=== PATIENT | female | born 1995 | race Two or more races ===

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

== ENCOUNTER 2017-01-06 09:45 | Outpatient (CLI) | payer OTHER ==
[2017-01-06] MEDS ORDERED: IOPAMIDOL-300 50 ML VIAL PO ONE (10:19)
[2017-01-06] MEDS ORDERED: IOPAMIDOL-300 100 ML VIAL IVP ONE (11:39)
--- NOTE | 2017-01-06 15:05 | CT Report ---
CT ABDOMEN AND PELVIS WITH CONTRAST: 01/06/2017 CLINICAL INDICATION: Bloating, pain. TECHNIQUE: Axial CT images of the abdomen and pelvis were obtained with 100 mL Isovue-300 intravenou sly as well as oral contrast. COMPARISON: 05/08/2014 FINDINGS: Limited evaluation of the lung bases is unremarkable. ABDOMEN: The liver, spleen, pancreas, kidneys and adrenal glands are unremarkable. The gallbladder is not dilated. No bowel dilatation, free gas, or free fluid is present. No abdominal adenopathy is seen. PELVIS: The appendix is seen in the right lower quadrant, and is normal in caliber. An IUD is incid entally noted in the endometrial canal. No pelvic adenopathy or free fluid is present. Osseous structures are unremarkable. IMPRESSION: NORMAL CT OF THE ABDOMEN AND PELVIS WITH CONTRAST. NO EVIDENCE OF ETIOLOGY FOR PATIENT' S PAIN AND BLOATING. In accordance with CT protocol optimization, one or more of the following dose reduction techniques w ere utilized for this exam: automated exposure control, adjustment of mA and/or KV based on patient size, or use of iterative reconstructive technique. JOB #: [id number] EXT JOB #:[id number]
== END 2017-01-06 09:46 | disposition home or self-care (01) ==
LOC: DI 09:45
PROVIDERS: ATTEND Physician Assistant Medical
DX: R14.0 Abdominal distension (gaseous) (principal); R10.12 Left upper quadrant pain
CPT/HCPCS: 74177; Q9967

== ENCOUNTER 2017-04-01 12:37 | Outpatient (CLI) | payer OTHER ==
[~2017-04-01 12:37] MED LIST: GADOBUTROL 15 MMOL/15 ML VIAL ONE
[2017-04-01] MEDS ORDERED: GADOBUTROL 15 MMOL/15 ML VIAL IVP ONE (13:36)
--- NOTE | 2017-04-04 08:57 | MRI Report ---
EXAM: MRI BRAIN WITHOUT AND WITH CONTRAST EXAM DATE: 04/01/2017 01:47 PM. CLINICAL HISTORY: Headache. History of concussion. Abnormal brain MRI. COMPARISON: MRI brain 06/21/2012. TECHNIQUE: Multiplanar, multisequence T1-weighted and fluid-sensitive MR sequences of the brain were performed. Sequences optimized for routine evaluation. Other: None. IV Contrast: 12 cc Gadavist. 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 The right cerebellar tonsil is not significantly beaked or dysplastic in appearance. No cerebellar tonsillar ectopia is present on the left. No restricted diffusion signal or magnetic susceptibility is identified in the brain parenchyma. Ventricles and sulci are within normal limits. No abnormal T2 or FLAIR hyperintense signal is present within the brain parenchyma. No extra-axial fl uid collection is present. Expected flow voids are seen in the major intracranial vessels at the skull base. No abnormal T1 shortening or enhancing mass is present in the brain parenchyma. No mass is present in either Meckel's cave. Cavernous sinuses enhance in symmetric fashion. No orbital mass is present. In the posterior aspect of the sella turcica there is a 6 x 4 x 5 mm craniocaudal by anterior posteri or by transverse nonenhancing focus which has been signal characteristics similar to CSF. This is michelle tered to the right of midline. A similar finding is seen on the comparison MRI. The pituitary stalk i s midline. Expected enhancement is seen in the major dural venous sinuses. Lymph nodes in the upper neck bilaterally might well be reactive in nature. Mastoid air cells are well-aerated. No air-fluid levels are seen in the visualized paranasal sinuses IMPRESSION: 1.Stable MRI of the brain. 2. 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 3. Redemonstrated is a small cystic focus in the sella turcica. This could reflect a pars intermedius cyst or an off midline Rathke's cleft cyst. The appearance is not typical of a pituitary microadenom a. 4. In reference to the history of prior concussion, no abnormal magnetic susceptibility is seen in th e brain parenchyma to suggest prior hemorrhagic contusions. [facility] Referring Provider Line: [phone] SITE ID: [id number]
== END 2017-04-01 12:38 | disposition home or self-care (01) ==
LOC: DI 12:37
PROVIDERS: ATTEND Physician Assistant Medical
DX: R51 Headache (principal); R90.89 Other abnormal findings on diagnostic imaging of central nervous system
CPT/HCPCS: 70553; A9585

== ENCOUNTER 2017-04-23 11:52 | Emergency (ER) | payer OTHER ==
[2017-04-23 12:02] VITALS: BP 114/72
[2017-04-23 12:35] LABS: RAPID STREP SCREEN REAGENT QC YELLOW (YELLOW)
[2017-04-23] MEDS ORDERED: DEXAMETHASONE 10 MG/ML VIAL PO STA (12:51)
--- NOTE | 2017-04-23 12:53 | ED Physician Documentation ---
PD HPI HEENT - Stated complaint Stated Complaint: THROAT PX - Chief complaint Chief Complaint: Heent - History obtained from History obtained from: Patient - History of Present Illness Timing - onset: How many days ago (2) Timing - duration: Days (2) Timing - details: Gradual onset, Still present Location: Right ear, Left ear, Throat Improves: Medication Worsens: Swalllowing Associated symptoms: Congestion, Rhinorrhea, Swollen nodes, Headache, Cough Similar symptoms before: Diagnosis (OM) Recently seen: Not recently seen - Additional information Additional information: 21-year-old female comes back into the emergency department again today with a sore throat and pain in both of her ears. She has had this previously about 1 month ago was treated here in the emergency department with dexamethasone and a azithromycin. She was Initially better and then did not improve. She was reexamined and did not have inflammation present.She has had persistent headache on the left side. Review of Systems Constitutional: reports: Fatigue. denies: Fever Eyes: denies: Decreased vision Ears: reports: Ear pain Nose: reports: Rhinorrhea / runny nose, Congestion Throat: reports: Sore throat Cardiac: denies: Chest pain / pressure, Palpitations Respiratory: reports: Cough. denies: Dyspnea GI: reports: Nausea. 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 : None HEENT: None Psych: None Musculoskeletal: Other Derm: None - Past Surgical History Past Surgical History: No - Present Medications Home Medications: Ambulatory Orders Medication Instructions Recorded Confirmed Amox/Clav 875/125 [Augmentin] 1 each PO Q12H #20 tablet 04/23/17 - Allergies Allergies/Adverse Reactions: Allergies Allergy/AdvReac Type Severity Reaction Status Date / Time No Known Drug Allergies Allergy Verified 04/23/17 12:02 - Social History Does the pt smoke?: No Smoking Status: Never smoker Does the pt drink ETOH?: No Does the pt have substance abuse?: No - Immunizations Immunizations are current?: Yes - POLST Patient has POLST: No PD ED PE NORMAL - Vitals Vital signs reviewed: Yes (Normal) - General General: Alert and oriented X 3, No acute distress, Well developed/nourished - HEENT HEENT: Atraumatic, PERRL, EOMI, Other (The left TM is markedly inflamed with some flattening of landmarks the right TM is mildly inflamed. The pharynx shows erythema along the anterior tonsillar pillars bilaterally.) - Neck Neck: Supple, no meningeal sign, No bony TTP, Other (Tender submandibular adenopathy) - Cardiac Cardiac: RRR, No murmur - Respiratory Respiratory: No respiratory distress, Clear bilaterally - Abdomen Abdomen: Soft, Non tender - Derm Derm: Normal color, Warm and dry, No rash - Extremities Extremities: No deformity, No edema - Neuro Neuro: No motor deficit, No sensory deficit Eye Opening: Spontaneous Motor: Obeys Commands Verbal: Oriented GCS Score: 15 - Psych Psych: Normal mood, Normal affect Results - Vitals Vitals: Vital Signs - 24 hr 04/23/17 12:00 Temperature 36.2 C L Heart Rate 60 Respiratory 18 Rate Blood Pressure 114/72 O2 Saturation 100 Oxygen O2 Source Room air - Labs Labs: Laboratory Tests 04/23/17 12:01 Group A Strep Rapid Negative PD MEDICAL DECISION MAKING - ED course Complexity details: reviewed old records, reviewed results, re-evaluated patient , considered differential, d/w patient ED course: 21-year-old female is again here with sore throat and ear pain. She does today have more information on the left than the right and this is opposite what she had previously she does have inflammation along the tonsillar pillars bilaterally as well. She is administered dexamethasone orally and we will place her on some Augmentin this time. Departure - Departure Disposition: 01 Home, Self Care Clinical Impression: Otitis media Qualifiers: Otitis media type: suppurative Chronicity: acute Laterality: bilateral Recurrence: recurrent Spontaneous tympanic membrane rupture: without spontaneous rupture Qualified Code(s): H66.006 - Acute suppurative otitis media without spontaneous rupture of ear drum, recurrent, bilateral Condition: Stable Instructions: ED Otitis Media Acute Adult Follow-Up: Armida Herrera PA-C [Primary Care Provider] - Prescriptions: Amox/Clav 875/125 [Augmentin] 1 each PO Q12H #20 tablet
== END 2017-04-23 13:01 | disposition home or self-care (01) ==
LOC: ED 11:52
DX: H66.003 Acute suppurative otitis media without spontaneous rupture of ear drum, bilateral (principal)
CPT/HCPCS: 87070; 87430; 99283

== ENCOUNTER 2017-04-24 02:08 | Emergency (ER) | payer OTHER ==
--- NOTE | 2017-04-24 02:14 | ED Physician Documentation ---
History of Present Illness - Stated complaint Stated Complaint: URINARY FREQUENCY,PAIN - History obtained from History obtained from: Patient - History of Present Illness Timing: Today Pain level max: 0 Pain level now: 0 Improved by: urinating Worsened by: nothing - Additonal information Additional information: Patient is a 21-year-old female that was seen here yesterday and diagnosed with acute otitis media. She has not started her antibiotics yet. She felt like she was having urinary frequency today. No dysuria. No fevers. No vomiting. No abdominal pain. No back pain. Pt is not or breast feeding. Review of Systems Constitutional: denies: Fever, Chills GI: denies: Nausea, Vomiting, Diarrhea : reports: Frequency. 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: No - Immunizations Immunizations are current?: Yes - POLST Patient has POLST: No PD ED PE NORMAL - Vitals Vital signs reviewed: Yes - General General: Alert and oriented X 3, No acute distress, Well developed/nourished - HEENT HEENT: PERRL, Ears normal, Moist mucous membranes, Pharynx benign - Neck Neck: Supple, no meningeal sign - Cardiac Cardiac: RRR, Strong equal pulses - Respiratory Respiratory: No respiratory distress, Clear bilaterally - Abdomen Abdomen: Soft, Non tender, Non distended - Back Back: No CVA TTP, No spinal TTP - Derm Derm: Warm and dry - Neuro Neuro: Alert and oriented X 3 - Psych Psych: Normal mood, Normal affect Results - Vitals Vitals: Vital Signs - 24 hr 04/24/17 04/24/17 02:12 02:51 Temperature 36.5 C Heart Rate 122 H 71 Respiratory 18 18 Rate Blood Pressure 160/91 H 133/72 H O2 Saturation 100 98 Oxygen O2 Source Room air - Labs Labs: Laboratory Tests 04/24/17 02:10 Urine Color YELLOW Urine Clarity CLEAR Urine pH 7.5 Ur Specific [place] 1.020 Urine Protein NEGATIVE Urine Glucose (UA) NEGATIVE Urine Ketones NEGATIVE Urine Occult Blood NEGATIVE Urine Nitrite NEGATIVE Urine Bilirubin NEGATIVE Urine Urobilinogen 0.2 (NORMAL) Ur Leukocyte Esterase NEGATIVE Ur Microscopic Review NOT INDICATED Urine Culture Comments NOT INDICATED Urine HCG, Qual NEGATIVE PD MEDICAL DECISION MAKING - ED course Complexity details: reviewed old records, reviewed results, re-evaluated patient , considered differential, d/w patient ED course: Patient is a 21-year-old female who presents to the emergency department with urinary frequency, but no dysuria. Unclear etiology. No vaginal bleeding or discharge. Declines a pelvic. Feels better after Pyridium. Will trial on Pyridium for home. We will have her follow-up with her doctor for further evaluation and care. Patient counseled regarding signs and symptoms for which I believe and urgent re-evaluation would be necessary. Patient with good understanding of and agreement to plan and is comfortable going home at this time This document was made in part using voice recognition software. While efforts are made to proofread this document, sound alike and grammatical errors may occur. Departure - Departure Disposition: 01 Home, Self Care Clinical Impression: Urinary frequency Condition: Good Instructions: ED Dysuria Uncertain Cause Follow-Up: Armida Herrera PA-C [Primary Care Provider] - Within 1 week Prescriptions: Phenazopyridine HCl [Pyridium] 200 mg PO TID PRN #6 tablet PRN Reason: dysuria Comments: Fill your antibiotics from your prior visit as previously prescribed. Return if you worsen. Discharge Date/Time: 04/24/17 02:55
[2017-04-24] MEDS ORDERED: PHENAZOPYRIDINE 100 MG TABLET PO STA (02:24)
[2017-04-24 02:26] LABS: BILIRUBIN,URINE NEGATIVE (NEGATIVE); PH,URINE 7.5 PH (5.0-7.5)
[2017-04-24 02:30] LABS: HCG UR QUAL NEGATIVE; UA CHARGE (STRIP ONLY) YES; UR CULTURE IF IND NOT INDICATED
[2017-04-24 02:51] VITALS: BP 133/72
== END 2017-04-24 02:55 | disposition home or self-care (01) ==
LOC: ED 02:08
DX: R35.0 Frequency of micturition (principal)
CPT/HCPCS: 81003; 81025; 99283; A9270; 81001; 87086

== ENCOUNTER 2017-04-26 19:00 | Emergency (ER) | payer OTHER ==
[2017-04-26 21:40] LABS: BILIRUBIN,URINE NEGATIVE (NEGATIVE); GLUCOSE, URINE (UA) NEGATIVE (NEGATIVE); KETONES,URINE (UA) NEGATIVE (NEGATIVE); LEUKOCYTE ESTERASE, URINE NEGATIVE (NEGATIVE); NITRITE,URINE NEGATIVE (NEGATIVE); OCCULT BLOOD,URINE NEGATIVE (NEGATIVE); PROTEIN,URINE NEGATIVE (NEGATIVE); UROBILINOGEN,URINE 0.2 (NORMAL) E.U./dL (NORMAL)
[2017-04-26 21:44] LABS: HCG UR QUAL NEGATIVE
[2017-04-26 21:45] LABS: CLARITY,URINE CLEAR (CLEAR)
--- NOTE | 2017-04-26 22:17 | ED Physician Documentation ---
History of Present Illness - Stated complaint Stated Complaint: SIDE/BACK PX - Chief complaint Chief Complaint: Back Pain - History obtained from History obtained from: Patient (pt is here for left sided flank pain and frequent urination. she was seen here a couple days ago for the same thing.) Review of Systems Constitutional: denies: Fever, Chills Cardiac: denies: Chest pain / pressure, Palpitations Respiratory: denies: Cough GI: denies: Abdominal Pain, Nausea, Vomiting, Constipation, Diarrhea : reports: Frequency. 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 : None HEENT: None Psych: None Musculoskeletal: Other Derm: None - Past Surgical History Past Surgical History: No - Present Medications Home Medications: Ambulatory Orders Medication Instructions Recorded Confirmed Ondansetron Odt [Zofran Odt] 4 mg TL Q6H PRN #10 tablet 04/26/17 - Allergies Allergies/Adverse Reactions: Allergies Allergy/AdvReac Type Severity Reaction Status Date / Time No Known Drug Allergies Allergy Verified 04/23/17 12:02 - Social History Does the pt smoke?: No Smoking Status: Never smoker Does the pt drink ETOH?: No Does the pt have substance abuse?: No - Immunizations Immunizations are current?: Yes - POLST Patient has POLST: No Results - Vitals Vitals: Vital Signs - 24 hr 04/26/17 19:02 Temperature 36.0 C L Heart Rate 73 Respiratory 18 Rate Blood Pressure 127/83 H O2 Saturation 100 Oxygen O2 Source Room air - Labs Labs: Laboratory Tests 04/26/17 04/26/17 21:27 21:27 Urine Color YELLOW Urine Clarity CLEAR Urine pH 6.0 Ur Specific [place] 1.025 1.025 Urine Protein NEGATIVE Urine Glucose (UA) NEGATIVE Urine Ketones NEGATIVE Urine Occult Blood NEGATIVE Urine Nitrite NEGATIVE Urine Bilirubin NEGATIVE Urine Urobilinogen 0.2 (NORMAL) Ur Leukocyte Esterase NEGATIVE Ur Microscopic Review NOT INDICATED Urine Culture Comments NOT INDICATED Urine HCG, Qual NEGATIVE PD MEDICAL DECISION MAKING - ED course Complexity details: reviewed results, re-evaluated patient, considered differential, d/w patient ED course: UA neg for UTI or pyelo, hx and PE not C/W renal stone. unsure as to the etiology of her urinary frequency. discussed with the patient. she was given return precautions. Departure - Departure Disposition: 01 Home, Self Care Clinical Impression: Back pain, Urinary frequency Condition: Good Instructions: ED Flank Pain Uncertain Cause Follow-Up: primary, care provider [Other] Prescriptions: Ondansetron Odt [Zofran Odt] 4 mg TL Q6H PRN #10 tablet PRN Reason: Nausea / Vomiting Comments: Follow up with your primary care provider. Return to the ER for any new or worsening symptoms.
[2017-04-26 22:35] VITALS: BP 115/73
== END 2017-04-26 22:38 | disposition home or self-care (01) ==
LOC: ED 19:00
DX: M54.9 Dorsalgia, unspecified (principal); R35.0 Frequency of micturition
CPT/HCPCS: 81001; 81003; 81025; 87086; 99283

== ENCOUNTER 2017-05-16 13:00 | Outpatient (CLI) | payer OTHER | END 2017-05-16 13:01 | disposition home or self-care (01) | LOC: SC 13:00 | PROVIDERS: ATTEND Internal Medicine Pulmonary Disease | DX: G47.10 Hypersomnia, unspecified (principal); G47.8 Other sleep disorders; R06.83 Snoring; G47.21 Circadian rhythm sleep disorder, delayed sleep phase type | CPT/HCPCS: 99203; 99212 ==

== ENCOUNTER 2017-05-26 20:15 | Emergency (ER) | payer OTHER ==
[2017-05-26 20:27] VITALS: BP 121/71
--- NOTE | 2017-05-26 21:53 | ED Physician Documentation ---
History of Present Illness - Stated complaint Stated Complaint: LT EAR PX - Chief complaint Chief Complaint: Heent - History obtained from History obtained from: Patient (pt is here with a couple days of L>R ear fullness) Review of Systems Constitutional: denies: Fever, Chills Eyes: denies: Loss of vision Ears: reports: Ear pain. denies: Tinnitus/ringing Nose: reports: Congestion, Sinus pressure / pain Throat: denies: Oral lesions / sores, Sore throat Cardiac: denies: Chest pain / pressure Respiratory: denies: Dyspnea, Cough Skin: denies: Rash, Lesions PD PAST MEDICAL HISTORY - Past Medical History Past Medical History: Yes Cardiovascular: None Respiratory: None Neuro: None Endocrine/Autoimmune: None GI: Other YIELD CLERK: None : None HEENT: None Psych: Anxiety Musculoskeletal: Other Derm: None - Past Surgical History Past Surgical History: No - Present Medications Home Medications: Ambulatory Orders Medication Instructions Recorded Confirmed Ondansetron Odt [Zofran Odt] 4 mg TL Q6H PRN #10 tablet 04/26/17 - Allergies Allergies/Adverse Reactions: Allergies Allergy/AdvReac Type Severity Reaction Status Date / Time No Known Drug Allergies Allergy Verified 04/23/17 12:02 - Social History Does the pt smoke?: No Smoking Status: Never smoker Does the pt drink ETOH?: No Does the pt have substance abuse?: No - Immunizations Immunizations are current?: Yes - POLST Patient has POLST: No PD ED PE NORMAL - Vitals Vital signs reviewed: Yes - General General: Alert and oriented X 3, No acute distress, Well developed/nourished - HEENT HEENT: Atraumatic, Moist mucous membranes. No: Ears normal (bilateral TM bulging and dull but not red) - Cardiac Cardiac: RRR - Respiratory Respiratory: No respiratory distress, Clear bilaterally - Derm Derm: Normal color, No rash - Neuro Neuro: Alert and oriented X 3 Results - Vitals Vitals: Vital Signs - 24 hr 05/26/17 20:26 Temperature 35.9 C L Heart Rate 87 Respiratory 14 Rate Blood Pressure 121/71 O2 Saturation 97 Oxygen O2 Source Room air PD MEDICAL DECISION MAKING - ED course Complexity details: considered differential, d/w patient ED course: pt with serious otitis media. no indication for ABX. will treat with claritin and afrin. Departure - Departure Disposition: Home, Self Care Clinical Impression: Serous otitis media Condition: Good Instructions: ED Otitis Media Serous Adult Follow-Up: Armida Herrera PA-C [Primary Care Provider] - Comments: You can take claritin and afrin for your symptoms. Return to the ER for any new or worsening symptoms.
== END 2017-05-26 21:59 | disposition home or self-care (01) ==
LOC: ED 20:15
DX: H65.92 Unspecified nonsuppurative otitis media, left ear (principal)
CPT/HCPCS: 99282; 99283

== ENCOUNTER 2017-10-14 13:13 | Emergency (ER) | payer OTHER ==
[2017-10-14 13:25] VITALS: BP 126/67
[2017-10-14 14:07] LABS: BASOPHILS % (AUTO) 0.3 %; EOSINOPHILS # (AUTO) 0.5 10^3/uL (0.0-0.7); EOSINOPHILS % (AUTO) 4.5 %; HGB - HEMOGLOBIN 14.7 g/dL (12.0-16.0); LYMPHOCYTES # (AUTO) 2.1 10^3/uL (1.5-3.5); MEAN CORPUSCULAR HEMOGLOBIN 28.5 pg (27.0-31.0); MEAN CORPUSCULAR HGB CONC 33.6 g/dL (32.0-36.0); MEAN CORPUSCULAR VOLUME 84.8 fL (81.0-99.0); MEAN PLATELET VOLUME 8.1 fL (7.9-10.8); MONOCYTES # (AUTO) 0.7 10^3/uL (0.0-1.0); MONOCYTES % (AUTO) 6.4 %; NEUTROPHILS # (AUTO) 7.1 10^3/uL (1.5-6.6); NEUTROPHILS % (AUTO) 68.8 %; PLT - PLATELET COUNT 260 10^3/uL (130-450); RED BLOOD COUNT 5.17 10^6/uL (4.20-5.40); RED CELL DISTRIBUTION WIDTH 13.7 % (12.0-15.0); WHITE BLOOD COUNT 10.4 x10^3/uL (4.8-10.8)
[2017-10-14 14:11] LABS: BILIRUBIN,URINE NEGATIVE (NEGATIVE); GLUCOSE, URINE (UA) NEGATIVE (NEGATIVE); KETONES,URINE (UA) NEGATIVE (NEGATIVE); LEUKOCYTE ESTERASE, URINE NEGATIVE (NEGATIVE); NITRITE,URINE NEGATIVE (NEGATIVE); OCCULT BLOOD,URINE LARGE (NEGATIVE); PH,URINE 5.5 PH (5.0-7.5); PROTEIN,URINE NEGATIVE (NEGATIVE); UROBILINOGEN,URINE 0.2 (NORMAL) E.U./dL (NORMAL)
[2017-10-14 14:13] LABS: CLARITY,URINE CLEAR (CLEAR); HCG UR QUAL NEGATIVE
[2017-10-14 14:19] LABS: ALBUMIN 3.9 g/dL (3.2-5.5); ALBUMIN/GLOBULIN RATIO 1.1 (1.0-2.2); BILIRUBIN,TOTAL 0.7 mg/dL (0.2-1.0); CALCIUM 9.1 mg/dL (8.5-10.3); CREATININE 0.7 mg/dL (0.4-1.0); TOTAL PROTEIN 7.5 g/dL (6.7-8.2)
--- NOTE | 2017-10-14 14:33 | ED Physician Documentation ---
History of Present Illness - Stated complaint Stated Complaint: FM /SHARP BK PX/ LIGHT HEADED - Chief complaint Chief Complaint: Abd Pain - History obtained from History obtained from: Patient, Family - History of Present Illness Timing: Yesterday - Additonal information Additional information: Patient is a 22 year old female with no significant past medical history who is presenting to the emergency department for dizziness, flank pain and rectal bleeding. patient states the bleeding was only once with her bowel movement today. patient reports that the flank pain has been going of for the last couple of days. Review of Systems Constitutional: denies: Chills Cardiac: denies: Chest pain / pressure Respiratory: denies: Dyspnea, Cough GI: reports: Nausea. denies: Vomiting : reports: Dysuria PD PAST MEDICAL HISTORY - Past Medical History Past Medical History: Yes Cardiovascular: None Respiratory: None Endocrine/Autoimmune: None GI: Other RN PACU: None : None HEENT: None Psych: Anxiety Musculoskeletal: Other Derm: None - Past Surgical History Past Surgical History: No - Present Medications Home Medications: Ambulatory Orders Medication Instructions Recorded Confirmed Sulfamethox/Trimeth 800/160 1 each PO BID #10 tablet 10/14/17 [Bactrim Ds 800/160] - Allergies Allergies/Adverse Reactions: Allergies Allergy/AdvReac Type Severity Reaction Status Date / Time No Known Drug Allergies Allergy Verified 10/14/17 13:25 - Social History Does the pt smoke?: No Smoking Status: Never smoker Does the pt drink ETOH?: No Does the pt have substance abuse?: No - Immunizations Immunizations are current?: Yes - POLST Patient has POLST: No PD ED PE NORMAL - Vitals Vital signs reviewed: Yes - General General: Alert and oriented X 3, No acute distress - HEENT HEENT: Atraumatic - Neck Neck: Supple, no meningeal sign - Cardiac Cardiac: RRR - Respiratory Respiratory: No respiratory distress - Abdomen Abdomen: Soft, Non tender, Non distended - Derm Derm: Normal color, Warm and dry, No rash - Extremities Extremities: No deformity - Neuro Neuro: Alert and oriented X 3 Eye Opening: Spontaneous Motor: Obeys Commands Verbal: Oriented GCS Score: 15 PD ED PE EXPANDED - Rectal Rectal: Fissure. No: Hemorrhoid - Back Back: CVA TTP right Results - Vitals Vitals: Vital Signs - 24 hr 10/14/17 13:22 Temperature 36.1 C L Heart Rate 59 L Respiratory 16 Rate Blood Pressure 126/67 O2 Saturation 98 Oxygen O2 Source Room air - Labs Labs: Laboratory Tests 10/14/17 10/14/17 10/14/17 14:04 14:04 14:05 WBC 10.4 RBC 5.17 Hgb 14.7 Hct 43.8 MCV 84.8 MCH 28.5 MCHC 33.6 RDW 13.7 Plt Count 260 MPV 8.1 Neut # (Auto) 7.1 H Lymph # (Auto) 2.1 [place] # (Auto) 0.7 Eos # (Auto) 0.5 Baso # (Auto) 0.0 Absolute Nucleated RBC 0.00 Nucleated RBC % 0.0 Sodium 136 Potassium 3.7 Chloride 105 Carbon Dioxide 24 Anion Gap 7.0 BUN 11 Creatinine 0.7 Estimated GFR (MDRD) 107 Glucose 77 Calcium 9.1 Total Bilirubin 0.7 AST 22 ALT 21 Alkaline Phosphatase 57 Total Protein 7.5 Albumin 3.9 Globulin 3.6 Albumin/Globulin Ratio 1.1 Lipase 33 Urine Color YELLOW Urine Clarity CLEAR Urine pH 5.5 Ur Specific [place] >=1.030 H Urine Protein NEGATIVE Urine Glucose (UA) NEGATIVE Urine Ketones NEGATIVE Urine Occult Blood LARGE H Urine Nitrite NEGATIVE Urine Bilirubin NEGATIVE Urine Urobilinogen 0.2 (NORMAL) Ur Leukocyte Esterase NEGATIVE Urine RBC TNTC H Urine WBC 0-3 Ur Squamous Epith Cells FEW Squamous Urine Bacteria Moderate H Ur Microscopic Review INDICATED Urine Culture Comments INDICATED Urine HCG, Qual NEGATIVE PD MEDICAL DECISION MAKING - ED course Complexity details: reviewed old records, reviewed results, re-evaluated patient , considered differential, d/w patient ED course: Patient was seen and examined at bedside. patient's urine was collected and labs were drawn. patient's findings were consistent with cystitis. patient was able to tolerate PO without any difficulty. Patient was treated with bactrim. Patient required no further inpatient work up and was stable for discharge with outpatient follow up. - Sepsis Event Vital Signs: Vital Signs - 24 hr 10/14/17 13:22 Temperature 36.1 C L Heart Rate 59 L Respiratory 16 Rate Blood Pressure 126/67 O2 Saturation 98 Oxygen O2 Source Room air Departure - Departure Disposition: 01 Home, Self Care Clinical Impression: Cystitis Condition: Good Instructions: ED UTI Cystitis Female Follow-Up: primary,care provider [Other] Prescriptions: Sulfamethox/Trimeth 800/160 [Bactrim Ds 800/160] 1 each PO BID #10 tablet Comments: Your symptoms today are at least in part being caused by a bladder infection. You had your first dose of antibiotics today and will be on the for the next 5 days. It is important that increase your fluid uptake. You should follow up with your doctor if your symptoms don't improve. You may return to the emerency department at any time for new, worsening or uncontrollable symptoms. Discharge Date/Time: 10/14/17 15:01
[2017-10-14 14:38] LABS: RBC,URINE TNTC /HPF (0-5); SQUAMOUS EPITHELIAL CELL,UR FEW Squamous (<= Few)
[2017-10-14 14:39] LABS: BACTERIA,URINE Moderate /HPF (None Seen)
[2017-10-14] MEDS ORDERED: SULFAMETH/TRIMETH DS 800/160 MG TABLET PO STA (14:52)
== END 2017-10-14 15:01 | disposition home or self-care (01) ==
LOC: ED 13:13
DX: N30.01 Acute cystitis with hematuria (principal)
CPT/HCPCS: 80053; 81001; 81025; 83690; 85025; 87086; 99283; A9270; 81003

== ENCOUNTER 2017-10-19 08:01 | Outpatient (CLI) | payer OTHER ==
--- NOTE | 2017-10-19 09:04 | CT Report ---
Procedure Date: 10/19/2017 Accession Number: [id number] / [id number] Procedure: CT - Abdomen/Pelvis W/O CPT Code: FULL RESULT: EXAM: CT ABDOMEN AND PELVIS (CT KUB) EXAM DATE: 10/19/2017 08:14 AM. CLINICAL HISTORY: FLANK PAIN, RIGHT, HEMATURIA. COMPARISONS: 01/06/2017. TECHNIQUE: Routine axial helical CT imaging was performed through the abdomen and pelvis without IV contrast. Reconstructions: Coronal and sagittal. In accordance with CT protocol optimization, one or more of the following dose reduction techniques were utilized for this exam: automated exposure control, adjustment of mA and/or KV based on patient size, or use of iterative reconstructive technique. FINDINGS: Lung Bases: Unremarkable. Right Kidney/Ureter: No stones, hydronephrosis, or hydroureter. No perinephric fat stranding. Left Kidney/Ureter: No stones, hydronephrosis, or hydroureter. No perinephric fat stranding. Other Solid Organs: Noncontrast images of the solid organs are grossly unremarkable. Gallbladder/Bile Ducts: Unremarkable. Peritoneal Cavity: No free fluid, free air or jeff adenopathy. Bowel is grossly unremarkable. Appendix appears normal. Pelvic Organs: Unremarkable urinary bladder for degree of distention. No bladder calculi are noted. Uterus and ovaries appear normal by CT. Unchanged pelvic phleboliths are seen. Vasculature: Unremarkable. Other: None. IMPRESSION: No urinary tract stones or obstruction. Normal appendix. No definite CT findings to explain flank pain. RADIA
== END 2017-10-19 08:02 | disposition home or self-care (01) ==
LOC: DI 08:01
PROVIDERS: ATTEND Family Medicine
DX: R10.9 Unspecified abdominal pain (principal); R31.9 Hematuria, unspecified
CPT/HCPCS: 74176

== ENCOUNTER 2017-11-08 08:00 | Outpatient (CLI) | payer OTHER ==
[2017-11-08 19:07] LABS: BASOPHILS % (AUTO) 0.3 %; EOSINOPHILS # (AUTO) 0.4 10^3/uL (0.0-0.7); LYMPHOCYTES # (AUTO) 2.7 10^3/uL (1.5-3.5); LYMPHOCYTES % (AUTO) 20.4 %; MEAN CORPUSCULAR HEMOGLOBIN 27.9 pg (27.0-31.0); MEAN CORPUSCULAR HGB CONC 33.2 g/dL (32.0-36.0); MEAN CORPUSCULAR VOLUME 84.1 fL (81.0-99.0); MEAN PLATELET VOLUME 7.9 fL (7.9-10.8); MONOCYTES # (AUTO) 0.8 10^3/uL (0.0-1.0); MONOCYTES % (AUTO) 6.1 %; NEUTROPHILS # (AUTO) 9.3 10^3/uL (1.5-6.6); NEUTROPHILS % (AUTO) 70.2 %; PLT - PLATELET COUNT 345 10^3/uL (130-450); RED BLOOD COUNT 4.64 10^6/uL (4.20-5.40); RED CELL DISTRIBUTION WIDTH 13.4 % (12.0-15.0); WHITE BLOOD COUNT 13.3 x10^3/uL (4.8-10.8)
[2017-11-08 20:54] LABS: ALBUMIN 3.3 g/dL (3.2-5.5); ALBUMIN/GLOBULIN RATIO 0.9 (1.0-2.2); ALKALINE PHOSPHATASE 69 IU/L (42-121); ALT ALANINE AMINOTRANSFERASE 44 IU/L (10-60); AST ASPARTATE AMINOTRANSFERASE 22 IU/L (10-42); BILIRUBIN,TOTAL 0.4 mg/dL (0.2-1.0); BUN - BLOOD UREA NITROGEN 8 mg/dL (6-20); CALCIUM 9.3 mg/dL (8.5-10.3); CARBON DIOXIDE - CO2 24 mmol/L (21-32); CHLORIDE 104 mmol/L (101-111); CREATININE 0.6 mg/dL (0.4-1.0); GFR - MDRD 127 (>89); GLUCOSE 65 mg/dL (70-100); SODIUM 135 mmol/L (135-145); TOTAL PROTEIN 6.8 g/dL (6.7-8.2)
[2017-11-08 21:02] LABS: CRP - C-REACTIVE PROTEIN < 1.0 mg/dL (0-1.0)
== END 2017-11-08 08:01 | disposition home or self-care (01) ==
LOC: LAB.WCP 08:00
PROVIDERS: ATTEND Family Medicine
DX: K11.20 Sialoadenitis, unspecified (principal)
CPT/HCPCS: 36415; 80053; 85025; 86140; 86735

== ENCOUNTER 2017-11-16 08:00 | Outpatient (CLI) | payer OTHER | END 2017-11-16 08:01 | disposition home or self-care (01) | LOC: LAB.WCP 08:00 | PROVIDERS: ATTEND Family Medicine | DX: K11.20 Sialoadenitis, unspecified (principal) | CPT/HCPCS: 36415; 81599; 86235 ==

== ENCOUNTER 2017-11-18 11:12 | Outpatient (CLI) | payer OTHER ==
--- NOTE | 2017-11-18 16:48 | CT Report ---
Procedure Date: 11/18/2017 Accession Number: [id number] / [id number] Procedure: CT - Facial Bones W/O CPT Code: FULL RESULT: EXAM: Facial Bones W/O DATE: 11/18/2017 11:21 AM CLINICAL HISTORY: SIALOADENITIS, UNSPECIFIED, PAROTITIS, LEFT TECHNIQUE: 2.5 mm thick contiguous axial scans of face/paranasal sinuses were acquired in axial plane. Coronal reformats were also generated and reviewed. COMPARISON: None. FINDINGS: Please note that noncontrast CT facial bones is suboptimal for evaluation of the salivary glands and parotid gland. Within these limitations, the left parotid gland contains lymph nodes and is symmetric with the right parotid gland which also contains lymph nodes. No surrounding fat stranding is appreciated. Submental salivary glands are not well seen without contrast. Submandibular salivary glands also appear symmetric without significant surrounding fat stranding. No definite fracture is noted in facial bones. Visualized paranasal sinuses are well-aerated. No evidence of abnormal air-fluid levels. Bilateral mastoids also appear unremarkable. Both globes, extraocular muscles, optic nerves and retrobulbar fat appears normal. Visualized upper aerodigestive tract appears normal. Mandible and bilateral temporomandibular joints appear normal. IMPRESSION: Limited examination with symmetric parotid glands and submandibular salivary glands. For evaluation of soft tissue structures in the face and neck, CT neck with IV contrast or initial ultrasound exam is recommended.
== END 2017-11-18 11:13 | disposition home or self-care (01) ==
LOC: DI 11:12
PROVIDERS: ATTEND Family Medicine
DX: K11.20 Sialoadenitis, unspecified (principal)
CPT/HCPCS: 70486

== ENCOUNTER → 2017-12-28 | Outpatient (CLI) | payer OTHER ==
[2017-12-28 18:44] LABS: BASOPHILS % (AUTO) 0.3 %; EOSINOPHILS # (AUTO) 0.3 10^3/uL (0.0-0.7); EOSINOPHILS % (AUTO) 3.6 %; HGB - HEMOGLOBIN 13.5 g/dL (12.0-16.0); LYMPHOCYTES # (AUTO) 2.1 10^3/uL (1.5-3.5); LYMPHOCYTES % (AUTO) 24.3 %; MEAN CORPUSCULAR HEMOGLOBIN 27.6 pg (27.0-31.0); MEAN CORPUSCULAR HGB CONC 33.1 g/dL (32.0-36.0); MEAN CORPUSCULAR VOLUME 83.4 fL (81.0-99.0); MEAN PLATELET VOLUME 8.5 fL (7.9-10.8); MONOCYTES # (AUTO) 0.8 10^3/uL (0.0-1.0); MONOCYTES % (AUTO) 8.9 %; NEUTROPHILS # (AUTO) 5.4 10^3/uL (1.5-6.6); NEUTROPHILS % (AUTO) 62.9 %; PLT - PLATELET COUNT 290 10^3/uL (130-450); RED CELL DISTRIBUTION WIDTH 13.7 % (12.0-15.0); WHITE BLOOD COUNT 8.5 x10^3/uL (4.8-10.8)
[2017-12-28 19:15] LABS: HCG,QUALITATIVE BLOOD NEGATIVE
[2017-12-28 19:31] LABS: ALBUMIN 3.8 g/dL (3.2-5.5); ALBUMIN/GLOBULIN RATIO 1.1 (1.0-2.2); ALKALINE PHOSPHATASE 58 IU/L (42-121); ALT ALANINE AMINOTRANSFERASE 27 IU/L (10-60); AST ASPARTATE AMINOTRANSFERASE 24 IU/L (10-42); BILIRUBIN,TOTAL 0.7 mg/dL (0.2-1.0); BUN - BLOOD UREA NITROGEN 10 mg/dL (6-20); CALCIUM 9.4 mg/dL (8.5-10.3); CARBON DIOXIDE - CO2 23 mmol/L (21-32); CHLORIDE 106 mmol/L (101-111); CREATININE 0.6 mg/dL (0.4-1.0); GFR - MDRD 127 (>89); GLUCOSE 82 mg/dL (70-100); SODIUM 136 mmol/L (135-145); TOTAL PROTEIN 7.2 g/dL (6.7-8.2)
[2017-12-28 19:32] LABS: CRP - C-REACTIVE PROTEIN < 1.0 mg/dL (0-1.0)
== END ==
LOC: LAB.WCP 08:00
PROVIDERS: ATTEND Family Medicine
DX: R10.2 Pelvic and perineal pain (principal)
CPT/HCPCS: 36415; 80053; 84703; 85025; 86140

== ENCOUNTER 2018-01-05 15:56 | Outpatient (CLI) | payer OTHER ==
--- NOTE | 2018-01-05 21:56 | Ultrasound Report ---
Reason: PELVIC PAIN,ACUTE Procedure Date: 01/05/2018 Accession Number: [id number] / [id number] Procedure: US - Pelvic w/Transvaginal CPT Code: FULL RESULT: EXAM: PELVIC ULTRASOUND EXAM DATE: 01/05/2018 04:44 PM. CLINICAL HISTORY: PELVIC PAIN,ACUTE. COMPARISON: None. TECHNIQUE: Realtime transabdominal pelvic scan performed to identify the uterus and adnexa and as an overview of other pelvic structures, followed by transvaginal scan to provide greater detail of the uterus and adnexa, with static image documentation. FINDINGS: Uterus: 7.0 x 4.9 x 4.1 cm, volume 73.5 cc. Anteverted position. Normal overall size and echotexture. Masses: 0.7 cm posterior fibroid is present adjacent to the endometrium. Endometrium: 1.5 mm. No focal endometrial abnormalities. Cervix: Nabothian cyst. Right Ovary: 4.2 x 2.0 x 1.8 cm, volume 7.9 cc. Normal echotexture and blood flow. Numerous small peripheral follicles. Left Ovary: 4.9 x 2.8 x 3.0 cm, volume 21.5 cc. Normal echotexture and blood flow. Numerous small peripheral follicles. 1.6 cm likely corpus luteal cyst. Free Fluid: Small amount, likely physiologic. Other: None. IMPRESSION: No acute sonographic abnormalities. Polycystic ovarian morphology. Correlation as to the possible presence of PCO S. Subcentimeter posterior uterine fibroid. RADIA
== END 2018-01-05 15:57 | disposition home or self-care (01) ==
LOC: DI 15:56
PROVIDERS: ATTEND Family Medicine
DX: D25.9 Leiomyoma of uterus, unspecified (principal)
CPT/HCPCS: 76830; 76856

== ENCOUNTER 2018-01-12 01:48 | Emergency (ER) | payer OTHER ==
[2018-01-12 02:02] VITALS: BP 137/70
--- NOTE | 2018-01-12 02:03 | ED Physician Documentation ---
PD HPI LOWER EXT INJURY - Stated complaint Stated Complaint: L LEG PAIN - Chief complaint Chief Complaint: Trauma Ext - History obtained from History obtained from: Patient - History of Present Illness PD HPI LOW EXT INJURY LOCATION: Left, Knee, Ankle Type of injury: Twist Where injury occurred: Home Timing - onset: Today Timing - details: Abrupt onset Worsened by: Moving, Palpating Similar symptoms before: Has not had sx before Recently seen: Not recently seen - Additional information Additional information: Patient is a 22 year old female with no significant past medical history who is presenting to the emergency department for knee and ankle pain. patient was hanging out with her friends and she got knocked over and she heard a crunch in her knee. 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 : None HEENT: None Psych: Anxiety Musculoskeletal: Other Derm: None - Past Surgical History Past Surgical History: No - Present Medications Home Medications: Ambulatory Orders Medication Instructions Recorded Confirmed No Known Home Medications 01/12/18 01/12/18 - Allergies Allergies/Adverse Reactions: Allergies Allergy/AdvReac Type Severity Reaction Status Date / Time No Known Drug Allergies Allergy Verified 01/12/18 02:06 - Social History Does the pt smoke?: No Smoking Status: Never smoker Does the pt drink ETOH?: No Does the pt have substance abuse?: No - Immunizations Immunizations are current?: Yes - POLST Patient has POLST: No PD ED PE NORMAL - Vitals Vital signs reviewed: Yes - General General: Alert and oriented X 3 - HEENT HEENT: Atraumatic - Cardiac Cardiac: RRR - Respiratory Respiratory: No respiratory distress - Abdomen Abdomen: Soft - Derm Derm: Normal color, Warm and dry - Neuro Neuro: Alert and oriented X 3, No motor deficit, Normal speech Eye Opening: Spontaneous Motor: Obeys Commands Verbal: Oriented GCS Score: 15 PD ED PE EXPANDED - Extremities Extremities: Left knee (mild tenderness to palpation of left knee), Left ankle (no bony tenderness), Motor intact, Sensory intact, Vascular intact Results - Vitals Vitals: Vital Signs - 24 hr 01/12/18 01:57 Temperature 36.9 C Heart Rate 80 Respiratory 18 Rate Blood Pressure 137/70 H O2 Saturation 100 Oxygen O2 Source Room air - Rads (name of study) left knee Radiology: Final report received (mild joint space narrowing) PD MEDICAL DECISION MAKING - ED course Complexity details: reviewed old records, reviewed results, re-evaluated patient, considered differential, d/w patient ED course: Patient was seen and examined at bedside. Patient's ott[place] ankle rules was negative. knee x-ray was ordered and patient was treated with ibuprofen. when patient returned the results were reviewed. there was no acute fracture or dislocation. patient required no further work up and was stable for discharge with outpatient follow up. - Sepsis Event Vital Signs: Vital Signs - 24 hr 01/12/18 01:57 Temperature 36.9 C Heart Rate 80 Respiratory 18 Rate Blood Pressure 137/70 H O2 Saturation 100 Oxygen O2 Source Room air Departure - Departure Disposition: 01 Home, Self Care Clinical Impression: Knee injury Condition: Good Instructions: Knee Pain Follow-Up: Dottie Llamas DO [Primary Care Provider] - As Needed Comments: Your diagnostics today were within normal limits. there are no acute fractures or dislocations. there is some joint space narrowing making it more likely that you will have arthritis when you are older. You should ice and elevate your knee. You can take motrin or tylenol as needed for pain. You can return to the emergency department at any time for new, worsening or uncontrollable symptoms.
--- NOTE | 2018-01-12 02:51 | XRAY Report ---
Reason: left sided knee pain Procedure Date: 01/12/2018 Accession Number: [id number] / [id number] Procedure: XR - Knee 2 View LT CPT Code: FULL RESULT: EXAM: LEFT KNEE RADIOGRAPHY EXAM DATE: 01/12/2018 02:42 AM. CLINICAL HISTORY: Left sided knee pain. COMPARISON: XR KNEE 4 OR MORE VIEWS 06/04/2011. TECHNIQUE: 2 views. FINDINGS: Bones: No fracture seen. Joints: No dislocation. Minimal joint space narrowing in the medial compartment. No joint effusion seen. Soft Tissues: Grossly unremarkable. IMPRESSION: 1. Minimal joint space narrowing in the medial compartment. 2. Otherwise unremarkable. RADIA
== END 2018-01-12 03:34 | disposition home or self-care (01) ==
LOC: ED 01:48
DX: S89.92XA Unspecified injury of left lower leg, initial encounter (principal); X50.1XXA Overexertion from prolonged static or awkward postures, initial encounter; Y93.89 Activity, other specified; Y92.009 Unspecified place in unspecified non-institutional (private) residence as the place of occurrence of the external cause
CPT/HCPCS: 99282; 99283

== ENCOUNTER 2018-02-08 01:10 | Emergency (ER) | payer OTHER ==
[2018-02-08] MEDS ORDERED: SODIUM CHLORIDE 0.9% 1,000 ML IV ONE (01:37)
[2018-02-08] MEDS ORDERED: ONDANSETRON 4 MG/2 ML VIAL IVP STA (01:37)
--- NOTE | 2018-02-08 01:42 | ED Physician Documentation ---
History of Present Illness - Stated complaint Stated Complaint: DIZZINESS - Chief complaint Chief Complaint: Cardiac - History obtained from History obtained from: Patient - History of Present Illness Timing: Today Pain level max: 4 Pain level now: 0 - Additonal information Additional information: Patient is a 22-year-old female who presents to the emergency department stating that she was working at [employer] when she felt lightheaded and dizzy like she was going to pass out. States it is worse with standing and better with lying down. Does not change with movement of her head. Has had intermittent headaches for the past week or so. This is not unusual for her. Denies any recent illnesses. Denies any possibility of . Denies any drug use. No changes to her medications. No recent travel. No numbness or tingling. No chest pain. No palpitations. Review of Systems Constitutional: denies: Fever, Chills Eyes: denies: Decreased vision, Photophobia Ears: denies: Ear pain Nose: denies: Rhinorrhea / runny nose, Congestion Throat: denies: Sore throat Cardiac: denies: Chest pain / pressure, Palpitations, Calf pain Respiratory: denies: Dyspnea, Cough, Wheezing GI: reports: Nausea. denies: Abdominal Pain, Vomiting, Diarrhea : denies: Dysuria Skin: denies: Rash Musculoskeletal: denies: Neck pain, Back pain Neurologic: denies: Focal weakness, Numbness, Syncope, Seizure, Confused, LOC PD PAST MEDICAL HISTORY - Past Medical History Cardiovascular: None Respiratory: None Endocrine/Autoimmune: None GI: Other RN UROLOGY: None : None HEENT: None Psych: Anxiety Musculoskeletal: Other Derm: None - Past Surgical History Past Surgical History: No /RN UROLOGY: Breast reduction - Present Medications Home Medications: Ambulatory Orders Medication Instructions Recorded Confirmed No Known Home Medications 01/12/18 02/08/18 - Allergies Allergies/Adverse Reactions: Allergies Allergy/AdvReac Type Severity Reaction Status Date / Time No Known Drug Allergies Allergy Verified 02/08/18 01:18 - Social History Does the pt smoke?: No Smoking Status: Never smoker Does the pt drink ETOH?: No Does the pt have substance abuse?: No - Immunizations Immunizations are current?: Yes - POLST Patient has POLST: No PD ED PE NORMAL - Vitals Vital signs reviewed: Yes - General General: Alert and oriented X 3, No acute distress - HEENT HEENT: PERRL, Moist mucous membranes, Pharynx benign - Neck Neck: Supple, no meningeal sign - Cardiac Cardiac: RRR, Strong equal pulses - Respiratory Respiratory: No respiratory distress, Clear bilaterally - Abdomen Abdomen: Soft, Non tender, Non distended - Back Back: No spinal TTP - Derm Derm: Warm and dry - Extremities Extremities: No edema, No calf tenderness / cord - Neuro Neuro: Alert and oriented X 3, international nurse 2-12 intact, No motor deficit, No sensory deficit, Normal speech, Other (Normal cerebellar test. Negative Hallpike. No nystagmus) - Psych Psych: Normal mood, Normal affect Results - Vitals Vitals: Vital Signs - 24 hr 02/08/18 01:13 Temperature 36.9 C Heart Rate 100 Respiratory 22 Rate Blood Pressure 139/80 H O2 Saturation 100 Oxygen O2 Source Room air - EKG (time done) 0117 Rate: Rate (enter#) (91) Rhythm: NSR [place]: Normal Intervals: Normal HI QRS: Normal Ischemia: Normal ST segments PD MEDICAL DECISION MAKING - ED course Complexity details: reviewed results, re-evaluated patient, considered differential, d/w patient ED course: No acute laboratory findings to explain her lightheadedness today. She feels better after IV fluids. Tolerating p.o. without difficulty. No neurological deficits. Normal gait. No nystagmus. No evidence of peripheral vertigo or central vertigo. We will have her follow-up with her doctor for further care. She is well-appearing, nontoxic. Afebrile. Patient counseled regarding signs and symptoms for which I believe and urgent re-evaluation would be necessary. Patient with good understanding of and agreement to plan and is comfortable going home at this time This document was made in part using voice recognition software. While efforts are made to proofread this document, sound alike and grammatical errors may occur. - Sepsis Event Vital Signs: Vital Signs - 24 hr 02/08/18 01:13 Temperature 36.9 C Heart Rate 100 Respiratory 22 Rate Blood Pressure 139/80 H O2 Saturation 100 Oxygen O2 Source Room air Departure - Departure Disposition: 01 Home, Self Care Clinical Impression: Lightheadedness Condition: Good Instructions: ED Near Syncope Unkn Follow-Up: Dottie Llamas DO [Primary Care Provider] - Within 1 week Comments: Your laboratory tests do not show any acute abnormalities to explain your symptoms today. Return if you worsen. Follow-up with your doctor for further care.
[2018-02-08 01:43] LABS: BASOPHILS % (AUTO) 0.3 %; EOSINOPHILS # (AUTO) 0.4 10^3/uL (0.0-0.7); EOSINOPHILS % (AUTO) 3.4 %; HGB - HEMOGLOBIN 12.7 g/dL (12.0-16.0); LYMPHOCYTES # (AUTO) 3.1 10^3/uL (1.5-3.5); LYMPHOCYTES % (AUTO) 24.5 %; MEAN CORPUSCULAR HEMOGLOBIN 27.2 pg (27.0-31.0); MEAN CORPUSCULAR HGB CONC 33.3 g/dL (32.0-36.0); MEAN CORPUSCULAR VOLUME 81.6 fL (81.0-99.0); MONOCYTES # (AUTO) 0.7 10^3/uL (0.0-1.0); MONOCYTES % (AUTO) 5.9 %; NEUTROPHILS # (AUTO) 8.2 10^3/uL (1.5-6.6); NEUTROPHILS % (AUTO) 65.9 %; PLT - PLATELET COUNT 248 10^3/uL (130-450); RED BLOOD COUNT 4.67 10^6/uL (4.20-5.40); WHITE BLOOD COUNT 12.5 x10^3/uL (4.8-10.8)
[2018-02-08 01:55] LABS: ALBUMIN 3.8 g/dL (3.2-5.5); BILIRUBIN,TOTAL 0.7 mg/dL (0.2-1.0); CALCIUM 9.3 mg/dL (8.5-10.3); CREATININE 0.8 mg/dL (0.4-1.0); TOTAL PROTEIN 7.6 g/dL (6.7-8.2)
[2018-02-08 01:56] LABS: BILIRUBIN,URINE NEGATIVE (NEGATIVE); GLUCOSE, URINE (UA) NEGATIVE (NEGATIVE); KETONES,URINE (UA) NEGATIVE (NEGATIVE); LEUKOCYTE ESTERASE, URINE NEGATIVE (NEGATIVE); NITRITE,URINE NEGATIVE (NEGATIVE); OCCULT BLOOD,URINE NEGATIVE (NEGATIVE); PROTEIN,URINE NEGATIVE (NEGATIVE); UROBILINOGEN,URINE 0.2 (NORMAL) E.U./dL (NORMAL)
[2018-02-08 01:58] LABS: CLARITY,URINE CLEAR (CLEAR); HCG UR QUAL NEGATIVE
[2018-02-08 02:57] VITALS: BP 121/58
== END 2018-02-08 03:03 | disposition home or self-care (01) ==
LOC: ED 01:10
DX: R42 Dizziness and giddiness (principal)
CPT/HCPCS: 36415; 80053; 81001; 81003; 81025; 83690; 85025; 87086; 93005; 96361; 96374; 99283; 99284

== ENCOUNTER 2018-02-21 11:28 | Outpatient (CLI) | payer OTHER ==
[2018-02-21 19:13] LABS: BASOPHILS % (AUTO) 0.5 %; EOSINOPHILS # (AUTO) 0.3 10^3/uL (0.0-0.7); HGB - HEMOGLOBIN 13.9 g/dL (12.0-16.0); LYMPHOCYTES # (AUTO) 1.8 10^3/uL (1.5-3.5); LYMPHOCYTES % (AUTO) 20.8 %; MEAN CORPUSCULAR HEMOGLOBIN 27.8 pg (27.0-31.0); MEAN CORPUSCULAR HGB CONC 33.5 g/dL (32.0-36.0); MEAN CORPUSCULAR VOLUME 82.8 fL (81.0-99.0); MEAN PLATELET VOLUME 8.2 fL (7.9-10.8); MONOCYTES # (AUTO) 0.6 10^3/uL (0.0-1.0); NEUTROPHILS # (AUTO) 5.9 10^3/uL (1.5-6.6); NEUTROPHILS % (AUTO) 68.7 %; PLT - PLATELET COUNT 314 10^3/uL (130-450); RED BLOOD COUNT 5.02 10^6/uL (4.20-5.40); RED CELL DISTRIBUTION WIDTH 13.9 % (12.0-15.0); WHITE BLOOD COUNT 8.6 x10^3/uL (4.8-10.8)
[2018-02-21 19:30] LABS: % IRON SATURATION 17 % (20-50); IRON 70 ug/dL (28-170); TOTAL IRON BINDING CAPACITY 402 ug/dL (250-450); TRANSFERRIN 287 mg/dL (192-382)
[2018-02-21 20:02] LABS: CRP - C-REACTIVE PROTEIN < 1.0 mg/dL (0-1.0)
== END 2018-02-21 11:29 | disposition home or self-care (01) ==
LOC: LAB.WCP 11:28
PROVIDERS: ATTEND Nurse Practitioner
DX: R10.9 Unspecified abdominal pain (principal); R53.83 Other fatigue
CPT/HCPCS: 36415; 82728; 83540; 84466; 85025; 85651; 86140

== ENCOUNTER 2018-03-02 20:16 | Emergency (ER) | payer OTHER ==
[2018-03-02] MEDS ORDERED: ONDANSETRON ODT 4 MG TABLET TL STA (20:36)
[2018-03-02] MEDS ORDERED: LORazepam 0.5 MG TABLET PO STA (20:37)
--- NOTE | 2018-03-02 20:55 | ED Physician Documentation ---
History of Present Illness - Stated complaint Stated Complaint: NAUSEA/LIGHTHEADED - Chief complaint Chief Complaint: Abd Pain - History obtained from History obtained from: Patient - History of Present Illness Timing: Today Pain level max: 0 Pain level now: 0 Improved by: nothing Worsened by: nothing - Additonal information Additional information: Patient is a 22-year-old female who took her first dose of Zoloft tonight, shortly thereafter began to feel nauseous, lightheaded and like there were pinpricks all over her body. States this has not happened to her before. Denies any possibility of . No other new medications or new foods. No chest pain. 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 : None HEENT: None Psych: Anxiety Musculoskeletal: Other Derm: None - Past Surgical History Past Surgical History: No /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: Breast reduction - Present Medications Home Medications: Ambulatory Orders Medication Instructions Recorded Confirmed Omeprazole 40 mg PO 03/02/18 Sertraline [Zoloft] 50 mg PO DAILY 03/02/18 03/02/18 - Allergies Allergies/Adverse Reactions: Allergies Allergy/AdvReac Type Severity Reaction Status Date / Time No Known Drug Allergies Allergy Verified 03/02/18 20:22 - Social History Does the pt smoke?: No Smoking Status: Never smoker Does the pt drink ETOH?: No Does the pt have substance abuse?: No - Immunizations Immunizations are current?: Yes - POLST Patient has POLST: No PD ED PE NORMAL - Vitals Vital signs reviewed: Yes - General General: Alert and oriented X 3, No acute distress - HEENT HEENT: Moist mucous membranes - Neck Neck: Supple, no meningeal sign - Cardiac Cardiac: RRR, Strong equal pulses - Respiratory Respiratory: No respiratory distress, Clear bilaterally - Abdomen Abdomen: Soft, Non tender, Non distended - Back Back: No spinal TTP - Derm Derm: Warm and dry, No rash - Extremities Extremities: No edema - Neuro Neuro: Alert and oriented X 3 - Psych Psych: Other (Appears quite anxious) Results - Vitals Vitals: Vital Signs - 24 hr 03/02/18 03/02/18 20:20 20:55 Temperature 35.8 C L 36.5 C Heart Rate 87 78 Respiratory 18 16 Rate Blood Pressure 142/75 H 122/68 O2 Saturation 99 99 Oxygen O2 Source Room air PD MEDICAL DECISION MAKING - ED course Complexity details: re-evaluated patient, considered differential, d/w patient ED course: Patient is a 22-year-old female with what appears to be an adverse reaction to Zoloft. Given Zofran and Ativan. Symptoms resolved. Recommend she follow-up w ith her doctor in the morning to discuss with her she should continue this medication or not. Patient counseled regarding signs and symptoms for which I believe and urgent re-evaluation would be necessary. Patient with good understanding of and agreement to plan and is comfortable going home at this time This document was made in part using voice recognition software. While efforts are made to proofread this document, sound alike and grammatical errors may occur. Departure - Departure Disposition: 01 Home, Self Care Clinical Impression: Adverse reaction to SSRI (selective serotonin reuptake inhibitor) Qualifiers: Encounter type: initial encounter Qualified Code(s): T43.225A - Adverse effect of selective serotonin reuptake inhibitors, initial encounter Condition: Good Follow-Up: Dottie Llamas DO [Primary Care Provider] - Tomorrow Comments: Contact your doctor tomorrow to see if they would like you to continue taking the Zoloft. Sometimes the symptoms will go away if you stay on the medication. Discharge Date/Time: 03/02/18 21:01
[2018-03-02 21:21] VITALS: BP 122/68
== END 2018-03-02 21:01 | disposition home or self-care (01) ==
LOC: ED 20:16
DX: R11.0 Nausea (principal); R42 Dizziness and giddiness; R20.2 Paresthesia of skin; T43.225A Adverse effect of selective serotonin reuptake inhibitors, initial encounter
CPT/HCPCS: 99282; 99283; A9270; Q0162

== ENCOUNTER 2018-03-03 14:13 | Outpatient (CLI) | payer OTHER | END 2018-03-03 14:14 | disposition home or self-care (01) | LOC: LAB.WCP 14:13 | PROVIDERS: ATTEND Family Medicine | DX: F41.1 Generalized anxiety disorder (principal); R63.4 Abnormal weight loss; R07.89 Other chest pain | CPT/HCPCS: 36415; 84443; 84484 ==

== ENCOUNTER 2018-03-08 07:49 | Emergency (ER) | payer OTHER ==
[2018-03-08] MEDS ORDERED: SODIUM CHLORIDE 0.9% 1,000 ML IV ONE (09:25)
[2018-03-08 09:26] LABS: BILIRUBIN,URINE NEGATIVE (NEGATIVE); CLARITY,URINE CLEAR (CLEAR); GLUCOSE, URINE (UA) NEGATIVE (NEGATIVE); KETONES,URINE (UA) NEGATIVE (NEGATIVE); LEUKOCYTE ESTERASE, URINE NEGATIVE (NEGATIVE); NITRITE,URINE NEGATIVE (NEGATIVE); OCCULT BLOOD,URINE NEGATIVE (NEGATIVE); PH,URINE 6.5 PH (5.0-7.5); PROTEIN,URINE NEGATIVE (NEGATIVE); UROBILINOGEN,URINE 0.2 (NORMAL) E.U./dL (NORMAL)
[2018-03-08 09:27] LABS: HCG UR QUAL NEGATIVE
--- NOTE | 2018-03-08 09:30 | ED Physician Documentation ---
History of Present Illness - Stated complaint Stated Complaint: ABD PX/LIGHTHEADED - Chief complaint Chief Complaint: Abd Pain - History obtained from History obtained from: Patient - History of Present Illness Timing: How many weeks ago (3) - Additonal information Additional information: 22-year-old female who is been having some issues with lightheadedness and abdominal pain in the left flank area has persistence of her symptoms. She states that she is periodically having some severe pain in the left upper quadrant and that she gets some nausea with this without vomiting and that she has had some vacillation in constipation and diarrhea. She has been in the emergency department a number of times with similar complaints especially of the flank pain she has had a CT scan done in September of this year did not show any stones had no abnormalities and it and the patient continues to have the feeling of being lightheaded frequently. She has had a breast reduction done in September of this year and this went well without difficulties. She does describe that she has lost a significant amount of weight over the past year and that she is drinking a lot of fluids and urinating a lot. Review of Systems Constitutional: denies: Fever Eyes: denies: Decreased vision Ears: denies: Ear pain Nose: denies: Rhinorrhea / runny nose, Congestion Throat: denies: Sore throat Cardiac: denies: Chest pain / pressure, Palpitations Respiratory: denies: Dyspnea, Cough GI: reports: Abdominal Pain, Nausea, Vomiting, Constipation, Diarrhea : reports: Frequency. 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: Breast reduction - Present Medications Home Medications: Ambulatory Orders Medication Instructions Recorded Confirmed Bupropion HCl [Bupropion HCl Sr] 150 mg PO 03/08/18 - Allergies Allergies/Adverse Reactions: Allergies Allergy/AdvReac Type Severity Reaction Status Date / Time No Known Drug Allergies Allergy Verified 03/08/18 08:25 - Social History Does the pt smoke?: No Smoking Status: Never smoker Does the pt drink ETOH?: No Does the pt have substance abuse?: No - Immunizations Immunizations are current?: Yes - POLST Patient has POLST: No PD ED PE NORMAL - Vitals Vital signs reviewed: Yes (normal ) - General General: Alert and oriented X 3, No acute distress, Well developed/nourished - HEENT HEENT: Atraumatic, PERRL, EOMI - Neck Neck: Supple, no meningeal sign, No bony TTP - Cardiac Cardiac: RRR, No murmur - Respiratory Respiratory: No respiratory distress, Clear bilaterally - Abdomen Abdomen: Normal bowel sounds, Soft, Non tender, Non distended, No organomegaly - Back Back: No CVA TTP, No spinal TTP - Derm Derm: Normal color, Warm and dry, No rash - Extremities Extremities: No deformity, No edema - Neuro Neuro: Alert and oriented X 3, lining cementer 2-12 intact, No motor deficit, No sensory deficit, Normal speech Eye Opening: Spontaneous Motor: Obeys Commands Verbal: Oriented GCS Score: 15 - Psych Psych: Normal mood, Normal affect Results - Vitals Vitals: Vital Signs - 24 hr 03/08/18 08:23 Temperature 36.7 C Heart Rate 64 Respiratory 16 Rate Blood Pressure 126/79 O2 Saturation 98 Oxygen O2 Source Room air - Labs Labs: Laboratory Tests 03/08/18 03/08/18 03/08/18 08:00 09:34 09:34 WBC 8.6 RBC 5.10 Hgb 14.3 Hct 41.4 MCV 81.2 MCH 28.0 MCHC 34.5 RDW 13.9 Plt Count 238 MPV 8.4 Neut # (Auto) 6.7 H Lymph # (Auto) 1.2 L [place] # (Auto) 0.6 Eos # (Auto) 0.2 Baso # (Auto) 0.0 Absolute Nucleated RBC 0.00 Nucleated RBC % 0.0 Sodium 137 Potassium 3.4 L Chloride 104 Carbon Dioxide 24 Anion Gap 9.0 BUN 7 Creatinine 0.7 Estimated GFR (MDRD) 107 Glucose 93 Glycated Hemoglobin Estim Average Glucose Calcium 9.5 Total Bilirubin 0.8 AST 21 ALT 26 Alkaline Phosphatase 55 Total Protein 7.5 Albumin 4.1 Globulin 3.4 Albumin/Globulin Ratio 1.2 Lipase 36 Urine Color YELLOW Urine Clarity CLEAR Urine pH 6.5 Ur Specific [place] 1.010 Urine Protein NEGATIVE Urine Glucose (UA) NEGATIVE Urine Ketones NEGATIVE Urine Occult Blood NEGATIVE Urine Nitrite NEGATIVE Urine Bilirubin NEGATIVE Urine Urobilinogen 0.2 (NORMAL) Ur Leukocyte Esterase NEGATIVE Ur Microscopic Review NOT INDICATED Urine Culture Comments NOT INDICATED Urine HCG, Qual NEGATIVE 03/08/18 09:34 WBC RBC Hgb Hct MCV MCH MCHC RDW Plt Count MPV Neut # (Auto) Lymph # (Auto) [place] # (Auto) Eos # (Auto) Baso # (Auto) Absolute Nucleated RBC Nucleated RBC % Sodium Potassium Chloride Carbon Dioxide Anion Gap BUN Creatinine Estimated GFR (MDRD) Glucose Glycated Hemoglobin 5.1 Estim Average Glucose 100 Calcium Total Bilirubin AST ALT Alkaline Phosphatase Total Protein Albumin Globulin Albumin/Globulin Ratio Lipase Urine Color Urine Clarity Urine pH Ur Specific [place] Urine Protein Urine Glucose (UA) Urine Ketones Urine Occult Blood Urine Nitrite Urine Bilirubin Urine Urobilinogen Ur Leukocyte Esterase Ur Microscopic Review Urine Culture Comments Urine HCG, Qual PD MEDICAL DECISION MAKING - ED course Complexity details: reviewed old records, reviewed results, re-evaluated patient, considered differential, d/w patient ED course: 22-year-old female with symptoms of lightheadedness dizziness and pain in the left upper quadrant is found to be mildly dehydrated today on interrogation the inferior vena cava and she is given a liter of saline. Her diagnostics are otherwise unremarkable and I suspect by history that she may have some irritable bowel syndrome. She does not have any evidence of diabetes. Departure - Departure Disposition: 01 Home, Self Care Clinical Impression: Dehydration Irritable bowel syndrome (IBS) Qualifiers: Irritable bowel syndrome type: with both diarrhea and constipation Qualified Code(s): K58.2 - Mixed irritable bowel syndrome Instructions: ED Dehydration, ED IBS Follow-Up: Dottie Llamas DO [Primary Care Provider] -
[2018-03-08 09:48] LABS: BASOPHILS % (AUTO) 0.3 %; EOSINOPHILS # (AUTO) 0.2 10^3/uL (0.0-0.7); EOSINOPHILS % (AUTO) 1.8 %; HGB - HEMOGLOBIN 14.3 g/dL (12.0-16.0); LYMPHOCYTES # (AUTO) 1.2 10^3/uL (1.5-3.5); LYMPHOCYTES % (AUTO) 13.6 %; MEAN CORPUSCULAR HGB CONC 34.5 g/dL (32.0-36.0); MEAN CORPUSCULAR VOLUME 81.2 fL (81.0-99.0); MEAN PLATELET VOLUME 8.4 fL (7.9-10.8); MONOCYTES # (AUTO) 0.6 10^3/uL (0.0-1.0); MONOCYTES % (AUTO) 6.6 %; NEUTROPHILS # (AUTO) 6.7 10^3/uL (1.5-6.6); NEUTROPHILS % (AUTO) 77.7 %; PLT - PLATELET COUNT 238 10^3/uL (130-450); RED CELL DISTRIBUTION WIDTH 13.9 % (12.0-15.0); WHITE BLOOD COUNT 8.6 x10^3/uL (4.8-10.8)
[2018-03-08 10:08] LABS: ALBUMIN 4.1 g/dL (3.2-5.5); ALBUMIN/GLOBULIN RATIO 1.2 (1.0-2.2); BILIRUBIN,TOTAL 0.8 mg/dL (0.2-1.0); CALCIUM 9.5 mg/dL (8.5-10.3); CREATININE 0.7 mg/dL (0.4-1.0); TOTAL PROTEIN 7.5 g/dL (6.7-8.2)
[2018-03-08 10:18] LABS: HB2 TOTAL 15.9 g/dL; HEMOGLOBIN A1C 0.52 g/dL; HEMOGLOBIN A1C % 5.1 % (4.6-6.2)
[2018-03-08] MEDS ORDERED: POTASSIUM BICARB 25 MEQ TABLET PO STA (10:44)
[2018-03-08 11:43] VITALS: BP 117/68
== END 2018-03-08 11:42 | disposition home or self-care (01) ==
LOC: ED 07:49
DX: E86.0 Dehydration (principal); R19.7 Diarrhea, unspecified; K59.00 Constipation, unspecified; R10.12 Left upper quadrant pain; R42 Dizziness and giddiness
CPT/HCPCS: 36415; 80053; 81003; 81025; 83036; 83690; 85025; 96360; 96361; 99283; 99284; A9270; 81001; 87086

== ENCOUNTER 2018-03-09 14:08 | Emergency (ER) | payer OTHER ==
[2018-03-09 14:14] VITALS: BP 128/88
--- NOTE | 2018-03-09 15:36 | ED Physician Documentation ---
History of Present Illness - Stated complaint Stated Complaint: CHEST PX/HEAD PX - Chief complaint Chief Complaint: General - History obtained from History obtained from: Patient - History of Present Illness Timing: How many minutes ago (30) Pain level max: 0 Pain level now: 0 Improved by: nothing Worsened by: nothing - Additonal information Additional information: Patient is a 22-year-old female who presents to the emergency department stating that approximately 30 minutes prior to arrival she started to feel lightheaded and dizzy like she was having a panic attack. She was recently started on Zoloft but this caused side effects that she was changed to Wellbutrin. Has not taken her Wellbutrin yet today. Denies any chest pain to me. Review of Systems Constitutional: denies: Fever, Chills Ears: denies: Ear pain Nose: denies: Rhinorrhea / runny nose, Congestion Throat: denies: Sore throat Cardiac: denies: Chest pain / pressure, Palpitations Respiratory: denies: Cough, Wheezing GI: denies: Abdominal Pain, Nausea, Vomiting, Diarrhea Skin: denies: Rash Musculoskeletal: denies: Neck pain, Back pain Neurologic: denies: Confused, Altered mental status, Headache Psychiatric: reports: Anxiety PD PAST MEDICAL HISTORY - Past Medical History Past Medical History: Yes Cardiovascular: None Respiratory: None Endocrine/Autoimmune: None GI: 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 : None HEENT: None Psych: Anxiety Musculoskeletal: Other Derm: None - Past Surgical History Past Surgical History: Yes /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: Breast reduction - Present Medications Home Medications: Ambulatory Orders Medication Instructions Recorded Confirmed Bupropion HCl [Bupropion HCl Sr] 150 mg PO DAILY 03/08/18 - Allergies Allergies/Adverse Reactions: Allergies Allergy/AdvReac Type Severity Reaction Status Date / Time No Known Drug Allergies Allergy Verified 03/09/18 14:14 - Social History Does the pt smoke?: No Smoking Status: Never smoker Does the pt drink ETOH?: No Does the pt have substance abuse?: No - Immunizations Immunizations are current?: Yes - POLST Patient has POLST: No PD ED PE NORMAL - Vitals Vital signs reviewed: Yes - General General: Alert and oriented X 3, No acute distress - HEENT HEENT: Moist mucous membranes - Neck Neck: Supple, no meningeal sign - Cardiac Cardiac: RRR, Strong equal pulses - Respiratory Respiratory: No respiratory distress, Clear bilaterally - Abdomen Abdomen: Soft, Non tender, Non distended - Derm Derm: Warm and dry - Extremities Extremities: No edema - Neuro Neuro: Alert and oriented X 3, aids social worker 2-12 intact, No motor deficit, No sensory deficit - Psych Psych: Other (anxious appearing) Results - Vitals Vitals: Vital Signs - 24 hr 03/09/18 14:12 Temperature 36 C L Heart Rate 87 Respiratory 18 Rate Blood Pressure 128/88 H O2 Saturation 100 Oxygen O2 Source Room air - EKG (time done) 1425 Rate: Rate (enter#) (81) Rhythm: NSR Bandy: Normal Intervals: Normal IA QRS: Normal Ischemia: Normal ST segments - Labs Labs: Laboratory Tests 03/09/18 15:35 POC Whole Bld Glucose 72 PD MEDICAL DECISION MAKING - ED course Complexity details: reviewed results, considered differential, d/w patient ED course: Patient is a 22-year-old female that appears to have a panic attack today. She is well-appearing, nontoxic. Afebrile. No ischemic changes on EKG. normal blood glucose. Possible side effect of Wellbutrin. We will have her follow-up with her doctor for further evaluation and care. No emergency medical condition at this time. Patient counseled regarding signs and symptoms for which I believe and urgent re-evaluation would be necessary. Patient with good understanding of and agreement to plan and is comfortable going home at this time This document was made in part using voice recognition software. While efforts are made to proofread this document, sound alike and grammatical errors may occur. Departure - Departure Disposition: 01 Home, Self Care Clinical Impression: Anxiety Condition: Good Instructions: ED Panic Attack Follow-Up: Dottie Llamas DO [Primary Care Provider] - Within 1 week Comments: Continue your medications as previously prescribed. If you feel lightheaded or dizzy, sit down and rest. Your vital signs are normal today as well as your EKG. Return if you worsen Discharge Date/Time: 03/09/18 15:42
== END 2018-03-09 15:42 | disposition home or self-care (01) ==
LOC: ED 14:08
DX: F41.9 Anxiety disorder, unspecified (principal)
CPT/HCPCS: 93005; 99283

== ENCOUNTER 2018-04-13 13:10 | Emergency (ER) | payer OTHER ==
[2018-04-13] MEDS ORDERED: HYDROcod/ACETAM 5/325 MG TABLET PO STA (13:32)
--- NOTE | 2018-04-13 13:37 | ED Physician Documentation ---
PD HPI ABD PAIN - Stated complaint Stated Complaint: R SIDE PX/ABD PX - Chief complaint Chief Complaint: Abd Pain - History obtained from History obtained from: Patient - History of Present Illness Timing - onset: Other (2 days increasing RLQ and side pain with nausea. LMP 03/30. No vag dischg. Seen by PCP and neg preg and neg STD tests. No H/O abd surgeries. Has had similar ED visits this year but she feels this pain/presentation are different. Had neg CT in September without stone or other abnormality.) Review of Systems Ten Systems: 10 systems reviewed and negative Constitutional: denies: Fever, Chills Nose: denies: Rhinorrhea / runny nose, Congestion Throat: denies: Dental pain / toothache, Sore throat Cardiac: denies: Chest pain / pressure, Palpitations Respiratory: denies: Dyspnea, Cough GI: reports: Abdominal Pain, Nausea, Diarrhea (for 2 days). 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: Breast reduction - Present Medications Home Medications: Ambulatory Orders Medication Instructions Recorded Confirmed Bupropion HCl [Bupropion HCl Sr] 75 mg PO DAILY 03/08/18 04/13/18 Hydrocodone/Acetaminophen 1 - 2 each PO Q6H PRN #10 tablet 04/13/18 [Hydrocodon-Acetaminophen 5-325] Ibuprofen [Motrin] 800 mg PO Q8H PRN #30 tablet 04/13/18 Omeprazole 20 mg DAILY 04/13/18 04/13/18 Ondansetron Odt [Zofran] 4 mg TL Q6H PRN #10 tablet 04/13/18 - Allergies Allergies/Adverse Reactions: Allergies Allergy/AdvReac Type Severity Reaction Status Date / Time sertraline Allergy Unknown Verified 04/13/18 13:19 tramadol AdvReac Emesis Verified 04/13/18 13:19 - Social History Does the pt smoke?: No Smoking Status: Never smoker Does the pt drink ETOH?: No Does the pt have substance abuse?: No - Immunizations Immunizations are current?: Yes - POLST Patient has POLST: No PD ED PE NORMAL - Vitals Vital signs reviewed: Yes - General General: Alert and oriented X 3, No acute distress - HEENT HEENT: PERRL, EOMI - Neck Neck: Supple, no meningeal sign, No bony TTP - Cardiac Cardiac: RRR, No murmur - Respiratory Respiratory: No respiratory distress, Clear bilaterally - Abdomen Abdomen: Other (Mild RLQ TTP, no G/R) - Back Back: No CVA TTP, No spinal TTP - Derm Derm: Normal color, Warm and dry - Neuro Neuro: Alert and oriented X 3, Normal speech - Psych Psych: Normal mood, Normal affect Results - Vitals Vitals: Vital Signs - 24 hr 04/13/18 13:14 Temperature 36.9 C Heart Rate 70 Respiratory 16 Rate Blood Pressure 110/60 O2 Saturation 98 Oxygen O2 Source Room air - Labs Labs: Laboratory Tests 04/13/18 04/13/18 04/13/18 13:35 13:35 14:00 WBC 10.6 RBC 4.92 Hgb 14.1 Hct 40.9 MCV 83.1 MCH 28.6 MCHC 34.4 RDW 14.3 Plt Count 296 MPV 7.9 Neut # (Auto) 8.0 H Lymph # (Auto) 1.7 [place] # (Auto) 0.7 Eos # (Auto) 0.2 Baso # (Auto) 0.1 Absolute Nucleated RBC 0.02 Nucleated RBC % 0.2 Sodium Potassium Chloride Carbon Dioxide Anion Gap BUN Creatinine Estimated GFR (MDRD) Glucose Calcium Total Bilirubin AST ALT Alkaline Phosphatase Total Protein Albumin Globulin Albumin/Globulin Ratio Lipase Urine Color LIGHT YELLOW Urine Clarity CLEAR Urine pH 6.0 Ur Specific [place] <=1.005 <=1.005 Urine Protein NEGATIVE Urine Glucose (UA) NEGATIVE Urine Ketones 40 H Urine Occult Blood NEGATIVE Urine Nitrite NEGATIVE Urine Bilirubin NEGATIVE Urine Urobilinogen 0.2 (NORMAL) Ur Leukocyte Esterase NEGATIVE Ur Microscopic Review NOT INDICATED Urine Culture Comments NOT INDICATED Urine HCG, Qual NEGATIVE 04/13/18 14:00 WBC RBC Hgb Hct MCV MCH MCHC RDW Plt Count MPV Neut # (Auto) Lymph # (Auto) [place] # (Auto) Eos # (Auto) Baso # (Auto) Absolute Nucleated RBC Nucleated RBC % Sodium 136 Potassium 3.5 Chloride 105 Carbon Dioxide 22 Anion Gap 9.0 BUN < 5 L Creatinine 0.7 Estimated GFR (MDRD) 107 Glucose 75 Calcium 9.3 Total Bilirubin 1.1 H AST 24 ALT 32 Alkaline Phosphatase 56 Total Protein 7.4 Albumin 4.1 Globulin 3.3 Albumin/Globulin Ratio 1.2 Lipase 25 Urine Color Urine Clarity Urine pH Ur Specific [place] Urine Protein Urine Glucose (UA) Urine Ketones Urine Occult Blood Urine Nitrite Urine Bilirubin Urine Urobilinogen Ur Leukocyte Esterase Ur Microscopic Review Urine Culture Comments Urine HCG, Qual - Rads (name of study) CT A/P Radiology: EMP read contemporaneously (3.1 CM L ov cyst) PD MEDICAL DECISION MAKING - ED course ED course: 22-year-old woman with acute right lower quadrant pain. She has been in the emergency department for abdominal complaints quite frequently but feels like this is a new issue for her. Imaging demonstrates a left-sided ovarian cyst which may or may not be causative. Departure - Departure Disposition: 01 Home, Self Care Clinical Impression: Cyst of ovary Qualifiers: Laterality: left Qualified Code(s): N83.202 - Unspecified ovarian cyst, left side Abdominal pain Qualifiers: Abdominal location: right lower quadrant Qualified Code(s): R10.31 - Right lower quadrant pain Condition: Good Record reviewed to determine appropriate education?: Yes Instructions: ED Abdominal Pain Unkn Cause Follow-Up: [facility] [Provider Group] - Within 3 Days Prescriptions: Hydrocodone/Acetaminophen [Hydrocodon-Acetaminophen 5-325] 1 - 2 each PO Q6H PRN #10 tablet PRN Reason: pain Ibuprofen [Motrin] 800 mg PO Q8H PRN #30 tablet PRN Reason: PAIN &/OR FEVER Ondansetron Odt [Zofran] 4 mg TL Q6H PRN #10 tablet PRN Reason: Nausea / Vomiting Comments: Call your doctor to arrange a follow-up appointment, make the next available appointment. In the interim, return anytime if worse or if new symptoms develop.
[2018-04-13] MEDS ORDERED: IOVERSOL 320 100 ML VIAL IVP ONE ×2 (13:40→14:55)
[2018-04-13 13:46] LABS: BILIRUBIN,URINE NEGATIVE (NEGATIVE); GLUCOSE, URINE (UA) NEGATIVE (NEGATIVE); KETONES,URINE (UA) 40 mg/dL (NEGATIVE); LEUKOCYTE ESTERASE, URINE NEGATIVE (NEGATIVE); NITRITE,URINE NEGATIVE (NEGATIVE); OCCULT BLOOD,URINE NEGATIVE (NEGATIVE); PROTEIN,URINE NEGATIVE (NEGATIVE); UROBILINOGEN,URINE 0.2 (NORMAL) E.U./dL (NORMAL)
[2018-04-13 13:47] LABS: CLARITY,URINE CLEAR (CLEAR)
[2018-04-13] MEDS ORDERED: ONDANSETRON 4 MG/2 ML VIAL IVP STA (13:47)
[2018-04-13 14:03] LABS: HCG UR QUAL NEGATIVE
[2018-04-13 14:11] LABS: HGB - HEMOGLOBIN 14.1 g/dL (12.0-16.0); RED BLOOD COUNT 4.92 10^6/uL (4.20-5.40); WHITE BLOOD COUNT 10.6 x10^3/uL (4.8-10.8)
[2018-04-13 14:12] LABS: BASOPHILS # (AUTO) 0.1 10^3/uL (0.0-0.1); BASOPHILS % (AUTO) 0.5 %; EOSINOPHILS # (AUTO) 0.2 10^3/uL (0.0-0.7); EOSINOPHILS % (AUTO) 2.1 %; LYMPHOCYTES # (AUTO) 1.7 10^3/uL (1.5-3.5); LYMPHOCYTES % (AUTO) 15.7 %; MEAN CORPUSCULAR HEMOGLOBIN 28.6 pg (27.0-31.0); MEAN CORPUSCULAR HGB CONC 34.4 g/dL (32.0-36.0); MEAN CORPUSCULAR VOLUME 83.1 fL (81.0-99.0); MEAN PLATELET VOLUME 7.9 fL (7.9-10.8); MONOCYTES # (AUTO) 0.7 10^3/uL (0.0-1.0); MONOCYTES % (AUTO) 6.4 %; NEUTROPHILS % (AUTO) 75.3 %; PLT - PLATELET COUNT 296 10^3/uL (130-450); RED CELL DISTRIBUTION WIDTH 14.3 % (12.0-15.0)
[2018-04-13 14:42] LABS: ALBUMIN 4.1 g/dL (3.2-5.5); ALBUMIN/GLOBULIN RATIO 1.2 (1.0-2.2); ALKALINE PHOSPHATASE 56 IU/L (42-121); ALT ALANINE AMINOTRANSFERASE 32 IU/L (10-60); AST ASPARTATE AMINOTRANSFERASE 24 IU/L (10-42); BILIRUBIN,TOTAL 1.1 mg/dL (0.2-1.0); BUN - BLOOD UREA NITROGEN < 5 mg/dL (6-20); CALCIUM 9.3 mg/dL (8.5-10.3); CARBON DIOXIDE - CO2 22 mmol/L (21-32); CHLORIDE 105 mmol/L (101-111); CREATININE 0.7 mg/dL (0.4-1.0); GFR - MDRD 107 (>89); GLUCOSE 75 mg/dL (70-100); LIPASE 25 U/L (22-51); SODIUM 136 mmol/L (135-145); TOTAL PROTEIN 7.4 g/dL (6.7-8.2)
--- NOTE | 2018-04-13 15:05 | CT Report ---
Reason: IV only, RLQ pain Procedure Date: 04/13/2018 Accession Number: [id number] / [id number] Procedure: CT - Abdomen/Pelvis W/ CPT Code: FULL RESULT: EXAM: CT ABDOMEN AND PELVIS EXAM DATE: 04/13/2018 02:53 PM. CLINICAL HISTORY: IV only, RLQ pain. COMPARISONS: None. TECHNIQUE: Routine helical CT imaging was performed through the abdomen and pelvis. IV contrast: OPTI 320 90 mL. Enteric contrast: No. Reconstructions: Coronal and sagittal. In accordance with CT protocol optimization, one or more of the following dose reduction techniques were utilized for this exam: automated exposure control, adjustment of mA and/or KV based on patient size, or use of iterative reconstructive technique. FINDINGS: Lung Bases: Unremarkable. Liver: Normal. No masses. Gallbladder/Bile Ducts: Unremarkable. Spleen: Normal. Pancreas: Normal. Adrenal Glands: Normal. Kidneys: Normal. No masses or hydronephrosis. Peritoneal Cavity/Bowel: Normal. No free fluid, free air or adenopathy. No masses or acute inflammatory process. The appendix is well visualized and normal. Pelvic Organs: There is a 3.1 cm cystic lesion in the left adnexal region, possibly a dominant follicle. The bladder and visualized pelvic organs are within normal limits. Vasculature: No aneurysms or other significant abnormality. Bones: No significant abnormality. Other: None. IMPRESSION: The etiology of the patient's pain is not definitely identified. [facility]
[2018-04-13 15:40] VITALS: BP 117/69
== END 2018-04-13 15:40 | disposition home or self-care (01) ==
LOC: ED 13:10
DX: R10.31 Right lower quadrant pain (principal); N83.202 Unspecified ovarian cyst, left side
CPT/HCPCS: 36415; 74177; 80053; 81003; 81025; 83690; 85025; 96374; 99283; A9270; Q9967; 81001; 87086

== ENCOUNTER 2018-05-25 11:30 | Emergency (ER) | payer SELFPAY ==
[2018-05-25 11:59] LABS: BASOPHILS % (AUTO) 0.3 %; EOSINOPHILS # (AUTO) 0.3 10^3/uL (0.0-0.7); HGB - HEMOGLOBIN 14.1 g/dL (12.0-16.0); LYMPHOCYTES # (AUTO) 1.6 10^3/uL (1.5-3.5); LYMPHOCYTES % (AUTO) 17.6 %; MEAN CORPUSCULAR HEMOGLOBIN 28.7 pg (27.0-31.0); MEAN CORPUSCULAR HGB CONC 34.2 g/dL (32.0-36.0); MEAN CORPUSCULAR VOLUME 83.9 fL (81.0-99.0); MEAN PLATELET VOLUME 7.8 fL (7.9-10.8); MONOCYTES # (AUTO) 0.5 10^3/uL (0.0-1.0); MONOCYTES % (AUTO) 5.3 %; NEUTROPHILS # (AUTO) 6.6 10^3/uL (1.5-6.6); NEUTROPHILS % (AUTO) 73.8 %; PLT - PLATELET COUNT 267 10^3/uL (130-450); RED CELL DISTRIBUTION WIDTH 13.9 % (12.0-15.0); WHITE BLOOD COUNT 8.9 x10^3/uL (4.8-10.8)
[2018-05-25 12:59] LABS: BILIRUBIN,URINE NEGATIVE (NEGATIVE); GLUCOSE, URINE (UA) NEGATIVE (NEGATIVE); KETONES,URINE (UA) NEGATIVE (NEGATIVE); LEUKOCYTE ESTERASE, URINE NEGATIVE (NEGATIVE); NITRITE,URINE NEGATIVE (NEGATIVE); OCCULT BLOOD,URINE NEGATIVE (NEGATIVE); PROTEIN,URINE NEGATIVE (NEGATIVE); UROBILINOGEN,URINE 0.2 (NORMAL) E.U./dL (NORMAL)
[2018-05-25 13:02] LABS: CLARITY,URINE CLEAR (CLEAR); HCG UR QUAL NEGATIVE
--- NOTE | 2018-05-25 13:59 | ED Physician Documentation ---
PD HPI ABD PAIN - Stated complaint Stated Complaint: ABD PX - Chief complaint Chief Complaint: Abd Pain - History obtained from History obtained from: Patient - History of Present Illness Timing - onset: Other (About 11 days L abd pain, diarrhea and urinary frequency. Also to RLQ and back. Worse over the last 2-3 days. Started after her LMP, 05/19.) Review of Systems Ten Systems: 10 systems reviewed and negative Constitutional: reports: Sweats GI: reports: Abdominal Pain : reports: Frequency Musculoskeletal: reports: Back pain PD PAST MEDICAL HISTORY - Past Medical History Cardiovascular: None Respiratory: None Endocrine/Autoimmune: None GI: Other CLAIM CLERK: None : None HEENT: None Psych: Anxiety Musculoskeletal: Other Derm: None - Past Surgical History Past Surgical History: Yes /CLAIM CLERK: Breast reduction - Present Medications Home Medications: Ambulatory Orders Medication Instructions Recorded Confirmed Bupropion HCl [Bupropion HCl Sr] 75 mg PO DAILY 03/08/18 05/25/18 Ondansetron Odt [Zofran] 4 mg TL Q6H PRN #10 tablet 04/13/18 05/25/18 Hydrocodone/Acetaminophen 1 - 2 each PO Q6H PRN #10 tablet 05/25/18 [Hydrocodon-Acetaminophen 5-325] - Allergies Allergies/Adverse Reactions: Allergies Allergy/AdvReac Type Severity Reaction Status Date / Time sertraline Allergy Unknown Verified 05/25/18 11:35 tramadol AdvReac Emesis Verified 05/25/18 11:35 - Social History Does the pt smoke?: No Smoking Status: Never smoker Does the pt drink ETOH?: No Does the pt have substance abuse?: No - Immunizations Immunizations are current?: Yes - POLST Patient has POLST: No PD ED PE NORMAL - Vitals Vital signs reviewed: Yes - General General: Alert and oriented X 3, No acute distress - HEENT HEENT: PERRL, EOMI - Neck Neck: Supple, no meningeal sign, No bony TTP - Cardiac Cardiac: RRR, No murmur - Respiratory Respiratory: No respiratory distress, Clear bilaterally - Abdomen Abdomen: Normal bowel sounds, Soft, Non tender - Back Back: No CVA TTP, No spinal TTP - Derm Derm: Normal color, Warm and dry - Extremities Extremities: No edema, No calf tenderness / cord - Neuro Neuro: Alert and oriented X 3, Normal speech - Psych Psych: Normal mood, Normal affect Results - Vitals Vitals: Vital Signs - 24 hr 05/25/18 05/25/18 05/25/18 11:33 13:09 15:13 Temperature 36.4 C L 36.7 C 36.7 C Heart Rate 81 54 L 73 Respiratory 20 16 16 Rate Blood Pressure 131/75 H 109/65 117/69 O2 Saturation 100 99 99 Oxygen O2 Source Room air - Labs Labs: Laboratory Tests 05/25/18 05/25/18 05/25/18 11:54 11:54 12:03 WBC 8.9 RBC 4.90 Hgb 14.1 Hct 41.1 MCV 83.9 MCH 28.7 MCHC 34.2 RDW 13.9 Plt Count 267 MPV 7.8 L Neut # (Auto) 6.6 Lymph # (Auto) 1.6 [place] # (Auto) 0.5 Eos # (Auto) 0.3 Baso # (Auto) 0.0 Absolute Nucleated RBC 0.00 Nucleated RBC % 0.0 Sodium 138 Potassium 3.9 Chloride 104 Carbon Dioxide 26 Anion Gap 8.0 BUN 9 Creatinine 0.7 Estimated GFR (MDRD) 106 Glucose 97 Calcium 9.5 Total Bilirubin 0.6 AST 23 ALT 31 Alkaline Phosphatase 63 Total Protein 7.0 Albumin 3.9 Globulin 3.1 Albumin/Globulin Ratio 1.3 Lipase 36 Urine Color LT. YELLOW Urine Clarity CLEAR Urine pH 7.0 Ur Specific [place] 1.010 Urine Protein NEGATIVE Urine Glucose (UA) NEGATIVE Urine Ketones NEGATIVE Urine Occult Blood NEGATIVE Urine Nitrite NEGATIVE Urine Bilirubin NEGATIVE Urine Urobilinogen 0.2 (NORMAL) Ur Leukocyte Esterase NEGATIVE Ur Microscopic Review NOT INDICATED Urine Culture Comments NOT INDICATED Urine HCG, Qual NEGATIVE - Rads (name of study) Pelvic sono Radiology: EMP read contemporaneously (neg) PD MEDICAL DECISION MAKING - ED course ED course: 23-year-old woman with relatively frequent visits for abdominal pain presents with left lower quadrant pain with mild diarrhea, only 1 or 2 loose stools a day without recent camping or antibiotics. She is not in extremis and not very tender. Labs and ultrasound are negative. Departure - Departure Disposition: Home, Self Care Clinical Impression: Abdominal pain Condition: Good Record reviewed to determine appropriate education?: Yes Instructions: Abdominal Pain Prescriptions: Hydrocodone/Acetaminophen [Hydrocodon-Acetaminophen 5-325] 1 - 2 each PO Q6H PRN #10 tablet PRN Reason: pain Comments: Call your doctor to arrange a follow-up appointment, make the next available appointment. In the interim, return anytime if worse or if new symptoms develop.
[2018-05-25] MEDS ORDERED: KETOROLAC 60 MG/2 ML VIAL IM STA (14:15)
[2018-05-25 14:51] LABS: ALBUMIN 3.9 g/dL (3.2-5.5); ALBUMIN/GLOBULIN RATIO 1.3 (1.0-2.2); BILIRUBIN,TOTAL 0.6 mg/dL (0.2-1.0); CALCIUM 9.5 mg/dL (8.5-10.3); CREATININE 0.7 mg/dL (0.4-1.0)
--- NOTE | 2018-05-25 16:34 | Ultrasound Report ---
Reason: pelvic pain, R Procedure Date: 05/25/2018 Accession Number: [id number] / [id number] Procedure: US - Pelvic w/Transvag+Doppler Comp CPT Code: FULL RESULT: EXAM: PELVIC ULTRASOUND EXAM DATE: 05/25/2018 04:19 PM. CLINICAL HISTORY: Pelvic pain. COMPARISON: ABDOMEN/PELVIS W/ 04/13/2018 2:38 PM. TECHNIQUE: Realtime transabdominal pelvic scan performed to identify the uterus and adnexa and as an overview of other pelvic structures, followed by transvaginal scan to provide greater detail of the uterus and adnexa, with static image documentation. FINDINGS: Uterus: 6.5 x 2.8 x 4.3 cm, volume 41 cc. Anteverted position. Normal overall size and echotexture. Masses: A tiny 0.9 cm intramural fibroid is seen in the posterior mid uterine segment. Endometrium: 0.33 mm. Normal. Cervix: Small nabothian cyst is seen. Right Ovary: 3.6 x 2.0 x 2.9 cm, volume 11.3 cc. Normal echotexture and blood flow. Left Ovary: 4.2 x 2.5 x 2.3 cm, volume 12.3 cc. Normal echotexture and blood flow. Free Fluid: None. Other: None. IMPRESSION: No acute pelvic abnormality demonstrated. RADIA
[2018-05-25 17:05] VITALS: BP 120/68
== END 2018-05-25 17:06 | disposition home or self-care (01) ==
LOC: ED 11:30
DX: R10.32 Left lower quadrant pain (principal)
CPT/HCPCS: 36415; 76830; 76856; 80053; 81001; 81003; 81025; 83690; 85025; 87086; 93975; 96372; 99283

== ENCOUNTER 2018-06-28 02:05 | Emergency (ER) | payer SELFPAY ==
[2018-06-28 02:17] VITALS: BP 153/101
[2018-06-28] MEDS ORDERED: MECLIZINE 12.5 MG TABLET PO STA (02:29)
--- NOTE | 2018-06-28 02:34 | ED Physician Documentation ---
History of Present Illness - Stated complaint Stated Complaint: DIZZINESS,NAUSEA - Chief complaint Chief Complaint: General - History obtained from History obtained from: Patient - History of Present Illness Timing: Prior to arrival Pain level max: 0 Pain level now: 0 Severity Comments: mild Quality: dizziness Radiates to: none Improved by: nothing Worsened by: laying down Associated symptoms: nausea, foot pain, anxiety Review of Systems Ten Systems: 10 systems reviewed and negative Constitutional: reports: Reviewed and negative Eyes: reports: Reviewed and negative Ears: reports: Reviewed and negative Nose: reports: Reviewed and negative Throat: reports: Reviewed and negative Cardiac: reports: Reviewed and negative Respiratory: reports: Reviewed and negative GI: reports: Reviewed and negative : reports: Reviewed and negative Skin: reports: Reviewed and negative Musculoskeletal: reports: Reviewed and negative Neurologic: reports: Reviewed and negative Psychiatric: reports: Reviewed and negative Endocrine: reports: Reviewed and negative Immunocompromised: reports: Reviewed and negative PD PAST MEDICAL HISTORY - Past Medical History Cardiovascular: None Respiratory: None Endocrine/Autoimmune: None GI: Other EXCEL ANALYST: None : None HEENT: None Psych: Anxiety Musculoskeletal: Other Derm: None - Past Surgical History Past Surgical History: Yes /EXCEL ANALYST: Breast reduction - Present Medications Home Medications: Ambulatory Orders Medication Instructions Recorded Confirmed Bupropion HCl [Bupropion HCl Sr] 75 mg PO DAILY 03/08/18 06/28/18 Meclizine [Antivert] 25 mg PO Q6H #10 tablet 06/28/18 - Allergies Allergies/Adverse Reactions: Allergies Allergy/AdvReac Type Severity Reaction Status Date / Time sertraline Allergy Unknown Verified 06/28/18 02:16 tramadol AdvReac Emesis Verified 06/28/18 02:16 - Living Situation Living Situation: reports: With spouse/s.o. Living Arrangement: reports: At home - Social History Does the pt smoke?: No Smoking Status: Never smoker Does the pt drink ETOH?: No Does the pt have substance abuse?: No - Family History Family history: reports: Other (Reviewed and not pertinent) - Immunizations Immunizations are current?: Yes - POLST Patient has POLST: No PD ED PE NORMAL - Vitals Vital signs reviewed: Yes - General General: Alert and oriented X 3, No acute distress - HEENT HEENT: PERRL - Neck Neck: Supple, no meningeal sign - Cardiac Cardiac: RRR, No murmur - Respiratory Respiratory: Clear bilaterally - Abdomen Abdomen: Normal bowel sounds, Soft, Non tender, Non distended - Derm Derm: Warm and dry - Extremities Extremities: No deformity - Neuro Neuro: Alert and oriented X 3, Other (Left-sided horizontal fatigable nystagmus) - Psych Psych: Normal mood, Normal affect Results - Vitals Vitals: Vital Signs - 24 hr 06/28/18 02:05 Temperature 37.1 C Heart Rate 83 Respiratory 18 Rate Blood Pressure 153/101 H O2 Saturation 97 Oxygen O2 Source Room air PD MEDICAL DECISION MAKING - ED course Complexity details: reviewed results, re-evaluated patient, considered differential, d/w patient ED course: 23-year-old female with dizziness. Left-sided fatigable nystagmus. No evidence of central cause of vertigo. Treated with meclizine and discharged. Departure - Departure Disposition: 01 Home, Self Care Clinical Impression: Vertigo Sinusitis Qualifiers: Sinusitis location: frontal Chronicity: acute Recurrence: non-recurrent Qualified Code(s): J01.10 - Acute frontal sinusitis, unspecified Instructions: ED Dizziness UKO, ED Vertigo Unspecified, ED Sinusitis No Abx Tx Ch Follow-Up: Dottie Llamas DO [Primary Care Provider] - Prescriptions: Meclizine [Antivert] 25 mg PO Q6H #10 tablet Discharge Date/Time: 06/28/18 02:36
== END 2018-06-28 02:36 | disposition home or self-care (01) ==
LOC: ED 02:05
DX: R42 Dizziness and giddiness (principal); J01.10 Acute frontal sinusitis, unspecified
CPT/HCPCS: 99283; A9270

== ENCOUNTER 2018-06-30 15:59 | Outpatient (CLI) | payer MEDICAID ==
--- NOTE | 2018-07-01 23:50 | XRAY Report ---
Reason: FOOT PX/ LEFT Procedure Date: 06/30/2018 Accession Number: [id number] / [id number] Procedure: WCP - Foot 3 View LT CPT Code: FULL RESULT: EXAM: LEFT FOOT RADIOGRAPHY EXAM DATE: 06/30/2018 04:11 PM. CLINICAL HISTORY: FOOT PX/ LEFT. COMPARISON: FOOT 3 VIEW LT 04/18/2017 2:15 PM. TECHNIQUE: 3 views. FINDINGS: Bones: No acute fractures or suspicious bone lesions. Joints: No subluxations. Varus deformity of the fifth MTP joint. Soft Tissues: Unremarkable. IMPRESSION: No acute radiographic abnormalities. RADIA
== END 2018-06-30 16:00 | disposition home or self-care (01) ==
LOC: DI.WCP 15:59
PROVIDERS: ATTEND Nurse Practitioner
DX: M79.672 Pain in left foot (principal)

== ENCOUNTER 2018-07-18 10:23 | Emergency (ER) | payer MEDICAID ==
--- NOTE | 2018-07-18 11:33 | ED Physician Documentation ---
History of Present Illness - Stated complaint Stated Complaint: SORE THROAT - Chief complaint Chief Complaint: Heent - History obtained from History obtained from: Patient - Additonal information Additional information: Patient is a previously healthy 17-fkaj-xov-year-old female presenting with sore throat for the past day. Patient denies any known sick contacts, as well as significant nasal congestion, rhinorrhea, ear pain, productive cough, difficulty breathing, or other concerns. Patient denies fever, abdominal pain, urinary or stool changes. No other particular improving or worsening factors noted. Review of Systems Constitutional: denies: Fever Ears: denies: Reviewed and negative Nose: denies: Rhinorrhea / runny nose, Congestion Throat: reports: Sore throat PD PAST MEDICAL HISTORY - Past Medical History Cardiovascular: None Respiratory: None Endocrine/Autoimmune: None GI: Other BUFFER AUTOMATIC: None : None HEENT: None Psych: Anxiety Musculoskeletal: Other Derm: None - Past Surgical History Past Surgical History: Yes /BUFFER AUTOMATIC: Breast reduction - Present Medications Home Medications: Ambulatory Orders Medication Instructions Recorded Confirmed Bupropion HCl [Bupropion HCl Sr] 75 mg PO DAILY 03/08/18 06/28/18 RX: Meclizine [Antivert] 25 mg PO Q6H #10 tablet 06/28/18 - Allergies Allergies/Adverse Reactions: Allergies Allergy/AdvReac Type Severity Reaction Status Date / Time sertraline Allergy Unknown Verified 07/18/18 10:34 tramadol AdvReac Emesis Verified 07/18/18 10:34 - Social History Does the pt smoke?: No Smoking Status: Never smoker Does the pt drink ETOH?: No Does the pt have substance abuse?: No - Immunizations Immunizations are current?: Yes - POLST Patient has POLST: No PD ED PE NORMAL - General General: Alert and oriented X 3, No acute distress, Well developed/nourished - HEENT HEENT: Atraumatic, EOMI, Ears normal, Moist mucous membranes, Pharynx benign - Cardiac Cardiac: RRR, No murmur - Respiratory Respiratory: No respiratory distress, Clear bilaterally - Abdomen Abdomen: Normal bowel sounds, Soft, Non tender, Non distended - Derm Derm: Normal color, Warm and dry, No rash - Extremities Extremities: No deformity - Neuro Neuro: No motor deficit, No sensory deficit - Psych Psych: Normal mood, Normal affect Results - Vitals Vitals: Vital Signs - 24 hr 03/19/19 03/19/19 10:31 12:08 Temperature 36.6 C 36.6 C Heart Rate 60 62 Respiratory 16 18 Rate Blood Pressure 120/75 118/74 O2 Saturation 99 100 Oxygen O2 Source Room air - Labs Labs: Laboratory Tests 07/18/18 10:35 Group A Strep Rapid Negative PD MEDICAL DECISION MAKING - ED course Complexity details: considered differential, d/w patient ED course: Most concerning for general viral URI and have lower suspicion for influenza, pharyngitis, tonsillitis, peritonsillar abscess, otitis media or externa, pneumonia given patient's symptomatology and physical exam findings. Strep test performed and returned negative. Otherwise, physical exam benign. Feel that patient is safe to discharge home with supportive cares, return precautions, and appropriate follow-up. Patient voiced understanding and is comfortable with discharge plan. Departure - Departure Disposition: 01 Home, Self Care Clinical Impression: Viral syndrome Condition: Good Instructions: ED Viral Syndrome Follow-Up: Dottie Llamas DO [Primary Care Provider] - Within 3 Days Comments: Recommend supportive cares for your likely a viral illness such as ibuprofen/Tylenol, hult-lie-iqhxxap medications like Afrin and Mucinex, Rest, hydration, and follow-up with your primary care physician in next 2-3 days. Please return to ED sooner if expands worsening symptoms or other concerns. Discharge Date/Time: 07/18/18 12:08
[2018-07-18 12:09] VITALS: BP 118/74
== END 2018-07-18 12:08 | disposition home or self-care (01) ==
LOC: ED 10:23
DX: B34.9 Viral infection, unspecified (principal)
CPT/HCPCS: 87070; 87430; 99283

== ENCOUNTER 2018-10-27 08:56 | Outpatient (CLI) | payer MEDICAID, OTHER ==
[2018-10-27] MEDS ORDERED: BARIUM SULFATE 135 ML BOTTLE PO ONE (10:23)
[2018-10-27] MEDS ORDERED: BARIUM SULFATE 148 GM POWDER PO ONE (10:23)
--- NOTE | 2018-11-01 09:08 | XRAY Report ---
Reason: GERD Procedure Date: 10/27/2018 Accession Number: [id number] / [id number] Procedure: FL - UGI W/Air CPT Code: FULL RESULT: IMPRESSION: Spontaneous reflux. RADIA IMPRESSION: Spontaneous reflux. RADIA
== END 2018-10-27 08:57 | disposition home or self-care (01) ==
LOC: DI 08:56
PROVIDERS: ATTEND Family Medicine
DX: K21.9 Gastro-esophageal reflux disease without esophagitis (principal)
CPT/HCPCS: 74246; A9270

== ENCOUNTER 2018-12-29 20:52 | Emergency (ER) | payer OTHER ==
[2018-12-29 21:13] LABS: BILIRUBIN,URINE NEGATIVE (NEGATIVE); GLUCOSE, URINE (UA) NEGATIVE (NEGATIVE); KETONES,URINE (UA) NEGATIVE (NEGATIVE); LEUKOCYTE ESTERASE, URINE NEGATIVE (NEGATIVE); NITRITE,URINE NEGATIVE (NEGATIVE); OCCULT BLOOD,URINE NEGATIVE (NEGATIVE); PH,URINE 6.5 PH (5.0-7.5); PROTEIN,URINE NEGATIVE (NEGATIVE); UROBILINOGEN,URINE 0.2 (NORMAL) E.U./dL (NORMAL)
[2018-12-29 21:14] LABS: CLARITY,URINE CLEAR (CLEAR)
[2018-12-29 21:15] LABS: HCG UR QUAL NEGATIVE
[2018-12-29] MEDS ORDERED: DICYCLOMINE 10 MG CAPSULE PO STA (22:07)
--- NOTE | 2018-12-29 22:07 | ED Physician Documentation ---
PD HPI ABD PAIN - Stated complaint Stated Complaint: FEMALE PAIN - Chief complaint Chief Complaint: Abd Pain - History obtained from History obtained from: Patient - History of Present Illness Timing - onset: How many days ago (5) Timing - duration: Days (5) Timing - details: Gradual onset, Still present Quality: Cramping, Sharp, Pain Location: LLQ Improved by: Other (nothing) Worsened by: Eating, Moving, Position Associated symptoms: Nausea, Diarrhea. No: Fever, Vomiting Similar symptoms before: Diagnosis (irritable bowel) Recently seen: Not recently seen - Additional information Additional information: 23-year-old female has had a history of irritable bowel syndrome and polycystic ovarian syndrome has had abdominal pain and diarrhea as well as some vomiting. [facility] is [facility] with lower abdominal pain more on the left side than the right but bilateral pain. She does relate that she has had a decrease in her appetite and over the last 3 months she has had a decrease in her symptoms. She has lost weight and she is started to try to eat more and she is now developed symptoms. Review of Systems Constitutional: denies: Fever Eyes: denies: Decreased vision Ears: denies: Ear pain Nose: denies: Rhinorrhea / runny nose, Congestion Throat: denies: Sore throat Cardiac: denies: Chest pain / pressure, Palpitations Respiratory: denies: Dyspnea, Cough GI: reports: Abdominal Pain, Nausea, Vomiting, Diarrhea : reports: Frequency. 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 cysts : None HEENT: None Psych: Anxiety Musculoskeletal: Other Derm: None - Past Surgical History Past Surgical History: Yes /MOVIE ACTOR: Breast reduction - Present Medications Home Medications: Ambulatory Orders Medication Instructions Recorded Confirmed Bupropion HCl [Bupropion HCl Sr] 75 mg PO DAILY 03/08/18 06/28/18 metFORMIN [Glucophage] 500 mg PO BID 12/29/18 12/29/18 Oxycodone HCl/Acetaminophen 1 - 2 each PO Q6H PRN #14 tablet 12/30/18 [Percocet 5-325 mg Tablet] - Allergies Allergies/Adverse Reactions: Allergies Allergy/AdvReac Type Severity Reaction Status Date / Time sertraline Allergy Unknown Verified 12/29/18 20:58 tramadol AdvReac Emesis Verified 12/29/18 20:58 - Social History Does the pt smoke?: No Smoking Status: Never smoker Does the pt drink ETOH?: No Does the pt have substance abuse?: No - Immunizations Immunizations are current?: Yes - POLST Patient has POLST: No PD ED PE NORMAL - Vitals Vital signs reviewed: Yes (Hypertensive mild) - General General: Alert and oriented X 3, No acute distress, Well developed/nourished - HEENT HEENT: Atraumatic, PERRL, EOMI - Neck Neck: Supple, no meningeal sign, No bony TTP - Cardiac Cardiac: RRR, No murmur - Respiratory Respiratory: No respiratory distress, Clear bilaterally - Abdomen Abdomen: Normal bowel sounds, Soft, Non tender, Non distended, No organomegaly - Back Back: No CVA TTP, No spinal TTP - Derm Derm: Normal color, Warm and dry, No rash - Extremities Extremities: No deformity, No edema - Neuro Neuro: Alert and oriented X 3, heat set operator 2-12 intact, No motor deficit, No sensory deficit, Normal speech Eye Opening: Spontaneous Motor: Obeys Commands Verbal: Oriented GCS Score: 15 - Psych Psych: Normal mood, Normal affect Results - Vitals Vitals: Vital Signs - 24 hr 12/29/18 20:54 Temperature 36.4 C L Heart Rate 67 Respiratory 16 Rate Blood Pressure 129/83 H O2 Saturation 100 Oxygen O2 Source Room air - Labs Labs: Laboratory Tests 12/29/18 21:02 Urine Color YELLOW Urine Clarity CLEAR Urine pH 6.5 Ur Specific [place] 1.010 Urine Protein NEGATIVE Urine Glucose (UA) NEGATIVE Urine Ketones NEGATIVE Urine Occult Blood NEGATIVE Urine Nitrite NEGATIVE Urine Bilirubin NEGATIVE Urine Urobilinogen 0.2 (NORMAL) Ur Leukocyte Esterase NEGATIVE Ur Microscopic Review NOT INDICATED Urine Culture Comments NOT INDICATED Urine HCG, Qual NEGATIVE - Rads (name of study) u/s pelvis Radiology: Prelim report reviewed (Impression: No acute sonographic abnormalities. Subcentimeter uterine body fibroid.), EMP read indepedently, See rad report PD MEDICAL DECISION MAKING - ED course Complexity details: reviewed old records, reviewed results, re-evaluated patient, considered differential, d/w patient ED course: 23-year-old female with a history of irritable bowel syndrome and polycystic ovarian syndrome has lower abdominal pain that does not appear to involve anything that looks like peritonitis. She is not specifically tender she does complain of pain and she has a history of ovarian cyst. I did discuss with the patient her prior for CT scans of the abdomen and pelvis which of all been without specific findings and repeating this study would appear to place her in harm's way. We have done imaging with the ultrasound which did not demonstrate any abnormality. I am diagnosing irritable bowel with the patient and we have given her a dose of Bentyl. Departure - Departure Disposition: Home, Self Care Clinical Impression: Irritable bowel syndrome (IBS) Qualifiers: Irritable bowel syndrome type: with both diarrhea and constipation Qualified Code(s): K58.2 - Mixed irritable bowel syndrome Condition: Stable Instructions: ED IBS Follow-Up: Dottie Llamas DO [Primary Care Provider] - Prescriptions: Oxycodone HCl/Acetaminophen [Percocet 5-325 mg Tablet] 1 - 2 each PO Q6H PRN #14 tablet PRN Reason: pain Forms: Activity restrictions
--- NOTE | 2018-12-29 23:18 | Ultrasound Report ---
Reason: PCOS with L sided pain Procedure Date: 12/29/2018 Accession Number: [id number] / [id number] Procedure: US - Pelvic w/Transvag+Doppler Ltd CPT Code: FULL RESULT: EXAM: PELVIC ULTRASOUND WITH DOPPLERS CLINICAL HISTORY: PCOS with L sided pain. COMPARISON: None. TECHNIQUE: Realtime transabdominal imaging performed to identify the uterus and adnexa and as an overview of other pelvic structures, followed by transvaginal imaging for better assessment of the endometrium and adnexa, with static image documentation. Color flow imaging and Doppler spectral analysis was performed to evaluate blood flow to the ovaries given pelvic pain and clinical concern for ovarian torsion. FINDINGS: Uterus: 6.0 x 3.3 x 5.7 cm, volume 58.9 cc. Anteverted position. Normal overall size and echotexture. Masses: 0.8 cm intramural fibroid at the body. Endometrium: 3 mm. No focal endometrial abnormality. Cervix: Trace fluid Right Ovary: 3.8 x 1.5 x 1.9 cm, volume 5.7 cc. Normal echotexture. Arterial and venous blood flow are present. PSV 9.6 cm/sec. RI 0.7. Adnexa are unremarkable. Left Ovary: 3.9 x 1.7 x 3.6 cm, volume 12.2 cc. Normal echotexture. Multiple small follicles. Arterial and venous blood flow are present. PSV 12 cm/sec. RI 0.6. Adnexa are unremarkable. Free Fluid: None. Other: None. IMPRESSION: No acute sonographic abnormalities. Subcentimeter uterine body fibroid. RADIA
[2018-12-30 00:23] VITALS: BP 128/83
== END 2018-12-30 00:24 | disposition home or self-care (01) ==
LOC: ED 20:52
DX: K58.2 Mixed irritable bowel syndrome (principal)
CPT/HCPCS: 76830; 76856; 81003; 81025; 93976; 99283; 99284; A9270; 81001; 87086

== ENCOUNTER 2019-02-16 08:55 | Outpatient (CLI) | payer OTHER ==
--- NOTE | 2019-02-19 16:37 | Ultrasound Report ---
Reason: LT BREAST LUMP Procedure Date: 02/16/2019 Accession Number: [id number] / [id number] Procedure: US - Breast Unilateral Limited CPT Code: FULL RESULT: EXAM: Breast Unilateral Limited DATE: 02/16/2019 10:00 AM CLINICAL HISTORY: LT BREAST LUMP. History of bilateral reduction mammoplasty. COMPARISON: None. TECHNIQUE: Targeted ultrasound was performed of the left breast in the area of clinical concern at 6 o'clock and 10 cm distance from the nipple. Color Doppler was employed as appropriate. FINDINGS: Exam was monitored by Dr. Ramirez who personally scanned the patient. Findings are dictated by me in his absence in order to create a permanent record for the patient's chart. In the area of clinical concern in the 6:00 position left breast, no cystic or solid mass or abnormal fluid collection is seen. There is ill-defined shadowing along the reduction surgical scar which appears to correspond to the patient's clinical finding. IMPRESSION: Benign findings RECOMMENDATION: Clinical follow-up of the palpable abnormality. BIRADS CATEGORY 2: Benign findings RADIA
== END 2019-02-16 08:56 | disposition home or self-care (01) ==
LOC: DI 08:55
PROVIDERS: ATTEND Family Medicine
DX: N63.25 Unspecified lump in the left breast, overlapping quadrants (principal)
CPT/HCPCS: 76642

== ENCOUNTER 2019-03-05 13:53 | Outpatient (CLI) | payer OTHER ==
--- NOTE | 2019-03-05 15:48 | Ultrasound Report ---
Reason: AMENORRHEA, PLYCYSTIC OVARIAN SYNDROME Procedure Date: 03/05/2019 Accession Number: [id number] / [id number] Procedure: US - Pelvic w/Transvaginal CPT Code: Final Report FULL RESULT: EXAM: PELVIC ULTRASOUND EXAM DATE: 03/05/2019 03:14 PM. CLINICAL HISTORY: AMENORRHEA, POLYCYSTIC OVARIAN SYNDROME. COMPARISON: ABDOMEN/PELVIS W/ 04/13/2018 2:38 PM PELVIC W/TRANSVAGINAL 01/05/2018 4:06 PM PEL NON OB W/TV DOP LTD 12/29/2018 10:11 PM ABDOMEN/PELVIS W/ 01/06/2017 11:31 AM. TECHNIQUE: Realtime transabdominal pelvic scan performed to identify the uterus and adnexa and as an overview of other pelvic structures, followed by transvaginal scan to provide greater detail of the uterus and adnexa, with static image documentation. FINDINGS: Uterus: 7.8 x 2.6 x 4.6 cm, volume 49 cc. Anteverted position. Possible arcuate Masses: None. Endometrium: 2.5 mm. Normal. Cervix: Unremarkable. Right Ovary: 4.1 x 2.1 x 1.7 cm, volume 7.6 cc. Normal echotexture and blood flow. Left Ovary: 4.4 x 2.1 x 2.4 cm, volume 11.5 cc. Normal echotexture and blood flow. Free Fluid: None. Other: None. IMPRESSION: Possible arcuate uterus otherwise unremarkable ultrasound RADIA
== END 2019-03-05 13:54 | disposition home or self-care (01) ==
LOC: DI 13:53
PROVIDERS: ATTEND Nurse Practitioner Obstetrics & Gynecology
DX: N91.2 Amenorrhea, unspecified (principal)
CPT/HCPCS: 76830; 76856

== ENCOUNTER 2019-03-31 16:29 | Emergency (ER) | payer OTHER ==
--- NOTE | 2019-03-31 17:08 | ED Physician Documentation ---
History of Present Illness - Stated complaint Stated Complaint: WEAKNESS,NAUSEA,BURNING - Chief complaint Chief Complaint: Neuro - Additonal information Additional information: This is a 23-year-old female with a history of migraines in the past, anxiety, who presents with nausea and head pressure began around 2 hours ago. Patient states she has had some progressive feeling of pressure around her head, and has seen a few flashing lights around her eyes, she does feel nauseated and she feels sensitive to lights. She denies any trauma to her head. She does have some generalized achiness, she has had some nasal congestion and cough for several days since she developed a cold. No weakness or numbness. She desribes the hearache as a mild to moderate feeling of vague discomfort in her head. 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: Breast reduction - Present Medications Home Medications: Ambulatory Orders Medication Instructions Recorded Confirmed Bupropion HCl [Bupropion HCl Sr] 75 mg PO DAILY 03/08/18 06/28/18 metFORMIN [Glucophage] 500 mg PO BID 12/29/18 12/29/18 Oxycodone HCl/Acetaminophen 1 - 2 each PO Q6H PRN #14 tablet 12/30/18 [Percocet 5-325 mg Tablet] Fluticasone [Flonase] 1 sprays ANTHONY BID PRN #1 bottle 03/31/19 Ondansetron Odt [Zofran] 4 mg TL Q6H PRN #10 tablet 03/31/19 - Allergies Allergies/Adverse Reactions: Allergies Allergy/AdvReac Type Severity Reaction Status Date / Time sertraline Allergy Unknown Verified 12/29/18 20:58 tramadol AdvReac Emesis Verified 12/29/18 20:58 - Social History Does the pt smoke?: No Smoking Status: Never smoker Does the pt drink ETOH?: No Does the pt have substance abuse?: No - Immunizations Immunizations are current?: Yes - POLST Patient has POLST: No PD ED PE NORMAL - Vitals Vital signs reviewed: Yes - General General: Alert and oriented X 3, No acute distress - HEENT HEENT: Atraumatic, PERRL, Other (Mild posterior pharynx erythema without exudate) - Neck Neck: Supple, no meningeal sign, Other (Normal range of motion no neck stiffness) - Cardiac Cardiac: RRR, No murmur - Respiratory Respiratory: No respiratory distress, Clear bilaterally - Abdomen Abdomen: Soft, Non tender, Non distended - Derm Derm: Warm and dry - Extremities Extremities: No deformity - Neuro Neuro: Alert and oriented X 3, No motor deficit, No sensory deficit, Normal speech - Psych Psych: Normal mood, Normal affect Results - Vitals Vitals: Vital Signs - 24 hr 03/31/19 03/31/19 03/31/19 16:42 17:47 18:06 Temperature 37.2 C Heart Rate 86 73 73 Respiratory 18 18 18 Rate Blood Pressure 134/83 H 128/75 128/75 O2 Saturation 100 98 100 Oxygen O2 Source Room air - Labs Labs: Laboratory Tests 03/31/19 03/31/19 03/31/19 17:07 17:36 17:36 WBC 8.0 RBC 5.12 Hgb 14.9 Hct 45.1 MCV 88.1 MCH 29.1 MCHC 33.0 RDW 13.0 Plt Count 271 MPV 9.4 Neut # (Auto) 5.6 Lymph # (Auto) 1.5 [place] # (Auto) 0.6 Eos # (Auto) 0.3 Baso # (Auto) 0.0 Absolute Nucleated RBC 0.00 Nucleated RBC % 0.0 Sodium 139 Potassium 3.8 Chloride 103 Carbon Dioxide 28 Anion Gap 8.0 BUN 9 Creatinine 0.7 Estimated GFR (MDRD) 106 Glucose 111 H Calcium 9.2 Total Bilirubin 0.3 AST 23 ALT 32 Alkaline Phosphatase 45 Total Protein 7.9 Albumin 3.9 Globulin 4.0 Albumin/Globulin Ratio 1.0 Lipase 56 H HCG, Quant Urine Color LT. YELLOW Urine Clarity CLEAR Urine pH 5.5 Ur Specific [place] <=1.005 Urine Protein NEGATIVE Urine Glucose (UA) NEGATIVE Urine Ketones NEGATIVE Urine Occult Blood NEGATIVE Urine Nitrite NEGATIVE Urine Bilirubin NEGATIVE Urine Urobilinogen 0.2 (NORMAL) Ur Leukocyte Esterase NEGATIVE Ur Microscopic Review NOT INDICATED Urine Culture Comments NOT INDICATED Urine HCG, Qual NEGATIVE 03/31/19 17:36 WBC RBC Hgb Hct MCV MCH MCHC RDW Plt Count MPV Neut # (Auto) Lymph # (Auto) [place] # (Auto) Eos # (Auto) Baso # (Auto) Absolute Nucleated RBC Nucleated RBC % Sodium Potassium Chloride Carbon Dioxide Anion Gap BUN Creatinine Estimated GFR (MDRD) Glucose Calcium Total Bilirubin AST ALT Alkaline Phosphatase Total Protein Albumin Globulin Albumin/Globulin Ratio Lipase HCG, Quant < 0.60 Urine Color Urine Clarity Urine pH Ur Specific [place] Urine Protein Urine Glucose (UA) Urine Ketones Urine Occult Blood Urine Nitrite Urine Bilirubin Urine Urobilinogen Ur Leukocyte Esterase Ur Microscopic Review Urine Culture Comments Urine HCG, Qual PD MEDICAL DECISION MAKING - ED course Complexity details: considered differential (URI, migraine, electrolyte abnormality, sinusitis, sinus headache, tension headache) ED course: On examination patient is well-appearing, neurologic exam is normal, vital signs are unremarkable. She has no chest pain or shortness of breath. Labs are obtained and are unremarkable. She was given a migraine cocktail with good effect. Urinalysis is negative and hCG is negative. Given patient's diffuse achiness as well as her sinus congestion and her headache, think she likely has a viral URI which may also be complicated by a tension or migraine headache. No signs of meningitis or serious infection at this time. Given her recent onset of illness, lack of fever, and symptoms, bacterial sinusitis unlikely. She does not have a significant cough or any hypoxia and her lungs are clear, pneumonia unlikely. I discussed supportive care, and also prescribed her some fluticasone as well as Zofran for symptoms of nausea and nasal congestion. I also discussed using Tylenol ibuprofen for her symptoms. I recommended primary care follow-up and return to the emergency family with any worsening symptoms. Departure - Departure Disposition: 01 Home, Self Care Clinical Impression: Viral URI Head ache Qualifiers: Headache type: unspecified Headache chronicity pattern: acute headache Intractability: not intractable Qualified Code(s): R51 - Headache Condition: Good Instructions: ED Viral Syndrome Follow-Up: Dottie Llamas DO [Primary Care Provider] - Within 1 week Prescriptions: Fluticasone [Flonase] 1 sprays ANTHONY BID PRN #1 bottle PRN Reason: Nasal Congestion Ondansetron Odt [Zofran] 4 mg TL Q6H PRN #10 tablet PRN Reason: Nausea / Vomiting Comments: Appears that you have a viral upper respiratory infection, may have had a headache or migraine today as well. Please rest, drink plenty of fluids, follow-up with your primary care provider. You may take 600 mg of ibuprofen every 6 hours and 650 mg of Tylenol every 6 hours as needed for discomfort. You may also take 25 to 50 mg of Benadryl every 8 hours which may help with your congestion. If you are developing new or more concerning symptoms such as severe headache, persistent vomiting, or fever despite the Tylenol and ibuprofen, return to the emergency department. Forms: Activity restrictions
[2019-03-31 17:20] LABS: BILIRUBIN,URINE NEGATIVE (NEGATIVE); GLUCOSE, URINE (UA) NEGATIVE (NEGATIVE); KETONES,URINE (UA) NEGATIVE (NEGATIVE); LEUKOCYTE ESTERASE, URINE NEGATIVE (NEGATIVE); NITRITE,URINE NEGATIVE (NEGATIVE); OCCULT BLOOD,URINE NEGATIVE (NEGATIVE); PH,URINE 5.5 PH (5.0-7.5); PROTEIN,URINE NEGATIVE (NEGATIVE); UROBILINOGEN,URINE 0.2 (NORMAL) E.U./dL (NORMAL)
[2019-03-31 17:22] LABS: CLARITY,URINE CLEAR (CLEAR)
[2019-03-31 17:23] LABS: HCG UR QUAL NEGATIVE
[2019-03-31] MEDS ORDERED: diphenhydrAMINE INJ 50 MG/ML VIAL IVP STA (17:24)
[2019-03-31] MEDS ORDERED: METOCLOPRAMIDE 10 MG/2 ML VIAL IVP STA (17:24)
[2019-03-31] MEDS ORDERED: SODIUM CHLORIDE 0.9% 1,000 ML IV ONE (17:24)
[2019-03-31] MEDS ORDERED: KETOROLAC 30 MG/ML VIAL IVP STA (17:24)
[2019-03-31 17:44] LABS: BASOPHILS % (AUTO) 0.4 %; EOSINOPHILS # (AUTO) 0.3 10^3/uL (0.0-0.7); EOSINOPHILS % (AUTO) 3.9 %; HGB - HEMOGLOBIN 14.9 g/dL (12.0-16.0); LYMPHOCYTES # (AUTO) 1.5 10^3/uL (1.5-3.5); LYMPHOCYTES % (AUTO) 18.5 %; MEAN CORPUSCULAR HEMOGLOBIN 29.1 pg (27.0-31.0); MEAN CORPUSCULAR VOLUME 88.1 fL (81.0-99.0); MEAN PLATELET VOLUME 9.4 fL (7.9-10.8); MONOCYTES # (AUTO) 0.6 10^3/uL (0.0-1.0); MONOCYTES % (AUTO) 7.5 %; NEUTROPHILS # (AUTO) 5.6 10^3/uL (1.5-6.6); NEUTROPHILS % (AUTO) 69.3 %; PLT - PLATELET COUNT 271 10^3/uL (130-450); RED BLOOD COUNT 5.12 10^6/uL (4.20-5.40)
[2019-03-31 17:52] LABS: ALBUMIN 3.9 g/dL (3.2-5.5); BILIRUBIN,TOTAL 0.3 mg/dL (0.2-1.0); CALCIUM 9.2 mg/dL (8.5-10.3); CREATININE 0.7 mg/dL (0.4-1.0); TOTAL PROTEIN 7.9 g/dL (6.7-8.2)
[2019-03-31 18:40] VITALS: BP 122/82
== END 2019-03-31 18:43 | disposition home or self-care (01) ==
LOC: ED 16:29
DX: J06.9 Acute upper respiratory infection, unspecified (principal); R51 Headache
CPT/HCPCS: 36415; 80053; 81003; 81025; 83690; 84702; 85025; 96361; 96374; 99281; 99283; J1200; J2765; 81001; 87086

== ENCOUNTER 2019-04-20 11:23 | Outpatient (CLI) | payer OTHER | END 2019-04-20 11:24 | disposition home or self-care (01) | LOC: DI 11:23 | PROVIDERS: ATTEND Physician Assistant | DX: R07.9 Chest pain, unspecified (principal) | CPT/HCPCS: 93306 ==

== ENCOUNTER 2019-09-07 10:19 | Outpatient (CLI) | payer MEDICAID ==
--- NOTE | 2019-09-08 05:31 | XRAY Report ---
Reason: CHRONIC LOW BACK PAIN Procedure Date: 09/07/2019 Accession Number: [id number] / [id number] Procedure: WCP - Lumbar Spine 2 View CPT Code: Final Report FULL RESULT: EXAM: LUMBOSACRAL SPINE RADIOGRAPHY EXAM DATE: 09/07/2019 10:19 AM. CLINICAL HISTORY: CHRONIC LOW BACK PAIN. COMPARISONS: LUMBAR SPINE 2 VIEW 07/27/2017 4:22 PM. TECHNIQUE: 2 views. FINDINGS: Alignment: Normal. No spondylolisthesis or scoliosis. Bones: Transitional lumbosacral vertebra is again noted (partial lumbarization of the S1 segment). Transitional morphology of the right T12 transverse process is unchanged. No fractures or bone lesions. Disks: Normal. Disk heights are maintained. Facets: No degenerative changes. Sacroiliac Joints: Unremarkable. Soft Tissues: Normal. The visualized bowel gas pattern is normal. IMPRESSION: 1. No evidence of acute pathology in the lumbar spine. No significant interval change. 2. Transitional lumbosacral vertebra. RADIA
== END 2019-09-07 23:59 | disposition home or self-care (01) ==
LOC: DI.WCP 10:19
PROVIDERS: ATTEND Family Medicine
DX: M54.5 Low back pain (principal); Q76.49 Other congenital malformations of spine, not associated with scoliosis
CPT/HCPCS: 72100

== ENCOUNTER 2019-09-21 01:59 | Emergency (ER) | payer MEDICAID ==
--- NOTE | 2019-09-21 02:02 | ED Physician Documentation ---
History of Present Illness - Stated complaint Stated Complaint: AB PX/DARK STOOL - History obtained from History obtained from: Patient (Patient is a 24-year-old female who presents with multiple complaints to include body aches some crampy abdominal discomfort. She denies any headache or neck pain or rashes or dysuria or hematuria. Patient reports she had one bowel movement today and that it looked a little bit darker than usual she denies taking any blood thinner she denies any syncope she reports her symptoms as very mild. She has a follow-up appointment with her primary care provider today actually.She denies any severe abdominal pain or back pain.She does not denies any dark urine or gisel colored stools.) Review of Systems Constitutional: reports: Other (Body aches) Eyes: reports: Reviewed and negative Ears: reports: Reviewed and negative Nose: reports: Reviewed and negative Throat: reports: Reviewed and negative Cardiac: reports: Reviewed and negative Respiratory: reports: Reviewed and negative GI: reports: Other (Abdominal cramping) : reports: Reviewed and negative Skin: reports: Reviewed and negative Musculoskeletal: reports: Reviewed and negative Neurologic: reports: Reviewed and negative Psychiatric: reports: Reviewed and negative Endocrine: reports: Reviewed and negative Immunocompromised: reports: Reviewed and negative PD PAST MEDICAL HISTORY - Past Medical History Cardiovascular: None Respiratory: None Endocrine/Autoimmune: None GI: Other 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: Ovarian cysts : None HEENT: None Psych: Anxiety Musculoskeletal: Other Derm: None - Past Surgical History Past Surgical History: Yes /RAMP BOSS: Breast reduction - Present Medications Home Medications: Ambulatory Orders Medication Instructions Recorded Confirmed buPROPion HCL [Bupropion HCl Sr] 75 mg PO DAILY 03/08/18 06/28/18 metFORMIN [Glucophage] 500 mg PO BID 12/29/18 12/29/18 Oxycodone HCl/Acetaminophen 1 - 2 each PO Q6H PRN #14 tablet 12/30/18 [Percocet 5-325 mg Tablet] Fluticasone [Flonase] 1 sprays ANTHONY BID PRN #1 bottle 03/31/19 Ondansetron Odt [Zofran] 4 mg TL Q6H PRN #10 tablet 03/31/19 - Allergies Allergies/Adverse Reactions: Allergies Allergy/AdvReac Type Severity Reaction Status Date / Time sertraline Allergy Unknown Verified 09/21/19 02:08 tramadol AdvReac Emesis Verified 09/21/19 02:08 - Social History Does the pt smoke?: No Smoking Status: Never smoker Does the pt drink ETOH?: No Does the pt have substance abuse?: No - Immunizations Immunizations are current?: Yes - POLST Patient has POLST: No PD ED PE NORMAL - Vitals Vital signs reviewed: Yes - General General: Alert and oriented X 3, No acute distress, Well developed/nourished, Other (Upon entering the room the patient sitting upright she is pleasant nontoxic nonseptic appearing in no discomfort.) - HEENT HEENT: Atraumatic, PERRL, Moist mucous membranes, Dentition benign - Neck Neck: Supple, no meningeal sign, No adenopathy, Thyroid normal - Cardiac Cardiac: RRR, No murmur, Strong equal pulses - Respiratory Respiratory: No respiratory distress, Clear bilaterally - Abdomen Abdomen: Normal bowel sounds, Soft, Non tender, Non distended, No organomegaly, Other (The abdomen soft, nontender nondistended with normal active bowel sounds no guarding no rebounding no hepatosplenomegaly no CVA tenderness negative Walter's, negative Rovsing's, negative psoas no guarding no peritoneal signs benign abdominal exam) - Derm Derm: Warm and dry - Extremities Extremities: No deformity - Neuro Neuro: Alert and oriented X 3 - Psych Psych: Normal mood, Normal affect Results - Vitals Vitals: Vital Signs - 24 hr 09/21/19 09/21/19 02:06 03:36 Temperature 36.7 C Heart Rate 56 L Respiratory 16 16 Rate Blood Pressure 118/77 O2 Saturation 100 Oxygen O2 Source Room air - Labs Labs: Laboratory Tests 09/21/19 03:29 Urine Color YELLOW Urine Clarity CLEAR Urine pH 5.5 Ur Specific [place] 1.015 Urine Protein NEGATIVE Urine Glucose (UA) NEGATIVE Urine Ketones TRACE Urine Occult Blood NEGATIVE Urine Nitrite NEGATIVE Urine Bilirubin NEGATIVE Urine Urobilinogen 0.2 (NORMAL) Ur Leukocyte Esterase NEGATIVE Ur Microscopic Review NOT INDICATED Urine Culture Comments NOT INDICATED Urine HCG, Qual NEGATIVE PD MEDICAL DECISION MAKING - ED course Complexity details: considered differential (Her history and exam are benign and on room workable she has no exam findings to exam suggesting acute process such as appendicitis or cholecystitis or mesenteric ischemia.Her urinalysis is unremarked double her urine test is negative had a lengthy discussion with the patient about further testing I did offer further testing to include labs and possible imaging however the patient reports that her symptoms are completely resolved at this time and she is comfortable being discharged home with close follow-up today with her primary care provider.) Departure - Departure Disposition: 01 Home, Self Care Clinical Impression: Viral syndrome, Abdominal cramping Condition: Stable Instructions: ED Abdominal Pain Unkn Cause, ED Viral Syndrome Follow-Up: Dottie Llamas DO [Primary Care Provider] - 09/21/19 Comments: follow up with your physician today. Hydrate well.
[2019-09-21 02:08] VITALS: BP 118/77
[2019-09-21 03:35] LABS: BILIRUBIN,URINE NEGATIVE (NEGATIVE); GLUCOSE, URINE (UA) NEGATIVE (NEGATIVE); KETONES,URINE (UA) TRACE mg/dL (NEGATIVE); LEUKOCYTE ESTERASE, URINE NEGATIVE (NEGATIVE); NITRITE,URINE NEGATIVE (NEGATIVE); OCCULT BLOOD,URINE NEGATIVE (NEGATIVE); PH,URINE 5.5 PH (5.0-7.5); PROTEIN,URINE NEGATIVE (NEGATIVE); UROBILINOGEN,URINE 0.2 (NORMAL) E.U./dL (NORMAL)
[2019-09-21 03:37] LABS: CLARITY,URINE CLEAR (CLEAR); HCG UR QUAL NEGATIVE
== END 2019-09-21 04:03 | disposition home or self-care (01) ==
LOC: ED 01:59
DX: B34.9 Viral infection, unspecified (principal); R10.9 Unspecified abdominal pain
CPT/HCPCS: 81001; 81003; 81025; 87086; 99283; 99284

== ENCOUNTER 2019-10-04 20:01 | Emergency (ER) | payer MEDICAID ==
[2019-10-04 20:09] VITALS: BP 117/64
--- NOTE | 2019-10-04 20:33 | ED Physician Documentation ---
History of Present Illness - Stated complaint Stated Complaint: CP, INTERMITTENT - Chief complaint Chief Complaint: Cardiac - History obtained from History obtained from: Patient (Patient is a 24-year-old female presents with an episode of shortness of breath while exercising that is since resolved she also reported some chest discomfort that lasted for 5 seconds and then has since resolved she denies any history of OK or stroke or any history of pulmonary embolism or DVT or any family history of sudden in mother, father, brother sister denies any history of pneumothorax.) Review of Systems Constitutional: reports: Reviewed and negative Eyes: reports: Reviewed and negative Ears: reports: Reviewed and negative Nose: reports: Reviewed and negative Throat: reports: Reviewed and negative Cardiac: reports: Chest pain / pressure Respiratory: reports: Reviewed and negative GI: reports: Reviewed and negative : reports: Reviewed and negative Skin: reports: Reviewed and negative Musculoskeletal: reports: Reviewed and negative Neurologic: reports: Reviewed and negative Psychiatric: reports: Reviewed and negative Endocrine: reports: Reviewed and negative Immunocompromised: reports: Reviewed and negative PD PAST MEDICAL HISTORY - Past Medical History Past Medical History: Yes Cardiovascular: None Respiratory: None Neuro: None Endocrine/Autoimmune: None 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 : None HEENT: None Psych: Anxiety Musculoskeletal: Other Derm: None - Past Surgical History Past Surgical History: 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: Breast reduction - Present Medications Home Medications: Ambulatory Orders Medication Instructions Recorded Confirmed buPROPion HCL [Bupropion HCl Sr] 75 mg PO DAILY 03/08/18 06/28/18 metFORMIN [Glucophage] 500 mg PO BID 12/29/18 12/29/18 Oxycodone HCl/Acetaminophen 1 - 2 each PO Q6H PRN #14 tablet 12/30/18 [Percocet 5-325 mg Tablet] Fluticasone [Flonase] 1 sprays ANTHONY BID PRN #1 bottle 03/31/19 Ondansetron Odt [Zofran] 4 mg TL Q6H PRN #10 tablet 03/31/19 - Allergies Allergies/Adverse Reactions: Allergies Allergy/AdvReac Type Severity Reaction Status Date / Time sertraline Allergy Unknown Verified 10/04/19 20:09 tramadol AdvReac Emesis Verified 10/04/19 20:09 - Social History Does the pt smoke?: No Smoking Status: Never smoker Does the pt drink ETOH?: No Does the pt have substance abuse?: No - Immunizations Immunizations are current?: Yes - POLST Patient has POLST: No PD ED PE NORMAL - Vitals Vital signs reviewed: Yes - General General: Alert and oriented X 3, No acute distress, Well developed/nourished - HEENT HEENT: PERRL - Neck Neck: Supple, no meningeal sign - Cardiac Cardiac: RRR, No murmur, Strong equal pulses - Respiratory Respiratory: No respiratory distress, Clear bilaterally - Abdomen Abdomen: Normal bowel sounds, Soft, Non tender, Non distended, No organomegaly - Derm Derm: Warm and dry - Extremities Extremities: No deformity - Neuro Neuro: Alert and oriented X 3, 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 Given the fact she has an unremarkable EKG and good follow-up patient will be discharged home at this time.) Departure - Departure Disposition: 01 Home, Self Care Clinical Impression: Atypical chest pain Condition: Stable Instructions: ED Chest Pain NonCardiac Follow-Up: Dottie Llamas DO [Primary Care Provider] - Tomorrow Comments: Call your doctor tomorrow to schedule follow-up.Take either Tylenol or ibuprofen as needed for pain. Discharge Date/Time: 10/04/19 21:56
== END 2019-10-04 21:56 | disposition home or self-care (01) ==
LOC: ED 20:01
DX: R07.89 Other chest pain (principal)
CPT/HCPCS: 93005; 99283; 99284

== ENCOUNTER 2019-10-16 10:41 | Outpatient (CLI) | payer MEDICAID ==
--- NOTE | 2019-10-16 13:39 | XRAY Report ---
Reason: CHEST PAIN Procedure Date: 10/16/2019 Accession Number: [id number] / [id number] Procedure: WCP - Chest 2 View X-Ray CPT Code: 25829 Final Report FULL RESULT: PROCEDURE: Chest 2 View X-Ray INDICATIONS: CHEST PAIN TECHNIQUE: 2 view(s) of the chest. COMPARISON: None. FINDINGS: Surgical changes and devices: None. Lungs and pleura: No pleural effusions or pneumothorax. Lungs are clear. Mediastinum: Mediastinal contours are normal. Heart size is normal. Bones and chest wall: No suspicious bony abnormalities. Soft tissues appear unremarkable. IMPRESSION: Chest without acute cardiopulmonary abnormalities. No findings to explain patient's chest pain. Reviewed by: Deyvi Marrufo MD on 10/16/2019 1:37 PM PDT Approved by: Deyvi Marrufo MD on 10/16/2019 1:37 PM PDT Station ID: [id number]
== END 2019-10-16 23:59 | disposition home or self-care (01) ==
LOC: DI.WCP 10:41
PROVIDERS: ATTEND Family Medicine
DX: R07.9 Chest pain, unspecified (principal)
CPT/HCPCS: 71046

== ENCOUNTER 2019-12-22 11:01 | Emergency (ER) | payer MEDICAID ==
[2019-12-22] MEDS ORDERED: DEXAMETHASONE 10 MG/ML VIAL PO STA (11:59)
[2019-12-22] MEDS ORDERED: CHERRY SYRUP 10 ML UDC PO ONE (11:59)
[2019-12-22] MEDS ORDERED: KETOROLAC 60 MG/2 ML VIAL IM STA (12:00)
--- NOTE | 2019-12-22 12:45 | ED Physician Documentation ---
PD HPI BACK PAIN - Stated complaint Stated Complaint: BACK PX - Chief complaint Chief Complaint: Back Pain - History obtained from History obtained from: Patient - History of Present Illness Timing - onset: How many months ago (1) Timing - duration: Months (1) Timing - details: Abrupt onset, Still present Location: Lower Quality: Pain, Spasm, Sharp, Similar to prior episodes Associated symptoms: Numbness. No: Fever, Weakness, Incontinent of urine, Unable to urinate, Hematuria, Incontinent of stool Improves with: Rest, Position, Meds Worsened by: Movement Similar symptoms before: Has not had sx before Recently seen: Clinic - Additional information Additional information: 24 y/o female with back pain for the past month has pain radiating down both legs with numbness. No saddle anesthesia and no incontinence. 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 - Present Medications Home Medications: Ambulatory Orders Medication Instructions Recorded Confirmed buPROPion HCL [Bupropion HCl Sr] 75 mg PO DAILY 03/08/18 06/28/18 metFORMIN [Glucophage] 500 mg PO BID 12/29/18 12/29/18 Oxycodone HCl/Acetaminophen 1 - 2 each PO Q6H PRN #14 tablet 12/30/18 [Percocet 5-325 mg Tablet] Fluticasone [Flonase] 1 sprays ANTHONY BID PRN #1 bottle 03/31/19 Ondansetron Odt [Zofran] 4 mg TL Q6H PRN #10 tablet 03/31/19 Cyclobenzaprine [Flexeril] 10 mg PO TID PRN #20 tablet 12/22/19 Oxycodone HCl/Acetaminophen 1 - 2 each PO Q6H PRN #14 tablet 12/22/19 [Percocet 5-325 mg Tablet] - Allergies Allergies/Adverse Reactions: Allergies Allergy/AdvReac Type Severity Reaction Status Date / Time sertraline Allergy Unknown Verified 10/04/19 20:09 tramadol AdvReac Emesis Verified 10/04/19 20:09 - Social History Does the pt smoke?: No Smoking Status: Never smoker Does the pt drink ETOH?: No Does the pt have substance abuse?: No - Immunizations Immunizations are current?: Yes - POLST Patient has POLST: No PD ED PE NORMAL - Vitals Vital signs reviewed: Yes (normal ) - General General: Alert and oriented X 3, No acute distress, Well developed/nourished - HEENT HEENT: Atraumatic, PERRL, EOMI - Respiratory Respiratory: No respiratory distress - Back Back: No CVA TTP, Other (midline tenderness with pain radiating into the sciaitc notch bilaterally ) - Derm Derm: Normal color, Warm and dry, No rash - Extremities Extremities: No deformity, No edema - Neuro Neuro: Alert and oriented X 3, 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 accountant 2-12 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, No motor deficit, No sensory deficit, Normal speech Eye Opening: Spontaneous Motor: Obeys Commands Verbal: Oriented GCS Score: 15 - Psych Psych: Normal mood, Normal affect Results - Vitals Vitals: Vital Signs - 24 hr 12/22/19 12/22/19 11:10 12:48 Temperature 36.7 C 36.9 C Heart Rate 78 68 Respiratory 14 18 Rate Blood Pressure 111/74 110/69 O2 Saturation 98 99 Oxygen O2 Source Room air PD MEDICAL DECISION MAKING - ED course Complexity details: considered differential, d/w patient ED course: 24-year-old female with acute sciatica bilaterally is administered dexamethasone 10 mg and Toradol 60 mg IM.She is placed onto oxycodone and Flexeril for short period of time and she is getting ready to have MRI. Departure - Departure Disposition: 01 Home, Self Care Clinical Impression: Sciatica Qualifiers: Laterality: bilateral Qualified Code(s): M54.31 - Sciatica, right side Condition: Stable Instructions: ED Sciatica Follow-Up: Dottie Llamas DO [Primary Care Provider] - Prescriptions: Cyclobenzaprine [Flexeril] 10 mg PO TID PRN #20 tablet PRN Reason: Spasms Oxycodone HCl/Acetaminophen [Percocet 5-325 mg Tablet] 1 - 2 each PO Q6H PRN #14 tablet PRN Reason: pain Discharge Date/Time: 12/22/19 12:52
[2019-12-22 12:52] VITALS: BP 110/69
== END 2019-12-22 12:52 | disposition home or self-care (01) ==
LOC: ED 11:01
DX: M54.42 Lumbago with sciatica, left side (principal); M54.41 Lumbago with sciatica, right side
CPT/HCPCS: 96372; 99283; 99284; A9270

== ENCOUNTER 2019-12-27 15:03 | Outpatient (CLI) | payer MEDICAID ==
--- NOTE | 2019-12-27 15:59 | MRI Report ---
PROCEDURE: Lumbar Spine W/O INDICATIONS: Low back pain and left lower extremity radicular symptoms TECHNIQUE: Noncontrast sagittal T1 spin echo and T2 fast echo, sagittal STIR, axial T1 and T2 fast spin echo thr ough the lumbar spine. In cases with scoliosis, additional coronal T2 fast spin echo may be performe d. COMPARISON: None. FINDINGS: Image quality: Excellent. Alignment and Curvature: Normal lumbar vertebral body height and alignment. Bone Marrow: No suspicious focal marrow signal abnormality or bone marrow edema. Spinal Cord: Normal position and appearance of the conus. Partially visualized distal spinal cord is unremarkable. Regional Soft Tissues: Prevertebral and paraspinous soft tissues are normal. Limited views of the inc luded unenhanced retroperitoneal structures demonstrate no acute finding. T12-L1: Normal in appearance. L1-L2: Normal in appearance. L2-L3: Normal in appearance. L3-L4: Normal in appearance. L4-L5: Diffuse disc bulge with a superimposed broad-based posterior disc protrusion in the left parac entral, left subarticular, and left foraminal zones. Disc material displaces the descending left L5 n erve root within the left subarticular zone, resulting in possible impingement of the nerve roots bet ween disc and facet material (series [id number] image [id number]). Foraminal components of the disc bulge on the lef t combined with congenital shortening of the pedicles to produce mild neural foraminal stenosis. L5-S1: Normal in appearance. 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 Asymmetric left-sided disc protrusion at L4-L5 resulting in suspected impingement of the descending l eft L5 nerve roots. Reviewed by: Malachi Rand MD on 12/27/2019 3:58 PM PDT Approved by: Malachi Rand MD on 12/27/2019 3:58 PM PDT Station ID: [id number]
== END 2019-12-27 15:04 | disposition home or self-care (01) ==
LOC: DI 15:03
PROVIDERS: ATTEND Family Medicine
DX: M51.36 Other intervertebral disc degeneration, lumbar region (principal)
CPT/HCPCS: 72148

== ENCOUNTER 2019-12-31 12:14 | Outpatient (CLI) | payer MEDICAID ==
[2019-12-31 13:10] LABS: CHOL/HDL RATIO 3.5 (<4.4); CHOLESTEROL 214 mg/dL; HDL CHOLESTEROL 61 mg/dL; LDL CHOLESTEROL,CALCULATED 140 mg/dL; LDL/HDL RATIO 2.3 (<4.4); VLDL CHOLESTEROL 13 mg/dL
== END 2019-12-31 12:15 | disposition home or self-care (01) ==
LOC: LAB 12:14
PROVIDERS: ATTEND Obstetrics & Gynecology
DX: E28.2 Polycystic ovarian syndrome (principal)
CPT/HCPCS: 36415; 80061; 83036; 83721; 84146

== ENCOUNTER 2020-03-02 12:07 | Emergency (ER) | payer MEDICAID ==
[2020-03-02 13:14] LABS: BASOPHILS % (AUTO) 0.3 %; EOSINOPHILS % (AUTO) 0.4 %; LYMPHOCYTES # (AUTO) 1.2 10^3/uL (1.5-3.5); LYMPHOCYTES % (AUTO) 11.3 %; MEAN CORPUSCULAR HGB CONC 34.4 g/dL (32.0-36.0); MEAN CORPUSCULAR VOLUME 87.2 fL (81.0-99.0); MEAN PLATELET VOLUME 9.3 fL (7.9-10.8); MONOCYTES # (AUTO) 0.5 10^3/uL (0.0-1.0); MONOCYTES % (AUTO) 4.6 %; NEUTROPHILS # (AUTO) 8.6 10^3/uL (1.5-6.6); NEUTROPHILS % (AUTO) 82.8 %; PLT - PLATELET COUNT 293 10^3/uL (130-450); RED CELL DISTRIBUTION WIDTH 12.8 % (12.0-15.0); WHITE BLOOD COUNT 10.4 x10^3/uL (4.8-10.8)
[2020-03-02 13:24] LABS: ALBUMIN 4.3 g/dL (3.2-5.5); ALBUMIN/GLOBULIN RATIO 1.3 (1.0-2.2); BILIRUBIN,TOTAL 0.5 mg/dL (0.2-1.0); CALCIUM 9.6 mg/dL (8.5-10.3); CREATININE 0.7 mg/dL (0.4-1.0); TOTAL PROTEIN 7.6 g/dL (6.7-8.2)
[2020-03-02] MEDS ORDERED: LOPERAMIDE 2 MG CAPSULE PO STA (14:28)
[2020-03-02] MEDS ORDERED: PROMETHAZINE INJ 25 MG in SODIUM CHLORIDE 0.9% 50 ML IV STA (14:28)
[2020-03-02] MEDS ORDERED: KETOROLAC 30 MG/ML VIAL IVP STA (14:28)
[2020-03-02] MEDS ORDERED: SODIUM CHLORIDE 0.9% 1,000 ML IV STA (14:28)
--- NOTE | 2020-03-02 14:30 | ED Physician Documentation ---
PD HPI ABD PAIN - Stated complaint Stated Complaint: LIGHTHEADED VOMITING - Chief complaint Chief Complaint: Abd Pain - History obtained from History obtained from: Patient - Additional information Additional information: 24-year-old woman with history of PCOS and migraines became acutely ill this morning with vomiting and diarrhea. She had some pink vomitus without overt blood and yellow diarrhea associated with generalized stomach cramps. No fevers. She had a migraine earlier in the day but took an Excedrin and it is gone. 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 : None HEENT: None Psych: Anxiety Musculoskeletal: Other Derm: None - Past Surgical History Past Surgical History: Yes /BRAKE LINING CURER: Breast reduction - Present Medications Home Medications: Ambulatory Orders Medication Instructions Recorded Confirmed buPROPion HCL [Bupropion HCl Sr] 75 mg PO DAILY 03/08/18 06/28/18 metFORMIN [Glucophage] 500 mg PO BID 12/29/18 12/29/18 Oxycodone HCl/Acetaminophen 1 - 2 each PO Q6H PRN #14 tablet 12/30/18 [Percocet 5-325 mg Tablet] Fluticasone [Flonase] 1 sprays ANTHONY BID PRN #1 bottle 03/31/19 Ondansetron Odt [Zofran] 4 mg TL Q6H PRN #10 tablet 03/31/19 Cyclobenzaprine [Flexeril] 10 mg PO TID PRN #20 tablet 12/22/19 Oxycodone HCl/Acetaminophen 1 - 2 each PO Q6H PRN #14 tablet 12/22/19 [Percocet 5-325 mg Tablet] Dicyclomine HCl 20 mg PO QID PRN #10 tablet 03/02/20 Loperamide [Imodium] 2 mg PO QID PRN #10 capsule 03/02/20 Ondansetron Odt [Zofran] 4 mg TL Q6H PRN #10 tablet 03/02/20 - Allergies Allergies/Adverse Reactions: Allergies Allergy/AdvReac Type Severity Reaction Status Date / Time sertraline Allergy Unknown Verified 10/04/19 20:09 tramadol AdvReac Emesis Verified 10/04/19 20:09 - Social History Does the pt smoke?: No Smoking Status: Never smoker Does the pt drink ETOH?: No Does the pt have substance abuse?: No - Immunizations Immunizations are current?: Yes - POLST Patient has POLST: No PD ED PE NORMAL - Vitals Vital signs reviewed: Yes - General General: Alert and oriented X 3, No acute distress - HEENT HEENT: Pharynx benign - Abdomen Abdomen: Normal bowel sounds, Soft, Non tender - Neuro Neuro: Alert and oriented X 3, Normal speech Results - Vitals Vitals: Vital Signs - 24 hr 03/02/20 03/02/20 12:28 14:52 Temperature 37.3 C Heart Rate 73 66 Respiratory 18 18 Rate Blood Pressure 130/84 H 124/73 O2 Saturation 100 99 Oxygen O2 Source Room air - Labs Labs: Laboratory Tests 03/02/20 03/02/20 03/02/20 13:05 13:05 14:35 WBC 10.4 RBC 5.00 Hgb 15.0 Hct 43.6 MCV 87.2 MCH 30.0 MCHC 34.4 RDW 12.8 Plt Count 293 MPV 9.3 Neut # (Auto) 8.6 H Lymph # (Auto) 1.2 L [place] # (Auto) 0.5 Eos # (Auto) 0.0 Baso # (Auto) 0.0 Absolute Nucleated RBC 0.00 Nucleated RBC % 0.0 Sodium 138 Potassium 4.2 Chloride 101 Carbon Dioxide 25 Anion Gap 12.0 BUN 9 Creatinine 0.7 Estimated GFR (MDRD) 105 Glucose 98 Calcium 9.6 Total Bilirubin 0.5 AST 20 ALT 25 Alkaline Phosphatase 57 Total Protein 7.6 Albumin 4.3 Globulin 3.3 Albumin/Globulin Ratio 1.3 Lipase 35 Urine Color YELLOW Urine Clarity CLEAR Urine pH 8.0 H Ur Specific [place] 1.015 Urine Protein NEGATIVE Urine Glucose (UA) NEGATIVE Urine Ketones NEGATIVE Urine Occult Blood NEGATIVE Urine Nitrite NEGATIVE Urine Bilirubin NEGATIVE Urine Urobilinogen 0.2 (NORMAL) Ur Leukocyte Esterase NEGATIVE Ur Microscopic Review NOT INDICATED Urine Culture Comments NOT INDICATED Urine HCG, Qual NEGATIVE Urine Opiates Screen NEGATIVE Ur Oxycodone Screen NEGATIVE Urine Methadone Screen NEGATIVE Ur Propoxyphene Screen NEGATIVE Ur Barbiturates Screen NEGATIVE Ur Tricyclics Screen NEGATIVE Ur Phencyclidine Scrn NEGATIVE Ur Amphetamine Screen NEGATIVE U Methamphetamines Scrn NEGATIVE U Benzodiazepines Scrn NEGATIVE Urine Cocaine Screen NEGATIVE U Cannabinoids Screen NEGATIVE PD MEDICAL DECISION MAKING - ED course ED course: 24-year-old woman presents with what sounds like acute gastroenteritis. Benign examination. After the administration of IV fluids, Phenergan, Toradol and Imodium she passed an oral challenge and remained nontender. Diagnostics are unremarkable. Given close return precautions. Departure - Departure Disposition: 01 Home, Self Care Clinical Impression: Gastroenteritis Condition: Good Record reviewed to determine appropriate education?: Yes Instructions: ED Gastroenteritis Viral Prescriptions: Dicyclomine HCl 20 mg PO QID PRN #10 tablet PRN Reason: Abdominal Pain Loperamide [Imodium] 2 mg PO QID PRN #10 capsule PRN Reason: Diarrhea Ondansetron Odt [Zofran] 4 mg TL Q6H PRN #10 tablet PRN Reason: Nausea / Vomiting Comments: Return if you worsen or are not better in 24 hours, most illnesses like this get better quickly. Forms: Activity restrictions
[2020-03-02 14:48] LABS: MUDS CUTOFF CONCENTRATIONS CUTOFF CONC BELOW:
[2020-03-02 14:50] LABS: BILIRUBIN,URINE NEGATIVE (NEGATIVE); GLUCOSE, URINE (UA) NEGATIVE (NEGATIVE); KETONES,URINE (UA) NEGATIVE (NEGATIVE); LEUKOCYTE ESTERASE, URINE NEGATIVE (NEGATIVE); NITRITE,URINE NEGATIVE (NEGATIVE); OCCULT BLOOD,URINE NEGATIVE (NEGATIVE); PROTEIN,URINE NEGATIVE (NEGATIVE); UROBILINOGEN,URINE 0.2 (NORMAL) E.U./dL (NORMAL)
[2020-03-02 14:53] LABS: CLARITY,URINE CLEAR (CLEAR); HCG UR QUAL NEGATIVE
[2020-03-02 15:03] LABS: AMPHETAMINE SCREEN,URINE NEGATIVE (NEGATIVE); BENZODIAZEPINES SCREEN, URINE NEGATIVE (NEGATIVE); COCAINE SCREEN URINE NEGATIVE (NEGATIVE); METHADONE SCREEN, URINE NEGATIVE (NEGATIVE); METHAMPHETAMINES SCREEN, URINE NEGATIVE (NEGATIVE); OPIATE SCREEN, URINE NEGATIVE (NEGATIVE); OXYCODONE SCREEN, URINE NEGATIVE (NEGATIVE); PROPOXYPHENE SCREEN, URINE NEGATIVE (NEGATIVE); TRICYCLIC ANTIDEPRESSANT,URINE NEGATIVE (NEGATIVE)
[2020-03-02 15:34] VITALS: BP 115/71
== END 2020-03-02 15:34 | disposition home or self-care (01) ==
LOC: ED 12:07
DX: K52.9 Noninfective gastroenteritis and colitis, unspecified (principal)
CPT/HCPCS: 36415; 80053; 80306; 81003; 81025; 83690; 85025; 96365; 96375; 99283; 99284; A9270; J7040; 81001; 87086

== ENCOUNTER 2020-05-02 11:44 | Emergency (ER) | payer MEDICAID ==
[2020-05-02 12:15] LABS: BASOPHILS % (AUTO) 0.3 %; EOSINOPHILS # (AUTO) 0.2 10^3/uL (0.0-0.7); EOSINOPHILS % (AUTO) 1.3 %; HGB - HEMOGLOBIN 14.9 g/dL (12.0-16.0); LYMPHOCYTES % (AUTO) 16.8 %; MEAN CORPUSCULAR HEMOGLOBIN 29.9 pg (27.0-31.0); MEAN CORPUSCULAR HGB CONC 34.3 g/dL (32.0-36.0); MEAN PLATELET VOLUME 9.2 fL (7.9-10.8); MONOCYTES # (AUTO) 0.7 10^3/uL (0.0-1.0); MONOCYTES % (AUTO) 5.9 %; NEUTROPHILS # (AUTO) 8.8 10^3/uL (1.5-6.6); NEUTROPHILS % (AUTO) 75.3 %; PLT - PLATELET COUNT 276 10^3/uL (130-450); RED BLOOD COUNT 4.99 10^6/uL (4.20-5.40); WHITE BLOOD COUNT 11.7 x10^3/uL (4.8-10.8)
[2020-05-02 12:19] LABS: BILIRUBIN,URINE NEGATIVE (NEGATIVE); GLUCOSE, URINE (UA) NEGATIVE (NEGATIVE); KETONES,URINE (UA) NEGATIVE (NEGATIVE); LEUKOCYTE ESTERASE, URINE NEGATIVE (NEGATIVE); NITRITE,URINE NEGATIVE (NEGATIVE); OCCULT BLOOD,URINE NEGATIVE (NEGATIVE); PROTEIN,URINE NEGATIVE (NEGATIVE); UROBILINOGEN,URINE 0.2 (NORMAL) E.U./dL (NORMAL)
[2020-05-02 12:20] LABS: CLARITY,URINE CLEAR (CLEAR)
[2020-05-02 12:21] LABS: HCG UR QUAL NEGATIVE
[2020-05-02 12:34] LABS: ALBUMIN 3.9 g/dL (3.2-5.5); ALBUMIN/GLOBULIN RATIO 1.1 (1.0-2.2); BILIRUBIN,TOTAL 0.4 mg/dL (0.2-1.0); CALCIUM 8.9 mg/dL (8.5-10.3); CREATININE 0.6 mg/dL (0.4-1.0); TOTAL PROTEIN 7.3 g/dL (6.7-8.2)
[2020-05-02] MEDS ORDERED: SODIUM CHLORIDE 0.9% 2,000 ML IV STA (12:47)
[2020-05-02] MEDS ORDERED: CHERRY SYRUP 10 ML UDC PO ONE (12:48)
[2020-05-02] MEDS ORDERED: KETOROLAC 30 MG/ML VIAL IVP STA (12:48)
[2020-05-02] MEDS ORDERED: DEXAMETHASONE 10 MG/ML VIAL PO STA (12:48)
[2020-05-02] MEDS ORDERED: ONDANSETRON 4 MG/2 ML VIAL IVP STA (12:48)
--- NOTE | 2020-05-02 12:51 | ED Physician Documentation ---
History of Present Illness - Stated complaint Stated Complaint: LEG PX/NAUSEA/LIGHT - Chief complaint Chief Complaint: Abd Pain - History obtained from History obtained from: Patient - History of Present Illness Timing: Today Pain level max: 7 Pain level now: 7 Improved by: rest Worsened by: movement - Additonal information Additional information: 25-year-old female with chronic back pain presents to the emergency department stating that she felt lightheaded and dizzy today. Also felt nauseated. She did drink alcohol yesterday for New Year's Analy. She also states her back is hurting. She has chronic back pain. Had a cortisone injection 6 weeks ago sta magaly the pain started again today. Does not recall any injury or fall. Did not take anything for the pain today. Worse with movement, better with rest. No abdominal pain. No vomiting. No diarrhea. 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 : None HEENT: None Psych: Anxiety Musculoskeletal: Chronic back pain, Other Derm: None - Past Surgical History Past Surgical History: Yes /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: Breast reduction - Present Medications Home Medications: Ambulatory Orders Medication Instructions Recorded Confirmed buPROPion HCL [Bupropion HCl Sr] 75 mg PO DAILY 03/08/18 06/28/18 metFORMIN [Glucophage] 500 mg PO BID 12/29/18 12/29/18 Oxycodone HCl/Acetaminophen 1 - 2 each PO Q6H PRN #14 tablet 12/30/18 [Percocet 5-325 mg Tablet] Fluticasone [Flonase] 1 sprays ANTHONY BID PRN #1 bottle 03/31/19 Ondansetron Odt [Zofran] 4 mg TL Q6H PRN #10 tablet 03/31/19 Cyclobenzaprine [Flexeril] 10 mg PO TID PRN #20 tablet 12/22/19 Oxycodone HCl/Acetaminophen 1 - 2 each PO Q6H PRN #14 tablet 12/22/19 [Percocet 5-325 mg Tablet] Dicyclomine HCl 20 mg PO QID PRN #10 tablet 03/02/20 Loperamide [Imodium] 2 mg PO QID PRN #10 capsule 03/02/20 Ondansetron Odt [Zofran] 4 mg TL Q6H PRN #10 tablet 03/02/20 Meloxicam [Mobic] 15 mg PO DAILY PRN #20 tablet 05/02/20 Methylprednisolone [Medrol] 4 mg PO DAILY #1 tab.ds.pk 05/02/20 Ondansetron Odt [Zofran] 4 mg TL Q6H PRN #10 tablet 05/02/20 - Allergies Allergies/Adverse Reactions: Allergies Allergy/AdvReac Type Severity Reaction Status Date / Time sertraline Allergy Unknown Verified 05/02/20 11:52 tramadol AdvReac Emesis Verified 05/02/20 11:52 - Social History Does the pt smoke?: No Smoking Status: Never smoker Does the pt drink ETOH?: Yes Does the pt have substance abuse?: No - Immunizations Immunizations are current?: Yes - POLST Patient has POLST: No PD ED PE NORMAL - Vitals Vital signs reviewed: Yes - General General: Alert and oriented X 3, No acute distress - HEENT HEENT: Moist mucous membranes - Neck Neck: Supple, no meningeal sign - Cardiac Cardiac: RRR - Respiratory Respiratory: No respiratory distress, Clear bilaterally - Abdomen Abdomen: Soft, Non tender, Non distended - Back Back: No spinal TTP - Derm Derm: Warm and dry - Extremities Extremities: No edema, No calf tenderness / cord, Other (Normal bilateral lower extremity patellar and ankle jerk reflexes. Normal great toe extension bilaterally. no saddle anesthesia) - Neuro Neuro: Alert and oriented X 3, legal support analyst 2-12 intact, No motor deficit, No sensory deficit, Normal speech Eye Opening: Spontaneous Motor: Obeys Commands Verbal: Oriented GCS Score: 15 - Psych Psych: Normal mood, Normal affect Results - Vitals Vitals: Vital Signs - 24 hr 05/02/20 05/02/20 05/02/20 11:52 13:18 14:00 Temperature 36.9 C Heart Rate 80 75 81 Respiratory 18 16 18 Rate Blood Pressure 118/77 122/72 124/73 O2 Saturation 100 100 100 Oxygen O2 Source Room air - Labs Labs: Laboratory Tests 05/02/20 05/02/20 05/02/20 12:03 12:10 12:10 WBC 11.7 H RBC 4.99 Hgb 14.9 Hct 43.4 MCV 87.0 MCH 29.9 MCHC 34.3 RDW 12.0 Plt Count 276 MPV 9.2 Neut # (Auto) 8.8 H Lymph # (Auto) 2.0 [place] # (Auto) 0.7 Eos # (Auto) 0.2 Baso # (Auto) 0.0 Absolute Nucleated RBC 0.00 Nucleated RBC % 0.0 Sodium 137 Potassium 3.6 Chloride 104 Carbon Dioxide 24 Anion Gap 9.0 BUN 9 Creatinine 0.6 Estimated GFR (MDRD) 124 Glucose 81 Calcium 8.9 Total Bilirubin 0.4 AST 17 ALT 17 Alkaline Phosphatase 42 Total Protein 7.3 Albumin 3.9 Globulin 3.4 Albumin/Globulin Ratio 1.1 Lipase 39 Urine Color YELLOW Urine Clarity CLEAR Urine pH 7.0 Ur Specific [place] 1.020 Urine Protein NEGATIVE Urine Glucose (UA) NEGATIVE Urine Ketones NEGATIVE Urine Occult Blood NEGATIVE Urine Nitrite NEGATIVE Urine Bilirubin NEGATIVE Urine Urobilinogen 0.2 (NORMAL) Ur Leukocyte Esterase NEGATIVE Ur Microscopic Review NOT INDICATED Urine Culture Comments NOT INDICATED Urine HCG, Qual NEGATIVE Urine Opiates Screen Ur Oxycodone Screen Urine Methadone Screen Ur Propoxyphene Screen Ur Barbiturates Screen Ur Tricyclics Screen Ur Phencyclidine Scrn Ur Amphetamine Screen U Methamphetamines Scrn U Benzodiazepines Scrn Urine Cocaine Screen U Cannabinoids Screen Ethyl Alcohol 05/02/20 05/02/20 12:50 12:50 WBC RBC Hgb Hct MCV MCH MCHC RDW Plt Count MPV Neut # (Auto) Lymph # (Auto) [place] # (Auto) Eos # (Auto) Baso # (Auto) Absolute Nucleated RBC Nucleated RBC % Sodium Potassium Chloride Carbon Dioxide Anion Gap BUN Creatinine Estimated GFR (MDRD) Glucose Calcium Total Bilirubin AST ALT Alkaline Phosphatase Total Protein Albumin Globulin Albumin/Globulin Ratio Lipase Urine Color Urine Clarity Urine pH Ur Specific [place] Urine Protein Urine Glucose (UA) Urine Ketones Urine Occult Blood Urine Nitrite Urine Bilirubin Urine Urobilinogen Ur Leukocyte Esterase Ur Microscopic Review Urine Culture Comments Urine HCG, Qual Urine Opiates Screen NEGATIVE Ur Oxycodone Screen NEGATIVE Urine Methadone Screen NEGATIVE Ur Propoxyphene Screen NEGATIVE Ur Barbiturates Screen NEGATIVE Ur Tricyclics Screen NEGATIVE Ur Phencyclidine Scrn NEGATIVE Ur Amphetamine Screen NEGATIVE U Methamphetamines Scrn NEGATIVE U Benzodiazepines Scrn POSITIVE H Urine Cocaine Screen NEGATIVE U Cannabinoids Screen NEGATIVE Ethyl Alcohol < 5.0 PD MEDICAL DECISION MAKING - ED course Complexity details: reviewed old records, reviewed results, re-evaluated patient, considered differential (No cauda equina, no spinal epidural abscess, no fracture, no aortic dissection or evidence of aneursym rupture), d/w patient ED course: Patient is well-appearing, nontoxic. Afebrile. No evidence of cauda equina, epidural abscess. Feels better after IV fluids, Toradol, Decadron. We will place on a Medrol Dosepak for home in addition to anti-inflammatories and Zofran. Patient counseled regarding signs and symptoms for which I believe and urgent re-evaluation would be necessary. Patient with good understanding of and agreement to plan and is comfortable going home at this time This document was made in part using voice recognition software. While efforts are made to proofread this document, sound alike and grammatical errors may occur. Departure - Departure Disposition: 01 Home, Self Care Clinical Impression: Dehydration Back pain Qualifiers: Back pain location: low back pain Chronicity: chronic Back pain laterality: bilateral Sciatica presence: with sciatica Sciatica laterality: bilateral sciatica Qualified Code(s): M54.42 - Lumbago with sciatica, left side Condition: Good Instructions: ED Sciatica Follow-Up: Dottie Llamas DO [Primary Care Provider] - Within 1 week Prescriptions: Methylprednisolone [Medrol] 4 mg PO DAILY #1 tab.ds.pk Meloxicam [Mobic] 15 mg PO DAILY PRN #20 tablet PRN Reason: pain Ondansetron Odt [Zofran] 4 mg TL Q6H PRN #10 tablet PRN Reason: Nausea / Vomiting Comments: Drink plenty of water. Return if you worsen. Follow-up with your doctor for further care. You should have your spine surgeon reevaluate your back as well. Discharge Date/Time: 05/02/20 14:05
[2020-05-02 13:01] LABS: MUDS CUTOFF CONCENTRATIONS CUTOFF CONC BELOW:
[2020-05-02 13:21] LABS: AMPHETAMINE SCREEN,URINE NEGATIVE (NEGATIVE); BENZODIAZEPINES SCREEN, URINE POSITIVE (NEGATIVE); COCAINE SCREEN URINE NEGATIVE (NEGATIVE); METHADONE SCREEN, URINE NEGATIVE (NEGATIVE); METHAMPHETAMINES SCREEN, URINE NEGATIVE (NEGATIVE); OPIATE SCREEN, URINE NEGATIVE (NEGATIVE); OXYCODONE SCREEN, URINE NEGATIVE (NEGATIVE); PROPOXYPHENE SCREEN, URINE NEGATIVE (NEGATIVE); TRICYCLIC ANTIDEPRESSANT,URINE NEGATIVE (NEGATIVE)
[2020-05-02 14:01] VITALS: BP 124/73
== END 2020-05-02 14:05 | disposition home or self-care (01) ==
LOC: ED 11:44
DX: E86.0 Dehydration (principal); M54.42 Lumbago with sciatica, left side; G89.29 Other chronic pain
CPT/HCPCS: 80053; 80306; 80320; 81003; 81025; 83690; 85025; 96374; 96375; 99283; 99284; A9270; 81001; 87086

== ENCOUNTER 2020-05-24 19:37 | Emergency (ER) | payer OTHER, MEDICAID ==
--- NOTE | 2020-05-24 19:57 | ED Physician Documentation ---
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 Tetanus is up-to-date. Pain is moderate but declines pain medication on initial evaluation. 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: Breast reduction - Present Medications Home Medications: Ambulatory Orders Medication Instructions Recorded Confirmed buPROPion HCL [Bupropion HCl Sr] 75 mg PO DAILY 03/08/18 05/24/20 Norethindrone-E.estradiol-Iron 1 tab 05/24/20 [Microgestin Fe 1.5-30 Tab] busPIRone [Buspar] 10 mg PO DAILY PM 05/24/20 05/24/20 - Allergies Allergies/Adverse Reactions: Allergies Allergy/AdvReac Type Severity Reaction Status Date / Time sertraline Allergy Unknown Verified 05/24/20 19:45 tramadol AdvReac Emesis Verified 05/24/20 19:45 - Social History Does the pt smoke?: No Smoking Status: Never smoker Does the pt drink ETOH?: Yes Does the pt have substance abuse?: No - Immunizations Immunizations are current?: Yes - POLST Patient has POLST: No PD ED PE NORMAL - Vitals Vital signs reviewed: Yes - General General: Alert and oriented X 3, No acute distress - Extremities Extremities: Other (There is a very shallow laceration over the PIP dorsally of the right middle finger with full range of motion and no distal neurovascular compromise. There is mild underlying tenderness at that level.) - Neuro Neuro: Alert and oriented X 3, Normal speech Results - Vitals Vitals: Vital Signs - 24 hr 05/24/20 19:42 Temperature 36.2 C L Heart Rate 83 Respiratory 16 Rate Blood Pressure 129/70 O2 Saturation 98 Oxygen O2 Source Room air Departure - Departure Disposition: 01 Home, Self Care Clinical Impression: Crushing injury of right middle finger Qualifiers: Encounter type: initial encounter Qualified Code(s): S67.192A - Crushing injury of right middle finger, initial encounter Laceration of right middle finger Qualifiers: Encounter type: initial encounter Damage to nail status: without damage Foreign body presence: without foreign body Qualified Code(s): S61.212A - Laceration without foreign body of right middle finger without damage to nail, initial encounter Condition: Good Record reviewed to determine appropriate education?: Yes Instructions: ED Laceration Small Superf No Sutr Comments: You can just keep the dressing such as a Band-Aid on it with a little antibiotic ointment. Other than that you can wash it with soap and water. Wear gloves while at work. Tylenol or ibuprofen as needed for pain. Return for new or worsening symptoms.
[2020-05-24 21:22] VITALS: BP 125/76
--- NOTE | 2020-05-24 21:51 | XRAY Report ---
PROCEDURE: Finger(s) RT INDICATIONS: RMF inj TECHNIQUE: AP hand, 2 views of the third digit acquired. COMPARISON: None. FINDINGS: Bones: No fractures or dislocations. No suspicious bony lesions. Soft tissues: No suspicious soft tissue calcifications. IMPRESSION: 1. No fracture or dislocation. Reviewed by: Bishop Trevino MD on 05/24/2020 9:50 PM PST Approved by: Bishop Trevino MD on 05/24/2020 9:50 PM [facility] Station ID: [id number]
== END 2020-05-24 21:21 | disposition home or self-care (01) ==
LOC: ED 19:37
DX: S67.192A Crushing injury of right middle finger, initial encounter (principal); S61.212A Laceration without foreign body of right middle finger without damage to nail, initial encounter; W23.0XXA Caught, crushed, jammed, or pinched between moving objects, initial encounter; Y93.89 Activity, other specified; Y92.511 Restaurant or cafe as the place of occurrence of the external cause; Y99.0 Civilian activity done for income or pay
CPT/HCPCS: 1040M; 99282; 99283

== ENCOUNTER 2020-06-24 19:17 | Emergency (ER) | payer MEDICAID ==
--- NOTE | 2020-06-24 19:58 | ED Physician Documentation ---
History of Present Illness - Stated complaint Stated Complaint: SHAKY,ANXIETY,NAUSEA - Chief complaint Chief Complaint: General - History obtained from History obtained from: Patient - History of Present Illness Timing: How many days ago (2-3) Pain level max: 0 Pain level now: 0 Improved by: nothing Worsened by: no exacerbating factors - Additonal information Additional information: patient has been tapering her buspirone and buproprion over past 1 week after taking them for 2 years. Over past 2-3 days, she has had intermittent, mild tremulousness, lightheadedness, nausea, and anxiety. She took the last doses 2 days ago, following the recommended taper. For the past 2-3 hours, she has had significant worsening of her symptoms, particularly anxiety, shaky/dizzy. Review of Systems Constitutional: denies: Fever, Chills, Sweats Cardiac: reports: Reviewed and negative GI: reports: Nausea. 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 : None HEENT: None Psych: Depression, Anxiety Musculoskeletal: Chronic back pain, Other Derm: None - Past Surgical History Past Surgical History: Yes /CARPENTER SHIP: Breast reduction - Present Medications Home Medications: Ambulatory Orders Medication Instructions Recorded Confirmed buPROPion HCL [Bupropion HCl Sr] 75 mg PO DAILY 03/08/18 05/24/20 Norethindrone-E.estradiol-Iron 1 tab 05/24/20 [Microgestin Fe 1.5-30 Tab] busPIRone [Buspar] 10 mg PO DAILY PM 05/24/20 05/24/20 LORazepam [Ativan] 0.5 - 1 mg PO Q6H PRN #20 06/24/20 - Allergies Allergies/Adverse Reactions: Allergies Allergy/AdvReac Type Severity Reaction Status Date / Time sertraline Allergy Unknown Verified 06/24/20 19:21 tramadol AdvReac Emesis Verified 06/24/20 19:21 - Social History Does the pt smoke?: No Smoking Status: Never smoker Does the pt drink ETOH?: Yes Does the pt have substance abuse?: No - Immunizations Immunizations are current?: Yes - POLST Patient has POLST: No PD ED PE NORMAL - Vitals Vital signs reviewed: Yes - General General: Alert and oriented X 3, No acute distress, Well developed/nourished - HEENT HEENT: PERRL - Cardiac Cardiac: RRR, No murmur - Respiratory Respiratory: No respiratory distress, Clear bilaterally - Neuro Neuro: Alert and oriented X 3 Eye Opening: Spontaneous Motor: Obeys Commands Verbal: Oriented GCS Score: 15 - Psych Psych: Normal mood, Normal affect Results - Vitals Vitals: Vital Signs - 24 hr 06/24/20 06/24/20 06/24/20 19:21 19:44 20:25 Temperature 36.6 C 36.6 C 36.6 C Heart Rate 76 76 75 Respiratory 16 16 16 Rate Blood Pressure 132/67 H 132/67 H 133/68 H O2 Saturation 100 100 100 Oxygen O2 Source Room air PD MEDICAL DECISION MAKING - ED course Complexity details: considered differential, d/w patient ED course: NAD, symptoms coincide with tapering of two antidepressants and thus I suspect discontinuation symptoms. I recommended she restart both medications and talk to her doctor about a longer/slower taper. She strongly prefers to not restart these medications, as her doctor is planning to start new medications and needs a gap of time between discontinuation of these medications before starting the new ones. Thus will focus on symptom treatment: lorazepam for anxiety and zofran for nausea. Departure - Departure Disposition: 01 Home, Self Care Clinical Impression: Antidepressant discontinuation syndrome Qualifiers: Encounter type: initial encounter Qualified Code(s): T43.205A - Adverse effect of unspecified antidepressants, initial encounter Condition: Good Instructions: ED Panic Attack Prescriptions: LORazepam [Ativan] 0.5 - 1 mg PO Q6H PRN #20 PRN Reason: Anxiety Comments: As we discussed, I suspect your symptoms are due to the discontinuation of your medications. One option is to restart the medication and talk to your doctor about a longer/slower taper (over a longer period of time). You have expressed a desire to avoid this. Thus, instead, we will target your symptoms with an antinauseant and an as-needed anti-anxiety medication (lorazepam). Discharge Date/Time: 06/24/20 20:25
[2020-06-24] MEDS ORDERED: ONDANSETRON ODT 4 MG TABLET TL STA (20:17)
[2020-06-24] MEDS ORDERED: LORazepam 0.5 MG TABLET PO STA (20:17)
[2020-06-24 20:27] VITALS: BP 133/68
== END 2020-06-24 20:25 | disposition home or self-care (01) ==
LOC: ED 19:17
DX: R42 Dizziness and giddiness (principal); R25.1 Tremor, unspecified; R11.0 Nausea; F41.9 Anxiety disorder, unspecified; T43.596A Underdosing of other antipsychotics and neuroleptics, initial encounter; T43.296A Underdosing of other antidepressants, initial encounter; Z91.128 Patient's intentional underdosing of medication regimen for other reason
CPT/HCPCS: 99282; 99284; A9270; Q0162

== ENCOUNTER 2020-07-29 08:00 | Outpatient (CLI) | payer MEDICAID ==
[2020-07-29 20:50] LABS: BACTERIAL VAGINOSIS DNA POSITIVE (NEGATIVE); CANDIDA GLABRATA DNA NEGATIVE (NEGATIVE); CANDIDA GROUP DNA NEGATIVE (NEGATIVE); CANDIDA KRUSEI DNA NEGATIVE (NEGATIVE); TRICHOMONAS VAGINALIS DNA NEGATIVE (NEGATIVE)
[2020-07-29 23:29] LABS: CHLAMYDIA TRACHOMATIS DNA NEGATIVE (NEGATIVE); NEISSERIA GONORRHOEAE DNA NEGATIVE (NEGATIVE); TRICHOMONAS VAGINALIS DNA NEGATIVE (NEGATIVE)
== END 2020-07-29 23:59 | disposition home or self-care (01) ==
LOC: LAB 08:00
PROVIDERS: ATTEND Nurse Practitioner Obstetrics & Gynecology
DX: R10.2 Pelvic and perineal pain (principal); Z11.3 Encounter for screening for infections with a predominantly sexual mode of transmission; G89.29 Other chronic pain
CPT/HCPCS: 87491; 87591; 87661; 87801

== ENCOUNTER 2020-08-03 18:03 | Outpatient (CLI) | payer MEDICAID ==
--- NOTE | 2020-08-04 10:14 | Ultrasound Report ---
PROCEDURE: Pelvic w/Transvaginal INDICATIONS: PELVIC PAIN, PCOS, AMENORRHEA TECHNIQUE: Real-time scanning was performed of the pelvic organs, with image documentation. Additional endovagi nal scanning was necessary due to incomplete visualization of the adnexal and endometrial structures by transabdominal scanning. COMPARISON: 03/05/2019 pelvic ultrasound and also 12/29/2018. FINDINGS: No pathologic free abdominal or pelvic fluid. Uterus: Uterus is anteverted and normal in size at 4.1 x 2.8 x 7.8 cm. The endometrium measures 2.0 mm in combined thickness. There is a single small midline posterior submucosal fibroid measuring 1. 0 x 0.6 x 0.8 cm. Arcuate morphology is noted at the uterine fundus portion of the endometrial lining . Greater than 12 follicular cysts were seen at each ovary. Ovaries: The right ovary measures 1.9 x 2.0 x 3.2 cm and the left measures 2.5 x 2.4 x 3.8 cm. IMPRESSION: Incidental note is made of a arcuate morphology of the uterine fundal portion of the endometrial lini ng. There also is a small uterine fibroid measuring only 1 cm in maximal dimension. Greater than 12 follicular cysts are present at the ovaries bilaterally. The ovaries, however, are no t enlarged. Reviewed by: Jim Sotelo MD on 08/04/2020 10:13 AM PDT Approved by: Jim Sotelo MD on 08/04/2020 10:13 AM PDT Station ID: [id number]
== END 2020-08-03 18:04 | disposition home or self-care (01) ==
LOC: DI 18:03
PROVIDERS: ATTEND Nurse Practitioner Obstetrics & Gynecology
DX: R10.2 Pelvic and perineal pain (principal); G89.29 Other chronic pain; E28.2 Polycystic ovarian syndrome; D25.0 Submucous leiomyoma of uterus

== ENCOUNTER 2020-08-26 07:00 | Outpatient (CLI) | payer MEDICAID ==
--- NOTE | 2020-08-26 14:21 | XRAY Report ---
PROCEDURE: Foot 3 View RT INDICATIONS: R FOOT PX TECHNIQUE: 3 views of the foot were acquired. COMPARISON: None FINDINGS: Bones: No fractures or dislocations. Medial angulation of the fifth phalanx relative to the fifth m etatarsal. No suspicious bony lesions. Soft tissues: No tibiotalar joint effusion. Achilles tendon appears normal. IMPRESSION: 1. Angulation at the fifth metatarsophalangeal joint as described above. 2. No acute fracture. No osseous lesion. If symptoms and/or clinical suspicion for pathology continue , further assessment with repeat plain films, or advanced imaging (e.g., CT, MRI, or bone scan) is re commended for further assessment. Reviewed by: Yolanda Yoder MD on 08/26/2020 2:20 PM PDT Approved by: Yolanda Yoder MD on 08/26/2020 2:20 PM PDT Station ID: [id number]
== END 2020-08-26 23:59 | disposition home or self-care (01) ==
LOC: DI.N 07:00
PROVIDERS: ATTEND Emergency Medicine
DX: S93.691A Other sprain of right foot, initial encounter (principal)

== ENCOUNTER 2020-09-02 15:38 | Emergency (ER) | payer MEDICAID ==
[2020-09-02] MEDS ORDERED: KETOROLAC 30 MG/ML VIAL IVP STA (15:55)
[2020-09-02] MEDS ORDERED: MORPHINE 2 MG/ML CARPUJECT IVP STA (15:55)
--- NOTE | 2020-09-02 16:00 | ED Physician Documentation ---
PD HPI ABD PAIN - Stated complaint Stated Complaint: ABD PX/NAUSEA - Chief complaint Chief Complaint: Abd Pain - History obtained from History obtained from: Patient - History of Present Illness Timing - onset: How many hours ago (3-4), Today Timing - details: Abrupt onset Pain level max: 10 Pain level now: 10 Quality: Sharp, Pain Location: LLQ Radiation: No: Chest, , Lower back, Left flank, Left shoulder, Right flank, Right shoulder, Upper back Improved by: Other (nothing) Worsened by: Moving Associated symptoms: Nausea, Vomiting, Constipation (2 days ago, none now). No: Fever, Melena, Hematochezia, Dysuria, Hematuria, Vaginal bleeding, Vaginal dc Similar symptoms before: Diagnosis (PCOS) Review of Systems Ten Systems: 10 systems reviewed and negative Constitutional: denies: Fever, Chills Ears: denies: Ear pain Nose: denies: Rhinorrhea / runny nose, Congestion Throat: denies: Sore throat Cardiac: denies: Chest pain / pressure Respiratory: denies: Cough, Wheezing : denies: Dysuria, Frequency, Hesitancy, Hematuria, Discharge, Now EGA Skin: denies: Rash Musculoskeletal: denies: Neck pain, Back pain Neurologic: denies: Headache PD PAST MEDICAL HISTORY - Past Medical History Past Medical History: Yes Cardiovascular: None Respiratory: None Neuro: None Endocrine/Autoimmune: None 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 : None HEENT: None Psych: Depression, Anxiety Musculoskeletal: Chronic back pain, Other Derm: None - Past Surgical History Past Surgical History: Yes /TOLL LINE INSPECTOR: Breast reduction - Present Medications Home Medications: Ambulatory Orders Medication Instructions Recorded Confirmed buPROPion HCL [Bupropion HCl Sr] 75 mg PO DAILY 03/08/18 05/24/20 Norethindrone-E.estradiol-Iron 1 tab 05/24/20 [Microgestin Fe 1.5-30 Tab] busPIRone [Buspar] 10 mg PO DAILY PM 05/24/20 05/24/20 LORazepam [Ativan] 0.5 - 1 mg PO Q6H PRN #20 06/24/20 HYDROcod/ACETAM 5/325 [[place] 5/325] 1 - 2 ea PO Q6H PRN #14 tablet 09/02/20 Ondansetron Odt [Zofran] 4 mg TL Q6H PRN #10 tablet 09/02/20 - Allergies Allergies/Adverse Reactions: Allergies Allergy/AdvReac Type Severity Reaction Status Date / Time sertraline Allergy Unknown Verified 09/02/20 15:43 tramadol AdvReac Emesis Verified 09/02/20 15:43 - Social History Does the pt smoke?: No Smoking Status: Never smoker Does the pt drink ETOH?: Yes Does the pt have substance abuse?: No - Immunizations Immunizations are current?: Yes - POLST Patient has POLST: No PD ED PE NORMAL - Vitals Vital signs reviewed: Yes - General General: Alert and oriented X 3, No acute distress - HEENT HEENT: Moist mucous membranes - Neck Neck: Supple, no meningeal sign - Cardiac Cardiac: RRR, Strong equal pulses - Respiratory Respiratory: No respiratory distress, Clear bilaterally - Abdomen Abdomen: Soft, Non distended, Other (TTP L low pelvic) - Rectal Rectal: Pt declined - Back Back: No CVA TTP, No spinal TTP - Derm Derm: Warm and dry - Extremities Extremities: No edema, No calf tenderness / cord - Neuro Neuro: Alert and oriented X 3 - Psych Psych: Normal mood, Normal affect Results - Vitals Vitals: Vital Signs - 24 hr 09/02/20 09/02/20 09/02/20 15:44 15:47 17:47 Temperature 36.4 C L 36.5 C 36.5 C Heart Rate 86 86 76 Respiratory 18 18 16 Rate Blood Pressure 123/73 123/73 120/70 O2 Saturation 98 98 100 09/02/20 19:00 Temperature 36.5 C Heart Rate 72 Respiratory 16 Rate Blood Pressure 119/70 O2 Saturation 100 Oxygen O2 Source Room air - Labs Labs: Laboratory Tests 09/02/20 09/02/20 09/02/20 16:00 16:00 16:20 WBC 10.1 RBC 4.90 Hgb 14.5 Hct 42.7 MCV 87.1 MCH 29.6 MCHC 34.0 RDW 12.7 Plt Count 262 MPV 9.5 Neut # (Auto) 7.1 H Lymph # (Auto) 2.2 [place] # (Auto) 0.5 Eos # (Auto) 0.1 Baso # (Auto) 0.0 Absolute Nucleated RBC 0.00 Nucleated RBC % 0.0 Sodium 139 Potassium 3.6 Chloride 104 Carbon Dioxide 26 Anion Gap 9.0 BUN 11 Creatinine 0.8 Estimated GFR (MDRD) 89 Glucose 76 Calcium 9.2 Total Bilirubin 0.6 AST 18 ALT 22 Alkaline Phosphatase 44 Total Protein 6.9 Albumin 3.6 Globulin 3.3 Albumin/Globulin Ratio 1.1 Lipase 37 Urine Color YELLOW Urine Clarity CLOUDY Urine pH 8.5 H Ur Specific [place] 1.015 Urine Protein NEGATIVE Urine Glucose (UA) NEGATIVE Urine Ketones NEGATIVE Urine Occult Blood NEGATIVE Urine Nitrite NEGATIVE Urine Bilirubin NEGATIVE Urine Urobilinogen 0.2 (NORMAL) Ur Leukocyte Esterase NEGATIVE Urine RBC None Seen Urine WBC 0-3 Ur Squamous Epith Cells FEW Squamous Amorphous Sediment Few Urine Bacteria Few Ur Microscopic Review INDICATED Urine Culture Comments NOT INDICATED Urine HCG, Qual NEGATIVE - Rads (name of study) pelvic US Radiology: Prelim report reviewed, EMP read contemporaneously, See rad report PD MEDICAL DECISION MAKING - ED course Complexity details: reviewed results, re-evaluated patient, considered differential, d/w patient ED course: No acute findings on pelvic ultrasound to explain her symptoms. Not having any vaginal bleeding or discharge. She states that she has had no diarrhea. Symptoms are not consistent with diverticulitis. Discussed a CT scan, but we will trial her on pain medication for a few days and see if this resolves. Patient is well-appearing, nontoxic. Afebrile. No peritoneal signs on abdominal evaluation. Patient counseled regarding signs and symptoms for which I believe and urgent re-evaluation would be necessary. Patient with good understanding of and agreement to plan and is comfortable going home at this time This document was made in part using voice recognition software. While efforts are made to proofread this document, sound alike and grammatical errors may occur. IMPRESSION: 1. No endometrial mass or fluid. Small amount of fluid within endocervical canal. Small amount of pelvic free fluid. 2. No solid-appearing ovarian lesion. No evidence of ovarian torsion. Greater than 12 follicles are seen in bilateral ovaries which can be seen associated with polycystic ovary syndrome, suggest clinical correlation. Departure - Departure Disposition: 01 Home, Self Care Clinical Impression: Abdominal pain Condition: Good Instructions: ED Abdominal Pain Unkn Cause Follow-Up: NAIN SOLANO NP [Primary Care Provider] - Within 1 week Prescriptions: HYDROcod/ACETAM 5/325 [[place] 5/325] 1 - 2 ea PO Q6H PRN #14 tablet PRN Reason: Pain Ondansetron Odt [Zofran] 4 mg TL Q6H PRN #10 tablet PRN Reason: Nausea / Vomiting Comments: The cause of your symptoms is unclear today. It could be related to your PCOS. Return if you worsen. We will try you on pain medication for a few days to see if this resolves. Do not drink alcohol or drive while on narcotic pain medicine. Note that many narcotic pain relievers also contain tylenol/acetaminophen. Please ensure that your total dose of acetaminophen from all sources does not exceed 3 grams (3000mg) per day. You may constipated on this medication, take a stool softener such as "Colace" twice a day while you are on it. Also recommend a yxcy-kib-nmqrapb laxative such as senna or MiraLAX any day that you do not have a bowel movement. If you received narcotic pain medication in the emergency department, do not drive or operate machinery for the next 24 hours. Discharge Date/Time: 09/02/20 19:40
[2020-09-02 16:06] LABS: BASOPHILS % (AUTO) 0.2 %; EOSINOPHILS # (AUTO) 0.1 10^3/uL (0.0-0.7); EOSINOPHILS % (AUTO) 1.4 %; HCT - HEMATOCRIT 42.7 % (37.0-47.0); HGB - HEMOGLOBIN 14.5 g/dL (12.0-16.0); LYMPHOCYTES # (AUTO) 2.2 10^3/uL (1.5-3.5); LYMPHOCYTES % (AUTO) 22.1 %; MEAN CORPUSCULAR HEMOGLOBIN 29.6 pg (27.0-31.0); MEAN CORPUSCULAR VOLUME 87.1 fL (81.0-99.0); MEAN PLATELET VOLUME 9.5 fL (7.9-10.8); MONOCYTES # (AUTO) 0.5 10^3/uL (0.0-1.0); MONOCYTES % (AUTO) 5.1 %; NEUTROPHILS # (AUTO) 7.1 10^3/uL (1.5-6.6); NEUTROPHILS % (AUTO) 70.9 %; PLT - PLATELET COUNT 262 10^3/uL (130-450); RED CELL DISTRIBUTION WIDTH 12.7 % (12.0-15.0); WHITE BLOOD COUNT 10.1 x10^3/uL (4.8-10.8)
[2020-09-02 16:18] LABS: ALBUMIN 3.6 g/dL (3.2-5.5); ALBUMIN/GLOBULIN RATIO 1.1 (1.0-2.2); BILIRUBIN,TOTAL 0.6 mg/dL (0.2-1.0); CALCIUM 9.2 mg/dL (8.5-10.3); CREATININE 0.8 mg/dL (0.4-1.0); POTASSIUM 3.6 mmol/L (3.5-5.0); TOTAL PROTEIN 6.9 g/dL (6.7-8.2)
[2020-09-02 16:38] LABS: BILIRUBIN,URINE NEGATIVE (NEGATIVE); GLUCOSE, URINE (UA) NEGATIVE (NEGATIVE); KETONES,URINE (UA) NEGATIVE (NEGATIVE); LEUKOCYTE ESTERASE, URINE NEGATIVE (NEGATIVE); NITRITE,URINE NEGATIVE (NEGATIVE); OCCULT BLOOD,URINE NEGATIVE (NEGATIVE); PH,URINE 8.5 PH (5.0-7.5); PROTEIN,URINE NEGATIVE (NEGATIVE); UROBILINOGEN,URINE 0.2 (NORMAL) E.U./dL (NORMAL)
[2020-09-02 16:39] LABS: CLARITY,URINE CLOUDY (CLEAR); HCG UR QUAL NEGATIVE
[2020-09-02 16:46] LABS: RBC,URINE None Seen /HPF (0-5); SQUAMOUS EPITHELIAL CELL,UR FEW Squamous (<= Few); WBC,URINE 0-3 /HPF (0-5)
[2020-09-02 16:47] LABS: AMORPHOUS SEDIMENT,UR Few /LPF; BACTERIA,URINE Few /HPF (None Seen)
--- NOTE | 2020-09-02 18:23 | Ultrasound Report ---
PROCEDURE: Pelvic w/Transvag+Doppler Comp INDICATIONS: pelvic pain, L, h/o PCOS TECHNIQUE: Real-time scanning was performed of the pelvic organs, with image documentation. Additional endovagi nal scanning was necessary due to incomplete visualization of the adnexal and endometrial structures by transabdominal scanning. COMPARISON: None. FINDINGS: Small amount of free fluid is seen in posterior cul-de-sac. Uterus: Uterus is normal in size at 8 x 2.7 x 4.6 cm. The endometrium measures 5 mm in combined thi ckness there is no endometrial mass or fluid. No discrete uterine fibroid. Small nabothian cysts and small amount of fluid is seen within the endocervical canal. Ovaries: Right ovary measures 3.3 x 1.8 x 2.6 cm in size with a volume of 7.8 cc. Left ovary measure s 4.7 x 2.8 x 2.8 cm in size with a volume of 18.8 cc. No gross solid-appearing ovarian lesion is see n. Greater than 12 follicles are seen in bilateral ovaries. Normal arteriovenous flow is seen in bila teral ovaries on color Doppler images. IMPRESSION: 1. No endometrial mass or fluid. Small amount of fluid within endocervical canal. Small amount of pel ml free fluid. 2. No solid-appearing ovarian lesion. No evidence of ovarian torsion. Greater than 12 follicles are s een in bilateral ovaries which can be seen associated with polycystic ovary syndrome, suggest clinica l correlation. Reviewed by: Wali Wu MD on 09/02/2020 6:21 PM PDT Approved by: Wali Wu MD on 09/02/2020 6:21 PM PDT Station ID: [id number]
[2020-09-02 19:10] VITALS: BP 119/70
[2020-09-02] MEDS ORDERED: oxyCODONE 5 MG TABLET PO STA (19:13)
== END 2020-09-02 19:40 | disposition home or self-care (01) ==
LOC: ED 15:38
DX: R10.32 Left lower quadrant pain (principal); R11.2 Nausea with vomiting, unspecified; E28.2 Polycystic ovarian syndrome
CPT/HCPCS: 36415; 76830; 76856; 80053; 81001; 81025; 83690; 85025; 93975; 96374; 99284; A9270; 81003; 87086

== ENCOUNTER 2020-10-14 12:05 | Outpatient (CLI) | payer MEDICAID | END 2020-10-14 23:59 | disposition home or self-care (01) | LOC: LAB.N 12:05 | PROVIDERS: ATTEND Family Medicine | DX: R07.0 Pain in throat (principal) | CPT/HCPCS: 87070 ==

== ENCOUNTER 2020-11-24 13:59 | Emergency (ER) | payer MEDICAID ==
[2020-11-24 14:08] VITALS: BP 113/76
[2020-11-24 14:27] LABS: RAPID STREP SCREEN Negative (Negative)
--- NOTE | 2020-11-24 15:34 | ED Physician Documentation ---
History of Present Illness - Stated complaint Stated Complaint: LOONEY/EAR PRESSURE/SORE THROAT - Chief complaint Chief Complaint: Heent - History obtained from History obtained from: Patient - Additonal information Additional information: Patient comes emergency department chief complaint of nasal congestion, ear pain, sore throat, and tiredness for the last 3 days. Patient denies any sick contacts that she knows of. No fevers or chills. She states she is mainly here because her mom wants her to get tested for Covid. No known Covid exposures. No other complaints at this time. Review of Systems Ten Systems: 10 systems reviewed and negative Constitutional: reports: Reviewed and negative Eyes: reports: Reviewed and negative Ears: reports: Ear pain. denies: Drainage/discharge Nose: reports: Rhinorrhea / runny nose, Congestion Throat: reports: Sore throat Cardiac: reports: Reviewed and negative Respiratory: reports: Reviewed and negative GI: reports: Reviewed and negative : reports: Reviewed and negative Skin: reports: Reviewed and negative Musculoskeletal: reports: Reviewed and negative Neurologic: reports: Reviewed and negative Psychiatric: reports: Reviewed and negative Endocrine: reports: Reviewed and negative Immunocompromised: reports: Reviewed and negative PD PAST MEDICAL HISTORY - Past Medical History Past Medical History: Yes Cardiovascular: None Respiratory: None Neuro: None Endocrine/Autoimmune: None 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 : None HEENT: None Psych: Depression, Anxiety Musculoskeletal: Chronic back pain, Other Derm: None - Past Surgical History Past Surgical History: Yes /NEURODIAGNOSTIC TECHNICIAN: Breast reduction - Present Medications Home Medications: Ambulatory Orders Medication Instructions Recorded Confirmed LORazepam [Ativan] 0.5 - 1 mg PO Q6H PRN #20 06/24/20 11/24/20 Ondansetron Odt [Zofran] 4 mg TL Q6H PRN #10 tablet 09/02/20 11/24/20 Venlafaxine HCl [Effexor Xr] 150 mg PO DAILY 11/24/20 11/24/20 - Allergies Allergies/Adverse Reactions: Allergies Allergy/AdvReac Type Severity Reaction Status Date / Time sertraline Allergy Unknown Verified 11/24/20 14:04 tramadol AdvReac Emesis Verified 11/24/20 14:04 - Social History Does the pt smoke?: No Smoking Status: Never smoker Does the pt drink ETOH?: No Does the pt have substance abuse?: No - Immunizations Immunizations are current?: Yes - POLST Patient has POLST: No PD ED PE NORMAL - Vitals Vital signs reviewed: Yes - General General: Alert and oriented X 3, No acute distress - HEENT HEENT: Atraumatic, PERRL, EOMI, Moist mucous membranes - Neck Neck: Supple, no meningeal sign - Cardiac Cardiac: RRR, No murmur, Strong equal pulses - Respiratory Respiratory: No respiratory distress, Clear bilaterally - Abdomen Abdomen: Soft, Non tender, Non distended - Derm Derm: Normal color, Warm and dry, No rash - Extremities Extremities: No deformity, No edema - Neuro Neuro: Alert and oriented X 3, data management manager 2-12 intact, Normal speech - Psych Psych: Normal mood, Normal affect Results - Vitals Vitals: Vital Signs - 24 hr 11/24/20 14:06 Temperature 36.9 C Heart Rate 76 Respiratory 16 Rate Blood Pressure 113/76 O2 Saturation 99 Oxygen O2 Source Room air - Labs Labs: Laboratory Tests 11/24/20 14:10 Group A Strep Rapid Negative PD MEDICAL DECISION MAKING - ED course Complexity details: reviewed results, re-evaluated patient, considered differential, d/w patient ED course: Per nurse initiated protocol, strep swab was obtained in triage and negative. I obtained an Covid swab and this was done and is pending at this time. We have discussed quarantine until the results come back. Patient has minimal signs of illness and we have discussed symptomatic management at home. We have discussed the usual indications for return. Departure - Departure Disposition: 01 Home, Self Care Clinical Impression: Upper respiratory infection Qualifiers: URI type: unspecified viral URI Qualified Code(s): J06.9 - Acute upper respiratory infection, unspecified Condition: Stable Instructions: ED URI Viral Comments: Your Covid test is pending at this time and should be back sometime tomorrow. Until you get your results, please quarantine at home. If you are positive, then anybody you live with should quarantine for at least 1 week until established to have no symptoms.
--- NOTE | 2020-11-27 16:19 | ED Physician Documentation ---
ED Addendum - Addendum Addendum: 11/27/20 16:19 Culture reviewed, asked nurse to call patient in prescription for penicillin VK 500 mg p.o. 4 times daily x10 days
== END 2020-11-24 15:47 | disposition home or self-care (01) ==
LOC: ED 13:59
DX: J06.9 Acute upper respiratory infection, unspecified (principal); Z20.822 Contact with and (suspected) exposure to COVID-19
CPT/HCPCS: 87070; 87077; 87430; 99283; 99284

== ENCOUNTER 2020-12-15 12:28 | Emergency (ER) | payer MEDICAID ==
[2020-12-15 12:43] VITALS: BP 123/77
--- NOTE | 2020-12-15 12:51 | ED Physician Documentation ---
History of Present Illness - Stated complaint Stated Complaint: CHEST PX/COUGH - Chief complaint Chief Complaint: Resp - History obtained from History obtained from: Patient - History of Present Illness Timing: How many days ago (2) Pain level max: 3 Pain level now: 3 - Additonal information Additional information: Patient is a 25-year-old female who presents to the emergency department stating that she has been sick for the past 24 hours. Dry cough, burning in her chest. She also states she has a sore throat. She states that she has been around people who are Covid positive. She has not been vaccinated. Nothing makes it better or worse. Denies any possibility of . She also states she was recently treated for strep pharyngitis and is concerned that could be recurring. Review of Systems Constitutional: reports: Chills. denies: Fever Nose: denies: Rhinorrhea / runny nose, Congestion Throat: reports: Sore throat Cardiac: denies: Palpitations Respiratory: reports: Cough. 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 : None HEENT: None Psych: Depression, Anxiety Musculoskeletal: Chronic back pain, Other Derm: None - Past Surgical History Past Surgical History: Yes /PUBLIC HEALTH NURSE: Breast reduction - Present Medications Home Medications: Ambulatory Orders Medication Instructions Recorded Confirmed LORazepam [Ativan] 0.5 - 1 mg PO Q6H PRN #20 06/24/20 11/24/20 Ondansetron Odt [Zofran] 4 mg TL Q6H PRN #10 tablet 09/02/20 11/24/20 Venlafaxine HCl [Effexor Xr] 150 mg PO DAILY 11/24/20 11/24/20 Benzonatate [Tessalon] 200 mg PO TID PRN #30 cap 12/15/20 - Allergies Allergies/Adverse Reactions: Allergies Allergy/AdvReac Type Severity Reaction Status Date / Time sertraline Allergy Unknown Verified 12/15/20 12:37 tramadol AdvReac Emesis Verified 12/15/20 12:37 - Social History Does the pt smoke?: No Smoking Status: Never smoker Does the pt drink ETOH?: No Does the pt have substance abuse?: No - Immunizations Immunizations are current?: Yes - POLST Patient has POLST: No PD ED PE NORMAL - Vitals Vital signs reviewed: Yes - General General: Alert and oriented X 3, No acute distress - HEENT HEENT: PERRL, Moist mucous membranes - Neck Neck: Supple, no meningeal sign - Cardiac Cardiac: RRR, Strong equal pulses - Respiratory Respiratory: No respiratory distress, Clear bilaterally - Abdomen Abdomen: Soft, Non tender, Non distended - Derm Derm: Warm and dry - Neuro Neuro: Alert and oriented X 3 Results - Vitals Vitals: Vital Signs - 24 hr 12/15/20 12:37 Temperature 36.5 C Heart Rate 72 Respiratory 16 Rate Blood Pressure 123/77 O2 Saturation 97 Oxygen O2 Source Room air - EKG (time done) 1236 Rate: Rate (enter#) (72) Rhythm: NSR [place]: Normal Intervals: Normal HI QRS: Normal Ischemia: Normal ST segments PD MEDICAL DECISION MAKING - ED course Complexity details: considered differential, d/w patient ED course: Covid testing performed. Strep test performed. EKG with no acute abnormalities. Patient is well-appearing, nontoxic. Afebrile. No hypoxia. No respiratory distress. Discussed monoclonal antibody therapy if she is positive. Patient counseled regarding signs and symptoms for which I believe and urgent re-evaluation would be necessary. Patient with good understanding of and agreement to plan and is comfortable going home at this time This document was made in part using voice recognition software. While efforts are made to proofread this document, sound alike and grammatical errors may occur. Departure - Departure Disposition: 01 Home, Self Care Clinical Impression: Viral URI with cough Condition: Good Instructions: ED Viral Syndrome Follow-Up: Your,doctor in 1 week [Other] Prescriptions: Benzonatate [Tessalon] 200 mg PO TID PRN #30 cap PRN Reason: Cough Comments: As we discussed, you have a Covid test pending. The results of this should be back tomorrow. You are to stay quarantined until the results of your test are negative. Any close contacts can be tested at local testing sites. They do not need to be seen in the emergency department unless they are having significant difficulty breathing. You also have a strep test pending. If this is positive, we will call in antibiotics for you.
[2020-12-15 14:07] LABS: RAPID STREP SCREEN Negative (Negative)
== END 2020-12-15 13:10 | disposition home or self-care (01) ==
LOC: ED 12:28
DX: U07.1 COVID-19 (principal); J06.9 Acute upper respiratory infection, unspecified
CPT/HCPCS: 87070; 87077; 87430; 93005; 99283; 99284

== ENCOUNTER 2020-12-19 21:43 | Emergency (ER) | payer MEDICAID ==
[2020-12-19] MEDS ORDERED: ONDANSETRON ODT 4 MG TABLET TL STA (21:53)
--- NOTE | 2020-12-19 22:01 | ED Physician Documentation ---
History of Present Illness - Stated complaint Stated Complaint: CHEST PRESSURE, BODY ACHES - Chief complaint Chief Complaint: Resp - History obtained from History obtained from: Patient - Additonal information Additional information: 25-year-old woman, unvaccinated against COVID-19, presents after positive test 4 days ago with persistent body aches, nausea, generalized malaise. Denies shortness of breath. She does endorse some chest tightness and feeling like she is wheezing. Denies history of asthma. Review of Systems Ten Systems: 10 systems reviewed and negative Constitutional: reports: Fever, Chills, Myalgias, Fatigue Throat: reports: Sore throat Cardiac: reports: Chest pain / pressure Respiratory: reports: Cough. 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 : None HEENT: None Psych: Depression, Anxiety Musculoskeletal: Chronic back pain, Other Derm: None - Past Surgical History Past Surgical History: Yes /DIGITAL MEDIA DIRECTOR: Breast reduction - Present Medications Home Medications: Ambulatory Orders Medication Instructions Recorded Confirmed LORazepam [Ativan] 0.5 - 1 mg PO Q6H PRN #20 06/24/20 12/19/20 Ondansetron Odt [Zofran] 4 mg TL Q6H PRN #10 tablet 09/02/20 12/19/20 Venlafaxine HCl [Effexor Xr] 150 mg PO DAILY 11/24/20 12/19/20 Benzonatate [Tessalon] 200 mg PO TID PRN #30 cap 12/15/20 12/19/20 - Allergies Allergies/Adverse Reactions: Allergies Allergy/AdvReac Type Severity Reaction Status Date / Time sertraline Allergy Unknown Verified 12/19/20 21:50 tramadol AdvReac Emesis Verified 12/19/20 21:50 - Social History Does the pt smoke?: No Smoking Status: Never smoker Does the pt drink ETOH?: No Does the pt have substance abuse?: No - Immunizations Immunizations are current?: Yes - POLST Patient has POLST: No PD ED PE NORMAL - Vitals Vital signs reviewed: Yes - General General: Alert and oriented X 3, No acute distress, Well developed/nourished - HEENT HEENT: Atraumatic, PERRL, EOMI - Cardiac Cardiac: RRR - Respiratory Respiratory: No respiratory distress, Clear bilaterally - Abdomen Abdomen: Non tender, Non distended - Derm Derm: Normal color, Warm and dry - Extremities Extremities: No deformity - Psych Psych: Normal mood, Normal affect Results - Vitals Vitals: Vital Signs - 24 hr 12/19/20 21:46 Temperature 37.6 C Heart Rate 103 H Respiratory 18 Rate Blood Pressure 107/58 L O2 Saturation 99 Oxygen O2 Source Room air PD MEDICAL DECISION MAKING - ED course ED course: 25-year-old woman presents with mild COVID-19 symptoms. Return precautions given and education given about symptom management. Patient will follow up with her primary doctor via telehealth. Departure - Departure Disposition: 01 Home, Self Care Clinical Impression: COVID-19 Condition: Good Instructions: COVID-19 [facility], COVID-19 [facility] Statement Comments: You are seen in the emergency department for COVID-19. Your vital signs and physical exam are normal. Please quarantine at home, continue to take your antibiotics and return to the emergency department if you experience acute shortness of breath. Follow-up with your primary doctor via telehealth.
[2020-12-19 22:06] VITALS: BP 120/90
== END 2020-12-19 22:06 | disposition home or self-care (01) ==
LOC: ED 21:43
DX: U07.1 COVID-19 (principal)
CPT/HCPCS: 99282; Q0162

== ENCOUNTER 2020-12-30 13:00 | Emergency (ER) | payer MEDICAID ==
[2020-12-30] MEDS ORDERED: SODIUM CHLORIDE 0.9% 1,000 ML IV STA ×2 (14:51→16:51)
[2020-12-30] MEDS ORDERED: ONDANSETRON 4 MG/2 ML VIAL IVP STA (14:51)
[2020-12-30] MEDS ORDERED: KETOROLAC 30 MG/ML VIAL IVP STA (14:51)
--- NOTE | 2020-12-30 14:52 | ED Physician Documentation ---
PD HPI ABD PAIN - Stated complaint Stated Complaint: N/V,ARM TINGLING,PELVIC PX - Chief complaint Chief Complaint: General - History obtained from History obtained from: Patient - History of Present Illness Timing - onset: Yesterday Timing - duration: Days (2) Timing - details: Gradual onset, Still present Quality: Sharp, Pain Location: RLQ Radiation: Right flank Improved by: Laying still Worsened by: Eating, Moving, Position, Palpation Associated symptoms: Nausea, Vomiting (once) Similar symptoms before: Diagnosis (ovarian problem irritable bowel) Recently seen: Not recently seen - Additional information Additional information: Previously well 25-year-old female has developed some right lower quadrant a bdominal pain beginning yesterday morning. She went to the gym and worked out and she developed nausea went into the bathroom, vomited, and then began to develop this pain in the right lower quadrant. She has had progression of this right lower quadrant pain and she has not been able to eat without nausea. Review of Systems Constitutional: reports: Chills. denies: Fever Eyes: denies: Decreased vision Ears: denies: Ear pain Nose: denies: Congestion Throat: denies: Sore throat Cardiac: denies: Chest pain / pressure, Palpitations Respiratory: denies: Dyspnea, Cough GI: reports: Abdominal Pain, Nausea, Vomiting : denies: Dysuria, Frequency PD PAST MEDICAL HISTORY - Past Medical History Cardiovascular: None Respiratory: None Neuro: None Endocrine/Autoimmune: None GI: Other FLAMER AFTER LASTING: Ovarian cysts : None HEENT: None Psych: Depression, Anxiety Musculoskeletal: Chronic back pain, Other Derm: None - Past Surgical History Past Surgical History: Yes /FLAMER AFTER LASTING: Breast reduction - Present Medications Home Medications: Ambulatory Orders Medication Instructions Recorded Confirmed LORazepam [Ativan] 0.5 - 1 mg PO Q6H PRN #20 06/24/20 12/19/20 Ondansetron Odt [Zofran] 4 mg TL Q6H PRN #10 tablet 09/02/20 12/19/20 Venlafaxine HCl [Effexor Xr] 150 mg PO DAILY 11/24/20 12/19/20 Benzonatate [Tessalon] 200 mg PO TID PRN #30 cap 12/15/20 12/19/20 LORazepam [Ativan] 0.5 mg PO Q6H PRN #14 tablet 12/30/20 Ondansetron Odt [Zofran] 4 mg TL Q6H PRN #10 tablet 12/30/20 - Allergies Allergies/Adverse Reactions: Allergies Allergy/AdvReac Type Severity Reaction Status Date / Time sertraline Allergy Unknown Verified 12/19/20 21:50 tramadol AdvReac Emesis Verified 12/19/20 21:50 - Social History Does the pt smoke?: No Smoking Status: Never smoker Does the pt drink ETOH?: No Does the pt have substance abuse?: No - Immunizations Immunizations are current?: Yes - POLST Patient has POLST: No PD ED PE NORMAL - Vitals Vital signs reviewed: Yes (hypertensive ) - General General: Alert and oriented X 3, No acute distress, Well developed/nourished - HEENT HEENT: Atraumatic, PERRL, EOMI - Neck Neck: Supple, no meningeal sign, No bony TTP - Cardiac Cardiac: RRR, No murmur - Respiratory Respiratory: No respiratory distress, Clear bilaterally - Abdomen Abdomen: Soft, Non distended, No organomegaly, Other (specific RLQ tenderness with garding and referred tenderness. 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, No motor deficit, No sensory deficit, Normal speech Eye Opening: Spontaneous Motor: Obeys Commands Verbal: Oriented GCS Score: 15 - Psych Psych: Normal mood, Normal affect Results - Vitals Vitals: Vital Signs - 24 hr 12/30/20 12/30/20 12/30/20 13:24 15:51 17:41 Temperature 36.8 C Heart Rate 80 65 68 Respiratory 18 16 16 Rate Blood Pressure 132/80 H 107/62 114/75 O2 Saturation 99 97 100 Oxygen O2 Source Room air - Labs Labs: Laboratory Tests 12/30/20 12/30/20 12/30/20 15:05 15:05 15:05 WBC 8.6 RBC 5.05 Hgb 14.7 Hct 43.5 MCV 86.1 MCH 29.1 MCHC 33.8 RDW 12.4 Plt Count 380 MPV 10.0 Neut # (Auto) 6.2 Lymph # (Auto) 1.8 [place] # (Auto) 0.6 Eos # (Auto) 0.0 Baso # (Auto) 0.0 Absolute Nucleated RBC 0.00 Nucleated RBC % 0.0 Sodium 134 L Potassium 4.3 Chloride 99 L Carbon Dioxide 25 Anion Gap 10.0 BUN 9 Creatinine 0.8 Estimated GFR (MDRD) 89 Glucose 89 Calcium 9.7 Total Bilirubin 1.3 H AST 29 ALT 28 Alkaline Phosphatase 55 Total Protein 7.3 Albumin 3.8 Globulin 3.5 Albumin/Globulin Ratio 1.1 Lipase 37 HCG, Quant < 0.60 Urine Color Urine Clarity Urine pH Ur Specific [place] Urine Protein Urine Glucose (UA) Urine Ketones Urine Occult Blood Urine Nitrite Urine Bilirubin Urine Urobilinogen Ur Leukocyte Esterase Ur Microscopic Review Urine Culture Comments 12/30/20 15:35 WBC RBC Hgb Hct MCV MCH MCHC RDW Plt Count MPV Neut # (Auto) Lymph # (Auto) [place] # (Auto) Eos # (Auto) Baso # (Auto) Absolute Nucleated RBC Nucleated RBC % Sodium Potassium Chloride Carbon Dioxide Anion Gap BUN Creatinine Estimated GFR (MDRD) Glucose Calcium Total Bilirubin AST ALT Alkaline Phosphatase Total Protein Albumin Globulin Albumin/Globulin Ratio Lipase HCG, Quant Urine Color YELLOW Urine Clarity CLEAR Urine pH 7.5 Ur Specific [place] 1.010 Urine Protein NEGATIVE Urine Glucose (UA) NEGATIVE Urine Ketones NEGATIVE Urine Occult Blood NEGATIVE Urine Nitrite NEGATIVE Urine Bilirubin NEGATIVE Urine Urobilinogen 0.2 (NORMAL) Ur Leukocyte Esterase NEGATIVE Ur Microscopic Review NOT INDICATED Urine Culture Comments NOT INDICATED - Rads (name of study) CT ab/pel w Radiology: Prelim report reviewed (Impression: 1. Multifocal bibasilar pneumonia. Normal appendix. No evidence of abdominal or pelvic source of pain.), EMP read indepedently, See rad report PD MEDICAL DECISION MAKING - ED course Complexity details: reviewed old records, reviewed results, re-evaluated patient, considered differential, d/w patient ED course: 25 y/o female with vomiting and RLQ abdominal pain is recovering from COVID and went to the GYM yesterday at the onset of her symptoms. She has localized tenderness to the RLQ and a normal appearing appendix and pelvic organs on CT. She has multifocal pneumonia on the CT and is recovering from COVID. She did receive antibiotic during her covid episode and repeats that she does not have symptoms of cough or COVID now. She is administered IV fluid and pain medication and is improved at discharge. She requests medication for anxiety and her MAXIMILIAN form is reviewed and she has not had ativan since August and she is prescribe #14 0.5mg tabs. Departure - Departure Disposition: 01 Home, Self Care Clinical Impression: Abdominal pain, Dehydration, Anxiety Condition: Stable Instructions: ED Abdominal Pain Unkn Cause, ED Stress React, ED Dehydration Follow-Up: [facility] [Provider Group] Prescriptions: LORazepam [Ativan] 0.5 mg PO Q6H PRN #14 tablet PRN Reason: Anxiety Ondansetron Odt [Zofran] 4 mg TL Q6H PRN #10 tablet PRN Reason: Nausea / Vomiting Discharge Date/Time: 12/30/20 17:44
[2020-12-30] MEDS ORDERED: IOPAMIDOL-300 50 ML VIAL ONE (14:57)
[2020-12-30 15:40] LABS: BASOPHILS % (AUTO) 0.2 %; HCT - HEMATOCRIT 43.5 % (37.0-47.0); HGB - HEMOGLOBIN 14.7 g/dL (12.0-16.0); LYMPHOCYTES # (AUTO) 1.8 10^3/uL (1.5-3.5); LYMPHOCYTES % (AUTO) 21.1 %; MEAN CORPUSCULAR HEMOGLOBIN 29.1 pg (27.0-31.0); MEAN CORPUSCULAR HGB CONC 33.8 g/dL (32.0-36.0); MEAN CORPUSCULAR VOLUME 86.1 fL (81.0-99.0); MONOCYTES # (AUTO) 0.6 10^3/uL (0.0-1.0); MONOCYTES % (AUTO) 6.8 %; NEUTROPHILS # (AUTO) 6.2 10^3/uL (1.5-6.6); NEUTROPHILS % (AUTO) 71.2 %; PLT - PLATELET COUNT 380 10^3/uL (130-450); RED BLOOD COUNT 5.05 10^6/uL (4.20-5.40); RED CELL DISTRIBUTION WIDTH 12.4 % (12.0-15.0); WHITE BLOOD COUNT 8.6 x10^3/uL (4.8-10.8)
[2020-12-30] MEDS ORDERED: HYDROmorphone 1 MG/ML CARPUJECT IVP STA (15:41)
[2020-12-30 15:47] LABS: BILIRUBIN,URINE NEGATIVE (NEGATIVE); GLUCOSE, URINE (UA) NEGATIVE (NEGATIVE); KETONES,URINE (UA) NEGATIVE (NEGATIVE); LEUKOCYTE ESTERASE, URINE NEGATIVE (NEGATIVE); NITRITE,URINE NEGATIVE (NEGATIVE); OCCULT BLOOD,URINE NEGATIVE (NEGATIVE); PH,URINE 7.5 PH (5.0-7.5); PROTEIN,URINE NEGATIVE (NEGATIVE); UROBILINOGEN,URINE 0.2 (NORMAL) E.U./dL (NORMAL)
[2020-12-30 15:48] LABS: CLARITY,URINE CLEAR (CLEAR)
[2020-12-30 15:54] LABS: ALBUMIN 3.8 g/dL (3.2-5.5); ALBUMIN/GLOBULIN RATIO 1.1 (1.0-2.2); BILIRUBIN,TOTAL 1.3 mg/dL (0.2-1.0); CALCIUM 9.7 mg/dL (8.5-10.3); CREATININE 0.8 mg/dL (0.4-1.0); POTASSIUM 4.3 mmol/L (3.5-5.0); TOTAL PROTEIN 7.3 g/dL (6.7-8.2)
[2020-12-30] MEDS ORDERED: IOPAMIDOL-300 50 ML VIAL IVP ONE (16:35)
--- NOTE | 2020-12-30 16:39 | CT Report ---
PROCEDURE: Abdomen/Pelvis W INDICATIONS: RLQ pain CONTRAST: IV CONTRAST: Isovue 300 ml: 100 PO CONTRAST: *NO PO CONTRAST TECHNIQUE: After the administration of IV contrast, 5 mm thick sections acquired from the diaphragms to the symp hysis. 5 mm thick coronal and sagittal reformats were acquired. For radiation dose reduction, the f ollowing was used: automated exposure control, adjustment of mA and/or kV according to patient size. COMPARISON: CT dated 04/13/2018 FINDINGS: Image quality: Excellent. ABDOMEN: Lung bases: Mild multifocal patchy ill-defined airspace opacities within the bilateral lung bases. He art size is normal. Solid organs: Liver and spleen are normal in size and enhancement. Gallbladder is grossly unremarka ble Biliary system is non dilated. Pancreas enhances normally. No adrenal nodules. Kidneys demons trate normal size and enhancement, without hydronephrosis. Peritoneum and bowel: Bowel loops demonstrate normal wall thickness and caliber. Normal appendix. N o free fluid or air. Nodes and vessels: No retroperitoneal or mesenteric adenopathy by size criteria. Aorta and inferior vena cava are normal in size. Miscellaneous: No ventral hernias. PELVIS: Genitourinary: Bladder wall thickness is normal. Miscellaneous: No inguinal hernias or adenopathy. Bones: No suspicious bony lesions. No vertebral body compression fractures. IMPRESSION: 1. Multifocal bibasilar pneumonia. 2. Normal appendix. 3. No evidence of abdominal pelvic source of pain. Reviewed by: Yolanda Yoder MD on 12/30/2020 4:38 PM PDT Approved by: Yolanda Yoder MD on 12/30/2020 4:38 PM PDT Station ID: [id number]
[2020-12-30 17:42] VITALS: BP 114/75
== END 2020-12-30 17:44 | disposition home or self-care (01) ==
LOC: ED 13:00
DX: U07.1 COVID-19 (principal); J12.82 Pneumonia due to coronavirus disease 2019; E86.0 Dehydration; F41.9 Anxiety disorder, unspecified
CPT/HCPCS: 36415; 74177; 80053; 81003; 83690; 84702; 85025; 96361; 96374; 96375; 99284; J1170; Q9967; 81001; 87086

== ENCOUNTER 2021-04-13 14:32 | Emergency (ER) | payer MEDICAID ==
[2021-04-13] MEDS ORDERED: ONDANSETRON 4 MG/2 ML VIAL IVP STA (15:37)
[2021-04-13] MEDS ORDERED: SODIUM CHLORIDE 0.9% 1,000 ML IV STA (15:37)
--- NOTE | 2021-04-13 15:39 | ED Physician Documentation ---
History of Present Illness - Stated complaint Stated Complaint: VOMITING,DIZZY,SORE THROAT - Chief complaint Chief Complaint: Abd Pain - Additonal information Additional information: 25-year-old female presents emergency department for evaluation of 24 hours nausea and vomiting. Reports being unable to keep anything down. Vomit so forcefully that she feels like she is going to throw up. Endorsing generalized but nonfocal abdominal pain. No history of similar. She is concerned she is dehydrated. No history of previous surgical history. No dysuria urgency or frequency. Review of Systems Constitutional: denies: Fever, Chills Eyes: reports: Reviewed and negative Ears: reports: Reviewed and negative Nose: reports: Reviewed and negative Throat: reports: Reviewed and negative Cardiac: reports: Reviewed and negative GI: reports: Abdominal Pain, Nausea, Vomiting. 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: Breast reduction - Present Medications Home Medications: Ambulatory Orders Medication Instructions Recorded Confirmed LORazepam [Ativan] 0.5 - 1 mg PO Q6H PRN #20 06/24/20 12/19/20 Ondansetron Odt [Zofran] 4 mg TL Q6H PRN #10 tablet 09/02/20 12/19/20 Venlafaxine HCl [Effexor Xr] 150 mg PO DAILY 11/24/20 12/19/20 Benzonatate [Tessalon] 200 mg PO TID PRN #30 cap 12/15/20 12/19/20 LORazepam [Ativan] 0.5 mg PO Q6H PRN #14 tablet 12/30/20 Ondansetron Odt [Zofran] 4 mg TL Q6H PRN #10 tablet 12/30/20 Ondansetron Odt [Zofran] 4 mg TL Q6H PRN #10 tablet 04/13/21 - Allergies Allergies/Adverse Reactions: Allergies Allergy/AdvReac Type Severity Reaction Status Date / Time sertraline Allergy Unknown Verified 04/13/21 14:37 tramadol AdvReac Emesis Verified 04/13/21 14:37 - Social History Does the pt smoke?: No Smoking Status: Never smoker Does the pt drink ETOH?: No Does the pt have substance abuse?: No - Immunizations Immunizations are current?: Yes - POLST Patient has POLST: No PD ED PE NORMAL - General General: Alert and oriented X 3 - HEENT HEENT: PERRL - Cardiac Cardiac: RRR, No murmur - Respiratory Respiratory: No respiratory distress - Abdomen Abdomen: Normal bowel sounds, Soft, Non distended. No: Non tender (Generalized nonfocal nonperitoneal abdominal tenderness. 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, No motor deficit Eye Opening: Spontaneous Motor: Obeys Commands Verbal: Oriented GCS Score: 15 Results - Vitals Vitals: Vital Signs - 24 hr 04/13/21 04/13/21 14:37 16:18 Temperature 36.6 C Heart Rate 90 69 Respiratory 16 Rate Blood Pressure 128/83 H 121/76 O2 Saturation 100 99 Oxygen O2 Source Room air - Labs Labs: Laboratory Tests 04/13/21 04/13/21 04/13/21 15:43 15:43 15:48 WBC 9.5 RBC 5.04 Hgb 15.0 Hct 44.2 MCV 87.7 MCH 29.8 MCHC 33.9 RDW 12.6 Plt Count 310 MPV 9.6 Neut # (Auto) 7.2 H Lymph # (Auto) 1.6 [place] # (Auto) 0.5 Eos # (Auto) 0.2 Baso # (Auto) 0.0 Absolute Nucleated RBC 0.00 Nucleated RBC % 0.0 Sodium 136 Potassium 3.6 Chloride 99 L Carbon Dioxide 25 Anion Gap 12.0 BUN 12 Creatinine 0.7 Estimated GFR (MDRD) 104 Glucose 94 Calcium 9.5 Total Bilirubin 0.7 AST 23 ALT 25 Alkaline Phosphatase 47 Total Protein 7.5 Albumin 4.0 Globulin 3.5 Albumin/Globulin Ratio 1.1 Lipase 33 Urine Color YELLOW Urine Clarity CLEAR Urine pH 7.5 Ur Specific [place] 1.020 Urine Protein NEGATIVE Urine Glucose (UA) NEGATIVE Urine Ketones NEGATIVE Urine Occult Blood NEGATIVE Urine Nitrite NEGATIVE Urine Bilirubin NEGATIVE Urine Urobilinogen 0.2 (NORMAL) Ur Leukocyte Esterase NEGATIVE Ur Microscopic Review NOT INDICATED Urine Culture Comments NOT INDICATED Urine HCG, Qual NEGATIVE - Rads (name of study) CT abd Radiology: Final report received (No significant abnormality) PD MEDICAL DECISION MAKING - ED course Complexity details: reviewed results, re-evaluated patient, d/w patient ED course: 25-year-old female presents emergency department with 24 hours uncontrolled nausea and vomiting. She is not . She had generalized nonfocal lower abdominal pain. Screening labs Showed no significant abnormality. No findings of infection within the urine. CT of the abdomen did not demonstrate acute appendicitis. Patient was given a liter of IV fluids as well as Zofran with full control of her symptoms. Now tolerating sips of clear liquids in the ER. Patient will be discharged with a prescription for Zofran. Emergent return precautions were discussed for more worrisome symptoms. Departure - Departure Disposition: 01 Home, Self Care Clinical Impression: Nausea and vomiting Qualifiers: Vomiting type: unspecified Qualified Code(s): R11.2 - Nausea with vomiting, unspecified Condition: Stable Record reviewed to determine appropriate education?: Yes Instructions: ED Diet Vomiting Diarrhea Follow-Up: Provider,Other [Primary Care Provider] - Prescriptions: Ondansetron Odt [Zofran] 4 mg TL Q6H PRN #10 tablet PRN Reason: Nausea / Vomiting Comments: You were seen in the ER today for uncontrolled nausea and vomiting for the last few days. Your screening labs were all essentially normal. Your urine shows no signs of infection. A CT of the abdomen also did not demonstrate any worrisome findings. You were given a liter of IV fluids here in the emergency department as well as Zofran which helped improve the nausea and vomiting. I am sending a prescription for Zofran to the [facility] in [place]. Over the next 24 hours I recommend gentle small sips of clear liquids. Once you have not vomited for 24 hours then slowly advance your diet with bananas, rice, applesauce and toast. If despite the Zofran at home you continue to have uncontrolled vomiting then please return immediately to the ER for a second evaluation.
[2021-04-13 15:48] LABS: BASOPHILS % (AUTO) 0.2 %; EOSINOPHILS # (AUTO) 0.2 10^3/uL (0.0-0.7); EOSINOPHILS % (AUTO) 1.9 %; HCT - HEMATOCRIT 44.2 % (37.0-47.0); LYMPHOCYTES # (AUTO) 1.6 10^3/uL (1.5-3.5); MEAN CORPUSCULAR HEMOGLOBIN 29.8 pg (27.0-31.0); MEAN CORPUSCULAR HGB CONC 33.9 g/dL (32.0-36.0); MEAN CORPUSCULAR VOLUME 87.7 fL (81.0-99.0); MEAN PLATELET VOLUME 9.6 fL (7.9-10.8); MONOCYTES # (AUTO) 0.5 10^3/uL (0.0-1.0); NEUTROPHILS # (AUTO) 7.2 10^3/uL (1.5-6.6); NEUTROPHILS % (AUTO) 75.5 %; PLT - PLATELET COUNT 310 10^3/uL (130-450); RED BLOOD COUNT 5.04 10^6/uL (4.20-5.40); RED CELL DISTRIBUTION WIDTH 12.6 % (12.0-15.0); WHITE BLOOD COUNT 9.5 x10^3/uL (4.8-10.8)
[2021-04-13 16:04] LABS: ALBUMIN/GLOBULIN RATIO 1.1 (1.0-2.2); BILIRUBIN,TOTAL 0.7 mg/dL (0.2-1.0); CALCIUM 9.5 mg/dL (8.5-10.3); CREATININE 0.7 mg/dL (0.4-1.0); POTASSIUM 3.6 mmol/L (3.5-5.0); TOTAL PROTEIN 7.5 g/dL (6.7-8.2)
[2021-04-13 16:10] LABS: BILIRUBIN,URINE NEGATIVE (NEGATIVE); GLUCOSE, URINE (UA) NEGATIVE (NEGATIVE); KETONES,URINE (UA) NEGATIVE (NEGATIVE); LEUKOCYTE ESTERASE, URINE NEGATIVE (NEGATIVE); NITRITE,URINE NEGATIVE (NEGATIVE); OCCULT BLOOD,URINE NEGATIVE (NEGATIVE); PH,URINE 7.5 PH (5.0-7.5); PROTEIN,URINE NEGATIVE (NEGATIVE); UROBILINOGEN,URINE 0.2 (NORMAL) E.U./dL (NORMAL)
[2021-04-13] MEDS ORDERED: IOPAMIDOL-300 100 ML VIAL ONE (16:10)
[2021-04-13 16:14] LABS: CLARITY,URINE CLEAR (CLEAR); HCG UR QUAL NEGATIVE
[2021-04-13 16:19] VITALS: BP 121/76
--- NOTE | 2021-04-13 17:13 | CT Report ---
PROCEDURE: Abdomen/Pelvis W INDICATIONS: n/v. lower abdominal pain CONTRAST: IV CONTRAST: Isovue 300 ml: 100 PO CONTRAST: *NO PO CONTRAST TECHNIQUE: After the administration of oral and intravenous contrast, 5 mm thick sections acquired from the diap hragms to the symphysis. 5 mm thick coronal and sagittal reformats were acquired. For radiation dos e reduction, the following was used: automated exposure control, adjustment of mA and/or kV accordin g to patient size. COMPARISON: December 30, 2020. FINDINGS: Inferior chest: No focal consolidation, pleural effusion, or pneumothorax. No cardiomegaly or perica rdial effusion. Gallbladder: The gallbladder is distended with a smooth thin wall. Biliary tree: No intra-or extrahepatic biliary ductal dilatation. Liver: The liver demonstrates normal enhancement, size, and contour. Spleen: Normal enhancement, size and morphology is seen. Pancreas: No contour deforming mass or inflammatory change. Adrenals: Normal size without masses. Kidneys/ureters: Normal size and morphology. No solid masses or hydronephrosis. Vasculature: No evidence of aneurysm or other significant vascular pathology. Lymphatic system: No pathologic enlargement by size criteria. GI/mesentery: No evidence of intestinal obstruction. Normal appearance of the appendix. Peritoneum/Retroperitoneum: No free intraperitoneal gas or large collection. Urinary bladder: The urinary bladder is distended with a smooth thin wall. Pelvic organs: No significant abnormality. Bones/soft tissues: No significant abnormality. IMPRESSION: 1.No significant abnormality. Reviewed by: Emmanuel Colby MD on 04/13/2021 5:11 PM [facility] Approved by: Emmanuel Colby MD on 04/13/2021 5:11 PM PST Station ID: [id number]
[2021-04-13] MEDS ORDERED: IOPAMIDOL-300 100 ML VIAL IVP ONE (18:58)
== END 2021-04-13 17:41 | disposition home or self-care (01) ==
LOC: ED 14:32
DX: R11.2 Nausea with vomiting, unspecified (principal); R10.84 Generalized abdominal pain
CPT/HCPCS: 36415; 74177; 80053; 81003; 81025; 83690; 85025; 96361; 96374; 99283; 99284; Q9967; 81001; 87086

== ENCOUNTER 2021-05-19 16:23 | Emergency (ER) | payer MEDICAID ==
--- NOTE | 2021-05-19 16:43 | ED Physician Documentation ---
PD HPI NVD - Stated complaint Stated Complaint: ABD PX - Chief complaint Chief Complaint: Abd Pain - History obtained from History obtained from: Patient - Additonal information Additional information: 26-year-old woman with PCOS. She is usually regular on her menses but is 20 days late now. She is sexually active. She took a home test that was negative. Now she has a couple of weeks of nonlocalizing lower abdominal pain and nausea. No vaginal bleeding or discharge. No fevers. She declines pain and nausea medicine on initial evaluation. 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 - Present Medications Home Medications: Ambulatory Orders Medication Instructions Recorded Confirmed LORazepam [Ativan] 0.5 - 1 mg PO Q6H PRN #20 06/24/20 12/19/20 Ondansetron Odt [Zofran] 4 mg TL Q6H PRN #10 tablet 09/02/20 12/19/20 Venlafaxine HCl [Effexor Xr] 150 mg PO DAILY 11/24/20 12/19/20 Benzonatate [Tessalon] 200 mg PO TID PRN #30 cap 12/15/20 12/19/20 LORazepam [Ativan] 0.5 mg PO Q6H PRN #14 tablet 12/30/20 Ondansetron Odt [Zofran] 4 mg TL Q6H PRN #10 tablet 12/30/20 Ondansetron Odt [Zofran] 4 mg TL Q6H PRN #10 tablet 04/13/21 - Allergies Allergies/Adverse Reactions: Allergies Allergy/AdvReac Type Severity Reaction Status Date / Time sertraline Allergy Unknown Verified 05/19/21 16:31 tramadol AdvReac Emesis Verified 05/19/21 16:31 - Social History Does the pt smoke?: No Smoking Status: Never smoker Does the pt drink ETOH?: No Does the pt have substance abuse?: No - Immunizations Immunizations are current?: Yes - POLST Patient has POLST: No PD ED PE NORMAL - Vitals Vital signs reviewed: Yes - General General: Alert and oriented X 3, No acute distress - Cardiac Cardiac: RRR, No murmur - Respiratory Respiratory: No respiratory distress, Clear bilaterally - Abdomen Abdomen: Normal bowel sounds, Soft, Non tender - Extremities Extremities: No deformity, No tenderness to palpate - Neuro Neuro: Alert and oriented X 3, Normal speech - Psych Psych: Normal mood, Normal affect Results - Vitals Vitals: Vital Signs - 24 hr 05/19/21 16:27 Temperature 36.0 C L Heart Rate 79 Respiratory 16 Rate Blood Pressure 136/77 H O2 Saturation 100 Oxygen O2 Source Room air - Labs Labs: Laboratory Tests 05/19/21 05/19/21 05/19/21 16:35 18:40 18:40 WBC 11.4 H RBC 5.10 Hgb 15.2 Hct 43.9 MCV 86.1 MCH 29.8 MCHC 34.6 RDW 12.2 Plt Count 294 MPV 9.4 Neut # (Auto) 8.3 H Lymph # (Auto) 2.2 [place] # (Auto) 0.6 Eos # (Auto) 0.3 Baso # (Auto) 0.0 Absolute Nucleated RBC 0.00 Nucleated RBC % 0.0 Sodium 135 Potassium 3.8 Chloride 99 L Carbon Dioxide 26 Anion Gap 10.0 BUN 9 Creatinine 0.6 Estimated GFR (MDRD) 123 Glucose 77 Calcium 9.2 Total Bilirubin 1.5 H AST 23 ALT 31 Alkaline Phosphatase 50 Total Protein 7.2 Albumin 4.1 Globulin 3.1 Albumin/Globulin Ratio 1.3 Lipase 30 Urine Color YELLOW Urine Clarity CLEAR Urine pH 6.0 Ur Specific [place] 1.010 Urine Protein NEGATIVE Urine Glucose (UA) NEGATIVE Urine Ketones NEGATIVE Urine Occult Blood NEGATIVE Urine Nitrite NEGATIVE Urine Bilirubin NEGATIVE Urine Urobilinogen 0.2 (NORMAL) Ur Leukocyte Esterase NEGATIVE Ur Microscopic Review NOT INDICATED Urine Culture Comments NOT INDICATED Urine HCG, Qual NEGATIVE - Rads (name of study) Pelvic sono Radiology: EMP read contemporaneously (small fibroid, L ov cyst) PD MEDICAL DECISION MAKING - ED course ED course: 26-year-old woman presents with pelvic pain. She is not in extremis and has a benign examination. Ultrasound demonstrates left ovarian cyst which is likely causative. Remained nontender and declining pain medication on reevaluation prior to discharge. Departure - Departure Disposition: 01 Home, Self Care Clinical Impression: Left ovarian cyst Condition: Good Record reviewed to determine appropriate education?: Yes Instructions: ED Cyst Ovarian Comments: You are found today to be confirmed to be not . We found a left ovarian cyst measuring 3.1 x 2.3 x 2.1 cm with evidence of potentially recent active bleeding. This should go away on its own. Tylenol or ibuprofen as needed for pain. 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 Return if worsening.
[2021-05-19 17:17] LABS: BILIRUBIN,URINE NEGATIVE (NEGATIVE); GLUCOSE, URINE (UA) NEGATIVE (NEGATIVE); KETONES,URINE (UA) NEGATIVE (NEGATIVE); LEUKOCYTE ESTERASE, URINE NEGATIVE (NEGATIVE); NITRITE,URINE NEGATIVE (NEGATIVE); OCCULT BLOOD,URINE NEGATIVE (NEGATIVE); PROTEIN,URINE NEGATIVE (NEGATIVE); UROBILINOGEN,URINE 0.2 (NORMAL) E.U./dL (NORMAL)
[2021-05-19 17:20] LABS: CLARITY,URINE CLEAR (CLEAR); HCG UR QUAL NEGATIVE
[2021-05-19 18:44] LABS: BASOPHILS % (AUTO) 0.3 %; EOSINOPHILS # (AUTO) 0.3 10^3/uL (0.0-0.7); EOSINOPHILS % (AUTO) 2.5 %; HCT - HEMATOCRIT 43.9 % (37.0-47.0); HGB - HEMOGLOBIN 15.2 g/dL (12.0-16.0); LYMPHOCYTES # (AUTO) 2.2 10^3/uL (1.5-3.5); LYMPHOCYTES % (AUTO) 19.4 %; MEAN CORPUSCULAR HEMOGLOBIN 29.8 pg (27.0-31.0); MEAN CORPUSCULAR HGB CONC 34.6 g/dL (32.0-36.0); MEAN CORPUSCULAR VOLUME 86.1 fL (81.0-99.0); MEAN PLATELET VOLUME 9.4 fL (7.9-10.8); MONOCYTES # (AUTO) 0.6 10^3/uL (0.0-1.0); MONOCYTES % (AUTO) 5.2 %; NEUTROPHILS # (AUTO) 8.3 10^3/uL (1.5-6.6); NEUTROPHILS % (AUTO) 72.3 %; PLT - PLATELET COUNT 294 10^3/uL (130-450); RED CELL DISTRIBUTION WIDTH 12.2 % (12.0-15.0); WHITE BLOOD COUNT 11.4 x10^3/uL (4.8-10.8)
--- NOTE | 2021-05-19 18:50 | Ultrasound Report ---
PROCEDURE: Pelvic w/Transvag+Doppler Comp INDICATIONS: pelvic pain TECHNIQUE: Real-time scanning was performed of the pelvic organs, with image documentation. Additional endovagi nal scanning was necessary due to incomplete visualization of the adnexal and endometrial structures by transabdominal scanning. COMPARISON: 09/02/2020, 08/03/2020, 03/05/2019 and 05/09/2017. FINDINGS: No pathologic free abdominal or pelvic fluid. Uterus: Uterus is normal in size at 7.2 x 3.6 x 5.0 cm. The endometrium measures 6.8 mm in combined thickness. Uterus is anteverted. There is a 0.9 x 0.7 x 1.2 cm mid posterior submucosal uterine fibr oid is not significantly changed compared to prior examination. Ovaries: Right ovary measures 3.8 x 2.3 x 2.5 cm with total volume of 5.9 cc. Left ovary measures 5. 2 x 3.0 x 4.3 cm total volume of 34.9 cc. There is a 3.1 x 2.3 x 3.1 cm cyst in the left ovary which may represent hemorrhagic cyst or corpus luteal cyst. Doppler evaluation demonstrates no evidence of ovarian torsion. IMPRESSION: 1. Small uterine fibroid. 2. No evidence of ovarian torsion. Please note ultrasound cannot exclude intermittent ovarian torsion . 3. 3.1 x 2.3 x 2.1 cm left ovarian cyst which may represent hemorrhagic cyst or corpus luteal cyst. Reviewed by: Sharon Lopes MD, PhD on 05/19/2021 5:48 PM [place] Approved by: Sharon Lopes MD, PhD on 05/19/2021 5:48 PM [place] Station ID: [id number]
[2021-05-19 18:56] LABS: ALBUMIN 4.1 g/dL (3.2-5.5); ALBUMIN/GLOBULIN RATIO 1.3 (1.0-2.2); BILIRUBIN,TOTAL 1.5 mg/dL (0.2-1.0); CALCIUM 9.2 mg/dL (8.5-10.3); CREATININE 0.6 mg/dL (0.4-1.0); POTASSIUM 3.8 mmol/L (3.5-5.0); TOTAL PROTEIN 7.2 g/dL (6.7-8.2)
[2021-05-19 19:09] VITALS: BP 115/75
== END 2021-05-19 19:09 | disposition home or self-care (01) ==
LOC: ED 16:23
DX: N83.202 Unspecified ovarian cyst, left side (principal)
CPT/HCPCS: 36415; 80053; 81001; 81003; 81025; 83690; 85025; 87086; 93975; 99282; 99284

== ENCOUNTER 2021-07-07 15:19 | Emergency (ER) | payer MEDICAID ==
--- NOTE | 2021-07-07 15:54 | ED Physician Documentation ---
PD HPI CHEST PAIN - Stated complaint Stated Complaint: CHEST PX - Chief complaint Chief Complaint: Cardiac - History obtained from History obtained from: Patient - History of Present Illness Timing - onset: How many hours ago (1), Today Timing - onset during: Light activity Timing - details: Abrupt onset, Still present Quality: Tightness, Other ("fluttering feeling" in substernal area.) Location: Substernal. No: Left shoulder/arm, Upper back Radiation: Abdominal (some discomfort epigastric area). No: Jaw, Neck, Back, Left upper extremity Improved by: No: Rest Worsened by: No: Inspiration, Movement Associated symptoms: Shortness of air, Nausea, Feeling faint / dizzy. No: Vomiting, General Weakness, Palpitations, Cough Similar symptoms before: No diagnosis (has had intermittent chest discomfort and dyspnea related to anxiety. No history of asthma nor heart problems.) Review of Systems Constitutional: denies: Fever, Chills Nose: denies: Rhinorrhea / runny nose, Congestion Throat: denies: Sore throat Cardiac: reports: Chest pain / pressure, Palpitations. denies: Pedal edema, Calf pain Respiratory: denies: Dyspnea, Cough, Wheezing GI: reports: Abdominal Pain (some upper abd with eating recently, nausea feeling.), Nausea. 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: Breast reduction - Present Medications Home Medications: Ambulatory Orders Medication Instructions Recorded Confirmed LORazepam [Ativan] 0.5 - 1 mg PO Q6H PRN #20 06/24/20 12/19/20 Venlafaxine HCl [Effexor Xr] 150 mg PO DAILY 11/24/20 12/19/20 Pantoprazole [Protonix] 40 mg PO DAILY 30 Days #30 tablet 07/07/21 Promethazine [Phenergan] 25 mg PO Q6H PRN #25 tab 07/07/21 Sucralfate [Carafate] 1 gm PO ACHS #20 tablet 07/07/21 buPROPion HCL [Bupropion Xl] 150 mg PO 07/07/21 hydrOXYzine PAMOATE [Vistaril] 25 mg PO 07/07/21 - Allergies Allergies/Adverse Reactions: Allergies Allergy/AdvReac Type Severity Reaction Status Date / Time sertraline Allergy Unknown Verified 07/07/21 15:26 tramadol AdvReac Emesis Verified 07/07/21 15:26 - Social History Does the pt smoke?: No Smoking Status: Never smoker Does the pt drink ETOH?: No Does the pt have substance abuse?: No - Immunizations Immunizations are current?: Yes - POLST Patient has POLST: No PD ED PE NORMAL - Vitals Vital signs reviewed: Yes - General General: Alert and oriented X 3, No acute distress, Well developed/nourished - HEENT HEENT: Moist mucous membranes, Pharynx benign - Neck Neck: Supple, no meningeal sign, No adenopathy - Cardiac Cardiac: RRR, No murmur - Respiratory Respiratory: No respiratory distress, Clear bilaterally, Other (no chestwall tenderness. ) - Abdomen Abdomen: Normal bowel sounds, Soft, Non distended, No organomegaly, Other (some tender without guarding in epigastric area. ) - Back Back: No CVA TTP - Derm Derm: Normal color, Warm and dry - Extremities Extremities: Normal ROM s pain, No edema, No calf tenderness / cord - Neuro Neuro: Alert and oriented X 3, No motor deficit, Normal speech Results - Vitals Vitals: Vital Signs - 24 hr 07/07/21 07/07/21 07/07/21 15:26 16:02 16:35 Temperature 36.5 C Heart Rate 84 73 71 Respiratory 20 24 20 Rate Blood Pressure 125/79 124/78 O2 Saturation 99 100 96 07/07/21 07/07/21 17:23 17:24 Temperature Heart Rate 63 63 Respiratory 20 20 Rate Blood Pressure 124/78 O2 Saturation 99 98 Oxygen O2 Source Room air - EKG (time done) 15:34 Rate: Rate (enter#) (85) Rhythm: NSR [place]: Normal Intervals: Normal CT QRS: Normal Ischemia: Normal ST segments. No: ST elevation c/w ischemia, ST depression - Labs Labs: Laboratory Tests 07/07/21 07/07/21 07/07/21 15:49 15:49 15:49 WBC 11.6 H RBC 4.73 Hgb 14.0 Hct 40.5 MCV 85.6 MCH 29.6 MCHC 34.6 RDW 12.4 Plt Count 267 MPV 9.5 Neut # (Auto) 8.8 H Lymph # (Auto) 1.9 [place] # (Auto) 0.6 Eos # (Auto) 0.2 Baso # (Auto) 0.0 Absolute Nucleated RBC 0.00 Nucleated RBC % 0.0 D-Dimer 227.1 Sodium 137 Potassium 3.3 L Chloride 102 Carbon Dioxide 23 Anion Gap 12.0 BUN 9 Creatinine 0.8 Estimated GFR (MDRD) 88 L Glucose 94 Calcium 9.4 Total Bilirubin 0.6 AST 23 ALT 21 Alkaline Phosphatase 36 L Troponin I High Sens Total Protein 7.3 Albumin 3.9 Globulin 3.4 Albumin/Globulin Ratio 1.1 Lipase 35 07/07/21 15:49 WBC RBC Hgb Hct MCV MCH MCHC RDW Plt Count MPV Neut # (Auto) Lymph # (Auto) [place] # (Auto) Eos # (Auto) Baso # (Auto) Absolute Nucleated RBC Nucleated RBC % D-Dimer Sodium Potassium Chloride Carbon Dioxide Anion Gap BUN Creatinine Estimated GFR (MDRD) Glucose Calcium Total Bilirubin AST ALT Alkaline Phosphatase Troponin I High Sens < 2.3 L Total Protein Albumin Globulin Albumin/Globulin Ratio Lipase - Rads (name of study) chest xray Radiology: Prelim report reviewed (no acute process), See rad report PD MEDICAL DECISION MAKING - ED course Complexity details: reviewed results (normal ECG, CXR, trop, d-dimer, labs. ), re-evaluated patient (seems improved with antacid. ), considered differential (symptoms sound perhaps more reflux and she has some epigastric discomfort with eating as well. ), d/w patient Departure - Departure Disposition: 01 Home, Self Care Clinical Impression: Chest pain Qualifiers: Chest pain type: precordial pain Qualified Code(s): R07.2 - Precordial pain Esophagitis, reflux Qualifiers: Esophagitis bleeding: without hemorrhage Qualified Code(s): K21.00 - Gastro- esophageal reflux disease with esophagitis, without bleeding Condition: Stable Record reviewed to determine appropriate education?: Yes Follow-Up: NAIN SOLANO NP [Primary Care Provider] - Prescriptions: Sucralfate [Carafate] 1 gm PO ACHS #20 tablet Promethazine [Phenergan] 25 mg PO Q6H PRN #25 tab PRN Reason: Nausea / Vomiting Pantoprazole [Protonix] 40 mg PO DAILY 30 Days #30 tablet Comments: Your chest x-ray and blood tests and EKG are good. No signs of heart or lung causes for this. Consider possible irritation of the stomach with also some reflux and esophageal irritation. I would suggest using your ondansetron at home or promethazine if needed for nausea. The promethazine can make you little bit sleepy as compared to the ondansetron. Also Protonix pantoprazole acid reducing medicine daily for a month. For the next several days use sacral fate 4 times daily to help coat the stomach. Add Tylenol if needed for pains. Recheck if not improved well over the next few days. Return sooner if worse. I transmitted your prescriptions to [facility] pharmacy. Discharge Date/Time: 07/07/21 17:24
[2021-07-07 15:56] LABS: BASOPHILS % (AUTO) 0.3 %; EOSINOPHILS # (AUTO) 0.2 10^3/uL (0.0-0.7); EOSINOPHILS % (AUTO) 1.4 %; HCT - HEMATOCRIT 40.5 % (37.0-47.0); LYMPHOCYTES # (AUTO) 1.9 10^3/uL (1.5-3.5); LYMPHOCYTES % (AUTO) 16.5 %; MEAN CORPUSCULAR HEMOGLOBIN 29.6 pg (27.0-31.0); MEAN CORPUSCULAR HGB CONC 34.6 g/dL (32.0-36.0); MEAN CORPUSCULAR VOLUME 85.6 fL (81.0-99.0); MEAN PLATELET VOLUME 9.5 fL (7.9-10.8); MONOCYTES # (AUTO) 0.6 10^3/uL (0.0-1.0); MONOCYTES % (AUTO) 5.4 %; NEUTROPHILS # (AUTO) 8.8 10^3/uL (1.5-6.6); NEUTROPHILS % (AUTO) 76.1 %; PLT - PLATELET COUNT 267 10^3/uL (130-450); RED BLOOD COUNT 4.73 10^6/uL (4.20-5.40); RED CELL DISTRIBUTION WIDTH 12.4 % (12.0-15.0); WHITE BLOOD COUNT 11.6 x10^3/uL (4.8-10.8)
[2021-07-07 16:03] VITALS: BP 124/78
[2021-07-07 16:12] LABS: ALBUMIN 3.9 g/dL (3.2-5.5); ALBUMIN/GLOBULIN RATIO 1.1 (1.0-2.2); BILIRUBIN,TOTAL 0.6 mg/dL (0.2-1.0); CALCIUM 9.4 mg/dL (8.5-10.3); CREATININE 0.8 mg/dL (0.4-1.0); POTASSIUM 3.3 mmol/L (3.5-5.0); TOTAL PROTEIN 7.3 g/dL (6.7-8.2)
[2021-07-07] MEDS ORDERED: DROPERIDOL 5 MG/2 ML VIAL IM STA (16:21)
[2021-07-07] MEDS ORDERED: ACETAMINOPHEN 325 MG TABLET PO STA (16:21)
[2021-07-07] MEDS ORDERED: FAMOTIDINE 20 MG TABLET PO STA (16:21)
[2021-07-07] MEDS ORDERED: MAG HYDROX/AL HYDROX/SIMETH 30 ML UDC PO STA (16:21)
--- NOTE | 2021-07-07 16:21 | XRAY Report ---
PROCEDURE: Chest 1 View X-Ray INDICATIONS: Chest Pain TECHNIQUE: One view of the chest was acquired. COMPARISON: Chest x-ray 10/01/2019 FINDINGS: Surgical changes and devices: None. Lungs and pleura: No pleural effusions or pneumothorax. Lungs are clear. Mediastinum: Mediastinal contours appear normal. Heart size is normal. Bones and chest wall: No suspicious bony lesions. Overlying soft tissues appear unremarkable. IMPRESSION: No acute pulmonary process. Reviewed by: Leila Javier MD on 07/07/2021 4:[address] [facility] Approved by: Leila Javier MD on 07/07/2021 4:[address] [facility] Station ID: [id number]
== END 2021-07-07 17:24 | disposition home or self-care (01) ==
LOC: ED 15:19
DX: R07.2 Precordial pain (principal); K21.00 Gastro-esophageal reflux disease with esophagitis, without bleeding
CPT/HCPCS: 36415; 71045; 80053; 83690; 84484; 85025; 85379; 93005; 96372; 99284; A9270

== ENCOUNTER 2021-08-17 18:54 | Outpatient (CLI) | payer MEDICAID ==
--- NOTE | 2021-08-18 08:54 | Ultrasound Report ---
PROCEDURE: Pelvic w/Transvaginal INDICATIONS: OVARIAN CYST TECHNIQUE: Real-time scanning was performed of the pelvic organs, with image documentation. Additional endovagi nal scanning was necessary due to incomplete visualization of the adnexal and endometrial structures by transabdominal scanning. COMPARISON: May 19, 2021. FINDINGS: UTERUS: Heterogeneous echotexture, anteverted, and measures 6.3 x 3.3 x 4.4 cm. The endometrial thickness measures 4.1 mm. Hypoechoic lesions in the cervix, compatible with nabothian cysts. A predominantly isoechoic 1.5 x 1.1 cm lesion is seen in the posterior uterus, most consistent with a intramural fibroid; previously measured 0.9 x 0.7 x 1.2 cm. RIGHT OVARY: 3.1 x 1.7 x 2.7 cm. Vol: 7.6 mL. Color-flow projects over the ovarian tissue. LEFT OVARY: 3.5 x 1.8 x 1.7 cm. Vol: 5.6 mL. Color-flow projects over the ovarian tissue. OTHER: None. IMPRESSION: 1.Interval enlargement versus improved visualization of the patient's posterior fibroid. Reviewed by: Emmanuel Colby MD on 08/18/2021 8:53 AM PDT Approved by: Emmanuel Colby MD on 08/18/2021 8:53 AM PDT Station ID: [id number]
== END 2021-08-17 18:55 | disposition home or self-care (01) ==
LOC: DI 18:54
PROVIDERS: ATTEND Obstetrics & Gynecology
DX: D25.9 Leiomyoma of uterus, unspecified (principal)

== ENCOUNTER 2021-08-30 21:21 | Emergency (ER) | payer MEDICAID ==
[2021-08-30 21:27] VITALS: BP 132/82
--- NOTE | 2021-08-30 22:12 | ED Physician Documentation ---
PD HPI HEAD INJURY - Stated complaint Stated Complaint: NOSE PX - Chief complaint Chief Complaint: Trauma Hd/Nk - History obtained from History obtained from: Patient - Additional information Additional information: The patient comes to the emergency department chief complaint of nasal pain and swelling after being hit in the nose by somebody else's head during a basketball game. Patient states she is not hurt in any other way. She did not lose consciousness. The pain is centered on her nose and patient denies any pain elsewhere in her face. No epistaxis. The incident happened approximately an hour and a half ago. Review of Systems Ten Systems: 10 systems reviewed and negative Constitutional: reports: Reviewed and negative Eyes: reports: Reviewed and negative Ears: reports: Reviewed and negative Nose: reports: Reviewed and negative Throat: reports: Reviewed and negative Cardiac: reports: Reviewed and negative Respiratory: reports: Reviewed and negative GI: reports: Reviewed and negative : reports: Reviewed and negative Skin: reports: Reviewed and negative Musculoskeletal: reports: Reviewed and negative Neurologic: reports: Head injury (Nose) Psychiatric: reports: Reviewed and negative Endocrine: reports: Reviewed and negative Immunocompromised: reports: Reviewed and negative PD PAST MEDICAL HISTORY - Past Medical History Past Medical History: Yes Cardiovascular: None Respiratory: None Neuro: None Endocrine/Autoimmune: None 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 : None HEENT: None Psych: Depression, Anxiety Musculoskeletal: Chronic back pain, Other Derm: None - Past Surgical History Past Surgical History: 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: Breast 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 - Present Medications Home Medications: Ambulatory Orders Medication Instructions Recorded Confirmed buPROPion HCL [Bupropion Xl] 150 mg PO DAILY 07/07/21 08/30/21 - Allergies Allergies/Adverse Reactions: Allergies Allergy/AdvReac Type Severity Reaction Status Date / Time sertraline Allergy Unknown Verified 08/30/21 21:24 tramadol AdvReac Emesis Verified 08/30/21 21:24 - Social History Does the pt smoke?: No Smoking Status: Never smoker Does the pt drink ETOH?: No Does the pt have substance abuse?: No - Immunizations Immunizations are current?: Yes - POLST Patient has POLST: No PD ED PE NORMAL - Vitals Vital signs reviewed: Yes - General General: Alert and oriented X 3, No acute distress, Well developed/nourished - HEENT HEENT: PERRL, EOMI, Moist mucous membranes, Other (Tenderness and mild edema and contusion over nasal bridge. No epistaxis. No septal hematoma. No gross deformity. No tenderness of remainder facial bones.) - Neck Neck: Supple, no meningeal sign, No bony TTP - Respiratory Respiratory: No respiratory distress - Derm Derm: Normal color, Warm and dry, No rash - Extremities Extremities: No deformity - Neuro Neuro: Alert and oriented X 3, screen repairer crusher 2-12 intact, Normal speech - Psych Psych: Normal mood, Normal affect Results - Vitals Vitals: Vital Signs - 24 hr 08/30/21 21:24 Temperature 36.5 C Heart Rate 88 Respiratory 16 Rate Blood Pressure 132/82 H O2 Saturation 97 Oxygen O2 Source Room air - Rads (name of study) Nasal bone x-ray series Radiology: Final report received, EMP read indepedently, See rad report (Mildly depressed nasal bone fracture) PD MEDICAL DECISION MAKING - ED course Complexity details: reviewed results, re-evaluated patient, considered differential, d/w patient ED course: The patient was sent for x-ray series of her nasal bones and was found to have a mildly depressed nasal bone fracture. She was informed of this finding. At this point in time, there is no evidence of a cosmetic defect, but the patient is given the contact information for ENT clinic so that if she feels that her nose is not cosmetically satisfactory, she may follow-up with them. We have discussed symptomatic management at home and the usual indications for return. Departure - Departure Disposition: 01 Home, Self Care Clinical Impression: Nasal bone fracture Qualifiers: Encounter type: initial encounter Fracture type: closed Qualified Code(s): S02.2XXA - Fracture of nasal bones, initial encounter for closed fracture Condition: Stable Instructions: ED Fx Nasal Conf W X Ray Follow-Up: Shubham Beltran MD [Physician No Access] - Comments: Your x-ray series shows a crack through the lower portion of the bone of your nose, and the end fragment appears to be angled slightly inward. This should heal well on its own, and will most likely not be noticeable cosmetically; however, if you feel that your nose does not look the same as it did before once the swelling goes down, you may follow-up with the ear nose throat specialist to discuss the possibility of a cosmetic revision. Discharge Date/Time: 08/30/21 22:26
--- NOTE | 2021-08-30 22:22 | XRAY Report ---
PROCEDURE: Nasal Bones INDICATIONS: blunt trauma nose TECHNIQUE: 3 views of the nasal bones acquired. COMPARISON: None. FINDINGS: Bones: There is a mildly depressed nasal bone fracture. Nasal septum appears midline. Visualized para nasal sinuses demonstrate no air-fluid levels. Soft tissues: No suspicious soft tissue calcifications. IMPRESSION: 1. Mildly depressed nasal bone fracture. Reviewed by: Bishop Song MD on 08/30/2021 10:20 PM PDT Approved by: Bishop Song MD on 08/30/2021 10:20 PM PDT Station ID: [id number]
== END 2021-08-30 22:26 | disposition home or self-care (01) ==
LOC: ED 21:21
DX: S02.2XXA Fracture of nasal bones, initial encounter for closed fracture (principal); W50.0XXA Accidental hit or strike by another person, initial encounter; Y93.67 Activity, basketball
CPT/HCPCS: 99282; 99283

== ENCOUNTER 2021-09-17 15:16 | Outpatient (CLI) | payer MEDICAID ==
[2021-09-17 15:58] LABS: THYROID STIMULATING HORMONE 1.9 uIU/mL (0.34-5.60)
[2021-09-17 21:43] LABS: ESTIMATED AVERAGE GLUCOSE 103 mg/dL (70-100); HEMOGLOBIN A1c% 5.2 % (4.27-6.07)
== END 2021-09-17 15:17 | disposition home or self-care (01) ==
LOC: LAB 15:16
PROVIDERS: ATTEND Obstetrics & Gynecology
DX: E28.2 Polycystic ovarian syndrome (principal)
CPT/HCPCS: 36415; 83036; 84403; 84443

== ENCOUNTER 2021-09-22 11:56 | Outpatient (CLI) | payer MEDICAID | END 2021-09-22 11:57 | disposition home or self-care (01) | LOC: LAB.N 11:56 | PROVIDERS: ATTEND Obstetrics & Gynecology | DX: E28.2 Polycystic ovarian syndrome (principal) | CPT/HCPCS: 36415; 82626 ==

== ENCOUNTER 2022-02-21 22:09 | Emergency (ER) | payer MEDICAID ==
--- NOTE | 2022-02-21 22:37 | ED Physician Documentation ---
PD HPI NVD - Stated complaint Stated Complaint: N/V/CHEST PX - Chief complaint Chief Complaint: Abd Pain - History obtained from History obtained from: Patient - History of Present Illness Timing - onset: Today Timing - details: Gradual onset, Still present, Waxing and waning Pain level now: 8 Associated symptoms: Abdominal pain. No: Fever, Chest pain, Hematemesis, Melena Similar symptoms before: Has not had sx before (has previous [facility] ED visits for abdominal pain but tonight's symptoms are more severe and different location; she feels that this is not similar to any previous abdominal pains she has had in the past) Recently seen: Not recently seen - Additonal information Additional information: c/o nausea, vomiting, and pain across upper abdomen since this morning; she indicates the most intense pain is in epigastrium and describes the pain as sharp, with some degree of radiation to midline low anterior chest. She has ondansetron at home but did not have any relief of n/v with this medication, and since this afternoon has not been able to tolerate any PO intake including liquids (due to n/v) Review of Systems Constitutional: reports: Reviewed and negative Cardiac: reports: Chest pain / pressure. denies: Palpitations, Pedal edema, Calf pain Respiratory: reports: Reviewed and negative GI: reports: Abdominal Pain, Nausea, Vomiting. 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 - Present Medications Home Medications: Ambulatory Orders Medication Instructions Recorded Confirmed buPROPion HCL [Bupropion Xl] 150 mg PO DAILY 07/07/21 02/21/22 Omeprazole 20 mg PO DAILY 02/21/22 02/21/22 hydrOXYzine HCL [Hydroxyzine HCl] 50 mg PO DAILY 02/21/22 02/21/22 HYDROcod/ACETAM 5/325 [[place] 5/325] 1 - 2 tablet PO Q6H PRN #14 tablet 02/22/22 Promethazine [Phenergan] 25 mg PO Q6H PRN #10 tab 02/22/22 - Allergies Allergies/Adverse Reactions: Allergies Allergy/AdvReac Type Severity Reaction Status Date / Time sertraline Allergy Unknown Verified 02/21/22 22:21 tramadol AdvReac Emesis Verified 02/21/22 22:21 - Social History Does the pt smoke?: No Smoking Status: Never smoker Does the pt drink ETOH?: No Does the pt have substance abuse?: No - Immunizations Immunizations are current?: Yes - POLST Patient has POLST: No PD ED PE NORMAL - Vitals Vital signs reviewed: Yes - General General: Alert and oriented X 3, Well developed/nourished, Other (appears uncomfortable, moderate painful distress) - HEENT HEENT: Other (tacky mucous membranes) - Cardiac Cardiac: RRR, No murmur - Respiratory Respiratory: No respiratory distress, Clear bilaterally - Abdomen Abdomen: Soft, Non distended, Other (TTP across upper abdomen without rebound or guarding) - Back Back: No CVA TTP - Derm Derm: Normal color, Warm and dry, No rash Results - Vitals Vitals: Oxygen O2 Source Room air - EKG (time done) No standard instances Rate: Rate (enter#) (83) Rhythm: NSR [place]: Normal Intervals: Normal [place] QRS: Normal Ischemia: Normal ST segments - Labs Labs: Laboratory Tests 02/21/22 02/21/22 02/22/22 23:31 23:31 00:19 WBC 11.7 H RBC 5.11 Hgb 14.5 Hct 43.1 MCV 84.3 MCH 28.4 MCHC 33.6 RDW 13.4 Plt Count 249 MPV 9.6 Neut # (Auto) 7.9 H Lymph # (Auto) 2.6 [place] # (Auto) 0.8 Eos # (Auto) 0.3 Baso # (Auto) 0.0 Absolute Nucleated RBC 0.00 Nucleated RBC % 0.0 Sodium 137 Potassium 3.4 L Chloride 103 Carbon Dioxide 25 Anion Gap 9.0 BUN 8 Creatinine 0.8 Estimated GFR (MDRD) 88 L Glucose 87 Calcium 9.2 Total Bilirubin 0.9 AST 23 ALT 32 Alkaline Phosphatase 55 Total Protein 7.5 Albumin 3.9 Globulin 3.6 Albumin/Globulin Ratio 1.1 Lipase 35 Urine Color YELLOW Urine Clarity CLEAR Urine pH 6.0 Ur Specific [place] 1.015 Urine Protein NEGATIVE Urine Glucose (UA) NEGATIVE Urine Ketones >=80 H Urine Occult Blood NEGATIVE Urine Nitrite NEGATIVE Urine Bilirubin NEGATIVE Urine Urobilinogen 0.2 (NORMAL) Ur Leukocyte Esterase NEGATIVE Ur Microscopic Review NOT INDICATED Urine Culture Comments NOT INDICATED Urine HCG, Qual NEGATIVE - Rads (name of study) CT A/P with IV contrast Radiology: Prelim report reviewed, See rad report PD MEDICAL DECISION MAKING - ED course Complexity details: reviewed old records, reviewed results, re-evaluated patient, considered differential, d/w patient ED course: I am prescribing a short course of short-acting opioid pain medication for this patient. 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 I have discussed that the opioids are for short term therapy only, and will not be refilled from the ED Departure - Departure Disposition: 01 Home, Self Care Clinical Impression: Abdominal pain Condition: Good Instructions: ED Abdominal Pain Female Non-Specific Abdominal Pain Prescriptions: HYDROcod/ACETAM 5/325 [[place] 5/325] 1 - 2 tablet PO Q6H PRN #14 tablet PRN Reason: Pain Promethazine [Phenergan] 25 mg PO Q6H PRN #10 tab PRN Reason: Nausea / Vomiting Comments: The results of tonight's tests are without concerning or diagnostic findings. There is a questionable right ovarian cyst, but as we discussed, I think it is unlikely this is the source of your pain (the ovarian cyst appears small, no evidence of rupture, and the pain/tenderness you are having seems mostly in the upper abdomen and not the pelvic area). The cause of your symptoms is not apparent at this time. Prescriptions for anti- nausea medication (phenergan) and pain medication (vicodin) have been electronically submitted to [facility] pharmacy in [place]. Follow up with your primary care provider in 2-3 days if symptoms do not resolve I am prescribing a short course of narcotic pain medication for you. These are potentially dangerous and addictive medications that should be used carefully. These medications may constipate you. Take an [id number] stool softener (docusate) twice daily with plenty of water while taking these medications. If you go 24 hours without a bowel movement, take [id number] miralax, per package instructions. Do not drink or drive while taking these medications. If you received narcotic or sedating medications while in the emergency department, do not drive for 24 hours. Store this medication in a safe, secure place and out of reach of children. It is a violation of federal law to give or sell this medication to another person or to use in a manner other than prescribed. The ED will not refill narcotic prescriptions, including prescriptions lost or stolen. To dispose of unwanted medications: 1. [facility] at [address] in [place] has a medication drop box. They accept prescription medications (in pill form) Tuesday through Tuesday 9:00 a.m. to 5:00 p.m. 2. The [facility] [employer] [facility] accepts prescription medications (in pill form only) for disposal year round. Call for more information. 3. Contact the [facility] for the next [facility] sponsored prescription drug collection event. , [phone], or [phone]; Forms: Activity restrictions Discharge Date/Time: 02/22/22 02:28
[2022-02-21] MEDS ORDERED: SODIUM CHLORIDE 0.9% 1,000 ML IV STA (23:10)
[2022-02-21] MEDS ORDERED: KETOROLAC 30 MG/ML VIAL IVP STA (23:10)
[2022-02-21] MEDS ORDERED: PANTOPRAZOLE 40 MG VIAL IVP STA (23:10)
[2022-02-21] MEDS ORDERED: HYDROmorphone 1 MG/ML CARPUJECT IVP STA (23:10)
[2022-02-21] MEDS ORDERED: PROMETHAZINE INJ 25 MG in SODIUM CHLORIDE 0.9% 50 ML IV STA (23:11)
[2022-02-21] MEDS ORDERED: PROMETHAZINE 25 MG/1 ML VIAL ONE (23:20)
[2022-02-21 23:36] LABS: BASOPHILS % (AUTO) 0.3 %; EOSINOPHILS # (AUTO) 0.3 10^3/uL (0.0-0.7); EOSINOPHILS % (AUTO) 2.3 %; HCT - HEMATOCRIT 43.1 % (37.0-47.0); HGB - HEMOGLOBIN 14.5 g/dL (12.0-16.0); LYMPHOCYTES # (AUTO) 2.6 10^3/uL (1.5-3.5); LYMPHOCYTES % (AUTO) 22.3 %; MEAN CORPUSCULAR HEMOGLOBIN 28.4 pg (27.0-31.0); MEAN CORPUSCULAR HGB CONC 33.6 g/dL (32.0-36.0); MEAN CORPUSCULAR VOLUME 84.3 fL (81.0-99.0); MEAN PLATELET VOLUME 9.6 fL (7.9-10.8); MONOCYTES # (AUTO) 0.8 10^3/uL (0.0-1.0); MONOCYTES % (AUTO) 6.9 %; NEUTROPHILS # (AUTO) 7.9 10^3/uL (1.5-6.6); NEUTROPHILS % (AUTO) 67.7 %; PLT - PLATELET COUNT 249 10^3/uL (130-450); RED BLOOD COUNT 5.11 10^6/uL (4.20-5.40); RED CELL DISTRIBUTION WIDTH 13.4 % (12.0-15.0); WHITE BLOOD COUNT 11.7 x10^3/uL (4.8-10.8)
[2022-02-21 23:49] LABS: ALBUMIN 3.9 g/dL (3.2-5.5); ALBUMIN/GLOBULIN RATIO 1.1 (1.0-2.2); BILIRUBIN,TOTAL 0.9 mg/dL (0.2-1.0); CALCIUM 9.2 mg/dL (8.5-10.3); CREATININE 0.8 mg/dL (0.4-1.0); POTASSIUM 3.4 mmol/L (3.5-5.0); TOTAL PROTEIN 7.5 g/dL (6.7-8.2)
[2022-02-22] MEDS ORDERED: iohexoL-300 100 ML VIAL ONE (00:01)
[2022-02-22 00:39] LABS: BILIRUBIN,URINE NEGATIVE (NEGATIVE); GLUCOSE, URINE (UA) NEGATIVE (NEGATIVE); KETONES,URINE (UA) >=80 mg/dL (NEGATIVE); LEUKOCYTE ESTERASE, URINE NEGATIVE (NEGATIVE); NITRITE,URINE NEGATIVE (NEGATIVE); OCCULT BLOOD,URINE NEGATIVE (NEGATIVE); PROTEIN,URINE NEGATIVE (NEGATIVE); UROBILINOGEN,URINE 0.2 (NORMAL) E.U./dL (NORMAL)
[2022-02-22] MEDS ORDERED: iohexoL-300 100 ML VIAL IVP ONE (00:39)
[2022-02-22 00:40] LABS: CLARITY,URINE CLEAR (CLEAR)
[2022-02-22 00:42] LABS: HCG UR QUAL NEGATIVE
--- NOTE | 2022-02-22 01:07 | CT Report ---
PROCEDURE: ABDOMEN/PELVIS W INDICATIONS: abdominal pain CONTRAST: 100 ML OMNI 300 TECHNIQUE: After the administration of intravenous contrast, 5 mm thick sections acquired from the diaphragms to the symphysis. 5 mm thick coronal and sagittal reformats were acquired. For radiation dose reducti on, the following was used: automated exposure control, adjustment of mA and/or kV according to carito ent size. COMPARISON: CT abdomen pelvis 04/13/2021, 12/30/2020. FINDINGS: Image quality: Excellent. Lung bases:There is mild dependent atelectasis bilaterally. Heart: Heart is normal in size. ABDOMEN: Liver: No mass lesion. Gallbladder: Within normal limits without calcified gallstones. Biliary ducts: No biliary ductal dilatation. Pancreas: Unremarkable. Spleen: Normal in size. Adrenal Glands: No adrenal nodules. Kidneys and Ureters: No hydronephrosis. Stomach and Bowel: Stomach, small bowel loops, and colon are normal in caliber and wall thickness. T he appendix is normal in appearance. Peritoneum: No abnormal intraperitoneal fluid. No free air. Ventral Wall: No hernia. Abdominal Nodes: No retroperitoneal or mesenteric adenopathy by size criteria. Vessels: Aorta and inferior vena cava are normal in size. PELVIS: Pelvic Organs:There is a peripherally enhancing cyst in the right ovary measuring up to 3.5 cm.. Bladder: Unremarkable. Pelvic Nodes: No enlarged lymph nodes. Miscellaneous: No inguinal hernias are seen. Bones: Visualized osseous structures demonstrate no suspicious focal lesions. IMPRESSION: 1. No definite acute intra-abdominal abnormality. Specifically, no evidence of appendicitis. 2. Peripherally enhancing cyst in the right ovary is nonspecific but likely represents a physiologic cyst. If clinically indicated, further evaluation may obtained with pelvic ultrasound. Reviewed by: Bishop Song MD on 02/22/2022 1:06 AM PDT Approved by: Bishop Song MD on 02/22/2022 1:06 AM PDT Station ID: [id number]
[2022-02-22 02:18] VITALS: BP 119/78
== END 2022-02-22 02:28 | disposition home or self-care (01) ==
LOC: ED 22:09
DX: R11.2 Nausea with vomiting, unspecified (principal); R10.10 Upper abdominal pain, unspecified
CPT/HCPCS: 36415; 74177; 80053; 81003; 81025; 83690; 85025; 93005; 96365; 96375; 99284; J1170; J7040; Q9967; 81001; 87086

== ENCOUNTER 2022-03-15 08:00 | Outpatient (CLI) | payer MEDICAID ==
[2022-03-18 03:08] LABS: HSV 2 IGG TYPE SPEC <0.91 index (0.00-0.90)
== END 2022-03-15 23:59 | disposition home or self-care (01) ==
LOC: LAB.N 08:00
PROVIDERS: ATTEND Physician Assistant
DX: L02.32 Furuncle of buttock (principal)
CPT/HCPCS: 86695; 86696

== ENCOUNTER 2022-05-04 06:40 | Outpatient (CLI) | payer MEDICAID ==
--- NOTE | 2022-05-04 08:59 | Ultrasound Report ---
PROCEDURE: Abdomen Limited INDICATIONS: EPIGASTRIC ABD PAIN TECHNIQUE: Real-time focused scanning was performed of the abdomen, with image documentation. COMPARISON: 02/22/2022 CT FINDINGS: Liver measures 17 cm. Overall echotexture is mildly increased. Color Doppler images show p atent flow in the main portal vein. Gallbladder is within normal limits. Biliary tree is nondilated. Visualized pancreas within normal limits. Right kidney measures 11.6 cm. There is a right renal cyst measuring up to 1.3 cm. IMPRESSION: No acute right upper quadrant sonographic abnormality. The liver is mildly echogenic, which is most c ommonly associated with mild steatosis. Reviewed by: Stan Narayanan MD on 05/04/2022 8:58 AM PST Approved by: Stan Narayanan MD on 05/04/2022 8:58 AM PST Station ID: [id number]
== END 2022-05-04 06:41 | disposition home or self-care (01) ==
LOC: DI 06:40
PROVIDERS: ATTEND Family Medicine
DX: R10.13 Epigastric pain (principal)

== ENCOUNTER 2022-06-25 12:49 | Outpatient (CLI) | payer MEDICAID ==
--- NOTE | 2022-06-25 14:02 | XRAY Report ---
PROCEDURE: Knee 3 View LT INDICATIONS: KNEE PAIN TECHNIQUE: 3 views of the left knee(s) were acquired. COMPARISON: None. FINDINGS: Bones: No fractures or dislocations. No suspicious bony lesions. Soft tissues: Mild joint effusion. No suspicious soft tissue calcifications. IMPRESSION: Mild effusion. No visualized acute fracture or dislocation. However, occult injury canno t be excluded. Recommend short interval imaging follow-up in 7-10 days as clinically indicated for ad ditional evaluation. Reviewed by: Leila Javier MD on 06/25/2022 2:00 PM PST Approved by: Leila Javier MD on 06/25/2022 2:00 PM PST Station ID: [id number]
== END 2022-06-25 12:50 | disposition home or self-care (01) ==
LOC: DI 12:49
PROVIDERS: ATTEND Physician Assistant
DX: M25.462 Effusion, left knee (principal); M25.562 Pain in left knee

== ENCOUNTER 2022-08-05 08:18 | Emergency (ER) | payer MEDICAID ==
[2022-08-05 09:01] LABS: BILIRUBIN,URINE NEGATIVE (NEGATIVE); CLARITY,URINE CLEAR (CLEAR); GLUCOSE, URINE (UA) NEGATIVE (NEGATIVE); KETONES,URINE (UA) NEGATIVE (NEGATIVE); LEUKOCYTE ESTERASE, URINE NEGATIVE (NEGATIVE); NITRITE,URINE NEGATIVE (NEGATIVE); OCCULT BLOOD,URINE NEGATIVE (NEGATIVE); PROTEIN,URINE NEGATIVE (NEGATIVE); UROBILINOGEN,URINE 0.2 (NORMAL) E.U./dL (NORMAL)
[2022-08-05 09:03] LABS: HCG UR QUAL NEGATIVE
[2022-08-05 09:04] LABS: BASOPHILS % (AUTO) 0.5 %; EOSINOPHILS # (AUTO) 0.1 10^3/uL (0.0-0.7); EOSINOPHILS % (AUTO) 1.6 %; HCT - HEMATOCRIT 44.2 % (37.0-47.0); HGB - HEMOGLOBIN 14.8 g/dL (12.0-16.0); LYMPHOCYTES # (AUTO) 1.5 10^3/uL (1.5-3.5); LYMPHOCYTES % (AUTO) 17.3 %; MEAN CORPUSCULAR HEMOGLOBIN 29.2 pg (27.0-31.0); MEAN CORPUSCULAR HGB CONC 33.5 g/dL (32.0-36.0); MEAN CORPUSCULAR VOLUME 87.2 fL (81.0-99.0); MEAN PLATELET VOLUME 9.5 fL (7.9-10.8); MONOCYTES # (AUTO) 0.6 10^3/uL (0.0-1.0); MONOCYTES % (AUTO) 6.5 %; NEUTROPHILS # (AUTO) 6.6 10^3/uL (1.5-6.6); NEUTROPHILS % (AUTO) 73.9 %; PLT - PLATELET COUNT 308 10^3/uL (130-450); RED BLOOD COUNT 5.07 10^6/uL (4.20-5.40); RED CELL DISTRIBUTION WIDTH 13.2 % (12.0-15.0); WHITE BLOOD COUNT 8.9 x10^3/uL (4.8-10.8)
--- OUTSIDE RECORDS SUMMARY | 2022-08-05 09:08 | EXTERNAL MEDICAL SUMMARY RPT | Continuity of Care Document ---
:1995 Author Organization [facility] Address [address] [place] [address] Phone Care Team Providers Name Role Phone Unavailable Unavailable Unavailable Taurus Day Pa-C Unavailable Unavailable Omari Nunez Md Unavailable Unavailable Jud Mace Unavailable Unavailable System Maintenance Unavailable Unavailable Allergies No information. Encounters No information. Functional Status No information. Immunizations No information. Medications date description facility 2022-06-09 00:00 fluticasone propionate All 2022-06-09 00:00 fluticasone propionate All 2022-06-09 00:00 fluticasone propionate All 2022-06-09 00:00 fluticasone propionate All 2022-06-09 00:00 fluticasone propionate All 2022-06-09 00:00 fluticasone propionate All 2022-06-09 00:00 cetirizine All 2022-06-09 00:00 cetirizine All 2022-06-09 00:00 cetirizine All 2022-07-18 00:00 norgestimate-ethinyl estradiol All 2022-06-09 00:00 codeine-guaifenesin All 2022-06-09 00:00 codeine-guaifenesin All 2022-06-09 00:00 codeine-guaifenesin All 2022-07-18 00:00 norgestimate-ethinyl estradiol All 2022-07-18 00:00 norgestimate-ethinyl estradiol All 2022-06-09 00:00 fluticasone propionate All 2022-06-09 00:00 fluticasone propionate All 2022-06-09 00:00 fluticasone propionate All 2022-06-09 00:00 cetirizine All 2022-06-09 00:00 cetirizine All 2022-06-09 00:00 cetirizine All 2022-07-18 00:00 norgestimate-ethinyl estradiol All 2022-06-09 00:00 benzonatate All 2022-06-09 00:00 benzonatate All 2022-06-09 00:00 benzonatate All 2022-06-09 00:00 DEXAMETHASONE SODIUM PHOSPHATE All 2022-06-09 00:00 DEXAMETHASONE SODIUM PHOSPHATE All 2022-06-09 00:00 DEXAMETHASONE SODIUM PHOSPHATE All 2022-06-09 00:00 codeine-guaifenesin All 2022-06-09 00:00 codeine-guaifenesin All 2022-06-09 00:00 codeine-guaifenesin All 2022-06-09 00:00 cetirizine All 2022-06-09 00:00 cetirizine All 2022-06-09 00:00 cetirizine All 2022-06-09 00:00 fluticasone propionate All 2022-06-09 00:00 fluticasone propionate All 2022-06-09 00:00 fluticasone propionate All 2022-06-09 00:00 benzonatate All 2022-06-09 00:00 benzonatate All 2022-06-09 00:00 benzonatate All 2022-06-09 00:00 codeine-guaifenesin All 2022-06-09 00:00 codeine-guaifenesin All 2022-06-09 00:00 codeine-guaifenesin All 2022-06-09 00:00 benzonatate All 2022-06-09 00:00 benzonatate All 2022-06-09 00:00 benzonatate All 2022-06-09 00:00 cetirizine All 2022-06-09 00:00 cetirizine All 2022-06-09 00:00 cetirizine All 2022-06-09 00:00 benzonatate All 2022-06-09 00:00 benzonatate All 2022-06-09 00:00 benzonatate All 2022-06-16 00:00 [facility] Problems date description facility 2022-05-27 00:00 Pain of joint of knee All 2022-05-27 00:00 Pain of joint of knee All 2022-05-27 00:00 Pain of joint of knee All 2022-05-27 00:00 Pain in joint involving lower leg All 2022-05-27 00:00 Pain in joint involving lower leg All 2022-05-27 00:00 Pain in joint involving lower leg All 2022-05-27 00:00 Pain in left knee All 2022-05-27 00:00 Pain in left knee All 2022-05-27 00:00 Pain in left knee All 2022-06-09 00:00 Pain in throat All 2022-06-09 00:00 Pain in throat All 2022-06-09 00:00 Pain in throat All 2022-06-09 00:00 Acute pharyngitis All 2022-06-09 00:00 Acute pharyngitis All 2022-06-09 00:00 Acute pharyngitis All 2022-06-09 00:00 Acute upper respiratory infections of u nspecified site All 2022-06-09 00:00 Acute upper respiratory infections of u nspecified site All 2022-06-09 00:00 Acute upper respiratory infections of u nspecified site All 2022-06-09 00:00 Upper respiratory infection All 2022-06-09 00:00 Upper respiratory infection All 2022-06-09 00:00 Upper respiratory infection All 2022-06-09 00:00 Acute pharyngitis, unspecified All 2022-06-09 00:00 Acute pharyngitis, unspecified All 2022-06-09 00:00 Acute pharyngitis, unspecified All 2022-06-09 00:00 Acute upper respiratory infection, unsp ecified All 2022-06-09 00:00 Acute upper respiratory infection, unsp ecified All 2022-06-09 00:00 Acute upper respiratory infection, unsp ecified All Procedures date description facility 2022-05-27 00:00 Visit Code Hold All 2022-05-27 00:00 Visit Code Hold All 2022-05-27 00:00 Visit Code Hold All 2022-06-09 00:00 Visit Code Hold All 2022-06-09 00:00 Visit Code Hold All 2022-06-09 00:00 Visit Code Hold All 2022-05-27 00:00 XR KNEE 3 VIEW All 2022-05-27 00:00 XR KNEE 3 VIEW All 2022-06-09 00:00 POC STREP TEST All 2022-06-09 00:00 POC STREP TEST All 2022-06-09 00:00 POC STREP TEST All 2022-06-09 00:00 COVID, FLU A+B Antigen (In Clinic Free Test) All 2022-06-09 00:00 COVID, FLU A+B Antigen (In Clinic Free Test) All 2022-06-09 00:00 COVID, FLU A+B Antigen (In Clinic Free Test) All 2022-06-09 00:00 Dexamethasone Sodium Phosphate Inj 10mg /1mL All 2022-06-09 00:00 Dexamethasone Sodium Phosphate Inj 10mg /1mL All 2022-06-09 00:00 Dexamethasone Sodium Phosphate Inj 10mg /1mL All 2022-06-09 00:00 Med Administration (PO-SL-IN-WV) All 2022-06-09 00:00 Med Administration (PO-SL-IN-WV) All 2022-06-09 00:00 Med Administration (PO-SL-IN-WV) All Results/Labs test date author facility value unit interpret ation Result panel 1 (unknown) (no date) (unknown) All (no value) (units unknown ) (unknown) Result panel 2 (unknown) (no date) (unknown) All (no value) (units unknown ) (unknown) Result panel 3 (unknown) (no date) (unknown) All (no value) (units unknown ) (unknown) Result panel 4 (unknown) (no date) (unknown) All (no value) (units unknown ) (unknown) Result panel 5 (unknown) (no date) (unknown) All (no value) (units unknown ) (unknown) Result panel 6 (unknown) (no date) (unknown) All (no value) (units unknown ) (unknown) Result panel 7 (unknown) (no (unknown) (unknown) (no value) (units (unk nown) date) unknown) (unknown) (no (unknown) (unknown) 06/16/22 (units (unkno wn) date) unknown) (unknown) (no (unknown) (unknown) [id number] (units (unkno wn) date) unknown) (unknown) (no (unknown) (unknown) Age/Sex: 27 / F (units (unknown) date) Date of Service: unknown) (unknown) (no (unknown) (unknown) Allergies (units (unkn own) date) unknown) (unknown) (no (unknown) (unknown) [place], [place] (units ( unknown) date) [id number] unknown) (unknown) (no (unknown) (unknown) Attending Dr: (units ( unknown) date) Luther Miller unknown) D.O. (unknown) (no (unknown) (unknown) Cervical cancer (units (unknown) date) screening unknown) (unknown) (no (unknown) (unknown) Chronic cough (units ( unknown) date) unknown) (unknown) (no (unknown) (unknown) : 1995 (units (unknown) date) Acct:[id number] unknown) (unknown) (no (unknown) (unknown) Dept at (units (unkno wn) date) . unknown) (unknown) (no (unknown) (unknown) Documented By: (units (unknown) date) Luther Miller unknown) D.O. 06/16/22 0953 (unknown) (no (unknown) (unknown) Draft (units (unkno wn) date) unknown) (unknown) (no (unknown) (unknown) Family Practice (units (unknown) date) Office Visit unknown) (unknown) (no (unknown) (unknown) [facility]units ([facility] date[facility] unknown) (unknown) (no (unknown) (unknown) GERD (units (unkno wn) date) (gastroesophageal unknown) reflux disease) (unknown) (no (unknown) (unknown) H/O bilateral (units ( unknown) date) breast reduction unknown) surgery (unknown) (no (unknown) (unknown) Herniated (units (unkn own) date) nucleus pulposus, unknown) L4-5 (unknown) (no (unknown) (unknown) Intake performed (units (unknown) date) by: Nora Danielle unknown) (unknown) (no (unknown) (unknown) Intake (units (unkno wn) date) unknown) (unknown) (no (unknown) (unknown) Intake- Clincial (units (unknown) date) Staff unknown) (unknown) (no (unknown) (unknown) Irritable bowel (units (unknown) date) syndrome unknown) (unknown) (no (unknown) (unknown) Loc: [facility] (units (unkno wn) date) unknown) (unknown) (no (unknown) (unknown) Medical History (units (unknown) date) (Reviewed unknown) 02/25/22 @ 00:22 by Jacobo Navarro MD) (unknown) (no (unknown) (unknown) Nausea (units (unkno wn) date) unknown) (unknown) (no (unknown) (unknown) PFSH (units (unkno wn) date) unknown) (unknown) (no (unknown) (unknown) Patient: (units (unkno wn) date) La Nena Guillen unknown) MR#: [id number] (unknown) (no (unknown) (unknown) 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 unknown) (unknown) (no (unknown) (unknown) Reason For Visit (units (unknown) date) unknown) (unknown) (no (unknown) (unknown) Right Achilles (units (unknown) date) tendinitis unknown) (unknown) (no (unknown) (unknown) SOB (units (unkno wn) date) unknown) (unknown) (no (unknown) (unknown) Screening for (units ( unknown) date) HPV (human unknown) papillomavirus) (unknown) (no (unknown) (unknown) Signed By: (units (unk nown) date) unknown) (unknown) (no (unknown) (unknown) Skin mole (units (unkn own) date) unknown) (unknown) (no (unknown) (unknown) Smoking Status: (units (unknown) date) Never smoker unknown) (unknown) (no (unknown) (unknown) Sprain of (units (unkn own) date) anterior unknown) talofibular ligament (unknown) (no (unknown) (unknown) Surgical History (units (unknown) date) (Reviewed unknown) 02/25/22 @ 00:22 by Jacobo Navarro MD) (unknown) (no (unknown) (unknown) This note may (units ( unknown) date) have been all or unknown) partially generated using voice recognition (unknown) (no (unknown) (unknown) Tobacco + (units (unkn own) date) Substance Use unknown) (unknown) (no (unknown) (unknown) Tobacco Status (units (unknown) date) unknown) (unknown) (no (unknown) (unknown) Visit Reasons: (units (unknown) date) NTY unknown) hallucinations/me luma issues, GI upset 02 (unknown) (no (unknown) (unknown) hallucinations (units (unknown) date) unknown) (unknown) (no (unknown) (unknown) have occurred. (units (unknown) date) If there are any unknown) questions, please contact the Medical Records (unknown) (no (unknown) (unknown) may occur. (units (unk nown) date) Occasional unknown) wrong-word or 'sound-alike' substitutions may have (unknown) (no (unknown) (unknown) occurred due to (units (unknown) date) the inherent unknown) limitations of voice recognition software. Please (unknown) (no (unknown) (unknown) read the note (units ( unknown) date) carefully and unknown) recognize, using context, where these substitutions (unknown) (no (unknown) (unknown) sertraline [From (units (unknown) date) Zoloft] Allergy unknown) (Severe, Verified 03/12/22 07:33) (unknown) (no (unknown) (unknown) software. (units (unkn own) date) Although every unknown) effort is made to edit content, brokerage clerk errors (unknown) (no (unknown) (unknown) tramadol Allergy (units (unknown) date) (Severe, Verified unknown) 03/12/22 07:33) Result panel 8 (unknown) (no (unknown) (unknown) (no value) (units (unk nown) date) unknown) (unknown) (no (unknown) (unknown) 06/16/22 (units (unkno wn) date) unknown) (unknown) (no (unknown) (unknown) 06/16/22] (units (unkn own) date) unknown) (unknown) (no (unknown) (unknown) [id number] (units (unkno wn) date) unknown) (unknown) (no (unknown) (unknown) 02/25/22 [Rx (units (u nknown) date) Confirmed unknown) 06/16/22] (unknown) (no (unknown) (unknown) 10:05 (units (unkno wn) date) unknown) (unknown) (no (unknown) (unknown) 03/12/22 [Rx (units (u nknown) date) Confirmed unknown) 06/16/22] (unknown) (no (unknown) (unknown) 27 yo female (units (u nknown) date) presents today as unknown) a NTY establish care. With concerns about L leg (unknown) (no (unknown) (unknown) Age/Sex: 27 / F (units (unknown) date) Date of Service: unknown) (unknown) (no (unknown) (unknown) Allergies (units (unkn own) date) unknown) (unknown) (no (unknown) (unknown) [place], [place] (units ( unknown) date) [id number] unknown) (unknown) (no (unknown) (unknown) Attending Dr: (units ( unknown) date) Luther Miller unknown) D.O. (unknown) (no (unknown) (unknown) BMI 40.5 (units (unkno wn) date) unknown) (unknown) (no (unknown) (unknown) BP 118/78 (units (unkn own) date) unknown) (unknown) (no (unknown) (unknown) Blood Pressure (units (unknown) date) Location Lt unknown) brachial (unknown) (no (unknown) (unknown) Cervical cancer (units (unknown) date) screening unknown) (unknown) (no (unknown) (unknown) Chronic cough (units ( unknown) date) unknown) (unknown) (no (unknown) (unknown) : 1995 (units (unknown) date) Acct:[id number] unknown) (unknown) (no (unknown) (unknown) Dept at (units (unkno wn) date) . unknown) (unknown) (no (unknown) (unknown) Documented By: (units (unknown) date) Luther Miller unknown) D.O. 06/16/22 0953 (unknown) (no (unknown) (unknown) Draft (units (unkno wn) date) unknown) (unknown) (no (unknown) (unknown) Family Practice (units (unknown) date) Office Visit unknown) (unknown) (no (unknown) (unknown) [facility] (units ([facility]) date) [facility] unknown) (unknown) (no (unknown) (unknown) GERD (units (unkno wn) date) (gastroesophageal unknown) reflux disease) (unknown) (no (unknown) (unknown) H/O bilateral (units ( unknown) date) breast reduction unknown) surgery (unknown) (no (unknown) (unknown) Height 5 ft 5 in (units (unknown) date) unknown) (unknown) (no (unknown) (unknown) Herniated (units (unkn own) date) nucleus pulposus, unknown) L4-5 (unknown) (no (unknown) (unknown) Intake Note: (units (u nknown) date) unknown) (unknown) (no (unknown) (unknown) Intake performed (units (unknown) date) by: Nora Danielle unknown) (unknown) (no (unknown) (unknown) Intake (units (unkno wn) date) unknown) (unknown) (no (unknown) (unknown) Intake- Clincial (units (unknown) date) Staff unknown) (unknown) (no (unknown) (unknown) Irritable bowel (units (unknown) date) syndrome unknown) (unknown) (no (unknown) (unknown) Loc: [facility] (units (unkno wn) date) unknown) (unknown) (no (unknown) (unknown) Medical History (units (unknown) date) (Reviewed unknown) 02/25/22 @ 00:22 by Jacobo Navarro MD) (unknown) (no (unknown) (unknown) Medications (units (un known) date) unknown) (unknown) (no (unknown) (unknown) Nausea (units (unkno wn) date) unknown) (unknown) (no (unknown) (unknown) Oxygen Delivery (units (unknown) date) Method room air unknown) (unknown) (no (unknown) (unknown) PFSH (units (unkno wn) date) unknown) (unknown) (no (unknown) (unknown) Patient: (units (unkno wn) date) GuillenLa Nena unknown) MR#: [id number] (unknown) (no (unknown) (unknown) 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 unknown) (unknown) (no (unknown) (unknown) Position Sitting (units (unknown) date) unknown) (unknown) (no (unknown) (unknown) Pulse 70 (units (unkno wn) date) unknown) (unknown) (no (unknown) (unknown) Pulse Oximetry (units (unknown) date) (%) 99 unknown) (unknown) (no (unknown) (unknown) Pulse Source (units (u nknown) date) Monitor unknown) (unknown) (no (unknown) (unknown) Reason For Visit (units (unknown) date) unknown) (unknown) (no (unknown) (unknown) Right Achilles (units (unknown) date) tendinitis unknown) (unknown) (no (unknown) (unknown) SOB (units (unkno wn) date) unknown) (unknown) (no (unknown) (unknown) Screening for (units ( unknown) date) HPV (human unknown) papillomavirus) (unknown) (no (unknown) (unknown) She sees a GI (units ( unknown) date) specialist at unknown) [facility]. (unknown) (no (unknown) (unknown) Signed By: (units (unk nown) date) unknown) (unknown) (no (unknown) (unknown) Skin mole (units (unkn own) date) unknown) (unknown) (no (unknown) (unknown) Smoking Status: (units (unknown) date) Never smoker unknown) (unknown) (no (unknown) (unknown) Sprain of (units (unkn own) date) anterior unknown) talofibular ligament (unknown) (no (unknown) (unknown) Surgical History (units (unknown) date) (Reviewed unknown) 02/25/22 @ 00:22 by Jacobo Navarro MD) (unknown) (no (unknown) (unknown) This note may (units ( unknown) date) have been all or unknown) partially generated using voice recognition (unknown) (no (unknown) (unknown) Tobacco + (units (unkn own) date) Substance Use unknown) (unknown) (no (unknown) (unknown) Tobacco Status (units (unknown) date) unknown) (unknown) (no (unknown) (unknown) Visit Reasons: (units (unknown) date) NTY unknown) hallucinations/me luma issues, GI upset 02, NTY (unknown) (no (unknown) (unknown) Vitals (units (unkno wn) date) unknown) (unknown) (no (unknown) (unknown) Vomiting (units (unkno wn) date) unknown) (unknown) (no (unknown) (unknown) Weight 243 lb 6 (units (unknown) date) oz unknown) (unknown) (no (unknown) (unknown) albuterol (units (unkn own) date) sulfate 90 unknown) mcg/actuation aerosol inhaler 2 puff inhalation Q4H PRN (unknown) (no (unknown) (unknown) amoxicillin (units (un known) date) Adverse Reaction unknown) (Intermediate, Verified 06/16/22 10:04) (unknown) (no (unknown) (unknown) had an episode (units (unknown) date) recently. unknown) (unknown) (no (unknown) (unknown) hallucinations (units (unknown) date) unknown) (unknown) (no (unknown) (unknown) hallucinations/L (units (unknown) date) leg pain unknown) (unknown) (no (unknown) (unknown) have occurred. (units (unknown) date) If there are any unknown) questions, please contact the Medical Records (unknown) (no (unknown) (unknown) hydroxyzine HCl (units (unknown) date) 50 mg tablet 50 unknown) mg PO BEDTIME 10/16/21 [History Confirmed (unknown) (no (unknown) (unknown) may occur. (units (unk nown) date) Occasional unknown) wrong-word or 'sound-alike' substitutions may have (unknown) (no (unknown) (unknown) occurred due to (units (unknown) date) the inherent unknown) limitations of voice recognition software. Please (unknown) (no (unknown) (unknown) ondansetron HCl (units (unknown) date) 4 mg tablet 4 mg unknown) PO TID PRN nausea and vomiting #30 tabs (unknown) (no (unknown) (unknown) pain x 1 month. (units (unknown) date) Pt did have unknown) concerns about hallucinations, she states she hasn't (unknown) (no (unknown) (unknown) pantoprazole 40 (units (unknown) date) mg tablet,delayed unknown) release (Protonix) 40 mg PO DAILY #30 tabs (unknown) (no (unknown) (unknown) promethazine 25 (units (unknown) date) mg tablet 25 mg unknown) PO 06/16/22 [History Confirmed 06/16/22] (unknown) (no (unknown) (unknown) read the note (units ( unknown) date) carefully and unknown) recognize, using context, where these substitutions (unknown) (no (unknown) (unknown) sertraline [From (units (unknown) date) Zoloft] Allergy unknown) (Severe, Verified 06/16/22 10:04) (unknown) (no (unknown) (unknown) shortness of (units (u nknown) date) breath or unknown) wheezing #8.5 grams 04/19/22 [Rx Confirmed 06/16/22] (unknown) (no (unknown) (unknown) software. (units (unkn own) date) Although every unknown) effort is made to edit content, brokerage clerk errors (unknown) (no (unknown) (unknown) sucralfate 1 (units (u nknown) date) gram tablet 1 g unknown) PO BID #30 tabs 02/25/22 [Rx Confirmed 06/16/22] (unknown) (no (unknown) (unknown) tramadol Allergy (units (unknown) date) (Severe, Verified unknown) 06/16/22 10:04) Result panel 9 (unknown) (no (unknown) (unknown) (no value) (units (unk nown) date) unknown) (unknown) (no (unknown) (unknown) (1) Greater (units (un known) date) trochanteric unknown) bursitis of left hip: (unknown) (no (unknown) (unknown) 06/16/22 1054 (units ( unknown) date) unknown) (unknown) (no (unknown) (unknown) 06/16/22 (units (unkno wn) date) unknown) (unknown) (no (unknown) (unknown) 06/16/22] (units (unkn own) date) unknown) (unknown) (no (unknown) (unknown) [id number] (units (unkno wn) date) unknown) (unknown) (no (unknown) (unknown) 02/25/22 [Rx (units (u nknown) date) Confirmed unknown) 06/16/22] (unknown) (no (unknown) (unknown) 10:05 (units (unkno wn) date) unknown) (unknown) (no (unknown) (unknown) 03/12/22 [Rx (units (u nknown) date) Confirmed unknown) 06/16/22] (unknown) (no (unknown) (unknown) 27 yo female (units (u nknown) date) presents today as unknown) a NTY establish care. With concerns about L leg (unknown) (no (unknown) (unknown) Active (units (unkno wn) date) 27-year-old female unknown) presents the clinic with a chief complaint of (unknown) (no (unknown) (unknown) Age/Sex: 27 / F (units (unknown) date) Date of Service: unknown) (unknown) (no (unknown) (unknown) Allergies (units (unkn own) date) unknown) (unknown) (no (unknown) (unknown) [place], [place] (units ( unknown) date) [id number] unknown) (unknown) (no (unknown) (unknown) Assessment + Plan (units (unknown) date) unknown) (unknown) (no (unknown) (unknown) Assessment and (units (unknown) date) Plan: unknown) (unknown) (no (unknown) (unknown) Attending Dr: Luther (units (unknown) date) Farhad Miller D.O. unknown) (unknown) (no (unknown) (unknown) BMI 40.5 (units (unkno wn) date) unknown) (unknown) (no (unknown) (unknown) BP 118/78 (units (unkn own) date) unknown) (unknown) (no (unknown) (unknown) Blood Pressure (units (unknown) date) Location Lt unknown) brachial (unknown) (no (unknown) (unknown) Cervical cancer (units (unknown) date) screening unknown) (unknown) (no (unknown) (unknown) Chief Complaint (units (unknown) date) unknown) (unknown) (no (unknown) (unknown) Chief Complaint: (units (unknown) date) Left hip in lower unknown) leg pain (unknown) (no (unknown) (unknown) Chronic cough (units ( unknown) date) unknown) (unknown) (no (unknown) (unknown) : 1995 (units (unknown) date) Acct:[id number] unknown) (unknown) (no (unknown) (unknown) Dept at (units (unkno wn) date) . unknown) (unknown) (no (unknown) (unknown) Details: (units (unkno wn) date) unknown) (unknown) (no (unknown) (unknown) Documented By: (units (unknown) date) Luther Miller unknown) D.O. 06/16/22 0953 (unknown) (no (unknown) (unknown) Exam Narrative (units (unknown) date) unknown) (unknown) (no (unknown) (unknown) Exam Narrative: (units (unknown) date) unknown) (unknown) (no (unknown) (unknown) Exam (units (unkno wn) date) unknown) (unknown) (no (unknown) (unknown) Examination lower (units (unknown) date) extremity reveals unknown) no gross asymmetry or abnormality on (unknown) (no (unknown) (unknown) Family Practice (units (unknown) date) Office Visit unknown) (unknown) (no (unknown) (unknown) [facility] (units (unknown[facility] date[facility] unknown) (unknown) (no (unknown) (unknown) GERD (units (unkno wn) date) (gastroesophageal unknown) reflux disease) (unknown) (no (unknown) (unknown) GI upset 02 (units (un known) date) unknown) (unknown) (no (unknown) (unknown) Greater (units (unkno wn) date) trochanteric unknown) bursitis of left hip (unknown) (no (unknown) (unknown) H/O bilateral (units ( unknown) date) breast reduction unknown) surgery (unknown) (no (unknown) (unknown) HPI (units (unkno wn) date) unknown) (unknown) (no (unknown) (unknown) Height 5 ft 5 in (units (unknown) date) unknown) (unknown) (no (unknown) (unknown) Herniated nucleus (units (unknown) date) pulposus, L4-5 unknown) (unknown) (no (unknown) (unknown) In general (units (unk nown) date) pleasant young unknown) female in no acute distress. (unknown) (no (unknown) (unknown) Intake Note: (units (u nknown) date) unknown) (unknown) (no (unknown) (unknown) Intake performed (units (unknown) date) by: Nora Danielle unknown) (unknown) (no (unknown) (unknown) Intake (units (unkno wn) date) unknown) (unknown) (no (unknown) (unknown) Intake- Clincial (units (unknown) date) Staff unknown) (unknown) (no (unknown) (unknown) Irritable bowel (units (unknown) date) syndrome unknown) (unknown) (no (unknown) (unknown) Loc: [facility] (units (unkno wn) date) unknown) (unknown) (no (unknown) (unknown) Medical History (units (unknown) date) (Reviewed 06/16/22 unknown) @ 10:53 by Luther Miller DO) (unknown) (no (unknown) (unknown) Medications (units (un known) date) unknown) (unknown) (no (unknown) (unknown) Nausea (units (unkno wn) date) unknown) (unknown) (no (unknown) (unknown) On palpation she (units (unknown) date) has significant unknown) amount of discomfort enough to make her move (unknown) (no (unknown) (unknown) Oxygen Delivery (units (unknown) date) Method room air unknown) (unknown) (no (unknown) (unknown) PFSH (units (unkno wn) date) unknown) (unknown) (no (unknown) (unknown) Patient's (units (unkn own) date) symptoms appear to unknown) be originating from a combination of left greater (unknown) (no (unknown) (unknown) Patient: (units (unkno wn) date) La Nena Guillen unknown) MR#: [id number] (unknown) (no (unknown) (unknown) 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 unknown) (unknown) (no (unknown) (unknown) Position Sitting (units (unknown) date) unknown) (unknown) (no (unknown) (unknown) Pulse 70 (units (unkno wn) date) unknown) (unknown) (no (unknown) (unknown) Pulse Oximetry (units (unknown) date) (%) 99 unknown) (unknown) (no (unknown) (unknown) Pulse Source (units (u nknown) date) Monitor unknown) (unknown) (no (unknown) (unknown) Reason For Visit (units (unknown) date) unknown) (unknown) (no (unknown) (unknown) Right Achilles (units (unknown) date) tendinitis unknown) (unknown) (no (unknown) (unknown) SOB (units (unkno wn) date) unknown) (unknown) (no (unknown) (unknown) Screening for HPV (units (unknown) date) (human unknown) papillomavirus) (unknown) (no (unknown) (unknown) She sees a GI (units ( unknown) date) specialist at unknown) [facility]. (unknown) (no (unknown) (unknown) Signed By: (units (unk nown) date) <Electronically unknown) signed by Luther Miller D.O.> (unknown) (no (unknown) (unknown) Signed (units (unkno wn) date) unknown) (unknown) (no (unknown) (unknown) Skin mole (units (unkn own) date) unknown) (unknown) (no (unknown) (unknown) Smoking Status: (units (unknown) date) Never smoker unknown) (unknown) (no (unknown) (unknown) Sprain of (units (unkn own) date) anterior unknown) talofibular ligament (unknown) (no (unknown) (unknown) Status: Acute (units ( unknown) date) unknown) (unknown) (no (unknown) (unknown) Surgical History (units (unknown) date) (Reviewed 06/16/22 unknown) @ 10:53 by Luther Miller DO) (unknown) (no (unknown) (unknown) This note may (units ( unknown) date) have been all or unknown) partially generated using voice recognition (unknown) (no (unknown) (unknown) Tobacco + (units (unkn own) date) Substance Use unknown) (unknown) (no (unknown) (unknown) Tobacco Status (units (unknown) date) unknown) (unknown) (no (unknown) (unknown) Visit Reasons: (units (unknown) date) NTY unknown) hallucinations/L leg pain, NTY hallucinations/mem ory issues, (unknown) (no (unknown) (unknown) Vital signs noted (units (unknown) date) charted chair with unknown) patient. (unknown) (no (unknown) (unknown) Vitals (units (unkno wn) date) unknown) (unknown) (no (unknown) (unknown) Voltaren gel and (units (unknown) date) home stretches if unknown) no improvement in 3-4 weeks consider formal (unknown) (no (unknown) (unknown) Vomiting (units (unkno wn) date) unknown) (unknown) (no (unknown) (unknown) Weight 243 lb 6 (units (unknown) date) oz unknown) (unknown) (no (unknown) (unknown) albuterol sulfate (units (unknown) date) 90 mcg/actuation unknown) aerosol inhaler 2 puff inhalation Q4H PRN (unknown) (no (unknown) (unknown) also along the (units (unknown) date) proximal IT band. unknown) Worse with flexion and adduction of the left (unknown) (no (unknown) (unknown) amoxicillin (units (un known) date) Adverse Reaction unknown) (Intermediate, Verified 06/16/22 10:04) (unknown) (no (unknown) (unknown) as well as left (units (unknown) date) thigh. No weakness unknown) is noted no recent significant change in (unknown) (no (unknown) (unknown) atraumatic left (units (unknown) date) upper leg pain unknown) discomfort originating from the lateral left hip (unknown) (no (unknown) (unknown) different types (units (unknown) date) of squats and also unknown) has been increasing her intensity lately. No (unknown) (no (unknown) (unknown) footwear and (units (u nknown) date) focus on technique unknown) informed. She will use a combination of (unknown) (no (unknown) (unknown) from the table (units (unknown) date) with palpation of unknown) the left greater trochanteric bursa area and (unknown) (no (unknown) (unknown) had an episode (units (unknown) date) recently. unknown) (unknown) (no (unknown) (unknown) hallucinations (units (unknown) date) unknown) (unknown) (no (unknown) (unknown) have occurred. If (units (unknown) date) there are any unknown) questions, please contact the Medical Records (unknown) (no (unknown) (unknown) hydroxyzine HCl (units (unknown) date) 50 mg tablet 50 mg unknown) PO BEDTIME 10/16/21 [History Confirmed (unknown) (no (unknown) (unknown) inspection. (units (un known) date) unknown) (unknown) (no (unknown) (unknown) is not severe (units ( unknown) date) enough to wake her unknown) up at night. It does not alter her gait (unknown) (no (unknown) (unknown) lot of lower (units (u nknown) date) extremity work on unknown) to occlude squats and leg press. We reviewed the (unknown) (no (unknown) (unknown) lower leg in (units (u nknown) date) against resistance unknown) consistent with the finding of greater (unknown) (no (unknown) (unknown) may occur. (units (unk nown) date) Occasional unknown) wrong-word or 'sound-alike' substitutions may have (unknown) (no (unknown) (unknown) occurred due to (units (unknown) date) the inherent unknown) limitations of voice recognition software. Please (unknown) (no (unknown) (unknown) ondansetron HCl 4 (units (unknown) date) mg tablet 4 mg PO unknown) TID PRN nausea and vomiting #30 tabs (unknown) (no (unknown) (unknown) pain x 1 month. Pt (units (unknown) date) did have concerns unknown) about hallucinations, she states she hasn't (unknown) (no (unknown) (unknown) pantoprazole 40 (units (unknown) date) mg tablet,delayed unknown) release (Protonix) 40 mg PO DAILY #30 tabs (unknown) (no (unknown) (unknown) pathophysiology (units (unknown) date) in the need also unknown) given her ankle issues were good supportive (unknown) (no (unknown) (unknown) physical activity (units (unknown) date) or injury. Patient unknown) is active in the gym including doing (unknown) (no (unknown) (unknown) physical therapy (units (unknown) date) to assist with unknown) recovery of her symptoms (unknown) (no (unknown) (unknown) promethazine 25 (units (unknown) date) mg tablet 25 mg PO unknown) 06/16/22 [History Confirmed 06/16/22] (unknown) (no (unknown) (unknown) read the note (units ( unknown) date) carefully and unknown) recognize, using context, where these substitutions (unknown) (no (unknown) (unknown) recent weakness (units (unknown) date) or injury and she unknown) has substantially modified regimen. The pain (unknown) (no (unknown) (unknown) sertraline [From (units (unknown) date) Zoloft] Allergy unknown) (Severe, Verified 06/16/22 10:04) (unknown) (no (unknown) (unknown) shortness of (units (u nknown) date) breath or wheezing unknown) #8.5 grams 04/19/22 [Rx Confirmed 06/16/22] (unknown) (no (unknown) (unknown) software. (units (unkn own) date) Although every unknown) effort is made to edit content, brokerage clerk errors (unknown) (no (unknown) (unknown) sucralfate 1 gram (units (unknown) date) tablet 1 g PO BID unknown) #30 tabs 02/25/22 [Rx Confirmed 06/16/22] (unknown) (no (unknown) (unknown) tramadol Allergy (units (unknown) date) (Severe, Verified unknown) 06/16/22 10:04) (unknown) (no (unknown) (unknown) trochanteric (units (u nknown) date) bursitis and IT unknown) band tendinitis (unknown) (no (unknown) (unknown) trochanteric (units (u nknown) date) bursitis and IT unknown) band tendinitis. She has an active female doing a Social History date description facility 2022-06-16 00:00 Never smoked tobacco ([facility] Vital Signs date measurement value units 2022-05-27 00:00 BMI 23.39 kg/m2 2022-05-27 00:00 BP_diastolic 86 mmHg 2022-05-27 00:00 BP_systolic 126 mmHg 2022-05-27 00:00 heart_rate 68 /min 2022-05-27 00:00 height_metric 167.64 cm 2022-05-27 00:00 height_standard 66 in 2022-05-27 00:00 respiration_rate 18 /min 2022-05-27 00:00 temperature_metric 36.67 C 2022-05-27 00:00 temperature_standard 98 F 2022-05-27 00:00 weight_metric 65.5 kg 2022-05-27 00:00 weight_standard 144.4 lb 2022-06-09 00:00 BMI 38.88 kg/m2 2022-06-09 00:00 BP_diastolic 81 mmHg 2022-06-09 00:00 BP_systolic 123 mmHg 2022-06-09 00:00 heart_rate 72 /min 2022-06-09 00:00 height_metric 167.64 cm 2022-06-09 00:00 height_standard 66 in 2022-06-09 00:00 respiration_rate 16 /min 2022-06-09 00:00 temperature_metric 36.89 C 2022-06-09 00:00 temperature_standard 98.4 F 2022-06-09 00:00 weight_metric 108.86 kg 2022-06-09 00:00 weight_standard 240 lb 2022-06-16 00:00 BMI 40.5 kg/m2 2022-06-16 00:00 BP_diastolic 78 mmHg 2022-06-16 00:00 BP_systolic 118 mmHg 2022-06-16 00:00 heart_rate 70 /min 2022-06-16 00:00 height_metric 165.1 cm 2022-06-16 00:00 height_standard 65 in 2022-06-16 00:00 o2_saturation 99 % 2022-06-16 00:00 weight_metric 110.39 kg 2022-06-16 00:00 weight_standard 243.37 lb
[2022-08-05 09:24] LABS: ALBUMIN 3.8 g/dL (3.2-5.5); ALBUMIN/GLOBULIN RATIO 1.1 (1.0-2.2); BILIRUBIN,TOTAL 0.9 mg/dL (0.2-1.0); CALCIUM 9.7 mg/dL (8.5-10.3); CREATININE 0.8 mg/dL (0.4-1.0); TOTAL PROTEIN 7.3 g/dL (6.7-8.2)
--- NOTE | 2022-08-05 10:37 | ED Physician Documentation ---
PD HPI ABD PAIN - Stated complaint Stated Complaint: STOMACH PX NAUSEA - Chief complaint Chief Complaint: Abd Pain - History obtained from History obtained from: Patient - History of Present Illness Timing - onset: How many weeks ago (2 weeks of pain, worsened more the past 2 days.) Timing - duration: Weeks (2) Timing - details: Gradual onset, Waxing and waning Quality: Cramping, Aching, Pain Location: Epigastric Radiation: Chest. No: Lower back Improved by: Eating. No: Position Worsened by: No: Eating, Moving, Breathing, Palpation Associated symptoms: Nausea. No: Fever, Vomiting, Diarrhea, Constipation, Melena Similar symptoms before: No diagnosis Recently seen: Not recently seen (but did have evaluation in clinic about 3 months ago with outpt U/S showing normal glallbladder and upper abd organs.) Review of Systems Constitutional: denies: Fever, Chills Nose: denies: Rhinorrhea / runny nose, Congestion Throat: denies: Sore throat Cardiac: denies: Palpitations Respiratory: denies: Cough GI: reports: Abdominal Pain, Nausea, Vomiting (few times the past 2 days, without noted blood. Did look bilious.). denies: Constipation, Diarrhea, Bloody / black stool : denies: Dysuria, Frequency PD PAST MEDICAL HISTORY - Past Medical History Cardiovascular: None Respiratory: None Neuro: None Endocrine/Autoimmune: None GI: Other PANEL MAKER: Ovarian cysts : None HEENT: None Psych: Depression, Anxiety Musculoskeletal: Chronic back pain, Other Derm: None - Past Surgical History Past Surgical History: Yes /PANEL MAKER: Breast reduction - Present Medications Home Medications: Ambulatory Orders Medication Instructions Recorded Confirmed buPROPion HCL [Bupropion Xl] 150 mg PO DAILY 07/07/21 02/21/22 Omeprazole 20 mg PO DAILY 02/21/22 02/21/22 hydrOXYzine HCL [Hydroxyzine HCl] 50 mg PO DAILY 02/21/22 02/21/22 HYDROcod/ACETAM 5/325 [Bryant 5/325] 1 - 2 tablet PO Q6H PRN #14 tablet 02/22/22 Promethazine [Phenergan] 25 mg PO Q6H PRN #10 tab 02/22/22 Diphenoxylate/Atropine [Lomotil] 1 each PO QID PRN #12 tablet 08/05/22 HYDROcod/ACETAM 5/325 [Bryant 5/325] 1 ea PO Q6H PRN #12 tablet 08/05/22 Ondansetron Odt [Zofran] 4 mg TL Q6H PRN #20 tablet 08/05/22 Pantoprazole [Protonix] 40 mg PO DAILY 30 Days #30 tablet 08/05/22 Promethazine [Phenergan] 25 mg PO Q6H PRN #20 tab 08/05/22 - Allergies Allergies/Adverse Reactions: Allergies Allergy/AdvReac Type Severity Reaction Status Date / Time sertraline Allergy Unknown Verified 08/05/22 08:49 tramadol AdvReac Emesis Verified 08/05/22 08:49 - Social History Does the pt smoke?: No Smoking Status: Never smoker Does the pt drink ETOH?: No Does the pt have substance abuse?: No - Immunizations Immunizations are current?: Yes - POLST Patient has POLST: No PD ED PE NORMAL - Vitals Vital signs reviewed: Yes - General General: Alert and oriented X 3, Well developed/nourished, Other (appears uncomfortable due to abd pain. ) - Neck Neck: Supple, no meningeal sign, No adenopathy - Cardiac Cardiac: RRR, No murmur - Respiratory Respiratory: Clear bilaterally - Abdomen Abdomen: Normal bowel sounds, Soft, Non distended, No organomegaly, Other (tender epigastric without guarding nor percussion tenderness. ) Results - Vitals Vitals: Vital Signs - 24 hr 08/05/22 13:37 Temperature 36.8 C Heart Rate 59 L Respiratory 18 Rate Blood Pressure 116/65 O2 Saturation 99 Oxygen O2 Source Room air - Labs Labs: Laboratory Tests 08/05/22 08/05/22 08/05/22 08:45 09:00 09:00 WBC 8.9 RBC 5.07 Hgb 14.8 Hct 44.2 MCV 87.2 MCH 29.2 MCHC 33.5 RDW 13.2 Plt Count 308 MPV 9.5 Neut # (Auto) 6.6 Lymph # (Auto) 1.5 Wood # (Auto) 0.6 Eos # (Auto) 0.1 Baso # (Auto) 0.0 Absolute Nucleated RBC 0.00 Nucleated RBC % 0.0 Sodium 138 Potassium 4.0 Chloride 104 Carbon Dioxide 27 Anion Gap 7.0 BUN 11 Creatinine 0.8 Estimated GFR (MDRD) 87 L Glucose 94 Calcium 9.7 Total Bilirubin 0.9 AST 20 ALT 22 Alkaline Phosphatase 46 Total Protein 7.3 Albumin 3.8 Globulin 3.5 Albumin/Globulin Ratio 1.1 Lipase 40 Urine Color YELLOW Urine Clarity CLEAR Urine pH 7.0 Ur Specific [place] 1.015 Urine Protein NEGATIVE Urine Glucose (UA) NEGATIVE Urine Ketones NEGATIVE Urine Occult Blood NEGATIVE Urine Nitrite NEGATIVE Urine Bilirubin NEGATIVE Urine Urobilinogen 0.2 (NORMAL) Ur Leukocyte Esterase NEGATIVE Ur Microscopic Review NOT INDICATED Urine Culture Comments NOT INDICATED Urine HCG, Qual NEGATIVE PD Medical Decision Making - ED course Complexity details: considered differential, d/w patient Reviewed Lab Results: LFts and lipase are normal suggesting no inflammation of liver/pancreas. Her tenderness is epigastric and not really RUQ, and she had had normal gb ultrasound in May, so i do not feel repeat imaging needed. Imaging for stomach is typically low yield, so considered but did not see value in CT scan. Her symptoms sound like gastritis. She had been taking omeprazole for stomach pains and stopped it about 2 months ago since was doing well. Departure - Departure Disposition: Home, Self Care Clinical Impression: Upper abdominal pain, Nausea vomiting and diarrhea Gastritis Qualifiers: Gastritis type: unspecified gastritis Chronicity: acute Gastritis bleeding: without bleeding Qualified Code(s): K29.00 - Acute gastritis without bleeding Condition: Stable Record reviewed to determine appropriate education?: Yes Follow-Up: JANE SORIANO DO [Primary Care Provider] - Prescriptions: Diphenoxylate/Atropine [Lomotil] 1 each PO QID PRN #12 tablet PRN Reason: Diarrhea HYDROcod/ACETAM 5/325 [Bryant 5/325] 1 ea PO Q6H PRN #12 tablet PRN Reason: Pain Promethazine [Phenergan] 25 mg PO Q6H PRN #20 tab PRN Reason: Nausea / Vomiting Pantoprazole [Protonix] 40 mg PO DAILY 30 Days #30 tablet Ondansetron Odt [Zofran] 4 mg TL Q6H PRN #20 tablet PRN Reason: Nausea / Vomiting Comments: Your blood test did not show any signs of inflammation of the liver or pancreas. You would had an ultrasound in May that showed a normal gallbladder without any gallstones. Your basic electrolytes and blood count are okay. At this point I presume he either some inflammation of the stomach itself (gastritis). I would suggest resuming some acid reducing medicines such as pantoprazole daily. You can add antacid such as Maalox or Mylanta. Alternatively given some pain with vomiting and some diarrhea, it may be even a short-term viral gastroenteritis or such. You can use the nausea medicine of either Zofran or Phenergan if needed for nausea. You could use antidiarrhea medicine if needed in the short-term. To that add Tylenol or hydrocodone if needed for pains. Avoid NSAIDs because of the concern for gastritis. Small frequent fluids and bland food. Recheck if not improved well over the next few days. Return as needed. I sent your prescriptions to [facility] pharmacy in [place]. I am prescribing a short course of narcotic pain medication for you. These are potentially dangerous and addictive medications that should be used carefully. These medications may constipate you. Take an actr-bdq-[id number] stool softener such as docusate twice daily with plenty of water while taking these medications. If you go 24 hours without a bowel movement, take [id number] MiraLAX, per package instructions. Do not drink or drive while taking these medications. If you received narcotic or sedating medications while in the emergency department do not drive for 24 hours. Store this medication in a safe, secure place and out of reach of children. It is a violation of federal law to give or sell this medication to another per son or to use in a manner other than prescribed. The ED will not refill narcotic prescriptions, including prescriptions lost or stolen. You can dispose of unwanted medications at the [facility]'s office or at several pharmacies such as [facility]. Discharge Date/Time: 08/05/22 13:38
[2022-08-05] MEDS ORDERED: HYDROmorphone 0.5 MG/0.5 ML SYRINGE IVP STA (11:12)
[2022-08-05] MEDS ORDERED: FAMOTIDINE 20 MG/2 ML VIAL IVP STA (11:12)
[2022-08-05] MEDS ORDERED: SODIUM CHLORIDE 0.9% 1,000 ML IV STA (11:12)
[2022-08-05] MEDS ORDERED: DROPERIDOL 5 MG/2 ML VIAL IVP STA (11:13)
[2022-08-05] MEDS ORDERED: MAG HYDROX/AL HYDROX/SIMETH 30 ML UDC PO STA (11:13)
[2022-08-05] MEDS ORDERED: PROCHLORPERAZINE 10 MG/2 ML VIAL IVP STA (12:31)
[2022-08-05] MEDS ORDERED: HYDROmorphone 1 MG/ML CARPUJECT IVP STA (12:32)
[2022-08-05] MEDS ORDERED: PANTOPRAZOLE 40 MG VIAL IVP STA (12:33)
[2022-08-05 13:38] VITALS: BP 116/65
== END 2022-08-05 13:38 | disposition home or self-care (01) ==
LOC: ED 08:18
DX: K29.00 Acute gastritis without bleeding (principal); R11.2 Nausea with vomiting, unspecified; R19.7 Diarrhea, unspecified; Z79.899 Other long term (current) drug therapy
CPT/HCPCS: 36415; 80053; 81003; 81025; 83690; 85025; 96374; 96375; 96376; 99283; 99285; A9270; J1170; 81001; 87086

== ENCOUNTER 2022-11-04 02:34 | Emergency (ER) | payer MEDICAID ==
--- OUTSIDE RECORDS SUMMARY | 2022-11-04 02:44 | EXTERNAL MEDICAL SUMMARY RPT | Continuity of Care Document ---
Author Name Unknown Address [address] [place] [address] Phone Organization [place] Address [address] [place] [address] Phone Care Team Providers Care Insight Leader Name Role Phone Unavailable Unavailable Unavailable Tim Frausto Unavailable Unavailable Stan Fontenot Pa-C Unavailable Unavailable Vida Cevallos, [place] Unavailable Unavailable Medications date description facility 2022-10-27 00:00 [facility] 2022-08-18 00:00 [facility] 2022-08-18 00:00 [facility] 2022-08-18 00:00 [facility] Problems date description facility 2022-08-10 00:00 Dysfunction of Eustachian tube All 2022-08-10 00:00 Dysfunction of eustachian tube All 2022-08-10 00:00 Other specified disorders of Eu stachian tube, left ear All Procedures date description facility 2022-08-10 00:00 Visit Code Hold All Results/Labs test date author facility value unit interpretation Result panel 1 (unknown) (no date) (unknown) (unknown) (no value) (units unknown) (unknown) (unknown) (no date) (unknown) (unknown) (1) Anxiety an d depression: (units unknown) (unknown) (unknown) (no date) (unknown) (unknown) [id number] (units unknown) (unknown) (unknown) (no date) (unknown) (unknown) 08/18/22 1153 (units unknown) (unknown) (unknown) (no date) (unknown) (unknown) 08/18/22 (units unknown) (unknown) (unknown) (no date) (unknown) (unknown) 14 minutes wit h clinical visit and appropriate charting (units unknown) (unknown) (unknown) (no date) (unknown) (unknown) Age/Sex: 27 / F Date of Service: (units unknown) (unknown) (unknown) (no date) (unknown) (unknown) All participan ts + their role: (Providers,Parent,Sp ouse,etc): (units unknown) (unknown) (unknown) (no date) (unknown) (unknown) Allergies (units unknown) (unknown) (unknown) (no date) (unknown) (unknown) [place] [address] (units unknown) (unknown) (unknown) (no date) (unknown) (unknown) Assessment + Plan (u nits unknown) (unknown) (unknown) (no date) (unknown) (unknown) Assessment and Plan: (units unknown) (unknown) (unknown) (no date) (unknown) (unknown) Attending Dr: Luther Soriano D.O. (units unknown) (unknown) (unknown) (no date) (unknown) (unknown) Cervical cance r screening (units unknown) (unknown) (unknown) (no date) (unknown) (unknown) Chief Complaint (uni ts unknown) (unknown) (unknown) (no date) (unknown) (unknown) Chief Complain t: Telemedicine follow-up generalized anxiety (units unknown) (unknown) (unknown) (no date) (unknown) (unknown) Chronic cough (units unknown) (unknown) (unknown) (no date) (unknown) (unknown) : 7 Acct:[id number] (units unknown) (unknown) (unknown) (no date) (unknown) (unknown) Dept at . (units unknown) (unknown) (unknown) (no date) (unknown) (unknown) Details: (units unknown) (unknown) (unknown) (no date) (unknown) (unknown) Documented By: Luther Soriano D.O. 08/18/22 1149 (units unknown) (unknown) (unknown) (no date) (unknown) (unknown) Family Practic e Office Visit (units unknown) (unknown) (unknown) (no date) (unknown) (unknown) [facility] (units unknown) (unknown) (unknown) (no date) (unknown) (unknown) For the most p art she is done relatively well on a course of bupropion on (units unknown) (unknown) (unknown) (no date) (unknown) (unknown) GERD (gastroesophageal reflux disease) (units unknown) (unknown) (unknown) (no date) (unknown) (unknown) Greater trocha nteric bursitis of left hip (units unknown) (unknown) (unknown) (no date) (unknown) (unknown) H/O bilateral breast reduction surgery (units unknown) (unknown) (unknown) (no date) (unknown) (unknown) HPI (units unknown) (unknown) (unknown) (no date) (unknown) (unknown) Herniated nucl eus pulposus, L4-5 (units unknown) (unknown) (unknown) (no date) (unknown) (unknown) Intake (units unknown) (unknown) (unknown) (no date) (unknown) (unknown) Irritable timothy l syndrome (units unknown) (unknown) (unknown) (no date) (unknown) (unknown) Loc: [facility] (units unknown) (unknown) (unknown) (no date) (unknown) (unknown) Location of patient:: Home (units unknown) (unknown) (unknown) (no date) (unknown) (unknown) Location of provider:: Home (units unknown) (unknown) (unknown) (no date) (unknown) (unknown) Medical Histor y (units unknown) (unknown) (unknown) (no date) (unknown) (unknown) Medications: (units unknown) (unknown) (unknown) (no date) (unknown) (unknown) Nausea (units unknown) (unknown) (unknown) (no date) (unknown) (unknown) New (units unknown) (unknown) (unknown) (no date) (unknown) (unknown) PFSH (units unknown) (unknown) (unknown) (no date) (unknown) (unknown) PO QAM 30 tabs 5RF ( units unknown) (unknown) (unknown) (no date) (unknown) (unknown) Patient consen el to receive services via telehealth?: Yes (units unknown) (unknown) (unknown) (no date) (unknown) (unknown) Patient is saf e feels no security issues offers no major complaints (units unknown) (unknown) (unknown) (no date) (unknown) (unknown) Patient: La Nena Guillen MR#: [id number] (units unknown) (unknown) (unknown) (no date) (unknown) (unknown) Physician and patient (units unknown) (unknown) (unknown) (no date) (unknown) (unknown) Polycystic ova beau disease (units unknown) (unknown) (unknown) (no date) (unknown) (unknown) ROS Narrative (units unknown) (unknown) (unknown) (no date) (unknown) (unknown) ROS Narrative: (unit s unknown) (unknown) (unknown) (no date) (unknown) (unknown) ROS per HPI th e patient reports no headache chest pain exertional fatigue or (units unknown) (unknown) (unknown) (no date) (unknown) (unknown) ROS (units unknown) (unknown) (unknown) (no date) (unknown) (unknown) [facility] were performed via:: vsee (units unknown) (unknown) (unknown) (no date) (unknown) (unknown) Reason For Visit (un its unknown) (unknown) (unknown) (no date) (unknown) (unknown) Right Achilles tendinitis (units unknown) (unknown) (unknown) (no date) (unknown) (unknown) SOB (units unknown) (unknown) (unknown) (no date) (unknown) (unknown) Screening for HPV (human papillomavirus) (units unknown) (unknown) (unknown) (no date) (unknown) (unknown) Signed By: <Electronically signed by Luther Soriano D.O.> (units unknown) (unknown) (unknown) (no date) (unknown) (unknown) Signed (units unknown) (unknown) (unknown) (no date) (unknown) (unknown) Skin mole (units unknown) (unknown) (unknown) (no date) (unknown) (unknown) Smoking Status : Never smoker (units unknown) (unknown) (unknown) (no date) (unknown) (unknown) Sprain of ante rior talofibular ligament (units unknown) (unknown) (unknown) (no date) (unknown) (unknown) Start with thi s dose 75 mg PO DAILY 7 tabs 0RF (units unknown) (unknown) (unknown) (no date) (unknown) (unknown) Status: Chronic (uni ts unknown) (unknown) (unknown) (no date) (unknown) (unknown) Surgical Histo ry (units unknown) (unknown) (unknown) (no date) (unknown) (unknown) TeleHealth (units unknown) (unknown) (unknown) (no date) (unknown) (unknown) The patient rascon s had a recurrence of her generalized anxiety. Currently had (units unknown) (unknown) (unknown) (no date) (unknown) (unknown) Then continue on to this dose after completing the 75 mg prescription 150 mg (units unknown) (unknown) (unknown) (no date) (unknown) (unknown) This 27-year-o ld female with a past medical history of generalized anxiety (units unknown) (unknown) (unknown) (no date) (unknown) (unknown) This note may have been all or partially generated using voice recognition (units unknown) (unknown) (unknown) (no date) (unknown) (unknown) Time Coding Mi nutes Spent: (must be on same date of service/appointment) (units unknown) (unknown) (unknown) (no date) (unknown) (unknown) Time Spent (units unknown) (unknown) (unknown) (no date) (unknown) (unknown) Tobacco + Subs tance Use (units unknown) (unknown) (unknown) (no date) (unknown) (unknown) Tobacco Status (unit s unknown) (unknown) (unknown) (no date) (unknown) (unknown) Visit Reasons: VIDEO medication question bupropion*link sent 04 (units unknown) (unknown) (unknown) (no date) (unknown) (unknown) Vomiting (units unknown) (unknown) (unknown) (no date) (unknown) (unknown) Were services performed via telephone only?: No (units unknown) (unknown) (unknown) (no date) (unknown) (unknown) advanced to 15 0 mg she will this that up a telemedicine appointment to discuss (units unknown) (unknown) (unknown) (no date) (unknown) (unknown) amoxicillin Ad verse Reaction (Intermediate, Verified 06/16/22 10:04) (units unknown) (unknown) (unknown) (no date) (unknown) (unknown) assistance in her condition (units unknown) (unknown) (unknown) (no date) (unknown) (unknown) bupropion HCl (units unknown) (unknown) (unknown) (no date) (unknown) (unknown) dose for certa in medication. Will initiate a 75 mg per day for the 1st week and (units unknown) (unknown) (unknown) (no date) (unknown) (unknown) efficacious re sults and if she needs to then follow back up with a therapist for (units unknown) (unknown) (unknown) (no date) (unknown) (unknown) hallucinations (unit s unknown) (unknown) (unknown) (no date) (unknown) (unknown) has 300 mg tab let she like to initiated a lower dose in we discussed issues (units unknown) (unknown) (unknown) (no date) (unknown) (unknown) have occurred. If there are any questions, please contact the Medical Records (units unknown) (unknown) (unknown) (no date) (unknown) (unknown) lower dose. We discussed efficacious results in appropriate reassessment (units unknown) (unknown) (unknown) (no date) (unknown) (unknown) may occur. Occasional wrong-word or 'sound-alike' substitutions may have (units unknown) (unknown) (unknown) (no date) (unknown) (unknown) mg tablets. Sh e would like to start in maintain her medication levels at a (units unknown) (unknown) (unknown) (no date) (unknown) (unknown) occurred due t o the inherent limitations of voice recognition software. Please (units unknown) (unknown) (unknown) (no date) (unknown) (unknown) patient poonam cartwright does not have a therapist is undergoing some stressful (units unknown) (unknown) (unknown) (no date) (unknown) (unknown) presents the lesvia rapp to follow-up in regards to her underlying health history. (units unknown) (unknown) (unknown) (no date) (unknown) (unknown) read the note carefully and recognize, using context, where these substitutions (units unknown) (unknown) (unknown) (no date) (unknown) (unknown) received in e past efficacious treatment with bupropion but the patient will (units unknown) (unknown) (unknown) (no date) (unknown) (unknown) related to pro per utilization medication finding the appropriate therapeutic (units unknown) (unknown) (unknown) (no date) (unknown) (unknown) sertraline [Fr om Zoloft] Allergy (Severe, Verified 06/16/22 10:04) (units unknown) (unknown) (unknown) (no date) (unknown) (unknown) situations in would like to re-initiate a medication as work for in the past. (units unknown) (unknown) (unknown) (no date) (unknown) (unknown) software. Alth ough every effort is made to edit content, brine tank tender errors (units unknown) (unknown) (unknown) (no date) (unknown) (unknown) syncopal episodes (u nits unknown) (unknown) (unknown) (no date) (unknown) (unknown) today's visit she would like to re-initiate this medication but only has her 300 (units unknown) (unknown) (unknown) (no date) (unknown) (unknown) tramadol Aller gy (Severe, Verified 06/16/22 10:04) (units unknown) (unknown) Result panel 2 (unknown) (no date) (unknown) (unknown) (no value) (units unknown) (unknown) (unknown) (no date) (unknown) (unknown) (1) Insomnia: (units unknown) (unknown) (unknown) (no date) (unknown) (unknown) [id number] (units unknown) (unknown) (unknown) (no date) (unknown) (unknown) 10/06/22 1033 (units unknown) (unknown) (unknown) (no date) (unknown) (unknown) 10/06/22 (units unknown) (unknown) (unknown) (no date) (unknown) (unknown) 27-year-old fe male presents the clinic with the chief complaint of generalized (units unknown) (unknown) (unknown) (no date) (unknown) (unknown) 5 shifts per w tangirnaq generally from 6:00 p.m. to 2:00 a.m. in the morning as (units unknown) (unknown) (unknown) (no date) (unknown) (unknown) Age/Sex: 27 / F Date of Service: (units unknown) (unknown) (unknown) (no date) (unknown) (unknown) All participan ts + their role: (Providers,Parent,Sp ouse,etc): (units unknown) (unknown) (unknown) (no date) (unknown) (unknown) Allergies (units unknown) (unknown) (unknown) (no date) (unknown) (unknown) [place] [address] (units unknown) (unknown) (unknown) (no date) (unknown) (unknown) Assessment + Plan (u nits unknown) (unknown) (unknown) (no date) (unknown) (unknown) Assessment and Plan: (units unknown) (unknown) (unknown) (no date) (unknown) (unknown) Attending Dr: Luther Soriano D.O. (units unknown) (unknown) (unknown) (no date) (unknown) (unknown) Cervical cance r screening (units unknown) (unknown) (unknown) (no date) (unknown) (unknown) Chief Complaint (uni ts unknown) (unknown) (unknown) (no date) (unknown) (unknown) Chief Complain t: Telemedicine follow-up (units unknown) (unknown) (unknown) (no date) (unknown) (unknown) Chronic cough (units unknown) (unknown) (unknown) (no date) (unknown) (unknown) : 7 Acct:[id number] (units unknown) (unknown) (unknown) (no date) (unknown) (unknown) Dept at . (units unknown) (unknown) (unknown) (no date) (unknown) (unknown) Details: (units unknown) (unknown) (unknown) (no date) (unknown) (unknown) Documented By: Luther Soriano D.O. 10/06/22 1020 (units unknown) (unknown) (unknown) (no date) (unknown) (unknown) Family Practic e Office Visit (units unknown) (unknown) (unknown) (no date) (unknown) (unknown) [facility] (units unknown) (unknown) (unknown) (no date) (unknown) (unknown) Fourteen minut es in direct consult, documentation and order a medication (units unknown) (unknown) (unknown) (no date) (unknown) (unknown) GERD (gastroesophageal reflux disease) (units unknown) (unknown) (unknown) (no date) (unknown) (unknown) Greater trocha nteric bursitis of left hip (units unknown) (unknown) (unknown) (no date) (unknown) (unknown) H/O bilateral breast reduction surgery (units unknown) (unknown) (unknown) (no date) (unknown) (unknown) HPI (units unknown) (unknown) (unknown) (no date) (unknown) (unknown) Herniated nucl eus pulposus, L4-5 (units unknown) (unknown) (unknown) (no date) (unknown) (unknown) Insomnia type: unspecified Qualified Code(s): G47.00 - Insomnia, (units unknown) (unknown) (unknown) (no date) (unknown) (unknown) Intake (units unknown) (unknown) (unknown) (no date) (unknown) (unknown) Irritable timothy l syndrome (units unknown) (unknown) (unknown) (no date) (unknown) (unknown) Loc: [facility] (units unknown) (unknown) (unknown) (no date) (unknown) (unknown) Location of patient:: Home (units unknown) (unknown) (unknown) (no date) (unknown) (unknown) Location of provider:: Clinic (units unknown) (unknown) (unknown) (no date) (unknown) (unknown) Medical Histor y (units unknown) (unknown) (unknown) (no date) (unknown) (unknown) Nausea (units unknown) (unknown) (unknown) (no date) (unknown) (unknown) PFSH (units unknown) (unknown) (unknown) (no date) (unknown) (unknown) Patient consen el to receive services via telehealth?: Yes (units unknown) (unknown) (unknown) (no date) (unknown) (unknown) Patient: La Nena Guillen MR#: [id number] (units unknown) (unknown) (unknown) (no date) (unknown) (unknown) Physician and patient (units unknown) (unknown) (unknown) (no date) (unknown) (unknown) Polycystic ova beau disease (units unknown) (unknown) (unknown) (no date) (unknown) (unknown) Qualifiers: (units unknown) (unknown) (unknown) (no date) (unknown) (unknown) ROS Narrative (units unknown) (unknown) (unknown) (no date) (unknown) (unknown) ROS Narrative: (unit s unknown) (unknown) (unknown) (no date) (unknown) (unknown) ROS per HPI nathalie luna notes no headache chest pain exertional he palpitations (units unknown) (unknown) (unknown) (no date) (unknown) (unknown) ROS (units unknown) (unknown) (unknown) (no date) (unknown) (unknown) Real-time,[facility] r[facility] services were performed via:: vsee (units unknown) (unknown) (unknown) (no date) (unknown) (unknown) Reason For Visit (un its unknown) (unknown) (unknown) (no date) (unknown) (unknown) Right Achilles tendinitis (units unknown) (unknown) (unknown) (no date) (unknown) (unknown) SOB (units unknown) (unknown) (unknown) (no date) (unknown) (unknown) Screening for HPV (human papillomavirus) (units unknown) (unknown) (unknown) (no date) (unknown) (unknown) Signed By: <Electronically signed by Luther Soriano D.O.> (units unknown) (unknown) (unknown) (no date) (unknown) (unknown) Signed (units unknown) (unknown) (unknown) (no date) (unknown) (unknown) Skin mole (units unknown) (unknown) (unknown) (no date) (unknown) (unknown) Smoking Status : Never smoker (units unknown) (unknown) (unknown) (no date) (unknown) (unknown) Sprain of ante rior talofibular ligament (units unknown) (unknown) (unknown) (no date) (unknown) (unknown) Status: Chronic (uni ts unknown) (unknown) (unknown) (no date) (unknown) (unknown) Surgical Histo ry (units unknown) (unknown) (unknown) (no date) (unknown) (unknown) TeleHealth (units unknown) (unknown) (unknown) (no date) (unknown) (unknown) The patient's problem most likely is due to her shift work and variability in (units unknown) (unknown) (unknown) (no date) (unknown) (unknown) This note may have been all or partially generated using voice recognition (units unknown) (unknown) (unknown) (no date) (unknown) (unknown) Time Coding Mi nutes Spent: (must be on same date of service/appointment) (units unknown) (unknown) (unknown) (no date) (unknown) (unknown) Time Spent (units unknown) (unknown) (unknown) (no date) (unknown) (unknown) Tobacco + Subs tance Use (units unknown) (unknown) (unknown) (no date) (unknown) (unknown) Tobacco Status (unit s unknown) (unknown) (unknown) (no date) (unknown) (unknown) Visit Reasons: V-see f/u on fatigue*link sent (units unknown) (unknown) (unknown) (no date) (unknown) (unknown) Vomiting (units unknown) (unknown) (unknown) (no date) (unknown) (unknown) Were services performed via telephone only?: No (units unknown) (unknown) (unknown) (no date) (unknown) (unknown) amoxicillin Ad verse Reaction (Intermediate, Verified 06/16/22 10:04) (units unknown) (unknown) (unknown) (no date) (unknown) (unknown) awaken and not be able to fall back asleep. 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 recommend that she (units unknown) (unknown) (unknown) (no date) (unknown) (unknown) generally rota te her day include not falling asleep before midnight. She will (units unknown) (unknown) (unknown) (no date) (unknown) (unknown) getting recent ly good response on her bupropion will add trazodone at night (units unknown) (unknown) (unknown) (no date) (unknown) (unknown) going to sleep in and awakening. The patient also has a history of depression (units unknown) (unknown) (unknown) (no date) (unknown) (unknown) hallucinations (unit s unknown) (unknown) (unknown) (no date) (unknown) (unknown) have occurred. If there are any questions, please contact the Medical Records (units unknown) (unknown) (unknown) (no date) (unknown) (unknown) instructed francie vo within 30-45 minutes of sleeping and given that she is working (units unknown) (unknown) (unknown) (no date) (unknown) (unknown) may occur. Occasional wrong-word or 'sound-alike' substitutions may have (units unknown) (unknown) (unknown) (no date) (unknown) (unknown) normal circadi an rhythms. Overall her depression appears to be doing relatively (units unknown) (unknown) (unknown) (no date) (unknown) (unknown) occurred due t o the inherent limitations of voice recognition software. Please (units unknown) (unknown) (unknown) (no date) (unknown) (unknown) read the note carefully and recognize, using context, where these substitutions (units unknown) (unknown) (unknown) (no date) (unknown) (unknown) sertraline [Fr om Zoloft] Allergy (Severe, Verified 06/16/22 10:04) (units unknown) (unknown) (unknown) (no date) (unknown) (unknown) sleep habits a nd exercise in she will often rotate her day interrupting her (units unknown) (unknown) (unknown) (no date) (unknown) (unknown) software. Alth ough every effort is made to edit content, brine tank tender errors (units unknown) (unknown) (unknown) (no date) (unknown) (unknown) tramadol Aller gy (Severe, Verified 06/16/22 10:04) (units unknown) (unknown) (unknown) (no date) (unknown) (unknown) unspecified (units unknown) (unknown) (unknown) (no date) (unknown) (unknown) variable sleep ing hours at sometimes will go to sleep at 7 or 8:00 p.m. at night (units unknown) (unknown) (unknown) (no date) (unknown) (unknown) well (units unknown) (unknown) Result panel 3 (unknown) (no date) (unknown) (unknown) (no value) (units unknown) (unknown) (unknown) (no date) (unknown) (unknown) *PAUL* 27 Y F, patient here today with c/o neck pain. (units unknown) (unknown) (unknown) (no date) (unknown) (unknown) [id number] (units unknown) (unknown) (unknown) (no date) (unknown) (unknown) 08/18/22 [Rx Confirmed 10/27/22] (units unknown) (unknown) (unknown) (no date) (unknown) (unknown) 10/27/22 (units unknown) (unknown) (unknown) (no date) (unknown) (unknown) 02/25/22 [Rx Confirmed 10/27/22] (units unknown) (unknown) (unknown) (no date) (unknown) (unknown) 03/12/22 [Rx Confirmed 10/27/22] (units unknown) (unknown) (unknown) (no date) (unknown) (unknown) Age/Sex: 27 / F Date of Service: (units unknown) (unknown) (unknown) (no date) (unknown) (unknown) Allergies (units unknown) (unknown) (unknown) (no date) (unknown) (unknown) [place] [address] (units unknown) (unknown) (unknown) (no date) (unknown) (unknown) Attending Dr: Tiana BOLTON (units unknown) (unknown) (unknown) (no date) (unknown) (unknown) Cervical cance r screening (units unknown) (unknown) (unknown) (no date) (unknown) (unknown) Chief Complaint (uni ts unknown) (unknown) (unknown) (no date) (unknown) (unknown) Chief Complain t: Neck pain (units unknown) (unknown) (unknown) (no date) (unknown) (unknown) Chronic cough (units unknown) (unknown) (unknown) (no date) (unknown) (unknown) : 7 Acct:[id number] (units unknown) (unknown) (unknown) (no date) (unknown) (unknown) Dept at . (units unknown) (unknown) (unknown) (no date) (unknown) (unknown) Details: (units unknown) (unknown) (unknown) (no date) (unknown) (unknown) Documented By: Tiana Newman 10/27/22 1024 (units unknown) (unknown) (unknown) (no date) (unknown) (unknown) Draft (units unknown) (unknown) (unknown) (no date) (unknown) (unknown) Family Practic e Office Visit (units unknown) (unknown) (unknown) (no date) (unknown) (unknown) [facility] (units unknown) (unknown) (unknown) (no date) (unknown) (unknown) GERD (gastroesophageal reflux disease) (units unknown) (unknown) (unknown) (no date) (unknown) (unknown) Greater trocha nteric bursitis of left hip (units unknown) (unknown) (unknown) (no date) (unknown) (unknown) H/O bilateral breast reduction surgery (units unknown) (unknown) (unknown) (no date) (unknown) (unknown) HPI (units unknown) (unknown) (unknown) (no date) (unknown) (unknown) Herniated nucl eus pulposus, L4-5 (units unknown) (unknown) (unknown) (no date) (unknown) (unknown) Intake Note: (units unknown) (unknown) (unknown) (no date) (unknown) (unknown) Intake (units unknown) (unknown) (unknown) (no date) (unknown) (unknown) Irritable timothy l syndrome (units unknown) (unknown) (unknown) (no date) (unknown) (unknown) Loc: [facility] (units unknown) (unknown) (unknown) (no date) (unknown) (unknown) Medical Histor y (units unknown) (unknown) (unknown) (no date) (unknown) (unknown) Medications (units unknown) (unknown) (unknown) (no date) (unknown) (unknown) Nausea (units unknown) (unknown) (unknown) (no date) (unknown) (unknown) PFSH (units unknown) (unknown) (unknown) (no date) (unknown) (unknown) Patient comes in with complaints of neck pain. (units unknown) (unknown) (unknown) (no date) (unknown) (unknown) Patient: GuillenLa Nena MR#: [id number] (units unknown) (unknown) (unknown) (no date) (unknown) (unknown) Polycystic ova beau disease (units unknown) (unknown) (unknown) (no date) (unknown) (unknown) Reason For Visit (un its unknown) (unknown) (unknown) (no date) (unknown) (unknown) Right Achilles tendinitis (units unknown) (unknown) (unknown) (no date) (unknown) (unknown) SOB (units unknown) (unknown) (unknown) (no date) (unknown) (unknown) Screening for HPV (human papillomavirus) (units unknown) (unknown) (unknown) (no date) (unknown) (unknown) Signed By: (units unknown) (unknown) (unknown) (no date) (unknown) (unknown) Skin mole (units unknown) (unknown) (unknown) (no date) (unknown) (unknown) Smoking Status : Never smoker (units unknown) (unknown) (unknown) (no date) (unknown) (unknown) Sprain of ante rior talofibular ligament (units unknown) (unknown) (unknown) (no date) (unknown) (unknown) Surgical Histo ry (units unknown) (unknown) (unknown) (no date) (unknown) (unknown) This note may have been all or partially generated using voice recognition (units unknown) (unknown) (unknown) (no date) (unknown) (unknown) Tobacco + Subs tance Use (units unknown) (unknown) (unknown) (no date) (unknown) (unknown) Tobacco Status (unit s unknown) (unknown) (unknown) (no date) (unknown) (unknown) Visit Reasons: Neck pain 06 (units unknown) (unknown) (unknown) (no date) (unknown) (unknown) Vomiting (units unknown) (unknown) (unknown) (no date) (unknown) (unknown) albuterol sulf ate 90 mcg/actuation aerosol inhaler 2 puff inhalation Q4H PRN (units unknown) (unknown) (unknown) (no date) (unknown) (unknown) amoxicillin Ad verse Reaction (Intermediate, Verified 06/16/22 10:04) (units unknown) (unknown) (unknown) (no date) (unknown) (unknown) bupropion HCl 150 mg 24 hr tablet, extended release 150 mg PO QAM #30 tabs (units unknown) (unknown) (unknown) (no date) (unknown) (unknown) hallucinations (unit s unknown) (unknown) (unknown) (no date) (unknown) (unknown) have occurred. If there are any questions, please contact the Medical Records (units unknown) (unknown) (unknown) (no date) (unknown) (unknown) may occur. Occasional wrong-word or 'sound-alike' substitutions may have (units unknown) (unknown) (unknown) (no date) (unknown) (unknown) occurred due t o the inherent limitations of voice recognition software. Please (units unknown) (unknown) (unknown) (no date) (unknown) (unknown) ondansetron HC l 4 mg tablet 4 mg PO TID PRN nausea and vomiting #30 tabs (units unknown) (unknown) (unknown) (no date) (unknown) (unknown) pantoprazole 4 0 mg tablet,delayed release (Protonix) 40 mg PO DAILY #30 tabs (units unknown) (unknown) (unknown) (no date) (unknown) (unknown) promethazine 2 5 mg tablet 25 mg PO 06/16/22 [History Confirmed 10/27/22] (units unknown) (unknown) (unknown) (no date) (unknown) (unknown) read the note carefully and recognize, using context, where these substitutions (units unknown) (unknown) (unknown) (no date) (unknown) (unknown) sertraline [Fr om Zoloft] Allergy (Severe, Verified 06/16/22 10:04) (units unknown) (unknown) (unknown) (no date) (unknown) (unknown) shortness of b reath or wheezing #8.5 grams 04/19/22 [Rx Confirmed 10/27/22] (units unknown) (unknown) (unknown) (no date) (unknown) (unknown) software. Alth ough every effort is made to edit content, brine tank tender errors (units unknown) (unknown) (unknown) (no date) (unknown) (unknown) tramadol Aller gy (Severe, Verified 06/16/22 10:04) (units unknown) (unknown) Result panel 4 (unknown) (no date) (unknown) (unknown) (no value) (units unknown) (unknown) (unknown) (no date) (unknown) (unknown) *PAUL* 27 Y F, patient here today with c/o neck pain. (units unknown) (unknown) (unknown) (no date) (unknown) (unknown) [id number] (units unknown) (unknown) (unknown) (no date) (unknown) (unknown) 08/18/22 [Rx Confirmed 10/27/22] (units unknown) (unknown) (unknown) (no date) (unknown) (unknown) 10/27/22 (units unknown) (unknown) (unknown) (no date) (unknown) (unknown) 02/25/22 [Rx Confirmed 10/27/22] (units unknown) (unknown) (unknown) (no date) (unknown) (unknown) 10:37 (units unknown) (unknown) (unknown) (no date) (unknown) (unknown) 03/12/22 [Rx Confirmed 10/27/22] (units unknown) (unknown) (unknown) (no date) (unknown) (unknown) Age/Sex: 27 / F Date of Service: (units unknown) (unknown) (unknown) (no date) (unknown) (unknown) Allergies (units unknown) (unknown) (unknown) (no date) (unknown) (unknown) [place] [address] (units unknown) (unknown) (unknown) (no date) (unknown) (unknown) Attending Dr: Tiana BOLTON (units unknown) (unknown) (unknown) (no date) (unknown) (unknown) BMI 37.4 (units unknown) (unknown) (unknown) (no date) (unknown) (unknown) BP 116/70 (units unknown) (unknown) (unknown) (no date) (unknown) (unknown) Blood Pressure Location Lt brachial (units unknown) (unknown) (unknown) (no date) (unknown) (unknown) Cervical cance r screening (units unknown) (unknown) (unknown) (no date) (unknown) (unknown) Chief Complaint (uni ts unknown) (unknown) (unknown) (no date) (unknown) (unknown) Chief Complain t: Neck pain (units unknown) (unknown) (unknown) (no date) (unknown) (unknown) Chronic cough (units unknown) (unknown) (unknown) (no date) (unknown) (unknown) : [birth year] 7 Acct:[id number] (units unknown) (unknown) (unknown) (no date) (unknown) (unknown) Dept at . (units unknown) (unknown) (unknown) (no date) (unknown) (unknown) Details: (units unknown) (unknown) (unknown) (no date) (unknown) (unknown) Documented By: Tiana Newman 10/27/22 1024 (units unknown) (unknown) (unknown) (no date) (unknown) (unknown) Draft (units unknown) (unknown) (unknown) (no date) (unknown) (unknown) Family Practic e Office Visit (units unknown) (unknown) (unknown) (no date) (unknown) (unknown) [facility] (units unknown) (unknown) (unknown) (no date) (unknown) (unknown) GERD (gastroesophageal reflux disease) (units unknown) (unknown) (unknown) (no date) (unknown) (unknown) Greater trocha nteric bursitis of left hip (units unknown) (unknown) (unknown) (no date) (unknown) (unknown) H/O bilateral breast reduction surgery (units unknown) (unknown) (unknown) (no date) (unknown) (unknown) HPI (units unknown) (unknown) (unknown) (no date) (unknown) (unknown) Health Managem ent reviewed with patient: No (units unknown) (unknown) (unknown) (no date) (unknown) (unknown) Health Management (u nits unknown) (unknown) (unknown) (no date) (unknown) (unknown) Height 5 ft 8 in (un its unknown) (unknown) (unknown) (no date) (unknown) (unknown) Herniated nucl eus pulposus, L4-5 (units unknown) (unknown) (unknown) (no date) (unknown) (unknown) Intake Note: (units unknown) (unknown) (unknown) (no date) (unknown) (unknown) Intake (units unknown) (unknown) (unknown) (no date) (unknown) (unknown) Irritable timothy l syndrome (units unknown) (unknown) (unknown) (no date) (unknown) (unknown) Is last menstr ual period known: No (units unknown) (unknown) (unknown) (no date) (unknown) (unknown) Last Menstural Cycle + Details (units unknown) (unknown) (unknown) (no date) (unknown) (unknown) Loc: [facility] (units unknown) (unknown) (unknown) (no date) (unknown) (unknown) Medical Histor y (units unknown) (unknown) (unknown) (no date) (unknown) (unknown) Medications (units unknown) (unknown) (unknown) (no date) (unknown) (unknown) Nausea (units unknown) (unknown) (unknown) (no date) (unknown) (unknown) Oxygen Deliver y Method room air (units unknown) (unknown) (unknown) (no date) (unknown) (unknown) PCP Paul (units unknown) (unknown) (unknown) (no date) (unknown) (unknown) PFSH (units unknown) (unknown) (unknown) (no date) (unknown) (unknown) Patient with c hronic neck pain comes in with complaints of neck pain for as long (units unknown) (unknown) (unknown) (no date) (unknown) (unknown) Patient: La Nena Guillen MR#: [id number] (units unknown) (unknown) (unknown) (no date) (unknown) (unknown) Polycystic ova beau disease (units unknown) (unknown) (unknown) (no date) (unknown) (unknown) Position Sitting (un its unknown) (unknown) (unknown) (no date) (unknown) (unknown) Pulse 75 (units unknown) (unknown) (unknown) (no date) (unknown) (unknown) Pulse Oximetry (%) 99 (units unknown) (unknown) (unknown) (no date) (unknown) (unknown) Pulse Source Monitor (units unknown) (unknown) (unknown) (no date) (unknown) (unknown) Reason For Visit (un its unknown) (unknown) (unknown) (no date) (unknown) (unknown) Respiration 14 (unit s unknown) (unknown) (unknown) (no date) (unknown) (unknown) Right Achilles tendinitis (units unknown) (unknown) (unknown) (no date) (unknown) (unknown) SOB (units unknown) (unknown) (unknown) (no date) (unknown) (unknown) Screening for HPV (human papillomavirus) (units unknown) (unknown) (unknown) (no date) (unknown) (unknown) Signed By: (units unknown) (unknown) (unknown) (no date) (unknown) (unknown) Skin mole (units unknown) (unknown) (unknown) (no date) (unknown) (unknown) Smoking Status : Never smoker (units unknown) (unknown) (unknown) (no date) (unknown) (unknown) Sprain of ante rior talofibular ligament (units unknown) (unknown) (unknown) (no date) (unknown) (unknown) Surgical Histo ry (units unknown) (unknown) (unknown) (no date) (unknown) (unknown) Temp 97.6 F (units unknown) (unknown) (unknown) (no date) (unknown) (unknown) Temp Source Te mporal Artery Scan (units unknown) (unknown) (unknown) (no date) (unknown) (unknown) This note may have been all or partially generated using voice recognition (units unknown) (unknown) (unknown) (no date) (unknown) (unknown) Tobacco + Subs tance Use (units unknown) (unknown) (unknown) (no date) (unknown) (unknown) Tobacco Status (unit s unknown) (unknown) (unknown) (no date) (unknown) (unknown) Visit Reasons: Neck pain 06 (units unknown) (unknown) (unknown) (no date) (unknown) (unknown) Vitals (units unknown) (unknown) (unknown) (no date) (unknown) (unknown) Vomiting (units unknown) (unknown) (unknown) (no date) (unknown) (unknown) Weight 246 lb 3 oz ( units unknown) (unknown) (unknown) (no date) (unknown) (unknown) albuterol sulf ate 90 mcg/actuation aerosol inhaler 2 puff inhalation Q4H PRN (units unknown) (unknown) (unknown) (no date) (unknown) (unknown) amoxicillin Ad verse Reaction (Intermediate, Verified 10/27/22 10:39) (units unknown) (unknown) (unknown) (no date) (unknown) (unknown) as she can rem ember due to having no natural cervical curve. Having flare, (units unknown) (unknown) (unknown) (no date) (unknown) (unknown) bupropion HCl 150 mg 24 hr tablet, extended release 150 mg PO QAM #30 tabs (units unknown) (unknown) (unknown) (no date) (unknown) (unknown) hallucinations (unit s unknown) (unknown) (unknown) (no date) (unknown) (unknown) have occurred. If there are any questions, please contact the Medical Records (units unknown) (unknown) (unknown) (no date) (unknown) (unknown) ibuprofen 200 mg tablet 600 mg PO Q6H PRN 10/27/22 [History Confirmed 10/27/22] (units unknown) (unknown) (unknown) (no date) (unknown) (unknown) may occur. Occasional wrong-word or 'sound-alike' substitutions may have (units unknown) (unknown) (unknown) (no date) (unknown) (unknown) occurred due t o the inherent limitations of voice recognition software. Please (units unknown) (unknown) (unknown) (no date) (unknown) (unknown) ondansetron HC l 4 mg tablet 4 mg PO TID PRN nausea and vomiting #30 tabs (units unknown) (unknown) (unknown) (no date) (unknown) (unknown) pantoprazole 4 0 mg tablet,delayed release (Protonix) 40 mg PO DAILY #30 tabs (units unknown) (unknown) (unknown) (no date) (unknown) (unknown) promethazine 2 5 mg tablet 25 mg PO 06/16/22 [History Confirmed 10/27/22] (units unknown) (unknown) (unknown) (no date) (unknown) (unknown) read the note carefully and recognize, using context, where these substitutions (units unknown) (unknown) (unknown) (no date) (unknown) (unknown) sertraline [Fr om Zoloft] Allergy (Severe, Verified 10/27/22 10:39) (units unknown) (unknown) (unknown) (no date) (unknown) (unknown) shortness of b reath or wheezing #8.5 grams 04/19/22 [Rx Confirmed 10/27/22] (units unknown) (unknown) (unknown) (no date) (unknown) (unknown) software. Alth ough every effort is made to edit content, brine tank tender errors (units unknown) (unknown) (unknown) (no date) (unknown) (unknown) tramadol Aller gy (Severe, Verified 10/27/22 10:39) (units unknown) (unknown) (unknown) (no date) (unknown) (unknown) without relief . Would consider acupunture. (units unknown) (unknown) (unknown) (no date) (unknown) (unknown) worsening. Francie es ibuprofen sometimes without relief. Tried PT, chiropractor (units unknown) (unknown) Result panel 5 (unknown) (no date) (unknown) (unknown) (no value) (units unknown) (unknown) (unknown) (no date) (unknown) (unknown) *PAUL* 27 Y F, patient here today with c/o neck pain. (units unknown) (unknown) (unknown) (no date) (unknown) (unknown) [id number] (units unknown) (unknown) (unknown) (no date) (unknown) (unknown) 08/18/22 [Rx Confirmed 10/27/22] (units unknown) (unknown) (unknown) (no date) (unknown) (unknown) 10/27/22 (units unknown) (unknown) (unknown) (no date) (unknown) (unknown) 02/25/22 [Rx Confirmed 10/27/22] (units unknown) (unknown) (unknown) (no date) (unknown) (unknown) 10:37 (units unknown) (unknown) (unknown) (no date) (unknown) (unknown) 03/12/22 [Rx Confirmed 10/27/22] (units unknown) (unknown) (unknown) (no date) (unknown) (unknown) Age/Sex: 27 / F Date of Service: (units unknown) (unknown) (unknown) (no date) (unknown) (unknown) Allergies (units unknown) (unknown) (unknown) (no date) (unknown) (unknown) [place] [id number] (units unknown) (unknown) (unknown) (no date) (unknown) (unknown) Attending Dr: Tiana BOLTON (units unknown) (unknown) (unknown) (no date) (unknown) (unknown) BMI 37.4 (units unknown) (unknown) (unknown) (no date) (unknown) (unknown) BP 116/70 (units unknown) (unknown) (unknown) (no date) (unknown) (unknown) Blood Pressure Location Lt brachial (units unknown) (unknown) (unknown) (no date) (unknown) (unknown) Cervical cance r screening (units unknown) (unknown) (unknown) (no date) (unknown) (unknown) Chief Complaint (uni ts unknown) (unknown) (unknown) (no date) (unknown) (unknown) Chief Complain t: Neck pain (units unknown) (unknown) (unknown) (no date) (unknown) (unknown) Chronic cough (units unknown) (unknown) (unknown) (no date) (unknown) (unknown) : 7 Acct:[id number] (units unknown) (unknown) (unknown) (no date) (unknown) (unknown) Dept at . (units unknown) (unknown) (unknown) (no date) (unknown) (unknown) Details: (units unknown) (unknown) (unknown) (no date) (unknown) (unknown) Documented By: Tiana Newman 10/27/22 1024 (units unknown) (unknown) (unknown) (no date) (unknown) (unknown) Draft (units unknown) (unknown) (unknown) (no date) (unknown) (unknown) Family Practic e Office Visit (units unknown) (unknown) (unknown) (no date) (unknown) (unknown) [facility] (units unknown) (unknown) (unknown) (no date) (unknown) (unknown) GERD (gastroesophageal reflux disease) (units unknown) (unknown) (unknown) (no date) (unknown) (unknown) Greater trocha nteric bursitis of left hip (units unknown) (unknown) (unknown) (no date) (unknown) (unknown) H/O bilateral breast reduction surgery (units unknown) (unknown) (unknown) (no date) (unknown) (unknown) HPI (units unknown) (unknown) (unknown) (no date) (unknown) (unknown) Health Managem ent reviewed with patient: No (units unknown) (unknown) (unknown) (no date) (unknown) (unknown) Health Management (u nits unknown) (unknown) (unknown) (no date) (unknown) (unknown) Height 5 ft 8 in (un its unknown) (unknown) (unknown) (no date) (unknown) (unknown) Herniated nucl eus pulposus, L4-5 (units unknown) (unknown) (unknown) (no date) (unknown) (unknown) Intake Note: (units unknown) (unknown) (unknown) (no date) (unknown) (unknown) Intake (units unknown) (unknown) (unknown) (no date) (unknown) (unknown) Irritable timothy l syndrome (units unknown) (unknown) (unknown) (no date) (unknown) (unknown) Is last menstr ual period known: No (units unknown) (unknown) (unknown) (no date) (unknown) (unknown) Last Menstural Cycle + Details (units unknown) (unknown) (unknown) (no date) (unknown) (unknown) Loc: [facility] (units unknown) (unknown) (unknown) (no date) (unknown) (unknown) Medical Histor y (units unknown) (unknown) (unknown) (no date) (unknown) (unknown) Medications (units unknown) (unknown) (unknown) (no date) (unknown) (unknown) Nausea (units unknown) (unknown) (unknown) (no date) (unknown) (unknown) Oxygen Deliver y Method room air (units unknown) (unknown) (unknown) (no date) (unknown) (unknown) PCP Paul (units unknown) (unknown) (unknown) (no date) (unknown) (unknown) PFSH (units unknown) (unknown) (unknown) (no date) (unknown) (unknown) Patient with c hronic neck pain comes in with complaints of neck pain for as long (units unknown) (unknown) (unknown) (no date) (unknown) (unknown) Patient: La Nena Guillen MR#: [id number] (units unknown) (unknown) (unknown) (no date) (unknown) (unknown) Polycystic ova beau disease (units unknown) (unknown) (unknown) (no date) (unknown) (unknown) Position Sitting (un its unknown) (unknown) (unknown) (no date) (unknown) (unknown) Pulse 75 (units unknown) (unknown) (unknown) (no date) (unknown) (unknown) Pulse Oximetry (%) 99 (units unknown) (unknown) (unknown) (no date) (unknown) (unknown) Pulse Source Monitor (units unknown) (unknown) (unknown) (no date) (unknown) (unknown) Reason For Visit (un its unknown) (unknown) (unknown) (no date) (unknown) (unknown) Respiration 14 (unit s unknown) (unknown) (unknown) (no date) (unknown) (unknown) Right Achilles tendinitis (units unknown) (unknown) (unknown) (no date) (unknown) (unknown) SOB (units unknown) (unknown) (unknown) (no date) (unknown) (unknown) Screening for HPV (human papillomavirus) (units unknown) (unknown) (unknown) (no date) (unknown) (unknown) Signed By: (units unknown) (unknown) (unknown) (no date) (unknown) (unknown) Skin mole (units unknown) (unknown) (unknown) (no date) (unknown) (unknown) Smoking Status : Never smoker (units unknown) (unknown) (unknown) (no date) (unknown) (unknown) Sprain of ante rior talofibular ligament (units unknown) (unknown) (unknown) (no date) (unknown) (unknown) Surgical Histo ry (units unknown) (unknown) (unknown) (no date) (unknown) (unknown) Temp 97.6 F (units unknown) (unknown) (unknown) (no date) (unknown) (unknown) Temp Source Te mporal Artery Scan (units unknown) (unknown) (unknown) (no date) (unknown) (unknown) This note may have been all or partially generated using voice recognition (units unknown) (unknown) (unknown) (no date) (unknown) (unknown) Tobacco + Subs tance Use (units unknown) (unknown) (unknown) (no date) (unknown) (unknown) Tobacco Status (unit s unknown) (unknown) (unknown) (no date) (unknown) (unknown) Visit Reasons: Neck pain 06 (units unknown) (unknown) (unknown) (no date) (unknown) (unknown) Vitals (units unknown) (unknown) (unknown) (no date) (unknown) (unknown) Vomiting (units unknown) (unknown) (unknown) (no date) (unknown) (unknown) Weight 246 lb 3 oz ( units unknown) (unknown) (unknown) (no date) (unknown) (unknown) acupuncture. W ould also consider massage. Would like some muscle relaxers to use (units unknown) (unknown) (unknown) (no date) (unknown) (unknown) albuterol sulf ate 90 mcg/actuation aerosol inhaler 2 puff inhalation Q4H PRN (units unknown) (unknown) (unknown) (no date) (unknown) (unknown) amoxicillin Ad verse Reaction (Intermediate, Verified 10/27/22 10:39) (units unknown) (unknown) (unknown) (no date) (unknown) (unknown) as needed. (units unknown) (unknown) (unknown) (no date) (unknown) (unknown) as she can rem ember due to having no natural cervical curve. Having flare, (units unknown) (unknown) (unknown) (no date) (unknown) (unknown) bupropion HCl 150 mg 24 hr tablet, extended release 150 mg PO QAM #30 tabs (units unknown) (unknown) (unknown) (no date) (unknown) (unknown) hallucinations (unit s unknown) (unknown) (unknown) (no date) (unknown) (unknown) have occurred. If there are any questions, please contact the Medical Records (units unknown) (unknown) (unknown) (no date) (unknown) (unknown) hot. Tried PT, stretching, chiropractor without relief. Would consider (units unknown) (unknown) (unknown) (no date) (unknown) (unknown) ibuprofen 200 mg tablet 600 mg PO Q6H PRN 10/27/22 [History Confirmed 10/27/22] (units unknown) (unknown) (unknown) (no date) (unknown) (unknown) may occur. Occasional wrong-word or 'sound-alike' substitutions may have (units unknown) (unknown) (unknown) (no date) (unknown) (unknown) occurred due t o the inherent limitations of voice recognition software. Please (units unknown) (unknown) (unknown) (no date) (unknown) (unknown) ondansetron HC l 4 mg tablet 4 mg PO TID PRN nausea and vomiting #30 tabs (units unknown) (unknown) (unknown) (no date) (unknown) (unknown) pantoprazole 4 0 mg tablet,delayed release (Protonix) 40 mg PO DAILY #30 tabs (units unknown) (unknown) (unknown) (no date) (unknown) (unknown) promethazine 2 5 mg tablet 25 mg PO 06/16/22 [History Confirmed 10/27/22] (units unknown) (unknown) (unknown) (no date) (unknown) (unknown) read the note carefully and recognize, using context, where these substitutions (units unknown) (unknown) (unknown) (no date) (unknown) (unknown) sertraline [Fr om Zoloft] Allergy (Severe, Verified 10/27/22 10:39) (units unknown) (unknown) (unknown) (no date) (unknown) (unknown) shortness of b reath or wheezing #8.5 grams 04/19/22 [Rx Confirmed 10/27/22] (units unknown) (unknown) (unknown) (no date) (unknown) (unknown) software. Alth ough every effort is made to edit content, brine tank tender errors (units unknown) (unknown) (unknown) (no date) (unknown) (unknown) tramadol Aller gy (Severe, Verified 10/27/22 10:39) (units unknown) (unknown) (unknown) (no date) (unknown) (unknown) worsening. Francie es ibuprofen, tylenol sometimes without relief. Has also tried icy (units unknown) (unknown) Result panel 6 (unknown) (no date) (unknown) (unknown) (no value) (units unknown) (unknown) (unknown) (no date) (unknown) (unknown) (1) Chronic ne ck pain: (units unknown) (unknown) (unknown) (no date) (unknown) (unknown) *PAUL* 27 Y F, patient here today with c/o neck pain. (units unknown) (unknown) (unknown) (no date) (unknown) (unknown) [id number] (units unknown) (unknown) (unknown) (no date) (unknown) (unknown) 08/18/22 [Rx Confirmed 10/27/22] (units unknown) (unknown) (unknown) (no date) (unknown) (unknown) 10/27/22 (units unknown) (unknown) (unknown) (no date) (unknown) (unknown) 02/25/22 [Rx Confirmed 10/27/22] (units unknown) (unknown) (unknown) (no date) (unknown) (unknown) 10:37 (units unknown) (unknown) (unknown) (no date) (unknown) (unknown) 03/12/22 [Rx Confirmed 10/27/22] (units unknown) (unknown) (unknown) (no date) (unknown) (unknown) Age/Sex: 27 / F Date of Service: (units unknown) (unknown) (unknown) (no date) (unknown) (unknown) Allergies (units unknown) (unknown) (unknown) (no date) (unknown) (unknown) [place] [address] (units unknown) (unknown) (unknown) (no date) (unknown) (unknown) Assessment + Plan (u nits unknown) (unknown) (unknown) (no date) (unknown) (unknown) Attending Dr: Tiana BOLTON (units unknown) (unknown) (unknown) (no date) (unknown) (unknown) BMI 37.4 (units unknown) (unknown) (unknown) (no date) (unknown) (unknown) BP 116/70 (units unknown) (unknown) (unknown) (no date) (unknown) (unknown) Blood Pressure Location Lt brachial (units unknown) (unknown) (unknown) (no date) (unknown) (unknown) Cervical cance r screening (units unknown) (unknown) (unknown) (no date) (unknown) (unknown) Chief Complaint (uni ts unknown) (unknown) (unknown) (no date) (unknown) (unknown) Chief Complain t: Neck pain (units unknown) (unknown) (unknown) (no date) (unknown) (unknown) Chronic cough (units unknown) (unknown) (unknown) (no date) (unknown) (unknown) : 7 Acct:[id number] (units unknown) (unknown) (unknown) (no date) (unknown) (unknown) Dept at . (units unknown) (unknown) (unknown) (no date) (unknown) (unknown) Details: (units unknown) (unknown) (unknown) (no date) (unknown) (unknown) Documented By: Tiana Newman 10/27/22 1024 (units unknown) (unknown) (unknown) (no date) (unknown) (unknown) Draft (units unknown) (unknown) (unknown) (no date) (unknown) (unknown) Family Practic e Office Visit (units unknown) (unknown) (unknown) (no date) (unknown) (unknown) [facility] (units unknown) (unknown) (unknown) (no date) (unknown) (unknown) GERD (gastroesophageal reflux disease) (units unknown) (unknown) (unknown) (no date) (unknown) (unknown) Greater trocha nteric bursitis of left hip (units unknown) (unknown) (unknown) (no date) (unknown) (unknown) H/O bilateral breast reduction surgery (units unknown) (unknown) (unknown) (no date) (unknown) (unknown) HPI (units unknown) (unknown) (unknown) (no date) (unknown) (unknown) Health Managem ent reviewed with patient: No (units unknown) (unknown) (unknown) (no date) (unknown) (unknown) Health Management (u nits unknown) (unknown) (unknown) (no date) (unknown) (unknown) Height 5 ft 8 in (un its unknown) (unknown) (unknown) (no date) (unknown) (unknown) Herniated nucl eus pulposus, L4-5 (units unknown) (unknown) (unknown) (no date) (unknown) (unknown) Intake Note: (units unknown) (unknown) (unknown) (no date) (unknown) (unknown) Intake (units unknown) (unknown) (unknown) (no date) (unknown) (unknown) Irritable timothy l syndrome (units unknown) (unknown) (unknown) (no date) (unknown) (unknown) Is last menstr ual period known: No (units unknown) (unknown) (unknown) (no date) (unknown) (unknown) Last Menstural Cycle + Details (units unknown) (unknown) (unknown) (no date) (unknown) (unknown) Loc: [facility] (units unknown) (unknown) (unknown) (no date) (unknown) (unknown) Medical Histor y (units unknown) (unknown) (unknown) (no date) (unknown) (unknown) Medications (units unknown) (unknown) (unknown) (no date) (unknown) (unknown) Medications: (units unknown) (unknown) (unknown) (no date) (unknown) (unknown) Nausea (units unknown) (unknown) (unknown) (no date) (unknown) (unknown) New (units unknown) (unknown) (unknown) (no date) (unknown) (unknown) Orders: (units unknown) (unknown) (unknown) (no date) (unknown) (unknown) Oxygen Deliver y Method room air (units unknown) (unknown) (unknown) (no date) (unknown) (unknown) PCP Soriano (units unknown) (unknown) (unknown) (no date) (unknown) (unknown) PFSH (units unknown) (unknown) (unknown) (no date) (unknown) (unknown) Patient with c hronic neck pain comes in with complaints of neck pain for as long (units unknown) (unknown) (unknown) (no date) (unknown) (unknown) Patient: La Nena Guillen MR#: [id number] (units unknown) (unknown) (unknown) (no date) (unknown) (unknown) Polycystic ova beau disease (units unknown) (unknown) (unknown) (no date) (unknown) (unknown) Position Sitting (un its unknown) (unknown) (unknown) (no date) (unknown) (unknown) Pulse 75 (units unknown) (unknown) (unknown) (no date) (unknown) (unknown) Pulse Oximetry (%) 99 (units unknown) (unknown) (unknown) (no date) (unknown) (unknown) Pulse Source Monitor (units unknown) (unknown) (unknown) (no date) (unknown) (unknown) Reason For Visit (un its unknown) (unknown) (unknown) (no date) (unknown) (unknown) Referral Acupu ncture G89.29 - Other chronic pain, M54.2 - Cervicalgia (units unknown) (unknown) (unknown) (no date) (unknown) (unknown) Referrals (units unknown) (unknown) (unknown) (no date) (unknown) (unknown) Respiration 14 (unit s unknown) (unknown) (unknown) (no date) (unknown) (unknown) Right Achilles tendinitis (units unknown) (unknown) (unknown) (no date) (unknown) (unknown) SOB (units unknown) (unknown) (unknown) (no date) (unknown) (unknown) Screening for HPV (human papillomavirus) (units unknown) (unknown) (unknown) (no date) (unknown) (unknown) Signed By: (units unknown) (unknown) (unknown) (no date) (unknown) (unknown) Skin mole (units unknown) (unknown) (unknown) (no date) (unknown) (unknown) Smoking Status : Never smoker (units unknown) (unknown) (unknown) (no date) (unknown) (unknown) Sprain of ante rior talofibular ligament (units unknown) (unknown) (unknown) (no date) (unknown) (unknown) Status: Chronic (uni ts unknown) (unknown) (unknown) (no date) (unknown) (unknown) Surgical Histo ry (units unknown) (unknown) (unknown) (no date) (unknown) (unknown) Temp 97.6 F (units unknown) (unknown) (unknown) (no date) (unknown) (unknown) Temp Source Te mporal Artery Scan (units unknown) (unknown) (unknown) (no date) (unknown) (unknown) This note may have been all or partially generated using voice recognition (units unknown) (unknown) (unknown) (no date) (unknown) (unknown) Tobacco + Subs tance Use (units unknown) (unknown) (unknown) (no date) (unknown) (unknown) Tobacco Status (unit s unknown) (unknown) (unknown) (no date) (unknown) (unknown) Visit Reasons: Neck pain 06 (units unknown) (unknown) (unknown) (no date) (unknown) (unknown) Vitals (units unknown) (unknown) (unknown) (no date) (unknown) (unknown) Vomiting (units unknown) (unknown) (unknown) (no date) (unknown) (unknown) Weight 246 lb 3 oz ( units unknown) (unknown) (unknown) (no date) (unknown) (unknown) [Rx Confirmed 10/27/22] (units unknown) (unknown) (unknown) (no date) (unknown) (unknown) acupuncture. W ould also consider massage. Would like some muscle relaxers to use (units unknown) (unknown) (unknown) (no date) (unknown) (unknown) albuterol sulf ate 90 mcg/actuation aerosol inhaler 2 puff inhalation Q4H PRN (units unknown) (unknown) (unknown) (no date) (unknown) (unknown) amoxicillin Ad verse Reaction (Intermediate, Verified 10/27/22 10:39) (units unknown) (unknown) (unknown) (no date) (unknown) (unknown) as needed. (units unknown) (unknown) (unknown) (no date) (unknown) (unknown) as she can rem ember due to having no natural cervical curve. Having flare, (units unknown) (unknown) (unknown) (no date) (unknown) (unknown) bupropion HCl 150 mg 24 hr tablet, extended release 150 mg PO QAM #30 tabs (units unknown) (unknown) (unknown) (no date) (unknown) (unknown) cyclobenzaprin e 5 mg tablet 5 mg PO BEDTIME PRN muscle spasm #60 tabs 10/27/22 (units unknown) (unknown) (unknown) (no date) (unknown) (unknown) cyclobenzaprine (uni ts unknown) (unknown) (unknown) (no date) (unknown) (unknown) hallucinations (unit s unknown) (unknown) (unknown) (no date) (unknown) (unknown) have occurred. If there are any questions, please contact the Medical Records (units unknown) (unknown) (unknown) (no date) (unknown) (unknown) hot. Tried PT, stretching, chiropractor without relief. Would consider (units unknown) (unknown) (unknown) (no date) (unknown) (unknown) ibuprofen 200 mg tablet 600 mg PO Q6H PRN 10/27/22 [History Confirmed 10/27/22] (units unknown) (unknown) (unknown) (no date) (unknown) (unknown) may make drows y do not drive while taking 5 mg PO BEDTIME PRN 60 tabs 0RF (units unknown) (unknown) (unknown) (no date) (unknown) (unknown) may occur. Occasional wrong-word or 'sound-alike' substitutions may have (units unknown) (unknown) (unknown) (no date) (unknown) (unknown) muscle spasm (units unknown) (unknown) (unknown) (no date) (unknown) (unknown) occurred due t o the inherent limitations of voice recognition software. Please (units unknown) (unknown) (unknown) (no date) (unknown) (unknown) ondansetron HC l 4 mg tablet 4 mg PO TID PRN nausea and vomiting #30 tabs (units unknown) (unknown) (unknown) (no date) (unknown) (unknown) pantoprazole 4 0 mg tablet,delayed release (Protonix) 40 mg PO DAILY #30 tabs (units unknown) (unknown) (unknown) (no date) (unknown) (unknown) promethazine 2 5 mg tablet 25 mg PO 06/16/22 [History Confirmed 10/27/22] (units unknown) (unknown) (unknown) (no date) (unknown) (unknown) read the note carefully and recognize, using context, where these substitutions (units unknown) (unknown) (unknown) (no date) (unknown) (unknown) sertraline [Fr om Zoloft] Allergy (Severe, Verified 10/27/22 10:39) (units unknown) (unknown) (unknown) (no date) (unknown) (unknown) shortness of b reath or wheezing #8.5 grams 04/19/22 [Rx Confirmed 10/27/22] (units unknown) (unknown) (unknown) (no date) (unknown) (unknown) software. Alth ough every effort is made to edit content, brine tank tender errors (units unknown) (unknown) (unknown) (no date) (unknown) (unknown) tramadol Aller gy (Severe, Verified 10/27/22 10:39) (units unknown) (unknown) (unknown) (no date) (unknown) (unknown) worsening. Francie es ibuprofen, tylenol sometimes without relief. Has also tried icy (units unknown) (unknown) Result panel 7 (unknown) (no date) (unknown) (unknown) (no value) (units unknown) (unknown) (unknown) (no date) (unknown) (unknown) (1) Chronic ne ck pain: (units unknown) (unknown) (unknown) (no date) (unknown) (unknown) *SORIANO* 27 Y F, patient here today with c/o neck pain. (units unknown) (unknown) (unknown) (no date) (unknown) (unknown) [id number] (units unknown) (unknown) (unknown) (no date) (unknown) (unknown) 08/18/22 [Rx Confirmed 10/27/22] (units unknown) (unknown) (unknown) (no date) (unknown) (unknown) 10/27/22 1125 (units unknown) (unknown) (unknown) (no date) (unknown) (unknown) 10/27/22 (units unknown) (unknown) (unknown) (no date) (unknown) (unknown) 02/25/22 [Rx Confirmed 10/27/22] (units unknown) (unknown) (unknown) (no date) (unknown) (unknown) 10:37 (units unknown) (unknown) (unknown) (no date) (unknown) (unknown) 03/12/22 [Rx Confirmed 10/27/22] (units unknown) (unknown) (unknown) (no date) (unknown) (unknown) Age/Sex: 27 / F Date of Service: (units unknown) (unknown) (unknown) (no date) (unknown) (unknown) Allergies (units unknown) (unknown) (unknown) (no date) (unknown) (unknown) [place] [id number] (units unknown) (unknown) (unknown) (no date) (unknown) (unknown) Assessment + Plan (u nits unknown) (unknown) (unknown) (no date) (unknown) (unknown) Assessment and Plan: (units unknown) (unknown) (unknown) (no date) (unknown) (unknown) Attending Dr: Tiana BOLTON (units unknown) (unknown) (unknown) (no date) (unknown) (unknown) BMI 37.4 (units unknown) (unknown) (unknown) (no date) (unknown) (unknown) BP 116/70 (units unknown) (unknown) (unknown) (no date) (unknown) (unknown) Blood Pressure Location Lt brachial (units unknown) (unknown) (unknown) (no date) (unknown) (unknown) Cervical Spine : cervical ROM normal, cervical muscular tenderness, no pain with (units unknown) (unknown) (unknown) (no date) (unknown) (unknown) Cervical cance r screening (units unknown) (unknown) (unknown) (no date) (unknown) (unknown) Chief Complaint (uni ts unknown) (unknown) (unknown) (no date) (unknown) (unknown) Chief Complain t: Neck pain (units unknown) (unknown) (unknown) (no date) (unknown) (unknown) Chronic cough (units unknown) (unknown) (unknown) (no date) (unknown) (unknown) Chronic neck p ain, loss of cervical curvature. Patient was encouraged to use (units unknown) (unknown) (unknown) (no date) (unknown) (unknown) Const (units unknown) (unknown) (unknown) (no date) (unknown) (unknown) : 7 Acct:[id number] (units unknown) (unknown) (unknown) (no date) (unknown) (unknown) Details: (units unknown) (unknown) (unknown) (no date) (unknown) (unknown) Documented By: Tiana Newman 10/27/22 1024 (units unknown) (unknown) (unknown) (no date) (unknown) (unknown) Effort + Inspe ction: normal respiratory effort, able to speak in complete (units unknown) (unknown) (unknown) (no date) (unknown) (unknown) Exam (units unknown) (unknown) (unknown) (no date) (unknown) (unknown) Family Practic e Office Visit (units unknown) (unknown) (unknown) (no date) (unknown) (unknown) [facility] (units unknown) (unknown) (unknown) (no date) (unknown) (unknown) Follow-up with PCP. (units unknown) (unknown) (unknown) (no date) (unknown) (unknown) GERD (gastroesophageal reflux disease) (units unknown) (unknown) (unknown) (no date) (unknown) (unknown) General: cooperative, comfortable and no acute distress (units unknown) (unknown) (unknown) (no date) (unknown) (unknown) Greater trocha nteric bursitis of left hip (units unknown) (unknown) (unknown) (no date) (unknown) (unknown) H/O bilateral breast reduction surgery (units unknown) (unknown) (unknown) (no date) (unknown) (unknown) HPI (units unknown) (unknown) (unknown) (no date) (unknown) (unknown) Health Managem ent reviewed with patient: No (units unknown) (unknown) (unknown) (no date) (unknown) (unknown) Health Management (u nits unknown) (unknown) (unknown) (no date) (unknown) (unknown) Height 5 ft 8 in (un its unknown) (unknown) (unknown) (no date) (unknown) (unknown) Herniated nucl eus pulposus, L4-5 (units unknown) (unknown) (unknown) (no date) (unknown) (unknown) Intake Note: (units unknown) (unknown) (unknown) (no date) (unknown) (unknown) Intake (units unknown) (unknown) (unknown) (no date) (unknown) (unknown) Irritable timothy l syndrome (units unknown) (unknown) (unknown) (no date) (unknown) (unknown) Is last menstr ual period known: No (units unknown) (unknown) (unknown) (no date) (unknown) (unknown) Last Menstural Cycle + Details (units unknown) (unknown) (unknown) (no date) (unknown) (unknown) Loc: [facility] (units unknown) (unknown) (unknown) (no date) (unknown) (unknown) Medical Histor y (units unknown) (unknown) (unknown) (no date) (unknown) (unknown) Medications (units unknown) (unknown) (unknown) (no date) (unknown) (unknown) Medications: (units unknown) (unknown) (unknown) (no date) (unknown) (unknown) Musc (units unknown) (unknown) (unknown) (no date) (unknown) (unknown) Nausea (units unknown) (unknown) (unknown) (no date) (unknown) (unknown) Neck (units unknown) (unknown) (unknown) (no date) (unknown) (unknown) Neck: normal v isual inspection and full ROM (units unknown) (unknown) (unknown) (no date) (unknown) (unknown) New (units unknown) (unknown) (unknown) (no date) (unknown) (unknown) Orders: (units unknown) (unknown) (unknown) (no date) (unknown) (unknown) Oxygen Deliver y Method room air (units unknown) (unknown) (unknown) (no date) (unknown) (unknown) PCP Paul (units unknown) (unknown) (unknown) (no date) (unknown) (unknown) PFSH (units unknown) (unknown) (unknown) (no date) (unknown) (unknown) Patient with c hronic neck pain comes in with complaints of neck pain for as long (units unknown) (unknown) (unknown) (no date) (unknown) (unknown) Patient: La Nena Guillen MR#: [id number] (units unknown) (unknown) (unknown) (no date) (unknown) (unknown) Polycystic ova beau disease (units unknown) (unknown) (unknown) (no date) (unknown) (unknown) Position Sitting (un its unknown) (unknown) (unknown) (no date) (unknown) (unknown) Pulse 75 (units unknown) (unknown) (unknown) (no date) (unknown) (unknown) Pulse Oximetry (%) 99 (units unknown) (unknown) (unknown) (no date) (unknown) (unknown) Pulse Source Monitor (units unknown) (unknown) (unknown) (no date) (unknown) (unknown) Reason For Visit (un its unknown) (unknown) (unknown) (no date) (unknown) (unknown) Referral Acupu ncture G89.29 - Other chronic pain, M54.2 - Cervicalgia (units unknown) (unknown) (unknown) (no date) (unknown) (unknown) Referrals (units unknown) (unknown) (unknown) (no date) (unknown) (unknown) Resp (units unknown) (unknown) (unknown) (no date) (unknown) (unknown) Respiration 14 (unit s unknown) (unknown) (unknown) (no date) (unknown) (unknown) Right Achilles tendinitis (units unknown) (unknown) (unknown) (no date) (unknown) (unknown) SOB (units unknown) (unknown) (unknown) (no date) (unknown) (unknown) Screening for HPV (human papillomavirus) (units unknown) (unknown) (unknown) (no date) (unknown) (unknown) Signed By: <Electronically signed by Tiana Newman> (units unknown) (unknown) (unknown) (no date) (unknown) (unknown) Signed (units unknown) (unknown) (unknown) (no date) (unknown) (unknown) Skin mole (units unknown) (unknown) (unknown) (no date) (unknown) (unknown) Smoking Status : Never smoker (units unknown) (unknown) (unknown) (no date) (unknown) (unknown) Sprain of ante rior talofibular ligament (units unknown) (unknown) (unknown) (no date) (unknown) (unknown) Status: Chronic (uni ts unknown) (unknown) (unknown) (no date) (unknown) (unknown) Surgical Histo ry (units unknown) (unknown) (unknown) (no date) (unknown) (unknown) Temp 97.6 F (units unknown) (unknown) (unknown) (no date) (unknown) (unknown) Temp Source Te mporal Artery Scan (units unknown) (unknown) (unknown) (no date) (unknown) (unknown) This note may have been all or partially generated using voice recognition (units unknown) (unknown) (unknown) (no date) (unknown) (unknown) Thoracic/Lumba r Spine: thoracic and lumbar spine normal to inspection, thoraco (units unknown) (unknown) (unknown) (no date) (unknown) (unknown) Tobacco + Subs tance Use (units unknown) (unknown) (unknown) (no date) (unknown) (unknown) Tobacco Status (unit s unknown) (unknown) (unknown) (no date) (unknown) (unknown) Visit Reasons: Neck pain 06 (units unknown) (unknown) (unknown) (no date) (unknown) (unknown) Vitals (units unknown) (unknown) (unknown) (no date) (unknown) (unknown) Vomiting (units unknown) (unknown) (unknown) (no date) (unknown) (unknown) Weight 246 lb 3 oz ( units unknown) (unknown) (unknown) (no date) (unknown) (unknown) [Rx Confirmed 10/27/22] (units unknown) (unknown) (unknown) (no date) (unknown) (unknown) acupuncture. Evens vidalld also consider massage. Would like some muscle relaxers to use (units unknown) (unknown) (unknown) (no date) (unknown) (unknown) albuterol sulf ate 90 mcg/actuation aerosol inhaler 2 puff inhalation Q4H PRN (units unknown) (unknown) (unknown) (no date) (unknown) (unknown) amoxicillin Ad verse Reaction (Intermediate, Verified 10/27/22 10:39) (units unknown) (unknown) (unknown) (no date) (unknown) (unknown) as needed. (units unknown) (unknown) (unknown) (no date) (unknown) (unknown) as she can rem ember due to having no natural cervical curve. Having flare, (units unknown) (unknown) (unknown) (no date) (unknown) (unknown) at . (u nits unknown) (unknown) (unknown) (no date) (unknown) (unknown) be helpful. Ta ke medication as directed as needed, keep in mind that may make (units unknown) (unknown) (unknown) (no date) (unknown) (unknown) bupropion HCl 150 mg 24 hr tablet, extended release 150 mg PO QAM #30 tabs (units unknown) (unknown) (unknown) (no date) (unknown) (unknown) cervical ROM a nd no cervical spinal tenderness (units unknown) (unknown) (unknown) (no date) (unknown) (unknown) cyclobenzaprin e 5 mg tablet 5 mg PO BEDTIME PRN muscle spasm #60 tabs 10/27/22 (units unknown) (unknown) (unknown) (no date) (unknown) (unknown) cyclobenzaprine (uni ts unknown) (unknown) (unknown) (no date) (unknown) (unknown) due to the inh erent limitations of voice recognition software. Please read the (units unknown) (unknown) (unknown) (no date) (unknown) (unknown) hallucinations (unit s unknown) (unknown) (unknown) (no date) (unknown) (unknown) hot. Tried PT, stretching, chiropractor without relief. Would consider (units unknown) (unknown) (unknown) (no date) (unknown) (unknown) ibuprofen 200 mg tablet 600 mg PO Q6H PRN 10/27/22 [History Confirmed 10/27/22] (units unknown) (unknown) (unknown) (no date) (unknown) (unknown) lumbar ROM nor mal, no paraspinal tenderness and no thoracic spinal tenderness (units unknown) (unknown) (unknown) (no date) (unknown) (unknown) may make drows y do not drive while taking 5 mg PO BEDTIME PRN 60 tabs 0RF (units unknown) (unknown) (unknown) (no date) (unknown) (unknown) muscle spasm (units unknown) (unknown) (unknown) (no date) (unknown) (unknown) note carefully and recognize, using context, where these substitutions have (units unknown) (unknown) (unknown) (no date) (unknown) (unknown) occurred. If t here are any questions, please contact the Medical Records Dept (units unknown) (unknown) (unknown) (no date) (unknown) (unknown) ondansetron HC l 4 mg tablet 4 mg PO TID PRN nausea and vomiting #30 tabs (units unknown) (unknown) (unknown) (no date) (unknown) (unknown) over the count er muscle balms such as biofreeze or tiger balm over tender area (units unknown) (unknown) (unknown) (no date) (unknown) (unknown) pantoprazole 4 0 mg tablet,delayed release (Protonix) 40 mg PO DAILY #30 tabs (units unknown) (unknown) (unknown) (no date) (unknown) (unknown) promethazine 2 5 mg tablet 25 mg PO 06/16/22 [History Confirmed 10/27/22] (units unknown) (unknown) (unknown) (no date) (unknown) (unknown) referral place d. Tylenol, ibuprofen for pain as needed. (units unknown) (unknown) (unknown) (no date) (unknown) (unknown) sentences and no use of accessory muscles (units unknown) (unknown) (unknown) (no date) (unknown) (unknown) sertraline [Fr om Zoloft] Allergy (Severe, Verified 10/27/22 10:39) (units unknown) (unknown) (unknown) (no date) (unknown) (unknown) shortness of b reath or wheezing #8.5 grams 04/19/22 [Rx Confirmed 10/27/22] (units unknown) (unknown) (unknown) (no date) (unknown) (unknown) software. Alth ough every effort is made to edit content, brine tank tender errors ma (units unknown) (unknown) (unknown) (no date) (unknown) (unknown) tramadol Aller gy (Severe, Verified 10/27/22 10:39) (units unknown) (unknown) (unknown) (no date) (unknown) (unknown) two to three t imes per day as desired. Massage and stretching the area will also (units unknown) (unknown) (unknown) (no date) (unknown) (unknown) worsening. Francie es ibuprofen, tylenol sometimes without relief. Has also tried icy (units unknown) (unknown) (unknown) (no date) (unknown) (unknown) y occur. Occas ional wrong-word or 'sound-alike' substitutions may have occurred (units unknown) (unknown) (unknown) (no date) (unknown) (unknown) you drowsy. Do not drive during therapy. She is willing to try acupuncture, (units unknown) (unknown) Social History date description facility 2022-08-18 00:00 Never smoked tobacco (finding) [facility] 2022-10-06 00:00 Never smoked tobacco (finding) [facility] 2022-10-27 00:00 Never smoked tobacco (finding) [facility] Vital Signs date measurement value units 2022-08-10 00:00 BMI 40.17 kg/m2 2022-08-10 00:00 BP_diastolic 74 mmHg 2022-08-10 00:00 BP_systolic 112 mmHg 2022-08-10 00:00 heart_rate 56 /min 2022-08-10 00:00 height_metric 167.64 cm 2022-08-10 00:00 height_standard 66 in 2022-08-10 00:00 respiration_rate 16 /min 2022-08-10 00:00 temperature_metric 36.83 C 2022-08-10 00:00 temperature_standard 98.3 F 2022-08-10 00:00 weight_metric 112.49 kg 2022-08-10 00:00 weight_standard 248 lb 2022-10-27 00:00 BMI 37.4 kg/m2 2022-10-27 00:00 BP_diastolic 70 mmHg 2022-10-27 00:00 BP_systolic 116 mmHg 2022-10-27 00:00 heart_rate 75 /min 2022-10-27 00:00 height_metric 172.72 cm 2022-10-27 00:00 height_standard 68 in 2022-10-27 00:00 o2_saturation 99 % 2022-10-27 00:00 respiration_rate 14 /min 2022-10-27 00:00 temperature_metric 36.44 C 2022-10-27 00:00 temperature_standard 97.6 F 2022-10-27 00:00 weight_metric 111.66 kg 2022-10-27 00:00 weight_standard 246.17 lb
[2022-11-04 02:45] VITALS: BP 111/88
--- NOTE | 2022-11-04 03:25 | ED Physician Documentation ---
History of Present Illness - Stated complaint Stated Complaint: DIZZY/NOSE BLEED - Chief complaint Chief Complaint: Heent - History obtained from History obtained from: Patient - Additonal information Additional information: HPI from patient. 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 She wiped at it with back of her hand and noted blood, got up and felt as though she then had blood drip down back of throat which she swallowed. She says she noted dried blood around left nare and has had intermittent blood going down back of throat including during HPI. She has had a few days of nasal congestion. No injury, no fevers, has not needed medical attention for epistaxis in the past. She does not take any blood- thinning medications. Review of Systems Constitutional: reports: Reviewed and negative Nose: reports: Congestion, Epistaxis. 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: Ovarian cysts, Other : None HEENT: Other Psych: Depression, Anxiety Musculoskeletal: Chronic back pain, Other Derm: None Other Past Medical History: PCOS; Deviated Septum - Past Surgical History Past Surgical History: Yes /ORTHOPEDICS PEDIATRIC PHYSICIAN: Breast reduction - Present Medications Home Medications: Ambulatory Orders Medication Instructions Recorded Confirmed buPROPion HCL [Bupropion Xl] 150 mg PO DAILY 07/07/21 11/04/22 Cyclobenzaprine HCl 5 mg PO DAILY PRN 11/04/22 11/04/22 - Allergies Allergies/Adverse Reactions: Allergies Allergy/AdvReac Type Severity Reaction Status Date / Time sertraline Allergy Unknown Verified 11/04/22 02:44 tramadol AdvReac Emesis Verified 11/04/22 02:44 - Social History Does the pt smoke?: No Smoking Status: Never smoker Does the pt drink ETOH?: No Does the pt have substance abuse?: No - Immunizations Immunizations are current?: Yes - POLST Patient has POLST: No PD ED PE NORMAL - Vitals Vital signs reviewed: Yes - General General: Alert and oriented X 3, No acute distress, Well developed/nourished - HEENT HEENT: Moist mucous membranes, Pharynx benign PD ED PE EXPANDED - HEENT HEENT: Nasal congestion (boggy and hyperemic mucous membranes bilateral nares, R>L), Moist mucous membranes, Other (no dried blood nor active bleeding in either nare nor in posterior o/p). No: Right nares epsitaxis, Left nares epistaxis Results - Vitals Vitals: Oxygen O2 Source Room air PD Medical Decision Making - ED course Complexity details: considered differential, d/w patient ED course: No active bleeding bilateral nares nor any blood noted in posterior o/p, both on initial exam as well as reexam prior to d/c. No "candidates" in either anterior nare for possible source of epistaxis (to consider for possible cautery). Return precautions d/w patient. No emergent testing nor treatment is indicated at this time Departure - Departure Disposition: 01 Home, Self Care Clinical Impression: Epistaxis Condition: Good Instructions: ED Nosebleed Discharge Date/Time: 11/04/22 04:07
== END 2022-11-04 04:07 | disposition home or self-care (01) ==
LOC: ED 02:34
DX: R04.0 Epistaxis (principal)
CPT/HCPCS: 99281; 99283

== ENCOUNTER 2022-11-14 09:07 | Emergency (ER) | payer MEDICAID ==
--- OUTSIDE RECORDS SUMMARY | 2022-11-14 09:43 | EXTERNAL MEDICAL SUMMARY RPT | Continuity of Care Document ---
Author Name Unknown Address [address] [place] [address] Phone Organization [facility] Address [address] [place] [address] Phone Care Team Providers Care Corporate Giving Manager Name Role Phone Tim Frausto Unavailable Unavailable Le Ban Vola Unavailable Unavailable Medications date description facility 2022-10-27 00:00 [facility] 2022-10-06 00:00 [facility] 2022-08-18 00:00 [facility] 2022-08-18 00:00 [facility] 2022-08-18 00:00 [facility] 2022-08-18 00:00 [facility] Results/Labs test date facility value unit notes Social History date description facility 2022-08-18 00:00 Never smoked tobacco (finding) [facility] 2022-10-06 00:00 Never smoked tobacco (finding) [facility] 2022-10-27 00:00 Never smoked tobacco (finding) [facility] Vital Signs date measurement value units 2022-10-27 00:00 BMI 37.4 kg/m2 2022-10-27 00:00 [...]
--- NOTE | 2022-11-14 10:36 | ED Physician Documentation ---
PD HPI BACK PAIN - Stated complaint Stated Complaint: BACK PX - Chief complaint Chief Complaint: Back Pain - History obtained from History obtained from: Patient - History of Present Illness Timing - onset: Last night, Yesterday Timing - details: Gradual onset, Still present, Waxing and waning Location: Lower, Right Quality: Pain, Spasm, Aching Associated symptoms: Numbness (she state she had feeling of numbness intermittently to thighs. Not consistent. No weakness per se, but has pain with walking.). No: Fever, Weakness Improves with: No: Rest Worsened by: Movement, Twisting Contributing factors: Lifting, Twisting. No: Trauma Similar symptoms before: Diagnosis (intemittent low back pain. Had more prolonged episode 3 years ago with disc problem, and she states had disc injection and :the area cleaned up" but description does not sound like surgery per se, and I don't see scar in the are. ? 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: Ovarian cysts, Other : None HEENT: Other Psych: Depression, Anxiety Musculoskeletal: Chronic back pain, Other Derm: None - Past Surgical History Past Surgical History: Yes /SET UP PERSON: Breast reduction - Present Medications Home Medications: Ambulatory Orders Medication Instructions Recorded Confirmed buPROPion HCL [Bupropion Xl] 150 mg PO DAILY 07/07/21 11/04/22 Cyclobenzaprine HCl 5 mg PO DAILY PRN 11/04/22 11/04/22 HYDROcod/ACETAM 5/325 [[place] 5/325] 1 ea PO Q6H PRN #20 tablet 11/14/22 dexAMETHasone [Decadron] 4 mg PO DAILY #5 tablet 11/14/22 - Allergies Allergies/Adverse Reactions: Allergies Allergy/AdvReac Type Severity Reaction Status Date / Time sertraline Allergy Unknown Verified 11/14/22 09:18 tramadol AdvReac Emesis Verified 11/14/22 09:18 - Social History Does the pt smoke?: No Smoking Status: Never smoker Does the pt drink ETOH?: No Does the pt have substance abuse?: No - Immunizations Immunizations are current?: Yes - POLST Patient has POLST: No PD ED PE NORMAL - Vitals Vital signs reviewed: Yes - General General: Alert and oriented X 3, Well developed/nourished, Other (appears in pain and guarding movement of low back. f) - Abdomen Abdomen: Normal bowel sounds, Soft, Non tender - Back Back: No spinal TTP, Other (tender soft tissue right paralumbar area without trigger point/focal tenderness per se. ) - Derm Derm: Normal color, Warm and dry, No rash - Extremities Extremities: No edema, No calf tenderness / cord - Neuro Neuro: Alert and oriented X 3, No motor deficit, No sensory deficit (normal touch/ sharp distinction. ), Normal speech Results - Vitals Vitals: Vital Signs - 24 hr 11/14/22 11/14/22 09:15 12:49 Temperature 36.3 C L 37.1 C Heart Rate 64 70 Respiratory 20 16 Rate Blood Pressure 125/81 H 121/77 O2 Saturation 98 100 Oxygen O2 Source Room air PD Medical Decision Making - ED course Complexity details: reviewed old records (I reviewed the MRI report from 2019 which described some broad-based disc protrusion in the lumbar area at 1 level with some crowding of the nerve root space. No protrusion centrally.) ED course: The patient has onset of back pain without any notable trauma/injury. History of back pain with reported local injection it sounds like in the disc area with improvement. She does state the area was "cleaned up" but I do not see any scar and she denies surgery/incision per se. Unclear what was done unless it was done by scope or such. The patient does not have any red flags such as lower extremity paresis or paresthesias, incontinence, fever chills, skin sores or other areas of pain. She is tender in the myofascial area adjacent to the spine and not centrally per se. I do not feel an indication for urgent imaging at this time. No red flags. I intended to give the patient injection of Toradol and Dilaudid as she was quite uncomfortable and asking for some pain medicine. It was ordered and as a nurse approach to give the medication, she declined the hydromorphone. I talked with her and she would prefer oral for the narcotic portion. She had gotten the Toradol. We can prescribe some anti-inflammatory and muscle relaxant along with pain medicine for the short-term and see how she does with this. Her mother is with her in the room and is available to hear the conversation. Departure - Departure Disposition: 01 Home, Self Care Clinical Impression: Acute low back pain Qualifiers: Back pain laterality: unspecified Sciatica presence: without sciatica Qualified Code(s): M54.50 - Low back pain, unspecified Condition: Stable Record reviewed to determine appropriate education?: Yes Follow-Up: JANE SORIANO DO [Primary Care Provider] - Prescriptions: dexAMETHasone [Decadron] 4 mg PO DAILY #5 tablet HYDROcod/ACETAM 5/325 [[place] 5/325] 1 ea PO Q6H PRN #20 tablet PRN Reason: Pain Comments: Heat and gentle stretching for the low back to reduce stiffness. Localized treatment of massage or chiropractic or such are good as well. We typically will approach this with anti-inflammatory, muscle relaxant, pain medicine. In the short-term we can use a steroid anti-inflammatory with dexamethasone daily for the next 5 days. Continue with your cyclobenzaprine muscle relaxant and consider taking it 3 times daily for the next several days to week. Add Tylenol every 4-6 hours if needed for pain or the hydrocodone/acetaminophen if needed for worse pain. You can use NSAIDs such as ibuprofen or naproxen as well. I would anticipate improvement in your pain over the next few days and resolution of it can take even a week or 2 sometimes but should be considerably improved in the short-term. Follow-up with your primary care or your back specialist if not readily improving. I sent your prescriptions to [facility] pharmacy. I am prescribing a short course of narcotic pain medication for you. These are potentially dangerous and addictive medications that should be used carefully. These medications may constipate you. Take an [id number] stool softener such as docusate twice daily with plenty of water while taking these medications. If you go 24 hours without a bowel movement, take [id number] MiraLAX, per package instructions. Do not drink or drive while taking these medications. If you received narcotic or sedating medications while in the emergency department do not drive for 24 hours. Store this medication in a safe, secure place and out of reach of children. It is a violation of federal law to give or sell this medication to another person or to use in a manner other than prescribed. The ED will not refill narcotic prescriptions, including prescriptions lost or stolen. You can dispose of unwanted medications at the [facility]'s office or at several pharmacies such as [facility]. Discharge Date/Time: 11/14/22 12:51
[2022-11-14] MEDS ORDERED: HYDROmorphone 2 MG/ML VIAL IM STA (11:10)
[2022-11-14] MEDS ORDERED: KETOROLAC 30 MG/ML VIAL IM STA (11:10)
[2022-11-14] MEDS ORDERED: dexAMETHasone 4 MG TABLET PO STA (11:11)
[2022-11-14] MEDS ORDERED: HYDROcod/ACETAM 5/325 MG TABLET PO STA (12:06)
[2022-11-14 12:56] VITALS: BP 121/77
== END 2022-11-14 12:51 | disposition home or self-care (01) ==
LOC: ED 09:07
DX: M54.50 Low back pain, unspecified (principal)
CPT/HCPCS: 96372; 99283; A9270; J8540

== ENCOUNTER 2024-01-01 00:38 | Emergency (ER) | payer MEDICAID ==
[2024-01-01 00:53] VITALS: O2SAT 99
--- NOTE | 2024-01-01 01:03 | ED Physician Documentation ---
History of Present Illness - Stated complaint Stated Complaint: ABD PX/N/V - Chief complaint Chief Complaint: Abd Pain - History obtained from History obtained from: Patient - Additonal information Additional information: 28-year-old woman presents with nonbloody nonbilious nausea and vomiting nonbloody diarrhea starting today with subjective fever and chills. Also with cramping abdominal pain. Denies urinary symptoms, back pain. 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: Ovarian cysts, Other : None HEENT: Other Psych: Depression, Anxiety Musculoskeletal: Chronic back pain, Other Derm: None - Past Surgical History Past Surgical History: Yes /CONTACT CLERK: Breast reduction - Present Medications Home Medications: Ambulatory Orders Medication Instructions Recorded Confirmed buPROPion HCL [Bupropion Xl] 150 mg PO DAILY 07/07/21 11/04/22 Cyclobenzaprine HCl 5 mg PO DAILY PRN 11/04/22 11/04/22 HYDROcod/ACETAM 5/325 [[place] 5/325] 1 ea PO Q6H PRN #20 tablet 11/14/22 dexAMETHasone [Decadron] 4 mg PO DAILY #5 tablet 11/14/22 Ondansetron Odt [Zofran Odt] 4 mg TL Q6H PRN #10 tablet 01/01/24 Oxycodone HCl/Acetaminophen 1 each PO Q4H PRN #8 tablet 01/01/24 [Percocet 5-325 mg Tablet] - Allergies Allergies/Adverse Reactions: Allergies Allergy/AdvReac Type Severity Reaction Status Date / Time sertraline Allergy Unknown Verified 01/01/24 00:48 tramadol AdvReac Emesis Verified 01/01/24 00:48 - Social History Does the pt smoke?: No Smoking Status: Never smoker Does the pt drink ETOH?: No Does the pt have substance abuse?: No - Immunizations Immunizations are current?: Yes - POLST Patient has POLST: No PD ED PE NORMAL - Vitals Vital signs reviewed: Yes - General General: Alert and oriented X 3, No acute distress, Well developed/nourished - HEENT HEENT: Atraumatic, PERRL, EOMI - Neck Neck: Supple, no meningeal sign - Cardiac Cardiac: RRR - Respiratory Respiratory: No respiratory distress, Clear bilaterally - Abdomen Abdomen: Non tender, Non distended, Other (Discomfort to palpation in epigastrium) - Derm Derm: Normal color, Warm and dry - Extremities Extremities: No deformity Results - Vitals Vitals: Vital Signs - 24 hr 01/01/24 01/01/24 00:45 00:48 Temperature 36.2 C L Heart Rate 63 68 Respiratory 18 Rate Blood Pressure 131/79 H O2 Saturation 99 Oxygen O2 Source Room air - Labs Labs: Laboratory Tests 01/01/24 01/01/24 01/01/24 00:50 00:50 01:30 WBC 10.5 RBC 4.64 Hgb 13.9 Hct 40.6 MCV 87.5 MCH 30.0 MCHC 34.2 RDW 13.0 Plt Count 289 MPV 9.6 Neut # (Auto) 7.5 H Lymph # (Auto) 2.4 [place] # (Auto) 0.5 Eos # (Auto) 0.1 Baso # (Auto) 0.0 Absolute Nucleated RBC 0.00 Nucleated RBC % 0.0 Sodium 137 Potassium 3.4 L Chloride 104 Carbon Dioxide 26 Anion Gap 7.0 BUN 10 Creatinine 0.8 Estimated GFR (MDRD) 87 L Glucose 97 Calcium 9.8 Total Bilirubin 0.6 AST 361 H ALT 109 H Alkaline Phosphatase 49 Total Protein 6.8 Albumin 3.9 Globulin 2.9 Albumin/Globulin Ratio 1.3 Lipase 27 Urine Color YELLOW Urine Clarity CLEAR Urine pH 7.0 Ur Specific [place] 1.020 Urine Protein NEGATIVE Urine Glucose (UA) NEGATIVE Urine Ketones 15 H Urine Occult Blood NEGATIVE Urine Nitrite NEGATIVE Urine Bilirubin NEGATIVE Urine Urobilinogen 0.2 (NORMAL) Ur Leukocyte Esterase NEGATIVE Urine RBC 0-5 Urine WBC 0-3 Ur Squamous Epith Cells RARE Squamous Urine Bacteria Rare Urine Culture Comments NOT INDICATED Urine HCG, Qual NEGATIVE PD Medical Decision Making - ED course ED course: 28-year-old woman presents with viral gastroenteritis symptoms starting today. Symptomatic management with zofran, fluids and morphine provided with improvement. tolerating PO water. Return precautions given. Plan to follow-up with primary care provider. Departure - Departure Disposition: 01 Home, Self Care Clinical Impression: Vomiting, Diarrhea, Abdominal pain, Transaminitis Condition: Stable Instructions: ED Diet Vomiting Diarrhea Prescriptions: Oxycodone HCl/Acetaminophen [Percocet 5-325 mg Tablet] 1 each PO Q4H PRN #8 tablet PRN Reason: Pain >8 Ondansetron Odt [Zofran Odt] 4 mg TL Q6H PRN #10 tablet PRN Reason: Nausea / Vomiting Comments: You were seen in the emergency department for vomiting and diarrhea. [facility] Some of your liver tests were a bit high, lik brian due to viral stomach virus. You can have this rechecked in a couple weeks. For percoset: Do not use when driving or operating heavy machinery. Dispose of any unused pills at your local police station. This medication may cause constipation. If you are prone to constipation then please take with [id number]-vid-[id number] sennadocusate and MiraLAX. Please follow-up with your primary care provider and return to the emergency department if you have any new or worsening symptoms or other concerns. Forms: PCP List
[2024-01-01 01:05] LABS: BASOPHILS % (AUTO) 0.3 %; EOSINOPHILS # (AUTO) 0.1 10^3/uL (0.0-0.7); EOSINOPHILS % (AUTO) 0.9 %; HCT - HEMATOCRIT 40.6 % (37.0-47.0); HGB - HEMOGLOBIN 13.9 g/dL (12.0-16.0); LYMPHOCYTES # (AUTO) 2.4 10^3/uL (1.5-3.5); LYMPHOCYTES % (AUTO) 22.3 %; MEAN CORPUSCULAR HGB CONC 34.2 g/dL (32.0-36.0); MEAN CORPUSCULAR VOLUME 87.5 fL (81.0-99.0); MEAN PLATELET VOLUME 9.6 fL (7.9-10.8); MONOCYTES # (AUTO) 0.5 10^3/uL (0.0-1.0); MONOCYTES % (AUTO) 5.1 %; NEUTROPHILS # (AUTO) 7.5 10^3/uL (1.5-6.6); NEUTROPHILS % (AUTO) 71.1 %; PLT - PLATELET COUNT 289 10^3/uL (130-450); RED BLOOD COUNT 4.64 10^6/uL (4.20-5.40); WHITE BLOOD COUNT 10.5 x10^3/uL (4.8-10.8)
[2024-01-01] MEDS: ONDANSETRON 4 MG/2 ML VIAL IVP STA (01:07)
[2024-01-01] MEDS: SODIUM CHLORIDE 0.9% 1,000 ML IV STA (01:07)
[2024-01-01] MEDS: MORPHINE 10 MG/ML VIAL IVP STA (01:07)
[2024-01-01 01:21] LABS: ALBUMIN 3.9 g/dL (3.2-5.5); ALBUMIN/GLOBULIN RATIO 1.3 (1.0-2.2); BILIRUBIN,TOTAL 0.6 mg/dL (0.2-1.0); CALCIUM 9.8 mg/dL (8.5-10.3); CREATININE 0.8 mg/dL (0.6-1.3); POTASSIUM 3.4 mmol/L (3.5-4.5); TOTAL PROTEIN 6.8 g/dL (6.4-8.9)
[2024-01-01 01:39] LABS: BILIRUBIN,URINE NEGATIVE (NEGATIVE); GLUCOSE, URINE (UA) NEGATIVE (NEGATIVE); KETONES,URINE (UA) 15 mg/dL (NEGATIVE); LEUKOCYTE ESTERASE, URINE NEGATIVE (NEGATIVE); NITRITE,URINE NEGATIVE (NEGATIVE); OCCULT BLOOD,URINE NEGATIVE (NEGATIVE); PROTEIN,URINE NEGATIVE (NEGATIVE); UROBILINOGEN,URINE 0.2 (NORMAL) E.U./dL (NORMAL)
[2024-01-01 01:41] LABS: CLARITY,URINE CLEAR (CLEAR); HCG UR QUAL NEGATIVE
[2024-01-01 01:47] LABS: BACTERIA,URINE Rare /HPF (None Seen); RBC,URINE 0-5 /HPF (0-5); SQUAMOUS EPITHELIAL CELL,UR RARE Squamous (<= Few); WBC,URINE 0-3 /HPF (0-5)
[2024-01-01] MEDS: METOCLOPRAMIDE 10 MG/2 ML VIAL IVP STA (02:04)
[2024-01-01 02:17] VITALS: BP 131/87
== END 2024-01-01 02:12 | disposition home or self-care (01) ==
LOC: ED 00:38
DX: R11.2 Nausea with vomiting, unspecified (principal); R19.7 Diarrhea, unspecified; R10.9 Unspecified abdominal pain; R74.01 Elevation of levels of liver transaminase levels
CPT/HCPCS: 36415; 80053; 81001; 81025; 83690; 85025; 96374; 96375; 99283; 99284; J2765; 87086